=== PATIENT | female | born 1935 | race Caucasian/White ===

== ENCOUNTER 2018-01-17 10:33 | Day surgery (SDC) | payer MEDICARE, SELFPAY ==
[2017-12-27 15:56] VITALS: BMI 25.2
[2018-01-17] VITALS (13 sets, daily range): BP systolic 109–157; BP diastolic 69–94; PULSE 14–85; RESP 12–24; TEMP 36–36.7; O2SAT 92–98; BMI 25.2
--- NOTE | 2018-01-17 11:25 | PM.PREOP ---
Pre-operative Note Interval Note Pre-op Check: History & Physical Reviewed by Physician
[2018-01-17] MEDS: LACTATED RINGERS 1,000 ML 42 ML IV ×2 (11:30→16:43)
[2018-01-17] MEDS: MIDAZOLAM 2 MG/2 ML VIAL IV (12:04)
[2018-01-17] MEDS: fentaNYL 100 MCG/2 ML INJ 50 MCG IV (12:04)
--- NOTE | 2018-01-17 12:10 | PM.OP.1 ---
Operative Date/Time/Diagnoses - Date of procedure: 01/17/18 Time of procedure: 12:30 Pre-op diagnosis: Right closed ankle fracture ICD 10 S82.891A Complication orthopedic implant ICD 10 T84.9 Post-op diagnosis: same Procedure & Clinicians Procedure: 1. Revision procedure right syndesmosis with exchange syndesmotic screw CPT code 42831 modifier 78 2. Removal implant deep right ankle CPT code 24955 Same procedure as scheduled: Yes Indications: Operative indications: The patient has an unstable and displaced right ankle fracture status post ORIF 12/27/17. At postoperative followup the patient's syndesmotic screw was noted to have been loosened and backed out partially. The patient had had a few episodes of putting weight on the ankle, and her daughter states administrative sales assistant did get her up on her feet at the long-term, but she has had no clear falls or new trauma. The patient was indicated for revision syndesmotic fixation, to remove the loose hardware, and stabilize the syndesmosis and prevent late diastasis, and skin irritation. The patient was counseled regarding the rationale for this and the risks of surgery. The risks include infection, bleeding, damage to nerves and blood vessels, or tendons, wound dehiscence, malunion, nonunion, persistence of pain, DVT, PE, inability to return to her desired level of function, hardware breakage or prominence, generalized dissatisfaction with the procedure, need for additional procedures, cardiopulmonary complications and . The patient expressed understanding of all the risks and elected to proceed. Consent was signed in the office. Patient understands that recovery is variable and may require up to a 1 year. The patient also understands that it is critical to strictly elevate the operative leg for the 1st 2 weeks after surgery to control swelling and pain. The patient was counseled that no way will be allowed on the surgical leg for approximately 6 weeks or until the patient is instructed that it is safe to initiate weight-bearing. The patient expressed full understanding of all these issues would like to proceed with surgery. The patient was additionally counseled on cessation of all nicotine products to promote bone and wound healing. DVT prophylaxis was discussed and her Xarelto was held 72 hr prior to the procedure and will restart on postoperative day 1. She will have Ancef for preoperative antibiotic. Surgeon: Ebony Calvo Click Yes if Unassisted: No Anesthesia Type: General and Peripheral nerve block Operative Notes Findings: Lateral incision was reopened at the distal aspect and the prominent and grossly loose 3.5 syndesmotic screw was visualized just under the skin with incision. This was removed without difficulty. The syndesmosis was stabilized with 25.0 osteopenia screws from the Keating [employer] Nephew periloc set Closure Type: primary Specimen(s): none sent Implants & Drains: Keating [employer] Nephew 5.0mm osteopenia screw 50 mm Keating and Nephew 5.0 mm osteopenia screw 44 mm Estimated Blood Loss (mL): 2 Blood products transfused: none Tourniquet time (min): 50 Procedure in detail: Procedure in detail: In the preoperative holding area, the appropriate limb and site was marked, this was the right ankle. The consent was again reviewed with the patient and all questions answered. Patient elected for a preoperative block with the anesthesia team. The patient was then brought to the operating room, placed on the operating table and given anesthetic. Following successful levels of anesthesia, the patient was appropriately padded, position secured to the table, in the supine position with a ipsilateral thigh bump. An SCD was placed on the contralateral leg. All bony prominences were well padded. A well-padded thigh tourniquet was placed. The surgical leg was then prepped and draped in the usual sterile fashion. A formal time-out procedure was completed confirming the patient, site and side of surgery and administration of appropriate preoperative antibiotics. All were in agreement. An Esmarch bandage was utilized to exsanguinate the limb and the tourniquet was raised on the thigh to 250 mmHg. This remained elevated for 50 min. The C-arm was brought in and the hardware visualized. The location of the loose syndesmotic screw was marked and the distal half of the previous Lateral incision was reopened over the fibula. Dissection was carried through the skin and subcutaneous tissue to the level of the fibula. The loose syndesmotic screw was visualized immediately upon skin incision and removed without difficulty. The fibula was felt to be out to length, and the fracture in good alignment on x-ray, therefore the fracture was not re-exposed. The syndesmosis was evaluated clinically and under fluoroscopic imaging. Ankle was stressed under fluoroscopic imaging an external rotation and fibular manipulation using the bone clamp/hook. The syndesmosis was felt to again have supra physiologic motion anterior to posterior, and from the previous operation there was a known rent was noted with open visualization. Syndesmosis was openly visualized, reduced with thumb pressure and pinned parallel to the joint with a 1.6 K-wire, under C-arm visualization. Next a 5.0 mm osteopenia screw from the Keating [employer] Nephew set was selected for quadracortical fixation through the previous syndesmotic screw hole. This obtained a good bite and tightened down well. For additional fixation, due to the patient's osteopenia and previous screw loosening, the next proximal fibula 3.5 screw was removed and exchanged for another Quadracortical 3.5 syndesmotic screw. However even with 4 cortices this did not obtain adequate bite and was spinning with tightening. The 3.5 screw was removed, and a 2nd 5.0 mm osteopenia screw was selected and placed obtaining good fixation/bite. Syndesmosis was then stressed under fluoroscopy and direct visual examination and noted to be stable. The mortise was anatomic. I was happy with this fixation. Final end of procedure imaging was obtained. The wound was irrigated with normal saline. The tourniquet was released hemostasis was achieved and the wound was closed in layers with 3 0 Vicryl and 3-0 nylon suture. A soft sterile dressing was placed and the patient was placed back into a postoperative boot. All counts were correct. The patient was then awoken and transported to recovery room in good condition. There no known immediate complications from this procedure. Complications: none Condition: stable Disposition: Acute Care Plan for aftercare: Postoperative plan: Patient will be nonweightbearing on the surgical leg. They will start taking Xarelto 20 mg daily on postoperative day 1, which will continue her treatment for a known below-knee thrombosis. (she has completed the 1st 3 weeks of b.i.d. dosing). Patient will be admitted to the hospital for evaluation by physical therapy and plan to penitentiary discharge due to her need to be nonweightbearing on the right side and requirements for assistance due to this injury as well as her chronic patellar tendon rupture which further complicates her ambulation. The patient will follow up in 2 week for wound check she will continue to be nonweightbearing on the right lower extremity for 6 weeks.
[2018-01-17] MEDS: CEFAZOLIN 2 GM/100 ML FROZ.PIGGY IV (12:25)
--- NOTE | 2018-01-17 12:30 | DI.RAD.S_ITS ---
PROCEDURE: XR ANKLE RT MIN 3V INDICATIONS: HARDWARE REPAIR TECHNIQUE: 3 views of the ankle were acquired. COMPARISON: [facility], CR, XR ANKLE 3+ VIEWS RIGHT, 01/07/2018, 13:46. [facility], CR, XR ANKLE 3+ VIEWS RIGHT, 01/14/2018, 14:26. [facility], CR, XR ANKLE RT MIN 3V, 12/27/2017, 10:43. FINDINGS: Bones: Partially retracted surgical fixation screw traversing the tibiofibular syndesmosis has been removed and presumed new surgical screw has been placed which appears in expected position. Hardware and bone alignment otherwise appears unchanged. Soft tissues: No tibiotalar joint effusion. Achilles tendon appears normal. IMPRESSION: Presumed removal of partially retracted tibiofibular syndesmotic screw with placement of new syndesmotic screw in expected position. Dictated by: Sourav Shipley [facility] Interpreted: Jose Alejandro Ortega MD on 01/17/2018 at 14:26 Approved by: Jose Alejandro Ortega M.D. on 01/17/2018 at 15:16
--- NOTE | 2018-01-17 13:02 | SUR.OPER ---
Supine on padded OR bed, head on pillow, arms secured on padded arm boards at <90 degrees abduction, legs uncrossed, safety belt at thigh, tape over blanket over lower legs.
[2018-01-17] MEDS: BUPIVACAINE 0.25% (PF) 30 ML VIAL 20 ML INJ (13:39)
--- NOTE | 2018-01-17 14:34 | PM.PNPO.1 ---
Subjective Interval history: Status post revision syndesmosis right ankle for loose screw. Exam Vital Signs (past 8 hours): Vital Signs - 8 hr 01/17/18 11:19 01/17/18 13:48 01/17/18 13:49 Temperature 98.0 F 97.8 F 97.7 F Pulse Rate 70 14 L 84 Respiratory Rate 24 16 12 Blood Pressure 117/79 145/81 H 145/81 H Pulse Oximetry 96 96 95 01/17/18 13:55 01/17/18 14:10 Temperature 97.8 F Pulse Rate 76 76 Respiratory Rate 16 14 Blood Pressure 138/72 H 148/81 H Pulse Oximetry 95 96 Pulse Oximetry 96 Oxygen Delivery Method Room Air Assessment & Plan Post-op Postoperative Procedures Operation Date: 01/17/18 12:30 Actual Procedures Side Surgeon p Revision open reduction internal fixation Syndesmosis with exchange of Syndesmotic Screws Right Ebony Calvo MD Postop day 0 revision syndesmotic screws right ankle. The patient will be nonweightbearing right lower extremity. She will have SCD on the contralateral leg. She will restart her DVT anticoagulation for known below-knee DVT on the right side this will be Xarelto 20 mg daily starting postoperative day 1. She will continue this for 3 months of treatment. She will be discharged back to her snf on postoperative day 1 she is still nonweightbearing on the right side requires assistance for ambulation. She will keep her incision clean dry and intact. The sterile dressing in place until follow-up in the clinic. Use the removable boot for protection. She may come out of the boot several times a day for her ankle range of motion and a skin check. Postoperative pain control will be with her block, local anesthetic and [place] as needed. She will have 2 doses of postoperative antibiotics. Postoperative day: 0 Postoperative plan: other Time Spent With Patient less than 15 minutes
--- NOTE | 2018-01-17 14:40 | P.PN_ITS ---
Subjective Interval history: Status post revision syndesmosis right ankle for loose screw. Exam Vital Signs (past 8 hours): Vital Signs - 8 hr 3 01/17/18 11:19 01/17/18 13:48 01/17/18 13:49 Temperature 98.0 F 97.8 F 97.7 F Pulse Rate 70 14 L 84 Respiratory Rate 24 16 12 Blood Pressure 117/79 145/81 H 145/81 H Pulse Oximetry 96 96 95 3 01/17/18 13:55 01/17/18 14:10 Temperature 97.8 F Pulse Rate 76 76 Respiratory Rate 16 14 Blood Pressure 138/72 H 148/81 H Pulse Oximetry 95 96 Pulse Oximetry 96 Oxygen Delivery Method Room Air Assessment & Plan Post-op Postoperative Procedures Operation Date: 01/17/18 12:30 Actual Procedures Side Surgeon p Revision open reduction internal fixation Syndesmosis with exchange of Syndesmotic Screws Right Ebony Calvo MD Postop day 0 revision syndesmotic screws right ankle. The patient will be nonweightbearing right lower extremity. She will have SCD on the contralateral leg. She will restart her DVT anticoagulation for known below-knee DVT on the right side this will be Xarelto 20 mg daily starting postoperative day 1. She will continue this for 3 months of treatment. She will be discharged back to her snf on postoperative day 1 she is still nonweightbearing on the right side requires assistance for ambulation. She will keep her incision clean dry and intact. The sterile dressing in place until follow-up in the clinic. Use the removable boot for protection. She may come out of the boot several times a day for her ankle range of motion and a skin check. Postoperative pain control will be with her block, local anesthetic and [place] as needed. She will have 2 doses of postoperative antibiotics. Postoperative day: 0 Postoperative plan: other Time Spent With Patient less than 15 minutes
--- NOTE | 2018-01-17 14:58 | SUR.PHASEI ---
1425.. pt awake and alert.. ready for transportt... wants to see her daughter.. boot on.. pain 09/18.. on heel.. dr luciano aware and boot removed and all wnl... nv checks all normal.. pt states it is on the inside.. iv patent.. no nausea.. declines any pain meds at this time
[2018-01-17] MEDS: HYDROCODONE/ACET 5/325 TABLET 1 TAB PO ×2 (19:19→21:40)
[2018-01-17] MEDS: DOCUSATE 100 MG CAPSULE PO (20:37)
[2018-01-17] MEDS: ACETAMINOPHEN 325 MG TABLET 650 MG PO (20:37)
--- NOTE | 2018-01-17 22:54 | PC.NURSE ---
Evening Shift Note A&O, VSS, 96% RA, CMS intact. [place] for pain. No N/V, diet advanced to reg for am. R ankle in boot, can have off while in bed, pt prefers to keep it on, encouraged to remove as needed to assess skin and CMS. R ankle/leg w/ [place] wrap C/D/I. LR @ 42ml/hr via L H PIV.
[2018-01-18] MEDS: HYDROCODONE/ACET 5/325 TABLET 1 TAB PO ×2 (01:33→03:45)
[2018-01-18 04:03] VITALS: BP 136/79; PULSE 60; RESP 15; TEMP 36.4; O2SAT 98
--- NOTE | 2018-01-18 04:18 | PC.NURSE ---
[employer]-Pt A&OX3, has not slept throughout shift. Reporting 4/10 pain to bottom of right foot. Boot taken off at 0045, ice pack X2 placed to lower leg/ankle, RLE elevated on pillows. Dorsal pulse palpable, no edema noted at this time. Cap refill <2 secs, Pt able to move toes. [place] wrap CDI. Pain management plan discussed. Held scheduled Tylenol as pt receiving dosing of prn Benld. Benld given at 0140 1 tab, 4 hours after last dose given. Reviewed MAR & discussed with college scouting coordinator. Additional Benld 1 tab given at 0345 per order to give additional tab as pain was not relieved. Denies nausea, chest pain. VSS, O2 sat 98% on RA. Voiding in bedpan. Calf SCD to LLE. Incentive spirometry instructed and pt able to demonstrate properly. PIV S/L'd.
[2018-01-18 04:57] VITALS: BMI 26.7
--- NOTE | 2018-01-18 07:38 | PM.PNPO.1 ---
Subjective Date Patient Seen: 01/18/18 Time Patient Seen: 07:38 Interval history: Pt in bed. Complaining that she could not get her pain under control all night until 5am. Concerned with pain control and does not feel ready to go back to [facility] today. PD 1. Revision procedure right syndesmosis with exchange syndesmotic screw for Rt ankle fx by Dr. Calvo. Pt also has DVT in Rt leg and is on Zarelto. Exam Vital Signs (past 8 hours): Vital Signs - 8 hr 01/17/18 23:59 01/18/18 04:03 Temperature 97.7 F 97.6 F Pulse Rate 71 60 Respiratory Rate 15 15 Blood Pressure 109/69 136/79 H Pulse Oximetry 92 98 Pulse Oximetry 98 Oxygen Delivery Method Room Air Narrative Exam Narrative: Pt in bed. A&O x3. Right ankle dressing clean and dry. Full sensation in toes and foot. Good cap refill. Calf soft and nontender. Assessment & Plan Post-op Postoperative Procedures Operation Date: 01/17/18 12:30 Actual Procedures Side Surgeon p Revision open reduction internal fixation Syndesmosis with exchange of Syndesmotic Screws Right Ebony Calvo MD Pt will be restarted on Xarelto 20mg daily until 12/28/17. NWB on right leg in boot. Can come our of boot for gentle ROM and skin checks. Keep dressing clean and dry. Pt also needs 2 more doses of cefazolin before d/c. Increase [place] 5mg to 2 pills for pain control. May be able to be D/C this afternoon if pain under control. Postoperative status: marginal pain control Postoperative plan: routine post-op care Time Spent With Patient less than 15 minutes Quality VTE Deep Vein Thrombosis/Pulmonary Embolism Present on Admission: Yes
[2018-01-18 07:56] VITALS: BP 133/73; PULSE 60; RESP 16; TEMP 36.6; O2SAT 97
[2018-01-18] MEDS: RIVAROXABAN 10 MG TABLET 20 MG PO (09:13)
[2018-01-18] MEDS: DOCUSATE 100 MG CAPSULE PO ×2 (09:13→20:17)
[2018-01-18] MEDS: AMLODIPINE 2.5 MG TABLET PO (09:13)
[2018-01-18] MEDS: HYDROCODONE/ACET 5/325 TABLET 2 TAB PO ×2 (09:13→14:39)
[2018-01-18] MEDS: CITALOPRAM 20 MG TABLET PO (09:13)
[2018-01-18] MEDS: SODIUM CHLORIDE 0.9% FLUSH 10 ML IV ×3 (10:23→20:17)
[2018-01-18] MEDS: CEFAZOLIN 2 GM/100 ML FROZ.PIGGY IV ×2 (10:24→16:51)
[2018-01-18 12:00] VITALS: BP 108/61; PULSE 60; RESP 18; TEMP 36.4; O2SAT 98
--- NOTE | 2018-01-18 12:07 | PT.IIE ---
Current Diagnoses Other fracture of right lower leg, initial encounter for closed fracture (01/17/18) Unspecified complication of internal orthopedic prosthetic device, implant and graft, initial encounter (01/17/18) Surgery Performed Operation Date: 01/17/18 12:30 Actual Procedures p Revision open reduction internal fixation Syndesmosis with exchange of Syndesmotic Screws(Right) - Ebony Calvo MD Surgical History (Last Updated 12/23/17 @ 11:06 by Amanda Griffiths RN) History of incision and drainage (Acute) Hx of elbow surgery (Acute) Hx of total knee arthroplasty (Acute) Medical History (Last Updated 01/18/18 @ 07:42 by Carmina Mayo PA-C) Closed fracture of right distal fibula (Acute) Anemia, iron deficiency (Acute) Ankle fracture, right (Acute) Blood clot in vein (Acute) Cardiomegaly (Acute) Cellulitis (Acute) Hammer toe, acquired (Acute) History of hip fracture (Acute) 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) Hypertension (Acute) Muscle weakness (Acute) Osteoarthritis (Acute) Pneumonia (Acute) Thyroid nodule (Acute) Physical Therapy Inpatient Evaluation/Re-Eval M1 PT/OT-IP Prior Functional Status Start: 01/18/18 11:52 Freq: NEEDED Status: Active Protocol: Document 01/18/18 11:53 AB (Rec: 01/18/18 12:06 AB [id number]) Medical Review Prior Functional Status Medical History Reviewed Yes Mobility and Gait prior to ankle fracture: pt was modified independent with ambulation using 4WW prior to ankle ORIF revision: at [facility]: flora to do slide board transfer with one person assist Social History Household Members family children Living Arrangements House Number of Floors (Floors) 3 or More Floors Number of Stairs To Enter/Railing? split level house: has ~ 10 steps with bilateral rails but has a gravel pathway to get in from the garage: has 7 steps with no rails +platform+7 steps with R rail Home Environment High Toilet Home Equipment Four Wheel Walker Manual Wheelchair Shower Seat without Backrest Grab Bars Near Toilet Grab Bars In Shower Employment Status Retired Additional Social History Comment pt's daughter assists her with stair climbing and showers M2 PT-IP Current Condition Start: 01/18/18 11:52 Freq: NEEDED Status: Active Protocol: Document 01/18/18 11:53 AB (Rec: 01/18/18 12:06 AB [id number]) Physical Therapy Current Condition Current Condition Evaluation Date 01/18/18 Treatment Diagnosis R ankle ORIF revision; difficulty in walking Onset Date 01/17/18 Precautions Brace pt has cam boot brace present upon evaluation Weight Bearing Status Weight Bearing Status Non-Weight Bearing M3 PT-IP Subjective Start: 01/18/18 11:52 Freq: NEEDED Status: Active Protocol: Document 01/18/18 11:53 AB (Rec: 01/18/18 12:06 AB [id number]) Subjective Physical Therapy Visit Type Type Initial Evaluation Visit Start Time 11:02 Visit Stop Time 11:50 Total Visit Minutes 48 Number of HAND KNITTER Visits 0 Physical Therapy Visit Comments Patient Comments pt agreeable to do therapy Therapy Pain Assessment Pain When Pain Assessed During Mobility Pain Present Pain Present Pain Reported Location Right Ankle Intensity 7 Scale Used Numeric (1 - 10) Pain Management Techniques Apply Cold Timing of Activity with Medications M4 PT-IP Mobility and Gait Start: 01/18/18 11:52 Freq: NEEDED Status: Active Protocol: Document 01/18/18 11:53 AB (Rec: 01/18/18 12:06 AB [id number]) PT-Bed Mobility Assessment Supine to Sit Supine to Sit Minimal Assistance PT-Transfer Assessment Sit to and From Stand Sit to and from Stand Maximum Assistance 2 Person Assistance Use of Upper Extremities Equipment Transfer Assistive Device Gait Belt Front Wheeled Walker Orthotic/Prosthetic Devices or Brace: Yes Transfers Transfer Destination Chair Transfer Technique Stand Pivot Transfer Ability Level of Assist Maximum Assistance 2 Person Assistance Use of Upper Extremities Comments Mobility Comments pt require 2-3 person max A with max cues for stand pivot transfer. pt with decrease motor planning ability affecting function. pt requires assistance to keep NWB on RLE. Gait Assessment Comments Gait Comments unable to ambulate at this time PT-Balance Assessment Sitting Balance and Reactions Static Sitting Balance Ability Good Dynamic Sitting Balance Ability Good Standing Balance and Reactions Static Standing Balance Ability Fair Dynamic Standing Balance Ability Poor M5 PT-IP Objective Assessments Start: 01/18/18 11:52 Freq: NEEDED Status: Active Protocol: Document 01/18/18 11:53 AB (Rec: 01/18/18 12:06 AB [id number]) Orientation Orientation/Cognition Level of Alertness Alert Orientation Name Situation Safety Awareness Decreased Safety Awareness Memory Description Short Term Impaired Mcc Impaired Strength Lower Extremity Strength Assessment Bilaterally Impaired Comments Strength Comments (+) L knee crepitus with sit to stand M6 PT-IP Treatment Start: 01/18/18 11:52 Freq: NEEDED Status: Active Protocol: Document 01/18/18 11:53 AB (Rec: 01/18/18 12:06 AB [id number]) Physical Therapy Treatment Education Education Provided Precautions Weight Bearing Status Safety M7 PT-IP Assessment and Plan Start: 01/18/18 11:52 Freq: NEEDED Status: Active Protocol: Document 01/18/18 11:53 AB (Rec: 01/18/18 12:06 AB [id number]) PT Summary Assessment and Plan Potential Rehabilitation Potential Fair Status of Condition at Evaluation Stable Summary Impairments Pain ROM Strength Balance Coordination Sensation Cognition Bed Mobility Transfers Gait Activity Tolerance Assessment Summary pt requires 2-3 person max A for stand pivot transfer with max cues. pt will need continued SNF rehab to improve mobility and function prior to d/c home. Goals Bed Mobility Goal Standby Assistance Transfer Goal Moderate Assistance Gait Goal Moderate Assistance Gait Distance 30 Days to Meet Goals 3 Frequency of Treatment Frequency Of Treatment Twice a Day Treatment Plan Physical Therapy Treatment Plan Bed Mobility Training Transfer Training Gait Training Therapeutic Exercise Balance Retraining Post Op Education Discharge Planning Hot or Cold Pack Neuromuscular Re-ed Coordination Retraining Manual Therapy Other Recommendations and Next Treatment sit<>stand, standing bal/abelardo Focus with RLE NWB; transfers Recommendations To Nursing Amount of Assist Needed 3 or More Person Assist PT/OT Assist Only Mechanical Lift Discharge Recommendations PT Discharge Recommendations SNF Rehab Provider Visit Care Team Role Provider Type Jhony Rosales MD Primary Care Provider Non-Staff Specialty: Medical Мария Leone Family Provider Non-Staff Specialty: Medical Ebony Calvo MD Attending Provider Physician Specialty: Orthopedic Surgery
--- NOTE | 2018-01-18 14:35 | CM.DANOTE ---
DCP Assessment Patient is an 82 year old female who is a Readmit on 01/17/18 for Revision ORIF Right Syndesmosis. Pt has MCR and AARP for insurance and her PCP is Dr. Rosales. EMR was reviewed. Per MD, pt may be stable for d/c back to SNF tomorrow if stable. Per PT, recommending return to SNF at d/c. SW met with pt and adult Dtr bedside and they confirmed that pt recently discharged from [facility] to [facility] rehab and pt was admitted from [facility] and preference would be to return via facility van at discharge before safe return home. SW called [facility] admissions Nae and confirmed that they can accept the pt back at d/c without a new 3 night qualifying stay and without the need for PASRR. Plan: SW to follow for pt return to [facility] rehab at d/c before safe return home. ALEJANDRA Mercado
--- NOTE | 2018-01-18 15:25 | CM.DANOTE ---
Discharge Planning/Care Management CM Discharge Assessment Start: 01/18/18 14:32 Freq: Status: Active Protocol: Document 01/18/18 14:32 BF (Rec: 01/18/18 14:39 BF [id number]) Discharge Planning Assessment Assigned Local Company Hazmat Driver Ladan History Provided By Patient Family Member Has Patient been admitted in last 30 Yes days? Is this patient on Medicare? Yes Is the admit diagnosis the same? Yes Prior Living Arrangements House Household Members family children Type of transporation used prior to Drives own vehicle admit Facility Name [facility] Willing to Return to Facility? Yes Independent with ADL's Yes Is patient alert and oriented? Yes Caregiver for Another No Patient Discharge Plan Description Long-Term Facility Referrals Initiated Long-Term Comment [facility] is the preference, hx of [facility] in 2017 Discharge Plan Long-Term Facility Transportation Arrangement If [facility], facility will transport via w/c van If patient plan is SNF: Has PASSR been No: No PASRR needed to return completed? If Pt is MCR-Have 3 Inpt. midnights been No: Pt already has qualifying confirmed with UR? stay from previous hospitalization Review Status In Process Next Review Type Discharge Review 01/18/18 14:35 CM Disch. Assessment Note by Ladan Collins DCJorge A Assessment Patient is an 82 year old female who is a Readmit on 01/17/18 for Revision ORIF Right Syndesmosis. Pt has MCR and AARP for insurance and her PCP is Dr. Rosales. EMR was reviewed. Per MD, pt may be stable for d/c back to SNF tomorrow if stable. Per PT, recommending return to SNF at d/c. SW met with pt and adult Dtr bedside and they confirmed that pt recently discharged from [facility] to [facility] rehab and pt was admitted from [facility] and preference would be to return via facility van at discharge before safe return home. SW called [facility] admissions Nae and confirmed that they can accept the pt back at d/c without a new 3 night qualifying stay and without the need for PASRR. Plan: SW to follow for pt return to [facility] rehab at d/c before safe return home. ALEJANDRA Mercado Initialized on 01/18/18 14:35 - END OF NOTE
[2018-01-18 15:50] VITALS: BP 115/65; PULSE 53; RESP 17; TEMP 36.4; O2SAT 98
--- NOTE | 2018-01-18 17:26 | PT.IPTN ---
Current Diagnoses Other fracture of right lower leg, initial encounter for closed fracture (01/17/18) Unspecified complication of internal orthopedic prosthetic device, implant and graft, initial encounter (01/17/18) Surgery Performed Operation Date: 01/17/18 12:30 Actual Procedures p Revision open reduction internal fixation Syndesmosis with exchange of Syndesmotic Screws(Right) - Ebony Calvo MD Physical Therapy Treatment Note M2 PT-IP Current Condition Start: 01/18/18 11:52 Freq: NEEDED Status: Active Protocol: Document 01/18/18 11:53 AB (Rec: 01/18/18 12:06 AB [id number]) Physical Therapy Current Condition Current Condition Evaluation Date 01/18/18 Treatment Diagnosis R ankle ORIF revision; difficulty in walking Onset Date 01/17/18 Precautions Brace pt has cam boot brace present upon evaluation Weight Bearing Status Weight Bearing Status Non-Weight Bearing M3 PT-IP Subjective Start: 01/18/18 11:52 Freq: NEEDED Status: Active Protocol: Document 01/18/18 17:19 AB (Rec: 01/18/18 17:26 AB [id number]) Subjective Physical Therapy Visit Type Type Treatment Note Visit Start Time 15:50 Visit Stop Time 16:27 Total Visit Minutes 37 Number of PLASTIC PARTS FABRICATOR Visits 0 Physical Therapy Visit Comments Patient Comments pt agreeable to do therapy Therapy Pain Assessment Pain When Pain Assessed During Mobility Pain Present Pain Present Pain Reported Location Right Ankle Intensity 7 Scale Used Numeric (1 - 10) Pain Management Techniques Apply Cold Timing of Activity with Medications M4 PT-IP Mobility and Gait Start: 01/18/18 11:52 Freq: NEEDED Status: Active Protocol: Document 01/18/18 17:19 AB (Rec: 01/18/18 17:26 AB [id number]) PT-Bed Mobility Assessment Supine to Sit Supine to Sit Standby Assistance PT-Transfer Assessment Sit to and From Stand Sit to and from Stand Maximum Assistance Equipment Transfer Assistive Device Sliding Board Orthotic/Prosthetic Devices or Brace: Yes Transfers Transfer Destination Chair Transfer Technique Lateral Scoot Transfer Ability Level of Assist Moderate Assistance Comments Mobility Comments requires mod A to keep NWB on RLE and max cues for instructions. Pt also completed sit <>stand x 5 reps max A and max cues for techniques. pt required max A to maintain NWB on RLE. M5 PT-IP Objective Assessments Start: 01/18/18 11:52 Freq: NEEDED Status: Active Protocol: Document 01/18/18 11:53 AB (Rec: 01/18/18 12:06 AB [id number]) Orientation Orientation/Cognition Level of Alertness Alert Orientation Name Situation Safety Awareness Decreased Safety Awareness Memory Description Short Term Impaired Textile Designer Impaired Strength Lower Extremity Strength Assessment Bilaterally Impaired Comments Strength Comments (+) L knee crepitus with sit to stand M6 PT-IP Treatment Start: 01/18/18 11:52 Freq: NEEDED Status: Active Protocol: Document 01/18/18 11:53 AB (Rec: 01/18/18 12:06 AB [id number]) Physical Therapy Treatment Education Education Provided Precautions Weight Bearing Status Safety M7 PT-IP Assessment and Plan Start: 01/18/18 11:52 Freq: NEEDED Status: Active Protocol: Document 01/18/18 17:19 AB (Rec: 01/18/18 17:26 AB [id number]) PT Summary Assessment and Plan Potential Rehabilitation Potential Fair Summary Impairments Pain ROM Strength Balance Coordination Sensation Cognition Bed Mobility Transfers Gait Activity Tolerance Progress Towards Goals Slow Progress due to Pain Slow Progress due to Medical Issues Assessment Summary pt continues to require extensive assist with mobility and max cues with all tasks. pt with decrease motor planning and requires step by step instructions. pt will rqeuire SNF rehab. Goals Bed Mobility Goal Standby Assistance Transfer Goal Moderate Assistance Gait Goal Moderate Assistance Gait Distance 30 Days to Meet Goals 3 Frequency of Treatment Frequency Of Treatment Twice a Day Treatment Plan Physical Therapy Treatment Plan Bed Mobility Training Transfer Training Gait Training Therapeutic Exercise Balance Retraining Post Op Education Discharge Planning Hot or Cold Pack Neuromuscular Re-ed Coordination Retraining Manual Therapy Other Recommendations and Next Treatment sit<>stand, standing bal/abelardo Focus with RLE NWB; transfers Recommendations To Nursing Amount of Assist Needed 3 or More Person Assist PT/OT Assist Only Mechanical Lift Discharge Recommendations PT Discharge Recommendations SNF Rehab
[2018-01-18 20:00] VITALS: BP 133/76; PULSE 57; RESP 18; TEMP 36.2; O2SAT 95
[2018-01-19 00:03] VITALS: BP 120/69; PULSE 55; RESP 16; TEMP 36.4; O2SAT 95
[2018-01-19] MEDS: HYDROCODONE/ACET 5/325 TABLET 1 TAB PO (03:42)
[2018-01-19 05:01] VITALS: BP 128/73; PULSE 55; RESP 18; TEMP 36.4; O2SAT 94
[2018-01-19] MEDS: ACETAMINOPHEN 325 MG TABLET 650 MG PO (06:43)
[2018-01-19] MEDS: DOCUSATE 100 MG CAPSULE PO (07:55)
[2018-01-19] MEDS: AMLODIPINE 2.5 MG TABLET PO (07:55)
[2018-01-19] MEDS: RIVAROXABAN 10 MG TABLET 20 MG PO (07:55)
[2018-01-19] MEDS: SODIUM CHLORIDE 0.9% FLUSH 10 ML IV (07:55)
[2018-01-19] MEDS: CITALOPRAM 20 MG TABLET PO (07:55)
[2018-01-19 08:07] VITALS: BP 127/70; PULSE 67; RESP 14; TEMP 36.2; O2SAT 97
--- NOTE | 2018-01-19 09:22 | PM.DS.1 ---
History of Present Illness Chief complaint: [id number] REVISION ORIF RIGHT SYNDESMOSIS Discharge Providers Primary care physician: Jhony Rosales MD Consults: 01/17/18 14:51 Consult to Discharge Planning Routine Comment: Consult to Discharge Planning Routine Comment: needs to do back to her SNF POD 1 please Consult to Physical Therapy Evaluate & Treat Comment: only if requires new assessment before SNF, NWB R Physician Instructions: Evaluate and Treat Consult to Respiratory Therapy Evaluate & Treat Comment: Physician Instructions: Evaluate and treat Discharge provider: Beth Ho PA-C Exam Vital Signs (past 8 hours): Vital Signs - 8 hr 01/19/18 05:01 01/19/18 08:07 Temperature 97.6 F 97.2 F L Pulse Rate 55 L 67 Respiratory Rate 18 14 Blood Pressure 128/73 H 127/70 H Pulse Oximetry 94 97 Pulse Oximetry 97 Oxygen Delivery Method Room Air Oxygen Flow Rate 0 Discharge Plan Discharge Plan Patient Disposition: SNF Transfer to: [facility] Under care of provider: Facility MD Transportation: Facility vehicle Consult as needed: Dental, Hearing, Mental health, Podiatry and Vision Discharge comment: DC to [facility] today I certify the postop hospital correction care is medically necessary on a continuing basis for any conditions for which he/ she received care during this hospitalization.: Yes The receiving facility has agreed to accept transfer and provide medical treatment.: Yes Discharge Med Rec/Prescriptions Prescriptions: New hydrocodone-acetaminophen 5-325 mg Tablet 2 tab PO Q4HR PRN (Reason: Pain, Severe) Qty: 60 RF: 0 docusate sodium 100 mg Capsule 100 mg PO BID PRN (Reason: Constipation) Qty: 30 RF: 0 Continue calcium carbonate [Tums E-X] 300 MG tablet,chewable 300 mg PO QAM Qty: 0 RF: 0 omeprazole 10 MG capsule,delayed release(DR/EC) 20 mg PO QAM Qty: 0 RF: 0 citalopram 20 mg Tablet 20 mg PO DAILY RF: 0 triamcinolone acetonide 0.1 % Ointment 1 applic TOPICAL PRN PRN (Reason: Rash) RF: 0 amlodipine 2.5 mg tablet 2.5 mg PO QAM RF: 0 acetaminophen 325 mg Tablet 650 mg PO Q6HR Qty: 30 RF: 0 docusate sodium 100 mg Capsule 100 mg PO BID Qty: 30 RF: 0 rivaroxaban [Xarelto] 20 mg tablet 20 mg PO DAILY Qty: 30 RF: 0 Discontinued hydrocodone-acetaminophen 5-325 mg Tablet 1 tab PO Q4HR PRN (Reason: Pain, Moderate) Qty: 30 RF: 0 rivaroxaban [Xarelto] 10 mg Tablet 15 mg PO BIDWM Qty: 36 RF: 0 Follow up/Referrals: Ebony Calvo MD [Physician] - (Follow-up appointment is scheduled for January 28, 2018 at 1:20 p.m.) Jhony Rosales MD [Primary Care Provider] - Discharge Orders: Discharge (Order); Ordered 01/19/18 Ordered By: Beth Ho Discharge Health Status Brief summary of current health status: Patient has known DVT continue Xarelto. She needs to be nonweightbearing on the right to protect the ORIF of the fracture and wearing her boot. She should keep the dressing clean and dry, and come out of the boot a few times a day for gentle range of motion and skin checks. Multidrug resistant organism: No MDRO Provider Discharge Instructions Diet: Regular Liquid consistency: Normal/Thin Food texture: Regular Activity: Nonweightbearing right lower extremity. Keep dressing in place clean dry and intact. May remove boot a few times a day for ankle range of motion and a skin check. Cold/Heat Therapy: Ice as tolerated Wound Care Report to your healthcare provider any signs of infection, such as:: chills, fever and increased pain Dressing: Please keep dressing intact, and clean and dry Special Rehabilitation Services Reason for rehabilitation: Post-operative therapy Rehab type: Physical therapy and Occupational therapy Restrictions to mobility: Nonweightbearing Visit Report/Discharge Packet Instructions: DI for Open Reduction Internal Fixation Surgery Discharge Data Primary Care Provider: Jhony Rosales Attending Provider: Ebony Calvo Quality VTE Deep Vein Thrombosis/Pulmonary Embolism Present on Admission: Yes
--- NOTE | 2018-01-19 09:39 | P.DS_ITS ---
History of Present Illness Chief complaint: [id number] REVISION ORIF RIGHT SYNDESMOSIS Discharge Providers Primary care physician: Jhony Rosales MD Consults: 01/17/18 14:51 Consult to Discharge Planning Routine Comment: Consult to Discharge Planning Routine Comment: needs to do back to her SNF POD 1 please Consult to Physical Therapy Evaluate & Treat Comment: only if requires new assessment before SNF, NWB R Physician Instructions: Evaluate and Treat Consult to Respiratory Therapy Evaluate & Treat Comment: Physician Instructions: Evaluate and treat Discharge provider: Beth Ho PA-C Exam Vital Signs (past 8 hours): Vital Signs - 8 hr 3 01/19/18 05:01 01/19/18 08:07 Temperature 97.6 F 97.2 F L Pulse Rate 55 L 67 Respiratory Rate 18 14 Blood Pressure 128/73 H 127/70 H Pulse Oximetry 94 97 Pulse Oximetry 97 Oxygen Delivery Method Room Air Oxygen Flow Rate 0 Discharge Plan Discharge Plan Patient Disposition: SNF Transfer to: [facility] Under care of provider: Facility Transportation: Facility vehicle Consult as needed: Dental, Hearing, Mental health, Podiatry and Vision Discharge comment: DC to [facility] today I certify the postop hospital senior care care is medically necessary on a continuing basis for any conditions for which he/ she received care during this hospitalization.: Yes The receiving facility has agreed to accept transfer and provide medical treatment.: Yes Discharge Med Rec/Prescriptions Prescriptions: New hydrocodone-acetaminophen 5-325 mg Tablet 2 tab PO Q4HR PRN (Reason: Pain, Severe) Qty: 60 RF: 0 docusate sodium 100 mg Capsule 100 mg PO BID PRN (Reason: Constipation) Qty: 30 RF: 0 Continue calcium carbonate [Tums E-X] 300 MG tablet,chewable 300 mg PO QAM Qty: 0 RF: 0 omeprazole 10 MG capsule,delayed release(DR/EC) 20 mg PO QAM Qty: 0 RF: 0 citalopram 20 mg Tablet 20 mg PO DAILY RF: 0 triamcinolone acetonide 0.1 % Ointment 1 applic TOPICAL PRN PRN (Reason: Rash) RF: 0 amlodipine 2.5 mg tablet 2.5 mg PO QAM RF: 0 acetaminophen 325 mg Tablet 650 mg PO Q6HR Qty: 30 RF: 0 docusate sodium 100 mg Capsule 100 mg PO BID Qty: 30 RF: 0 rivaroxaban [Xarelto] 20 mg tablet 20 mg PO DAILY Qty: 30 RF: 0 Discontinued hydrocodone-acetaminophen 5-325 mg Tablet 1 tab PO Q4HR PRN (Reason: Pain, Moderate) Qty: 30 RF: 0 rivaroxaban [Xarelto] 10 mg Tablet 15 mg PO BIDWM Qty: 36 RF: 0 Follow up/Referrals: Ebony Calvo MD [Physician] - (Follow-up appointment is scheduled for January 28, 2018 at 1:20 p.m.) Jhony Rosales MD [Primary Care Provider] - Discharge Orders: Discharge (Order); Ordered 01/19/18 Ordered By: Beth Ho Discharge Health Status Brief summary of current health status: Patient has known DVT continue Xarelto. She needs to be nonweightbearing on the right to protect the ORIF of the fracture and wearing her boot. She should keep the dressing clean and dry, and come out of the boot a few times a day for gentle range of motion and skin checks. Multidrug resistant organism: No MDRO Provider Discharge Instructions Diet: Regular Liquid consistency: Normal/Thin Food texture: Regular Activity: Nonweightbearing right lower extremity. Keep dressing in place clean dry and intact. May remove boot a few times a day for ankle range of motion and a skin check. Cold/Heat Therapy: Ice as tolerated Wound Care Report to your healthcare provider any signs of infection, such as:: chills, fever and increased pain Dressing: Please keep dressing intact, and clean and dry Special Rehabilitation Services Reason for rehabilitation: Post-operative therapy Rehab type: Physical therapy and Occupational therapy Restrictions to mobility: Nonweightbearing Visit Report/Discharge Packet Instructions: DI for Open Reduction Internal Fixation Surgery Discharge Data Primary Care Provider: Jhony Rosales Attending Provider: Ebony Calvo Quality VTE Deep Vein Thrombosis/Pulmonary Embolism Present on Admission: Yes
--- NOTE | 2018-01-19 09:45 | PT.IPTN ---
Current Diagnoses Other fracture of right lower leg, initial encounter for closed fracture (01/17/18) Unspecified complication of internal orthopedic prosthetic device, implant and graft, initial encounter (01/17/18) Surgery Performed Operation Date: 01/17/18 12:30 Actual Procedures p Revision open reduction internal fixation Syndesmosis with exchange of Syndesmotic Screws(Right) - Ebony Calvo MD Physical Therapy Treatment Note M2 PT-IP Current Condition Start: 01/18/18 11:52 Freq: NEEDED Status: Active Protocol: Document 01/18/18 11:53 AB (Rec: 01/18/18 12:06 AB [id number]) Physical Therapy Current Condition Current Condition Evaluation Date 01/18/18 Treatment Diagnosis R ankle ORIF revision; difficulty in walking Onset Date 01/17/18 Precautions Brace pt has cam boot brace present upon evaluation Weight Bearing Status Weight Bearing Status Non-Weight Bearing M3 PT-IP Subjective Start: 01/18/18 11:52 Freq: NEEDED Status: Active Protocol: Document 01/19/18 09:45 GGD (Rec: 01/19/18 12:13 GGD [id number]) Subjective Physical Therapy Visit Type Type Treatment Note Visit Start Time 09:15 Visit Stop Time 09:45 Total Visit Minutes 30 Number of TOOL GRINDER Visits 1 Physical Therapy Visit Comments Patient Comments Pt willing to get up. Therapy Pain Assessment Pain When Pain Assessed During Mobility Pain Present Pain Present Pain Reported M4 PT-IP Mobility and Gait Start: 01/18/18 11:52 Freq: NEEDED Status: Active Protocol: Document 01/19/18 09:45 GGD (Rec: 01/19/18 12:13 GGD [id number]) PT-Bed Mobility Assessment Supine to Sit Supine to Sit Standby Assistance PT-Transfer Assessment Sit to and From Stand Sit to and from Stand Maximum Assistance Equipment Transfer Assistive Device Gait Belt Transfers Transfer Destination Chair Transfer Technique Stand Pivot Transfer Ability Level of Assist Moderate Assistance 1 Person Assistance Comments Mobility Comments Sit to stand from bed x 5 with mod a and cues for NWB. Pt unable to keep NWB for transfer with FWW. Protocol: Document 01/19/18 09:45 GGD (Rec: 01/19/18 12:13 GGD [id number]) PT Summary Assessment and Plan Summary Assessment Summary Pt improving with sit to stand and staying NWB. She unable to use UE for functional or transfer steps. Frequency of Treatment Frequency Of Treatment Twice a Day Treatment Plan Other Recommendations and Next Treatment sit<>stand, standing bal/abelardo Focus with RLE NWB; transfers Recommendations To Nursing Amount of Assist Needed Mechanical Lift Discharge Recommendations PT Discharge Recommendations SNF Rehab
--- NOTE | 2018-01-19 10:22 | CM.DPC ---
DCP Discharge to SNF Per MD, pt is medically stable to d/c back to SNF today. SW met with pt and Dtr and they have some concerns regarding pain management but agreeable to d/c back to [facility] this afternoon. SW called [facility] Nae and updated on d/c orders for today and she confirmed they can provide transport via w/c van at 1400. MARTINE updated pt and Dtr and RN. RIVERA Diaz kindly willing to fax pt's d/c packet to [facility] when available. Plan: Patient to d/c to [facility] today via w/c van at 1400. ALEJANDRA Mercado
[2018-01-19] MEDS: HYDROCODONE/ACET 5/325 TABLET 2 TAB PO (10:52)
--- NOTE | 2018-01-19 13:37 | PT.IPTN ---
Current Diagnoses Other fracture of right lower leg, initial encounter for closed fracture (01/17/18) Unspecified complication of internal orthopedic prosthetic device, implant and graft, initial encounter (01/17/18) Surgery Performed Operation Date: 01/17/18 12:30 Actual Procedures p Revision open reduction internal fixation Syndesmosis with exchange of Syndesmotic Screws(Right) - Ebony Calvo MD Physical Therapy Treatment Note M2 PT-IP Current Condition Start: 01/18/18 11:52 Freq: NEEDED Status: Active Protocol: Document 01/19/18 10:15 RCC (Rec: 01/19/18 13:37 RCC [id number]) Physical Therapy Current Condition Current Condition Evaluation Date 01/18/18 Treatment Diagnosis R ankle ORIF revision; difficulty in walking Onset Date 01/17/18 Precautions Brace pt has cam boot brace present upon evaluation Weight Bearing Status Weight Bearing Status Non-Weight Bearing M3 PT-IP Subjective Start: 01/18/18 11:52 Freq: NEEDED Status: Active Protocol: Document 01/19/18 10:15 RCC (Rec: 01/19/18 13:37 RCC [email or web address]) Subjective Physical Therapy Visit Type Type Treatment Note Visit Start Time 10:00 Visit Stop Time 10:15 Total Visit Minutes 15 Number of WIRE RIGGER Visits 0 Physical Therapy Visit Comments Patient Comments Pt ready to get back to bed, daughter at bedside. M4 PT-IP Mobility and Gait Start: 01/18/18 11:52 Freq: NEEDED Status: Active Protocol: Document 01/19/18 10:15 RCC (Rec: 01/19/18 13:37 RCC [id number]) PT-Bed Mobility Assessment Sit to Supine Sit to Supine Maximum Assistance 2 Person Assistance Scooting Scooting to Edge of Bed Contact Guard Assistance PT-Transfer Assessment Sit to and From Stand Sit to and from Stand Moderate Assistance 2 Person Assistance Equipment Transfer Assistive Device Front Wheeled Walker Transfers Transfer Destination Bed Transfer Technique Stand Pivot Transfer Ability Level of Assist Moderate Assistance 2 Person Assistance Comments Mobility Comments VC for NWB RLE. PT-Balance Assessment Sitting Balance and Reactions Static Sitting Balance Ability Good Dynamic Sitting Balance Ability Good Standing Balance and Reactions Static Standing Balance Ability Fair Dynamic Standing Balance Ability Poor Device Used FWW M5 PT-IP Objective Assessments Start: 01/18/18 11:52 Freq: NEEDED Status: Active Protocol: Document 06/12/18 11:53 AB (Rec: 01/18/18 12:06 AB [id number]) Orientation Orientation/Cognition Level of Alertness Alert Orientation Name Situation Safety Awareness Decreased Safety Awareness Memory Description Short Term Impaired Shelter Impaired Strength Lower Extremity Strength Assessment Bilaterally Impaired Comments Strength Comments (+) L knee crepitus with sit to stand M6 PT-IP Treatment Start: 01/18/18 11:52 Freq: NEEDED Status: Active Protocol: Document 01/18/18 11:53 AB (Rec: 01/18/18 12:06 AB [id number]) Physical Therapy Treatment Education Education Provided Precautions Weight Bearing Status Safety M7 PT-IP Assessment and Plan Start: 01/18/18 11:52 Freq: NEEDED Status: Active Protocol: Document 01/19/18 10:15 RCC (Rec: 01/19/18 13:37 RCC [id number]) PT Summary Assessment and Plan Summary Impairments ROM Strength Balance Bed Mobility Transfers Gait Activity Tolerance Assessment Summary Pt requires 2 assist to get back to bed from a chair, and continues to require reminders verbally for RLE NWB. Pt is not safe to return to home living situation and will require SNF rehabilitation upon d/c to promote a safe d/c and to continue to progress with functional independence. Goals Bed Mobility Goal Standby Assistance Transfer Goal Moderate Assistance Gait Goal Moderate Assistance Gait Distance 30 Days to Meet Goals 3 Frequency of Treatment Frequency Of Treatment Twice a Day Treatment Plan Other Recommendations and Next Treatment sit<>stand, standing bal/abelardo Focus with RLE NWB; transfers Recommendations To Nursing Amount of Assist Needed Mechanical Lift Discharge Recommendations PT Discharge Recommendations SNF Rehab
[2018-01-19 14:00] VITALS: BP 140/82; PULSE 62; RESP 18; TEMP 36.7; O2SAT 96
--- NOTE | 2018-01-19 14:06 | PC.NURSE ---
Called report to Nae COLÓN at [facility] and gave full report. No further questions. [facility] personnel are here to take the Pt and have the Packet. Daughter is present and will be coming over to SNF. Belongings are sent with Pt.
== END 2018-01-19 14:33 ==
LOC: OR 13:25 → AC 14:28
PROVIDERS: Family Provider Nurse Practitioner Family; PCP Family Medicine; Visit Provider Orthopaedic Surgery Foot and Ankle Surgery
PROC: 0SSF04Z Reposition Right Ankle Joint with Internal Fixation Device, Open Approach (ICD-10-PCS; CPT 27829; principal; 2018-01-17 12:30)
DX: T84.126A Displacement of internal fixation device of bone of right lower leg, initial encounter (principal); S82.891A Other fracture of right lower leg, initial encounter for closed fracture; M19.90 Unspecified osteoarthritis, unspecified site
CPT/HCPCS: 27829; 36592; 73610; 76001; 97161; 97530; J0690; J1100; J2250; J2405; J2704; J2795; J3010

== ENCOUNTER 2018-02-19 17:22 | Emergency (ER) | payer MEDICARE, SELFPAY ==
[2018-02-19 17:37] VITALS: BP 143/77; PULSE 61; RESP 13; TEMP 36.5; O2SAT 98
--- NOTE | 2018-02-19 18:26 | ED_ITS ---
HPI - Skin/Abscess/Foreign Bdy <Amanda Gray PA-C - Last Filed: 02/19/18 20:25> General Chief complaint: Skin/Abscess/Foreign Body Stated complaint: RT FOOT SWOLLEN,RED STATES CELLULITIS Time Seen by Provider: 02/19/18 18:26 Source: patient and family Mode of arrival: wheelchair Limitations: no limitations History of Present Illness HPI narrative: This 82-year-old female had fixation of an ankle fracture about a month ago. She has been in rehabilitation since then. She has had some ongoing problems with cracking and flaking and some redness mostly on her right inferior toes and the distal foot, however that has acutely worsened today and she has also had some redness on the top of her foot. Her daughter states that she is concerned there has been a lot of moisture exposure, patient being left with her foot in a damp walking boot, etc. Patient states that her foot has been somewhat itchy, not acutely painful. She has not had any new fever or other symptoms today. Daughter brought pictures of what it looked like earlier. Not having any difficulty with the surgical wound site Related Data Home Medications Medication Instructions Recorded Confirmed calcium carbonate [Tums E-X] 300 mg PO QAM #0 05/24/17 01/17/18 omeprazole 20 mg PO QAM #0 05/24/17 01/17/18 amlodipine 2.5 mg PO QAM 12/23/17 01/17/18 citalopram 20 mg PO DAILY 12/23/17 01/17/18 triamcinolone acetonide 1 applic TOPICAL PRN PRN 12/23/17 01/17/18 Previous Rx's Medication Instructions Recorded acetaminophen 650 mg PO Q6HR #30 tab 12/30/17 docusate sodium 100 mg PO BID #30 cap 12/30/17 docusate sodium 100 mg PO BID PRN #30 cap 01/19/18 hydrocodone-acetaminophen 2 tab PO Q4HR PRN #60 tab 01/19/18 rivaroxaban [Xarelto] 20 mg PO DAILY #30 tab 01/19/18 cephalexin [Keflex] 500 mg PO Q6H 7 Days #28 cap 02/19/18 Allergies Allergy/AdvReac Type Severity Reaction Status Date / Time Sulfa (Sulfonamide Allergy Intermediate Hives Verified 12/27/17 20:04 Antibiotics) codeine [CODEINE] Allergy Mild nausea Verified 12/27/17 12:20 iodine [IODINE] Allergy Mild breaks out Verified 12/27/17 12:20 skin Review of Systems <Amanda Gray PA-C - Last Filed: 02/19/18 20:25> Review of Systems All systems reviewed & are unremarkable except as noted in HPI and below Exam <Amanda Gray PA-C - Last Filed: 02/19/18 20:25> Narrative Exam Narrative: GENERAL APPEARANCE: Patient sitting comfortably, in no distress. LUNGS: Clear to auscultation bilaterally. HEART: Rate and rhythm regular with I/ systolic murmur, normal S1 and S2, no S3 or S4. DERMATOLOGIC: Right lower extremity there is a minimally erythematous well- healed surgical scar. The inferior portion of the toes have patchy areas of bright erythema, peeling and cracking. The dorsum of the left foot distally has patchy pinpoint lesions of erythema, is a little bit pink, and warm to touch. No tenderness. MS: No joint effusion or tenderness over the right foot toes or ankle. She is able to flex and extend the toes. The 4th and 5th toes are noted to be fused EXTREMITIES: No cyanosis or edema Initial Vital Signs Initial Vital Signs: Vital Signs Temperature 97.7 F 02/19/18 17:37 Pulse Rate 61 02/19/18 17:37 Respiratory Rate 13 02/19/18 17:37 Blood Pressure 143/77 H 02/19/18 17:37 Pulse Oximetry 98 02/19/18 17:37 <Rob Nolan DO - Last Filed: 02/20/18 01:35> Initial Vital Signs Initial Vital Signs: Vital Signs Temperature 97.7 F 02/19/18 17:37 Pulse Rate 61 02/19/18 17:37 Respiratory Rate 13 02/19/18 17:37 Blood Pressure 143/77 H 02/19/18 17:37 Pulse Oximetry 98 02/19/18 17:37 Course <CHEPE Wells Last Filed: 02/19/18 20:25> Orders Ordered: Discontinued Medications Cefazolin Sodium (Keflex) 1 bottle MISC SEEINSTR ONE Stop: 02/19/18 19:05 Last Admin: 02/19/18 19:21 Dose: 1 bottle Vital Signs - 8 hr 02/19/18 17:37 02/19/18 19:11 Temperature 97.7 F Pulse Rate 61 58 L Respiratory Rate 13 18 Blood Pressure 143/77 H Blood Pressure [Left Arm] 138/69 H Pulse Oximetry 98 95 <Rob DO Ovidio - Last Filed: 02/20/18 01:35> Orders Ordered: Discontinued Medications Cefazolin Sodium (Keflex) 1 bottle MISC SEEINSTR ONE Stop: 02/19/18 19:05 Last Admin: 02/19/18 19:21 Dose: 1 bottle Vital Signs - 8 hr 02/19/18 17:37 02/19/18 19:11 Temperature 97.7 F Pulse Rate 61 58 L Respiratory Rate 13 18 Blood Pressure 143/77 H Blood Pressure [Left Arm] 138/69 H Pulse Oximetry 98 95 Discharge Plan Departure Patient Disposition: Home, Self-Care Clinical Impression: Tinea pedis, Cellulitis and abscess of foot Discharge Date/Time: 02/19/18 19:36 Interventions: ED Discharge Assessment Last Done: 02/19/18 19:34 Instructions: DI for Cellulitis -- Adult Activity Restrictions/Additional Instructions: I think you have developed an infection in her foot secondary to the cracks in your skin from athlete's foot. Please keep the foot as dry as possible. Try to have the toes and and of the foot exposed when you are resting in bed and not on your feet at all to get some air to the area. Continue treating the athlete's foot. 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 Monitor for increasing redness, pain, swelling, new fever or other acute changes and if any you should return right away. Otherwise please recheck with provider who is in the facility in 2-3 days. Prescriptions: New cephalexin [Keflex] 500 mg capsule 500 mg PO Q6H 7 Days Qty: 28 RF: 0 No Action calcium carbonate [Tums E-X] 300 MG tablet,chewable 300 mg PO QAM Qty: 0 RF: 0 omeprazole 10 MG capsule,delayed release(DR/EC) 20 mg PO QAM Qty: 0 RF: 0 citalopram 20 mg Tablet 20 mg PO DAILY RF: 0 triamcinolone acetonide 0.1 % Ointment 1 applic TOPICAL PRN PRN (Reason: Rash) RF: 0 amlodipine 2.5 mg tablet 2.5 mg PO QAM RF: 0 acetaminophen 325 mg Tablet 650 mg PO Q6HR Qty: 30 RF: 0 docusate sodium 100 mg Capsule 100 mg PO BID Qty: 30 RF: 0 hydrocodone-acetaminophen 5-325 mg Tablet 2 tab PO Q4HR PRN (Reason: Pain, Severe) Qty: 60 RF: 0 docusate sodium 100 mg Capsule 100 mg PO BID PRN (Reason: Constipation) Qty: 30 RF: 0 rivaroxaban [Xarelto] 20 mg tablet 20 mg PO DAILY Qty: 30 RF: 0 Referrals: Мария Leone [Family Provider] - Christina Waldron MD [Non-Staff] - <Rob Nolan DO - Last Filed: 02/20/18 01:35> Cosign ED Attending Roxanne Attestation: I was immediately available in the department for consultation. Documentation has been reviewed. I agree with assessment and plan.
[2018-02-19 19:11] VITALS: BP 138/69; PULSE 58; RESP 18; O2SAT 95
[2018-02-19] MEDS: cephALEXin 250 MG PREPACK 1 BOTTLE MISC (19:21)
== END 2018-02-19 19:36 | disposition home or self-care (01) ==
PROVIDERS: Emergency Provider Internal Medicine; Family Provider Nurse Practitioner Family; PCP Family Medicine
DX: B35.3 Tinea pedis (principal); L03.115 Cellulitis of right lower limb; L02.611 Cutaneous abscess of right foot
CPT/HCPCS: 99283

== ENCOUNTER 2018-02-22 11:22 | Emergency (ER) | payer MEDICARE, SELFPAY ==
[2018-02-22 11:49] VITALS: BP 117/77; PULSE 68; RESP 13; TEMP 36.8; O2SAT 96
--- NOTE | 2018-02-22 12:05 | ED.SKABFB ---
HPI - Skin/Abscess/Foreign Bdy <Amanda Gray PA-C - Last Filed: 02/22/18 22:21> General Chief complaint: Skin/Abscess/Foreign Body Stated complaint: CELLULITIS. INFECTION OF FOOT BOTH FEET SWOLLEN Time Seen by Provider: 02/22/18 12:05 Source: patient and family Mode of arrival: wheelchair Limitations: no limitations History of Present Illness HPI narrative: Nancy returns with her daughter today with multiple concerns: 1) whether R. foot cellulitis is worsening. Daughter states it looked better yesterday, but the bottom of her foot seems more red today. She did shower today. Daughter notes that antifungal cream has been getting applied but not powder. Patient has been taking antibiotic. She has not noted any side effects. She denies any new fever. Daughter has noted some drainage from the foot onto bonderizer of her walking boot. Patient states the right foot and ankle area are not painful 2) new pain in the left great toe base. Patient denies any trauma, but her daughter notes that the medial metatarsal area looks swollen and different. Patient states pain is worse with pressure on the area or movement. She has not noted any redness. She denies any history of gout. She is not having pain elsewhere in the left lower extremity. 3) new rash on the face-this was just noted later yesterday and today. Patient states it is not itchy. Noted on the chin and around the lips. Patient denies any dyspnea or pain. 4) new rash on the upper arms-patient also states that this is not itchy or bothersome. She states that the only thing she has been using on her skin is lotion from the facility which is not new. Patient's daughter Abigail is concerned about SNF being able to take care of her foot properly and wants to discuss whether to take her home where she can provide round the clock care and is set up with accessibility for her mom. She states that she already has rx for outpatient PT Related Data Home Medications Medication Instructions Recorded Confirmed amlodipine 2.5 mg PO DAILY #0 12/23/17 02/22/18 citalopram 20 mg PO DAILY 12/23/17 02/22/18 Lactobacillus acidophilus 2 cap PO BID 02/22/18 02/22/18 [Acidophilus] acetaminophen 650 mg PO Q4H PRN MDD 3000 mg 02/22/18 02/22/18 acetaminophen 650 mg RI Q4H PRN MDD 3000 mg 02/22/18 02/22/18 calcium carbonate 1 tab PO DAILY 02/22/18 02/22/18 clotrimazole 1 applic TOPICAL BID 02/22/18 02/22/18 docusate sodium 100 mg PO BID 02/22/18 02/22/18 omeprazole 20 mg PO DAILY 02/22/18 02/22/18 Previous Rx's Medication Instructions Recorded hydrocodone-acetaminophen 2 tab PO Q4HR PRN #60 tab 01/19/18 rivaroxaban [Xarelto] 20 mg PO DAILY #30 tab 01/19/18 doxycycline monohydrate 100 mg PO BID #14 tab 02/22/18 prednisone 20 mg PO DAILY 5 Days #5 tab 02/22/18 Allergies Allergy/AdvReac Type Severity Reaction Status Date / Time Sulfa (Sulfonamide Allergy Intermediate Hives Verified 12/27/17 20:04 Antibiotics) codeine [CODEINE] Allergy Mild nausea Verified 12/27/17 12:20 iodine [IODINE] Allergy Mild breaks out Verified 12/27/17 12:20 skin Review of Systems <Amanda Gray PA-C - Last Filed: 02/22/18 22:21> Review of Systems All systems reviewed & are unremarkable except as noted in HPI and below Exam <Amanda Gray PA-C - Last Filed: 02/22/18 22:21> Narrative Exam Narrative: GENERAL APPEARANCE: Patient sitting comfortably, in no distress. HEENT: EOMI, normal oropharynx NECK: Supple, no masses LUNGS: Clear to auscultation bilaterally. HEART: Rate and rhythm regular with I/ systolic murmur, normal S1 and S2, no S3 or S4. DERMATOLOGIC: Right lower extremity there is a well-healed surgical scar laterally without erythema or drainage. The inferior portion of the toes have patchy areas of bright erythema, peeling and cracking with some visible granulation tissue. The dorsum of the right foot distally has faint patchy pinpoint lesions of erythema and one small pink patch, not warm to touch. No tenderness, no streaking, no active d/c but the denuded skin is slightly moist. A little serosanguinous nonmalodorous d/c is noted on the boot liner. There is no exanthem on the left lower extremity. There is patchy erythema limited to the anterior and lateral upper extremities on exposed skin only. Cool to touch. There is 1 patch of erythema on the inferior central neck. There is erythema on the anterior chin and surrounding the lips with a few small papules, otherwise no papular or pustular lesions. MS: There is a nontender deformity at the base of the 1st left metatarsal. No tenderness anywhere over the foot aside from at the base of the great toe. She is able to Dorsi- and plantar flex the toes against resistance. The great toe base is slightly warm to touch. No joint effusion or tenderness over the right foot toes or ankle. She is able to flex and extend the toes. The 4th and 5th toes are noted to be fused EXTREMITIES: No cyanosis or edema Initial Vital Signs Initial Vital Signs: Vital Signs Temperature 98.2 F 02/22/18 11:49 Pulse Rate 68 02/22/18 11:49 Respiratory Rate 13 02/22/18 11:49 Blood Pressure 117/77 02/22/18 11:49 Pulse Oximetry 96 02/22/18 11:49 <Candace Acosta DO - Last Filed: 02/23/18 08:03> Initial Vital Signs Initial Vital Signs: Vital Signs Temperature 98.2 F 02/22/18 11:49 Pulse Rate 68 02/22/18 11:49 Respiratory Rate 13 02/22/18 11:49 Blood Pressure 117/77 02/22/18 11:49 Pulse Oximetry 96 02/22/18 11:49 Course <Amanda Gray PA-C - Last Filed: 02/22/18 22:21> Additional Information: Reviewed with patient's daughter that there appear to be multiple separate issues here. There is not a clear drug reaction and the cellulitis she was initially seen for seems improved, however we did decide to changed to doxycycline as this would be more likely to treat her perioral dermatitis and reasonable to continue for her cellulitis. We also discussed possibility of new gout in the left great toe and will start a trial of steroids for this as well. Daughter plans to have her discharge from the assisted today and she already has outpatient follow-up with her PCP on . Orders Ordered: ED Orders 02/22/18 12:29 XR foot LT min 3V Stat 02/22/18 13:00 Basic Metabolic Panel Stat Complete Blood Count AUTO DIFF Stat Lactate (Lactic Acid) Stat Uric Acid Stat Vital Signs - 8 hr 02/22/18 14:52 Pulse Rate 79 Respiratory Rate 18 Blood Pressure [Left Arm] 125/77 H Pulse Oximetry 100 <Candace Acosta DO - Last Filed: 02/23/18 08:03> Orders Ordered: ED Orders 02/22/18 12:29 XR foot LT min 3V Stat 02/22/18 13:00 Basic Metabolic Panel Stat Complete Blood Count AUTO DIFF Stat Lactate (Lactic Acid) Stat Uric Acid Stat Vital Signs - 8 hr 02/22/18 14:52 Pulse Rate 79 Respiratory Rate 18 Blood Pressure [Left Arm] 125/77 H Pulse Oximetry 100 MDM - Skin/Abscess/Foreign Bdy <Amanda Gray PA-C - Last Filed: 02/22/18 22:21> Lab Data Attestation: I reviewed the patient's lab results. Result diagrams: 02/22/18 13:00 02/22/18 13:00 Lab Results 02/22/18 02/22/18 02/22/18 Range/Units 13:00 13:00 13:00 WBC 13.0 H (4.5-11.0) X10^3/uL RBC 4.38 (4.0-5.2) X10^6/uL Hgb 13.6 (12.0-16.0) g/dL Hct 40.9 (36-46) % MCV 93.5 (80-100) fL MCH 31.1 (26-34) PG MCHC 33.2 (30-36) % RDW 12.8 (11.6-14.8) % Plt Count 252 (150-400) X10^3/uL Neut % (Auto) 80.5 H (50-75) % Lymph % (Auto) 10.3 L (25-40) % [place] % (Auto) 6.9 (3-14) % Eos % (Auto) 1.7 L (2-4) % Baso % (Auto) 0.6 (0-2) % Neut # (Auto) 44420 H (0416-6553) /uL Sodium 137 (137-145) mmol/L Potassium 4.4 (3.4-5.1) mmol/L Chloride 100 (98-107) mmol/L Carbon Dioxide 27 (22-32) mmol/L BUN 19 H (7-17) mg/dL Creatinine 0.80 (0.52-1.04) mg/dL Estimated GFR > 60.0 (>60) mL/min BUN/Creatinine Ratio 23.8 H (6-22) Glucose 88 (80-110) mg/dL Lactate 1.0 (0.7-2.1) mmol/L Uric Acid 4.2 (2.5-6.2) mg/dL Calcium 9.5 (8.4-10.2) mg/dL Imaging Data foot: Radiologist's impression: [address] [address] XRay Report Signed Patient: Nancy Valverde MR#: [id number] : 1935 Acct:[id number] Age/Sex: 82 / F Date of Service: 02/22/18 Loc: ED Accession Number: [id number] Procedure: XR foot LT min 3V Ordering Provider: Amanda Gray P.A-C PROCEDURE: XR FOOT LT MIN 3V INDICATIONS: 1st MT base deformity, 1st distal MT/toe pain TECHNIQUE: 3 views of the foot were acquired. COMPARISON: None. FINDINGS: Bones: No fractures or dislocations. No suspicious bony lesions. There is fusion of phalanx slight calcifications adjacent to the distal fifth phalanx. Degenerative changes are noted at the first MTP joint with sclerotic endplate change. Midfoot degenerative changes are present. Soft tissues: No tibiotalar joint effusion. Achilles tendon appears normal. IMPRESSION: Degenerative changes at the first MTP joint. 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 Dictated by: Beverly Shaver M.D. on 02/22/2018 at 13:17 Approved by: Beverly Shaver M.D. on 02/22/2018 at 13:21 <Candace Acosta DO - Last Filed: 02/23/18 08:03> Lab Data Lab Results 02/22/18 02/22/18 02/22/18 Range/Units 13:00 13:00 13:00 WBC 13.0 H (4.5-11.0) X10^3/uL RBC 4.38 (4.0-5.2) X10^6/uL Hgb 13.6 (12.0-16.0) g/dL Hct 40.9 (36-46) % MCV 93.5 (80-100) fL MCH 31.1 (26-34) PG MCHC 33.2 (30-36) % RDW 12.8 (11.6-14.8) % Plt Count 252 (150-400) X10^3/uL Neut % (Auto) 80.5 H (50-75) % Lymph % (Auto) 10.3 L (25-40) % [place] % (Auto) 6.9 (3-14) % Eos % (Auto) 1.7 L (2-4) % Baso % (Auto) 0.6 (0-2) % Neut # (Auto) 69776 H (0837-9476) /uL Sodium 137 (137-145) mmol/L Potassium 4.4 (3.4-5.1) mmol/L Chloride 100 (98-107) mmol/L Carbon Dioxide 27 (22-32) mmol/L BUN 19 H (7-17) mg/dL Creatinine 0.80 (0.52-1.04) mg/dL Estimated GFR > 60.0 (>60) mL/min BUN/Creatinine Ratio 23.8 H (6-22) Glucose 88 (80-110) mg/dL Lactate 1.0 (0.7-2.1) mmol/L Uric Acid 4.2 (2.5-6.2) mg/dL Calcium 9.5 (8.4-10.2) mg/dL Discharge Plan Departure Patient Disposition: Home, Self-Care Clinical Impression: Cellulitis of foot, Perioral dermatitis, Gout, Drug-induced photosensitivity Discharge Date/Time: 02/22/18 14:55 Interventions: ED Discharge Assessment Last Done: 02/22/18 14:54 Instructions: DI for Cellulitis -- Adult, Photosensitivity (Alternative Therapy), DI for Gout Activity Restrictions/Additional Instructions: You should return as we talked about if you have any acutely worsening symptoms. The skin infection actually looks better today, and I think the tissue on the bottom of the foot that is red is pink granulation tissue where the skin is peeling off from the athlete's foot infection. Continue to keep that area dry and open to air as much as possible. I have changed the antibiotic to doxycycline in case there is any skin reaction to that. Please take the new antibiotic with food and absolutely avoid the sun as I think this may be the source of some of the rash today, especially on the upper arms. This new antibiotic is also in the family that we use to treat the rash around the mouth. Please avoid using any creams or lotions on the face, especially steroids with this new rash. I have also given you an oral steroid for the localized new pain in her left big toe. This could be gout given that it is localized and slightly warm. The steroids should help with in the next day or so Please return right away as we talked about if you have acutely worsening symptoms. Otherwise, given the care that your daughter is able to provide at home and the concerns you have it sounds like it is reasonable for you to return home provided your orthopedic doctor thinks it is safe for you to do that and have outpatient therapy. Prescriptions: New prednisone 20 mg tablet 20 mg PO DAILY 5 Days Qty: 5 RF: 0 doxycycline monohydrate 100 mg tablet 100 mg PO BID Qty: 14 RF: 0 Discontinued cephalexin [Keflex] 500 mg capsule 500 mg PO Q6H 7 Days Qty: 28 RF: 0 No Action omeprazole 20 mg capsule,delayed release(DR/EC) 20 mg PO DAILY RF: 0 calcium carbonate 500 mg calcium (1,250 mg) Tablet 1 tab PO DAILY RF: 0 Lactobacillus acidophilus [Acidophilus] Capsule 2 cap PO BID RF: 0 clotrimazole 1 % Cream 1 applic TOPICAL BID RF: 0 docusate sodium 100 mg capsule 100 mg PO BID RF: 0 acetaminophen 650 mg Suppository 650 mg RI Q4H MDD 3000 mg PRN (Reason: Fever Or Pain) RF: 0 acetaminophen 325 mg tablet 650 mg PO Q4H MDD 3000 mg PRN (Reason: Fever Or Pain) RF: 0 amlodipine 2.5 mg Tablet 2.5 mg PO DAILY Qty: 0 RF: 0 citalopram 20 mg Tablet 20 mg PO DAILY RF: 0 hydrocodone-acetaminophen 5-325 mg Tablet 2 tab PO Q4HR PRN (Reason: Pain, Severe) Qty: 60 RF: 0 rivaroxaban [Xarelto] 20 mg tablet 20 mg PO DAILY Qty: 30 RF: 0 Referrals: Ebony Calvo MD [Physician] - Мария Leone [Family Provider] - <Candace Acosta DO - Last Filed: 02/23/18 08:03> Cosign ED Attending Cosrossature Attestation: I was immediately available in the department for consultation. Documentation has been reviewed. I agree with assessment and plan.
--- NOTE | 2018-02-22 12:09 | ED_ITS ---
HPI - Skin/Abscess/Foreign Bdy <Amanda Gray PA-C - Last Filed: 02/22/18 22:21> General Chief complaint: Skin/Abscess/Foreign Body Stated complaint: CELLULITIS. INFECTION OF FOOT BOTH FEET SWOLLEN Time Seen by Provider: 02/22/18 12:05 Source: patient and family Mode of arrival: wheelchair Limitations: no limitations History of Present Illness HPI narrative: Nancy returns with her daughter today with multiple concerns: 1) whether R. foot cellulitis is worsening. Daughter states it looked better yesterday, but the bottom of her foot seems more red today. She did shower today. Daughter notes that antifungal cream has been getting applied but not powder. Patient has been taking antibiotic. She has not noted any side effects. She denies any new fever. Daughter has noted some drainage from the foot onto bill cutter of her walking boot. Patient states the right foot and ankle area are not painful 2) new pain in the left great toe base. Patient denies any trauma, but her daughter notes that the medial metatarsal area looks swollen and different. Patient states pain is worse with pressure on the area or movement. She has not noted any redness. She denies any history of gout. She is not having pain elsewhere in the left lower extremity. 3) new rash on the face-this was just noted later yesterday and today. Patient states it is not itchy. Noted on the chin and around the lips. Patient denies any dyspnea or pain. 4) new rash on the upper arms-patient also states that this is not itchy or bothersome. She states that the only thing she has been using on her skin is lotion from the facility which is not new. Patient's daughter Abigail is concerned about SNF being able to take care of her foot properly and wants to discuss whether to take her home where she can provide round the clock care and is set up with accessibility for her mom. She states that she already has rx for outpatient PT Related Data Home Medications Medication Instructions Recorded Confirmed amlodipine 2.5 mg PO DAILY #0 12/23/17 02/22/18 citalopram 20 mg PO DAILY 12/23/17 02/22/18 Lactobacillus acidophilus 2 cap PO BID 02/22/18 02/22/18 [Acidophilus] acetaminophen 650 mg PO Q4H PRN MDD 3000 mg 02/22/18 02/22/18 acetaminophen 650 mg PA Q4H PRN MDD 3000 mg 02/22/18 02/22/18 calcium carbonate 1 tab PO DAILY 02/22/18 02/22/18 clotrimazole 1 applic TOPICAL BID 02/22/18 02/22/18 docusate sodium 100 mg PO BID 02/22/18 02/22/18 omeprazole 20 mg PO DAILY 02/22/18 02/22/18 Previous Rx's Medication Instructions Recorded hydrocodone-acetaminophen 2 tab PO Q4HR PRN #60 tab 01/19/18 rivaroxaban [Xarelto] 20 mg PO DAILY #30 tab 01/19/18 doxycycline monohydrate 100 mg PO BID #14 tab 02/22/18 prednisone 20 mg PO DAILY 5 Days #5 tab 02/22/18 Allergies Allergy/AdvReac Type Severity Reaction Status Date / Time Sulfa (Sulfonamide Allergy Intermediate Hives Verified 12/27/17 20:04 Antibiotics) codeine [CODEINE] Allergy Mild nausea Verified 12/27/17 12:20 iodine [IODINE] Allergy Mild breaks out Verified 12/27/17 12:20 skin Review of Systems <Amanda Gray PA-C - Last Filed: 02/22/18 22:21> Review of Systems All systems reviewed & are unremarkable except as noted in HPI and below Exam <Amanda Gray PA-C - Last Filed: 02/22/18 22:21> Narrative Exam Narrative: GENERAL APPEARANCE: Patient sitting comfortably, in no distress. HEENT: EOMI, normal oropharynx NECK: Supple, no masses LUNGS: Clear to auscultation bilaterally. HEART: Rate and rhythm regular with I/ systolic murmur, normal S1 and S2, no S3 or S4. DERMATOLOGIC: Right lower extremity there is a well-healed surgical scar laterally without erythema or drainage. The inferior portion of the toes have patchy areas of bright erythema, peeling and cracking with some visible granulation tissue. The dorsum of the right foot distally has faint patchy pinpoint lesions of erythema and one small pink patch, not warm to touch. No tenderness, no streaking, no active d/c but the denuded skin is slightly moist. A little serosanguinous nonmalodorous d/c is noted on the boot liner. There is no exanthem on the left lower extremity. There is patchy erythema limited to the anterior and lateral upper extremities on exposed skin only. Cool to touch. There is 1 patch of erythema on the inferior central neck. There is erythema on the anterior chin and surrounding the lips with a few small papules , otherwise no papular or pustular lesions. MS: There is a nontender deformity at the base of the 1st left metatarsal. No tenderness anywhere over the foot aside from at the base of the great toe. She is able to Dorsi- and plantar flex the toes against resistance. The great toe base is slightly warm to touch. No joint effusion or tenderness over the right foot toes or ankle. She is able to flex and extend the toes. The 4th and 5th toes are noted to be fused EXTREMITIES: No cyanosis or edema Initial Vital Signs Initial Vital Signs: Vital Signs Temperature 98.2 F 02/22/18 11:49 Pulse Rate 68 02/22/18 11:49 Respiratory Rate 13 02/22/18 11:49 Blood Pressure 117/77 02/22/18 11:49 Pulse Oximetry 96 02/22/18 11:49 <Candace Acosta DO - Last Filed: 02/23/18 08:03> Initial Vital Signs Initial Vital Signs: Vital Signs Temperature 98.2 F 02/22/18 11:49 Pulse Rate 68 02/22/18 11:49 Respiratory Rate 13 02/22/18 11:49 Blood Pressure 117/77 02/22/18 11:49 Pulse Oximetry 96 02/22/18 11:49 Course <Amanda Gray PA-C - Last Filed: 02/22/18 22:21> Additional Information: Reviewed with patient's daughter that there appear to be multiple separate issues here. There is not a clear drug reaction and the cellulitis she was initially seen for seems improved, however we did decide to changed to doxycycline as this would be more likely to treat her perioral dermatitis and reasonable to continue for her cellulitis. We also discussed possibility of new gout in the left great toe and will start a trial of steroids for this as well. Daughter plans to have her discharge from the shelter today and she already has outpatient follow-up with her PCP on . Orders Ordered: ED Orders 02/22/18 12:29 XR foot LT min 3V Stat 02/22/18 13:00 Basic Metabolic Panel Stat Complete Blood Count AUTO DIFF Stat Lactate (Lactic Acid) Stat Uric Acid Stat Vital Signs - 8 hr 02/22/18 14:52 Pulse Rate 79 Respiratory Rate 18 Blood Pressure [Left Arm] 125/77 H Pulse Oximetry 100 <Candace Acosta DO - Last Filed: 02/23/18 08:03> Orders Ordered: ED Orders 02/22/18 12:29 XR foot LT min 3V Stat 02/22/18 13:00 Basic Metabolic Panel Stat Complete Blood Count AUTO DIFF Stat Lactate (Lactic Acid) Stat Uric Acid Stat Vital Signs - 8 hr 02/22/18 14:52 Pulse Rate 79 Respiratory Rate 18 Blood Pressure [Left Arm] 125/77 H Pulse Oximetry 100 MDM - Skin/Abscess/Foreign Bdy <Amanda Gray PA-C - Last Filed: 02/22/18 22:21> Lab Data Attestation: I reviewed the patient's lab results. Result diagrams: 02/22/18 13:00 02/22/18 13:00 Lab Results 02/22/18 02/22/18 02/22/18 Range/Units 13:00 13:00 13:00 WBC 13.0 H (4.5-11.0) X10^3/uL RBC 4.38 (4.0-5.2) X10^6/uL Hgb 13.6 (12.0-16.0) g/dL Hct 40.9 (36-46) % MCV 93.5 (80-100) fL MCH 31.1 (26-34) PG MCHC 33.2 (30-36) % RDW 12.8 (11.6-14.8) % Plt Count 252 (150-400) X10^3/uL Neut % (Auto) 80.5 H (50-75) % Lymph % (Auto) 10.3 L (25-40) % Hartley % (Auto) 6.9 (3-14) % Eos % (Auto) 1.7 L (2-4) % Baso % (Auto) 0.6 (0-2) % Neut # (Auto) 56082 H (8037-8232) /uL Sodium 137 (137-145) mmol/L Potassium 4.4 (3.4-5.1) mmol/L Chloride 100 (98-107) mmol/L Carbon Dioxide 27 (22-32) mmol/L BUN 19 H (7-17) mg/dL Creatinine 0.80 (0.52-1.04) mg/dL Estimated GFR > 60.0 (>60) mL/min BUN/Creatinine Ratio 23.8 H (6-22) Glucose 88 (80-110) mg/dL Lactate 1.0 (0.7-2.1) mmol/L Uric Acid 4.2 (2.5-6.2) mg/dL Calcium 9.5 (8.4-10.2) mg/dL Imaging Data foot: Radiologist's impression: [address] [address] XRay Report Signed Patient: Nancy Valverde MR#: [id number] : 1935 Acct:[id number] Age/Sex: 82 / F Date of Service: 02/22/18 Loc: ED Accession Number: [id number] Procedure: XR foot LT min 3V Ordering Provider: Amanda Gray P.A-C PROCEDURE: XR FOOT LT MIN 3V INDICATIONS: 1st MT base deformity, 1st distal MT/toe pain TECHNIQUE: 3 views of the foot were acquired. COMPARISON: None. FINDINGS: Bones: No fractures or dislocations. No suspicious bony lesions. There is fusion of phalanx slight calcifications adjacent to the distal fifth phalanx. Degenerative changes are noted at the first MTP joint with sclerotic endplate change. Midfoot degenerative changes are present. Soft tissues: No tibiotalar joint effusion. Achilles tendon appears normal. IMPRESSION: Degenerative changes at the first MTP joint. 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 Dictated by: Beverly Shaver M.D. on 02/22/2018 at 13:17 Approved by: Beverly Shaver M.D. on 02/22/2018 at 13:21 <Candace Acosta DO - Last Filed: 02/23/18 08:03> Lab Data Lab Results 02/22/18 02/22/18 02/22/18 Range/Units 13:00 13:00 13:00 WBC 13.0 H (4.5-11.0) X10^3/uL RBC 4.38 (4.0-5.2) X10^6/uL Hgb 13.6 (12.0-16.0) g/dL Hct 40.9 (36-46) % MCV 93.5 (80-100) fL MCH 31.1 (26-34) PG MCHC 33.2 (30-36) % RDW 12.8 (11.6-14.8) % Plt Count 252 (150-400) X10^3/uL Neut % (Auto) 80.5 H (50-75) % Lymph % (Auto) 10.3 L (25-40) % Hartley % (Auto) 6.9 (3-14) % Eos % (Auto) 1.7 L (2-4) % Baso % (Auto) 0.6 (0-2) % Neut # (Auto) 73548 H (8650-9541) /uL Sodium 137 (137-145) mmol/L Potassium 4.4 (3.4-5.1) mmol/L Chloride 100 (98-107) mmol/L Carbon Dioxide 27 (22-32) mmol/L BUN 19 H (7-17) mg/dL Creatinine 0.80 (0.52-1.04) mg/dL Estimated GFR > 60.0 (>60) mL/min BUN/Creatinine Ratio 23.8 H (6-22) Glucose 88 (80-110) mg/dL Lactate 1.0 (0.7-2.1) mmol/L Uric Acid 4.2 (2.5-6.2) mg/dL Calcium 9.5 (8.4-10.2) mg/dL Discharge Plan Departure Patient Disposition: Home, Self-Care Clinical Impression: Cellulitis of foot, Perioral dermatitis, Gout, Drug-induced photosensitivity Discharge Date/Time: 02/22/18 14:55 Interventions: ED Discharge Assessment Last Done: 02/22/18 14:54 Instructions: DI for Cellulitis -- Adult, Photosensitivity (Alternative Therapy ), DI for Gout Activity Restrictions/Additional Instructions: You should return as we talked about if you have any acutely worsening symptoms. The skin infection actually looks better today, and I think the tissue on the bottom of the foot that is red is pink granulation tissue where the skin is peeling off from the athlete's foot infection. Continue to keep that area dry and open to air as much as possible. I have changed the antibiotic to doxycycline in case there is any skin reaction to that. Please take the new antibiotic with food and absolutely avoid the sun as I think this may be the source of some of the rash today, especially on the upper arms. This new antibiotic is also in the family that we use to treat the rash around the mouth. Please avoid using any creams or lotions on the face, especially steroids with this new rash. I have also given you an oral steroid for the localized new pain in her left big toe. This could be gout given that it is localized and slightly warm. The steroids should help with in the next day or so Please return right away as we talked about if you have acutely worsening symptoms. Otherwise, given the care that your daughter is able to provide at home and the concerns you have it sounds like it is reasonable for you to return home provided your orthopedic doctor thinks it is safe for you to do that and have outpatient therapy. Prescriptions: New prednisone 20 mg tablet 20 mg PO DAILY 5 Days Qty: 5 RF: 0 doxycycline monohydrate 100 mg tablet 100 mg PO BID Qty: 14 RF: 0 Discontinued cephalexin [Keflex] 500 mg capsule 500 mg PO Q6H 7 Days Qty: 28 RF: 0 No Action omeprazole 20 mg capsule,delayed release(DR/EC) 20 mg PO DAILY RF: 0 calcium carbonate 500 mg calcium (1,250 mg) Tablet 1 tab PO DAILY RF: 0 Lactobacillus acidophilus [Acidophilus] Capsule 2 cap PO BID RF: 0 clotrimazole 1 % Cream 1 applic TOPICAL BID RF: 0 docusate sodium 100 mg capsule 100 mg PO BID RF: 0 acetaminophen 650 mg Suppository 650 mg PA Q4H MDD 3000 mg PRN (Reason: Fever Or Pain) RF: 0 acetaminophen 325 mg tablet 650 mg PO Q4H MDD 3000 mg PRN (Reason: Fever Or Pain) RF: 0 amlodipine 2.5 mg Tablet 2.5 mg PO DAILY Qty: 0 RF: 0 citalopram 20 mg Tablet 20 mg PO DAILY RF: 0 hydrocodone-acetaminophen 5-325 mg Tablet 2 tab PO Q4HR PRN (Reason: Pain, Severe) Qty: 60 RF: 0 rivaroxaban [Xarelto] 20 mg tablet 20 mg PO DAILY Qty: 30 RF: 0 Referrals: Ebony Calvo MD [Physician] - Мария Leone [Family Provider] - <Candace Acosta DO - Last Filed: 02/23/18 08:03> Cosign ED Attending Cosrossature Attestation: I was immediately available in the department for consultation. Documentation has been reviewed. I agree with assessment and plan.
--- NOTE | 2018-02-22 12:29 | DI.RAD.S_ITS ---
PROCEDURE: XR FOOT LT MIN 3V INDICATIONS: 1st MT base deformity, 1st distal MT/toe pain TECHNIQUE: 3 views of the foot were acquired. COMPARISON: None. FINDINGS: Bones: No fractures or dislocations. No suspicious bony lesions. There is fusion of phalanx slight calcifications adjacent to the distal fifth phalanx. Degenerative changes are noted at the first MTP joint with sclerotic endplate change. Midfoot degenerative changes are present. Soft tissues: No tibiotalar joint effusion. Achilles tendon appears normal. IMPRESSION: Degenerative changes at the first MTP joint. 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 Dictated by: Beverly Shaver M.D. on 02/22/2018 at 13:17 Approved by: Beverly Shaver M.D. on 02/22/2018 at 13:21
[2018-02-22 13:17] LABS: Add Manual Diff / Slide Review NO; Basophils Percent Auto 0.6 % (0-2); Eosinophils Percent Auto 1.7 % (2-4); Hematocrit 40.9 % (36-46); Hemoglobin 13.6 g/dL (12.0-16.0); Lymphocytes Percent Auto 10.3 % (25-40); Mean Corpuscular HGB Conc 33.2 % (30-36); Mean Corpuscular Hemoglobin 31.1 PG (26-34); Mean Corpuscular Volume 93.5 fL (80-100); Monocytes Percent Auto 6.9 % (3-14); Neutrophils Absolute Auto 10400 /uL (3000-5900); Neutrophils Percent Auto 80.5 % (50-75); Platelet Count 252 X10^3/uL (150-400); Red Blood Cell Count 4.38 X10^6/uL (4.0-5.2); Red Cell Distribution Width 12.8 % (11.6-14.8)
[2018-02-22 13:28] LABS: BUN Creatinine Ratio 23.8 (6-22); Blood Urea Nitrogen 19 mg/dL (7-17); Calcium 9.5 mg/dL (8.4-10.2); Carbon Dioxide 27 mmol/L (22-32); Chloride 100 mmol/L (98-107); Estimated Glomerular Filt Rate > 60.0 mL/min (>60); Glucose 88 mg/dL (80-110); HEMOLYSIS < 15 (0-50); Potassium 4.4 mmol/L (3.4-5.1); Sodium 137 mmol/L (137-145); Uric Acid 4.2 mg/dL (2.5-6.2)
[2018-02-22 14:05] VITALS: BP 116/67; PULSE 76; RESP 16; O2SAT 100
[2018-02-22 14:52] VITALS: BP 125/77; PULSE 79; RESP 18; O2SAT 100
== END 2018-02-22 14:55 | disposition home or self-care (01) ==
PROVIDERS: Emergency Provider Internal Medicine; Family Provider Nurse Practitioner Family; PCP Family Medicine
DX: L03.115 Cellulitis of right lower limb (principal); L71.0 Perioral dermatitis; M10.9 Gout, unspecified
CPT/HCPCS: 36415; 73630; 80048; 83605; 84550; 85025; 99282; 99284

== ENCOUNTER 2018-03-01 16:55 | Inpatient (IN) | payer MEDICARE, SELFPAY ==
--- NOTE | 2018-03-01 17:29 | ED.LOWEXIN ---
HPI - Extremity Injury (Lower) <FILOMENA Nolasco - Last Filed: 03/01/18 22:25> General Chief Complaint: Extremity Injury, Lower Stated Complaint: RT FOOT, LOWER LEG PAIN, REDNESS Time Seen by Provider: 03/01/18 17:29 History of Present Illness HPI Narrative: 82-year-old female brought in by her daughter due to having redness to her right lower extremity that she noticed yesterday. She was sent here by home nurse for further evaluation due to ongoing cellulitis. She has been treated for cellulitis twice in the past couple of weeks and has had to regimens of antibiotics given. She currently is taking doxycycline she states that the symptoms resolved somewhat however returned. She denies any trauma to the right lower extremity. She reports increased heat to the area. No fevers no chills. She does report having a previous history of having a blood clot to the right lower extremity little over a month ago. She did have a surgery to the right ankle for repair by Orthopedics. No other concerns or complaints at this time. Related Data Home Medications Medication Instructions Recorded Confirmed amlodipine 2.5 mg PO DAILY #0 12/23/17 02/22/18 citalopram 20 mg PO DAILY 12/23/17 02/22/18 acetaminophen 650 mg PO Q4H PRN MDD 3000 mg 02/22/18 02/22/18 calcium carbonate 1 tab PO DAILY 02/22/18 02/22/18 clotrimazole 1 applic TOPICAL BID 02/22/18 02/22/18 omeprazole 20 mg PO DAILY 02/22/18 02/22/18 Previous Rx's Medication Instructions Recorded hydrocodone-acetaminophen 2 tab PO Q4HR PRN #60 tab 01/19/18 rivaroxaban [Xarelto] 20 mg PO DAILY #30 tab 01/19/18 doxycycline monohydrate 100 mg PO BID #14 tab 02/22/18 Allergies Allergy/AdvReac Type Severity Reaction Status Date / Time Sulfa (Sulfonamide Allergy Intermediate Hives Verified 03/01/18 18:05 Antibiotics) codeine [CODEINE] Allergy Mild nausea Verified 03/01/18 18:05 iodine [IODINE] Allergy Mild breaks out Verified 03/01/18 18:05 skin Review of Systems <FILOMENA Nolasco - Last Filed: 03/01/18 22:25> Constitutional Denies chills, Denies fever(s), Denies lethargy and Denies weakness Eyes Denies change in vision, Denies eye discharge, Denies irritation and Denies loss of vision ENT Ears, Nose, Mouth, and Throat: Denies change in voice, Denies neck pain and Denies sore throat Cardiovascular Denies chest pain, Denies irregular heart rhythm, Denies lightheadedness, Denies palpitations, Denies dyspnea, Denies dyspnea on exertion and Denies orthopnea Respiratory Denies cough, Denies dyspnea, Denies dyspnea on exertion and Denies wheezing Gastrointestinal Gastrointestinal: Denies abdominal pain, Denies change in bowel habits, Denies diarrhea, Denies nausea and Denies vomiting Genitourinary Denies hematuria, Denies flank pain, Denies urinary incontinence and Denies urinary urgency Musculoskeletal Denies neck pain Comments: Redness right lower extremity Integumentary/Breasts Denies pruritus, Denies erythema, Denies rash and Denies wounds Neurologic Denies confusion, Denies loss of vision and Denies weakness Psychiatric Denies anxiety, Denies confusion, Denies depression, Denies homicidal ideation and Denies suicidal ideation Endocrine Denies palpitations Hematologic/Lymphatic Denies easy bruising Allergic/Immunologic Denies wheezing Exam <FILOMENA Nolasco - Last Filed: 03/01/18 22:25> Initial Vital Signs Initial Vital Signs: Vital Signs Temperature 97.5 F L 03/01/18 17:40 Pulse Rate 76 03/01/18 17:40 Respiratory Rate 14 03/01/18 17:40 Blood Pressure 103/66 03/01/18 17:40 Pulse Oximetry 100 03/01/18 17:40 Const General: cooperative and well developed Nutritional Appearance: well nourished Orientation: alert, awake, oriented x3 and not confused [facility] Mouth: oral mucosae normal and moist mucous membranes Eyes General: appearance normal, both eyes and all related structures Eyelids: eyelids normal Conjunctivae: conjunctivae normal Sclera: sclerae normal Pupils: PERRL EOM: EOM intact bilaterally Resp Effort & Inspection: normal respiratory effort, able to speak in complete sentences, no respiratory distress and no use of accessory muscles Auscultation: clear to auscultation bilaterally, no rales, no rhonchi and no wheezes Cardio Rate: regular rate Rhythm: regular rhythm Heart Sounds: no click, no gallops, no murmurs and no rubs Pulses: normal peripheral pulses Skin General: no rashes or lesions noted, No jaundice and No petechiae Neuro General: alert, oriented x3, gait normal and no focal motor deficits Speech: speech normal Extrem Other: Erythema to the right lateral lower extremity just distal to the right knee and also to the right foot. Increased heat on palpation into these areas. Distal sensation is intact. Distal pulses are intact. Distal range of motion is intact. No Eduard sign negative. No pain into the calf area <Orlin Santos DO - Last Filed: 03/02/18 01:13> Initial Vital Signs Initial Vital Signs: Vital Signs Temperature 97.5 F L 03/01/18 17:40 Pulse Rate 76 03/01/18 17:40 Respiratory Rate 14 03/01/18 17:40 Blood Pressure 103/66 03/01/18 17:40 Pulse Oximetry 100 03/01/18 17:40 Course <FILOMENA Nolasco - Last Filed: 03/01/18 22:25> Orders Ordered: ED Orders 03/01/18 18:03 US periph venous low extrem rt Stat 03/01/18 18:20 Complete Blood Count AUTO DIFF Stat Comprehensive Metabolic Panel Stat Lactate (Lactic Acid) Stat Procalcitonin Stat 03/01/18 19:57 Consult to Physician Routine Acetaminophen (Tylenol) 650 mg PO Q6HR PRN PRN Reason: As Needed for Fever/Mild Pain Sodium Chloride (Normal Saline 0.9%) 1,000 mls @ 125 mls/hr IV CONT KENDALL Last Admin: 03/01/18 21:31 Dose: 125 mls/hr Ondansetron HCl (Zofran) 4 mg IV Q4HR PRN PRN Reason: Nausea And Vomiting Discontinued Medications Levofloxacin (Levaquin) 750 mg in 150 mls @ 100 mls/hr IV NOW ONE Stop: 03/01/18 21:02 Last Infusion: 03/01/18 21:25 Dose: 0 mls/hr Infusion: 03/01/18 20:59 Dose: 100 mls/hr Admin: 03/01/18 19:43 Dose: 100 mls/hr Vancomycin HCl 1,500 mg/ (Sodium Chloride) 500 mls @ 333.333 mls/hr IV NOW ONE Stop: 03/01/18 19:34 Last Admin: 03/01/18 19:43 Dose: Vancomycin HCl/Dextrose (Vancomycin) 1,000 mg in 200 mls @ 133.333 mls/hr IV NOW ONE Stop: 03/01/18 21:14 Last Admin: 03/01/18 22:26 Dose: 133.333 mls/hr Vital Signs - 8 hr 03/01/18 17:40 03/01/18 19:27 03/01/18 21:00 Temperature 97.5 F L 96.8 F L Pulse Rate 76 68 64 Respiratory Rate 14 12 18 Blood Pressure 103/66 130/71 H Blood Pressure [Right Arm] 140/72 H Pulse Oximetry 100 100 98 03/02/18 00:00 Temperature 98.3 F Pulse Rate 65 Respiratory Rate 18 Blood Pressure 122/68 H Blood Pressure [Right Arm] Pulse Oximetry 96 <Orlin Santos DO - Last Filed: 03/02/18 01:13> Orders Ordered: ED Orders 03/01/18 18:03 US periph venous low extrem rt Stat 03/01/18 18:20 Complete Blood Count AUTO DIFF Stat Comprehensive Metabolic Panel Stat Lactate (Lactic Acid) Stat Procalcitonin Stat 03/01/18 19:57 Consult to Physician Routine Acetaminophen (Tylenol) 650 mg PO Q6HR PRN PRN Reason: As Needed for Fever/Mild Pain Sodium Chloride (Normal Saline 0.9%) 1,000 mls @ 125 mls/hr IV CONT KENDALL Last Admin: 03/01/18 21:31 Dose: 125 mls/hr Ondansetron HCl (Zofran) 4 mg IV Q4HR PRN PRN Reason: Nausea And Vomiting Discontinued Medications Levofloxacin (Levaquin) 750 mg in 150 mls @ 100 mls/hr IV NOW ONE Stop: 03/01/18 21:02 Last Infusion: 03/01/18 21:25 Dose: 0 mls/hr Infusion: 03/01/18 20:59 Dose: 100 mls/hr Admin: 03/01/18 19:43 Dose: 100 mls/hr Vancomycin HCl 1,500 mg/ (Sodium Chloride) 500 mls @ 333.333 mls/hr IV NOW ONE Stop: 03/01/18 19:34 Last Admin: 03/01/18 19:43 Dose: Vancomycin HCl/Dextrose (Vancomycin) 1,000 mg in 200 mls @ 133.333 mls/hr IV NOW ONE Stop: 03/01/18 21:14 Last Admin: 03/01/18 22:26 Dose: 133.333 mls/hr Vital Signs - 8 hr 03/01/18 17:40 03/01/18 19:27 03/01/18 21:00 Temperature 97.5 F L 96.8 F L Pulse Rate 76 68 64 Respiratory Rate 14 12 18 Blood Pressure 103/66 130/71 H Blood Pressure [Right Arm] 140/72 H Pulse Oximetry 100 100 98 03/02/18 00:00 Temperature 98.3 F Pulse Rate 65 Respiratory Rate 18 Blood Pressure 122/68 H Blood Pressure [Right Arm] Pulse Oximetry 96 MDM - Extremity Injury (Lower) <FILOMENA Nolasco - Last Filed: 03/01/18 22:25> Lab Data Result diagrams: 03/01/18 18:20 03/01/18 18:20 Lab Results 03/01/18 03/01/18 03/01/18 Range/Units 18:20 18:20 18:20 WBC 8.0 (4.5-11.0) X10^3/uL RBC 3.99 L (4.0-5.2) X10^6/uL Hgb 12.4 (12.0-16.0) g/dL Hct 36.9 (36-46) % MCV 92.3 (80-100) fL MCH 31.2 (26-34) PG MCHC 33.8 (30-36) % RDW 12.6 (11.6-14.8) % Plt Count 280 (150-400) X10^3/uL Neut % (Auto) 60.9 (50-75) % Lymph % (Auto) 28.0 (25-40) % Jasper % (Auto) 8.1 (3-14) % Eos % (Auto) 2.1 (2-4) % Baso % (Auto) 0.9 (0-2) % Neut # (Auto) 4800 (7650-2417) /uL Sodium 139 (137-145) mmol/L Potassium 3.6 (3.4-5.1) mmol/L Chloride 103 (98-107) mmol/L Carbon Dioxide 27 (22-32) mmol/L BUN 16 (7-17) mg/dL Creatinine 0.60 (0.52-1.04) mg/dL Estimated GFR > 60.0 (>60) mL/min BUN/Creatinine Ratio 26.7 H (6-22) Glucose 100 (80-110) mg/dL Lactate (0.7-2.1) mmol/L Calcium 8.9 (8.4-10.2) mg/dL Total Bilirubin 0.3 (0.2-1.3) mg/dL AST 24 (14-36) IU/L ALT 22 (9-52) IU/L Alkaline Phosphatase 92 (38-126) U/L Total Protein 6.4 (6.3-8.2) g/dL Albumin 3.4 L (3.5-5.0) g/dL Globulin 3.0 (1.7-4.1) g/dL Albumin/Globulin Ratio 1.1 (1.0-2.8) Procalcitonin < 0.05 (<0.5) ng/mL 03/01/18 Range/Units 18:20 WBC (4.5-11.0) X10^3/uL RBC (4.0-5.2) X10^6/uL Hgb (12.0-16.0) g/dL Hct (36-46) % MCV (80-100) fL MCH (26-34) PG MCHC (30-36) % RDW (11.6-14.8) % Plt Count (150-400) X10^3/uL Neut % (Auto) (50-75) % Lymph % (Auto) (25-40) % Jasper % (Auto) (3-14) % Eos % (Auto) (2-4) % Baso % (Auto) (0-2) % Neut # (Auto) (4053-6641) /uL Sodium (137-145) mmol/L Potassium (3.4-5.1) mmol/L Chloride (98-107) mmol/L Carbon Dioxide (22-32) mmol/L BUN (7-17) mg/dL Creatinine (0.52-1.04) mg/dL Estimated GFR (>60) mL/min BUN/Creatinine Ratio (6-22) Glucose (80-110) mg/dL Lactate 1.7 (0.7-2.1) mmol/L Calcium (8.4-10.2) mg/dL Total Bilirubin (0.2-1.3) mg/dL AST (14-36) IU/L ALT (9-52) IU/L Alkaline Phosphatase (38-126) U/L Total Protein (6.3-8.2) g/dL Albumin (3.5-5.0) g/dL Globulin (1.7-4.1) g/dL Albumin/Globulin Ratio (1.0-2.8) Procalcitonin (<0.5) ng/mL MDM Narrative Medical decision making narrative: Ultrasound of the right lower extremity was obtained was negative for DVT. CBC and Chem panel were obtained were unremarkable. Procalcitonin lactate were negative. Signs and symptoms present as returning cellulitis of the right lower extremity while on oral antibiotics. Discussed case with Dr. Doss hospitalist about admitting patient for IV antibiotics due to failed oral antibiotics she was accepted. patient is admitted she was given vancomycin and Levaquin in the emergency room. <Orlin Santos DO - Last Filed: 03/02/18 01:13> Lab Data Lab Results 03/01/18 03/01/18 03/01/18 Range/Units 18:20 18:20 18:20 WBC 8.0 (4.5-11.0) X10^3/uL RBC 3.99 L (4.0-5.2) X10^6/uL Hgb 12.4 (12.0-16.0) g/dL Hct 36.9 (36-46) % MCV 92.3 (80-100) fL MCH 31.2 (26-34) PG MCHC 33.8 (30-36) % RDW 12.6 (11.6-14.8) % Plt Count 280 (150-400) X10^3/uL Neut % (Auto) 60.9 (50-75) % Lymph % (Auto) 28.0 (25-40) % Jasper % (Auto) 8.1 (3-14) % Eos % (Auto) 2.1 (2-4) % Baso % (Auto) 0.9 (0-2) % Neut # (Auto) 4800 (6326-3139) /uL Sodium 139 (137-145) mmol/L Potassium 3.6 (3.4-5.1) mmol/L Chloride 103 (98-107) mmol/L Carbon Dioxide 27 (22-32) mmol/L BUN 16 (7-17) mg/dL Creatinine 0.60 (0.52-1.04) mg/dL Estimated GFR > 60.0 (>60) mL/min BUN/Creatinine Ratio 26.7 H (6-22) Glucose 100 (80-110) mg/dL Lactate (0.7-2.1) mmol/L Calcium 8.9 (8.4-10.2) mg/dL Total Bilirubin 0.3 (0.2-1.3) mg/dL AST 24 (14-36) IU/L ALT 22 (9-52) IU/L Alkaline Phosphatase 92 (38-126) U/L Total Protein 6.4 (6.3-8.2) g/dL Albumin 3.4 L (3.5-5.0) g/dL Globulin 3.0 (1.7-4.1) g/dL Albumin/Globulin Ratio 1.1 (1.0-2.8) Procalcitonin < 0.05 (<0.5) ng/mL 03/01/18 Range/Units 18:20 WBC (4.5-11.0) X10^3/uL RBC (4.0-5.2) X10^6/uL Hgb (12.0-16.0) g/dL Hct (36-46) % MCV (80-100) fL MCH (26-34) PG MCHC (30-36) % RDW (11.6-14.8) % Plt Count (150-400) X10^3/uL Neut % (Auto) (50-75) % Lymph % (Auto) (25-40) % Jasper % (Auto) (3-14) % Eos % (Auto) (2-4) % Baso % (Auto) (0-2) % Neut # (Auto) (4084-8683) /uL Sodium (137-145) mmol/L Potassium (3.4-5.1) mmol/L Chloride (98-107) mmol/L Carbon Dioxide (22-32) mmol/L BUN (7-17) mg/dL Creatinine (0.52-1.04) mg/dL Estimated GFR (>60) mL/min BUN/Creatinine Ratio (6-22) Glucose (80-110) mg/dL Lactate 1.7 (0.7-2.1) mmol/L Calcium (8.4-10.2) mg/dL Total Bilirubin (0.2-1.3) mg/dL AST (14-36) IU/L ALT (9-52) IU/L Alkaline Phosphatase (38-126) U/L Total Protein (6.3-8.2) g/dL Albumin (3.5-5.0) g/dL Globulin (1.7-4.1) g/dL Albumin/Globulin Ratio (1.0-2.8) Procalcitonin (<0.5) ng/mL Discharge Plan Departure Patient Disposition: Admitted As Inpatient Clinical Impression: Cellulitis of leg, right Discharge Date/Time: 03/01/18 20:50 Interventions: ED Discharge Assessment Last Done: 03/01/18 21:00 Admit Date/Time: 03/01/18 19:58 Admit Provider: Enma Doss <Orlin Santos DO - Last Filed: 03/02/18 01:13> Cosign ED Attending Roxanne Attestation: I was available for consultation during this patient's emergency department encounter
[2018-03-01 17:40] VITALS: BP 103/66; PULSE 76; RESP 14; TEMP 36.4; O2SAT 100; BMI 25.0
--- NOTE | 2018-03-01 18:03 | DI.US.S_ITS ---
PROCEDURE: US PERIPH VENOUS LOW EXTREM RT INDICATIONS: PAIN, EDEMA. Recent right ankle fracture. TECHNIQUE: Real-time imaging, as well as color and pulse Doppler interrogation, were performed of the lower extremity deep veins from the inguinal ligament to the popliteal fossa. COMPARISON: [facility] Ultrasound, US, US VENOUS LOWER EXTREMITY DOPPLER RIGHT, 12/24/2017, 12:49. FINDINGS: The deep veins are normally compressible, and free of intraluminal thrombus. Doppler imaging demonstrates intraluminal flow. IMPRESSION: Negative ultrasound for deep venous thrombosis of the right lower extremity. Dictated by: Shayne Lira M.D. on 03/01/2018 at 20:44 Approved by: Shayne Lira M.D. on 03/01/2018 at 20:45
[2018-03-01 18:39] LABS: Add Manual Diff / Slide Review NO; Basophils Percent Auto 0.9 % (0-2); Eosinophils Percent Auto 2.1 % (2-4); Hematocrit 36.9 % (36-46); Hemoglobin 12.4 g/dL (12.0-16.0); Mean Corpuscular HGB Conc 33.8 % (30-36); Mean Corpuscular Hemoglobin 31.2 PG (26-34); Mean Corpuscular Volume 92.3 fL (80-100); Monocytes Percent Auto 8.1 % (3-14); Neutrophils Absolute Auto 4800 /uL (3000-5900); Neutrophils Percent Auto 60.9 % (50-75); Platelet Count 280 X10^3/uL (150-400); Red Blood Cell Count 3.99 X10^6/uL (4.0-5.2); Red Cell Distribution Width 12.6 % (11.6-14.8)
[2018-03-01 18:59] LABS: Lactate (Lactic Acid) 1.7 mmol/L (0.7-2.1)
[2018-03-01 19:04] LABS: Alanine Aminotransferase 22 IU/L (9-52); Albumin 3.4 g/dL (3.5-5.0); Albumin Globulin Ratio 1.1 (1.0-2.8); Alkaline Phosphatase 92 U/L (38-126); Aspartate Aminotransferase 24 IU/L (14-36); BUN Creatinine Ratio 26.7 (6-22); Bilirubin Total 0.3 mg/dL (0.2-1.3); Blood Urea Nitrogen 16 mg/dL (7-17); Calcium 8.9 mg/dL (8.4-10.2); Carbon Dioxide 27 mmol/L (22-32); Chloride 103 mmol/L (98-107); Estimated Glomerular Filt Rate > 60.0 mL/min (>60); Glucose 100 mg/dL (80-110); HEMOLYSIS < 15 (0-50); Potassium 3.6 mmol/L (3.4-5.1); Sodium 139 mmol/L (137-145); Total Protein 6.4 g/dL (6.3-8.2)
[2018-03-01 19:18] LABS: Procalcitonin < 0.05 ng/mL (<0.5)
[2018-03-01 19:27] VITALS: BP 140/72; PULSE 68; RESP 12; O2SAT 100
[2018-03-01] MEDS: levoFLOXacin 750 MG/150 ML PIGGYBACK 100 MG IV (19:43)
[2018-03-01 20:02] VITALS: BMI 25.0
--- NOTE | 2018-03-01 20:19 | PC.NURSE ---
Called to give report to ELDON Dias. She will call back.
[2018-03-01 21:00] VITALS: BP 130/71; PULSE 64; RESP 18; TEMP 36; O2SAT 98
[2018-03-01] MEDS: SODIUM CHLORIDE 0.9% 1,000 ML 125 ML IV (21:31)
--- NOTE | 2018-03-01 22:04 | PC.NURSE ---
pt from ED to AC floor, oriented to room and hospital routine, call light within reach
[2018-03-01] MEDS: VANCOMYCIN 1,000 MG/200 ML FROZ.PIGGY 133.333 MG IV (22:26)
[2018-03-02] VITALS: BP 122/68; PULSE 65; RESP 18; TEMP 36.8; O2SAT 96
[2018-03-02 04:10] VITALS: BP 128/71; PULSE 69; RESP 20; TEMP 36.8; O2SAT 96
[2018-03-02] MEDS: SODIUM CHLORIDE 0.9% 1,000 ML 125 ML IV (04:56)
--- NOTE | 2018-03-02 07:36 | P.HP_ITS ---
History of Present Illness Date Patient Seen: 03/02/18 Time Patient Seen: 06:45 Chief complaint: RT FOOT, LOWER LEG PAIN, REDNESS Narrative: 82-year-old female, under the primary care of Dr. Leone, who recently had a long car ride with her daughter to [place]. During the trip she started complaining of right ankle pain around December 15, 2017. She was seen at an emergency room in [place] and was diagnosed with DVT in the right peroneal vein and right foot cellulitis. She was treated with oral antibiotics and full dose aspirin. She was told to return to home as soon as possible. She was subsequently found to have right distal fibula displaced fracture on the left ankle x-ray when she saw her primary care provider. She had right ankle ORIF by Dr. Calvo on December 27, 2017. She was started on Xarelto for anticoagulation after the surgery on December 28, 2017. She subsequently was found to have loose hardware and had a repeat surgery on January 17, 2018. She was discharged to [facility] after the surgery. . She was continued on Xarelto until February 22, 2018 when her daughter took her out of [facility] against medical advice. She had a prescription of Xarelto from [facility] ER, however she did not start the medication due to the cost of the medication. Her daughter noticed that she had skin fissuring and erythema on the plantar aspect of her right foot after she was taken off the boot on January 24, 2018. She was started treatment for possible athlete's foot with antifungal topical cream. They were also trying to keep the area dry. She was seen at [facility] Emergency Room on February 19, 2018 and February 22, 2018 for right foot cellulitis. She was treated with Keflex and doxycycline orally. She was brought to the [facility] emergency room on February 24, 2018 by paramedics after a 911 call for sudden onset of shortness of breath with minimal physical exertion. She also was noticed to have low blood pressure. CT pulmonary angiogram was reported negative by her daughter. The official report is not available to me at this time. She was brought back to the [facility] Emergency room yesterday due to worsening of right foot and right lower leg erythema. She was admitted to the medicine floor for right leg cellulitis. She was started on vancomycin and Levaquin IV. She had some improvement of erythema and swelling overnight. She denies fevers or chills. 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) Hypertension (Acute) Muscle weakness (Acute) Osteoarthritis (Acute) Pneumonia (Acute) Thyroid nodule (Acute) Surgical History History of incision and drainage (Acute) Hx of elbow surgery (Acute) Hx of total knee arthroplasty (Acute) Family & Social History Social History: household members family,children Prior Living Arrangements House Safety & Behavioral: Feels Safe in Current Yes Environment Been Physically Hurt or No Threatened By a Person Suicidal Ideation Description None Tobacco & Substance use: Tobacco type cigarettes Smoking Status Former smoker alcohol intake never alcohol intake frequency a few times a month Substance Use Type does not use Comment: She is . Her daughter Lilli lives with her. She drinks alcohol occasionally. Denies cigarette smoking. Meds Home Medications Medication Instructions Recorded Confirmed Type amlodipine 2.5 mg PO DAILY #0 12/23/17 02/22/18 History citalopram 20 mg PO DAILY 12/23/17 02/22/18 History hydrocodone-acetaminophen 2 tab PO Q4HR PRN #60 tab 01/19/18 02/22/18 Rx rivaroxaban [Xarelto] 20 mg PO DAILY #30 tab 01/19/18 02/22/18 Rx acetaminophen 650 mg PO Q4H PRN MDD 3000 mg 02/22/18 02/22/18 History calcium carbonate 1 tab PO DAILY 02/22/18 02/22/18 History clotrimazole 1 applic TOPICAL BID 02/22/18 02/22/18 History doxycycline monohydrate 100 mg PO BID #14 tab 02/22/18 Rx omeprazole 20 mg PO DAILY 02/22/18 02/22/18 History Allergies Allergy/AdvReac Type Severity Reaction Status Date / Time Sulfa (Sulfonamide Allergy Intermediate Hives Verified 03/01/18 18:05 Antibiotics) codeine [CODEINE] Allergy Mild nausea Verified 03/01/18 18:05 iodine [IODINE] Allergy Mild breaks out Verified 03/01/18 18:05 skin Review of Systems Constitutional Comments: No fever chills or sweats Cardiovascular Comments: Denies chest pain Respiratory Comments: No cough or shortness of breath Gastrointestinal Comments: Denies abdominal Genitourinary Comments: No dysuria Musculoskeletal Musculoskeletal: Reports back pain Exam Vital Signs (past 8 hours): - 03/02/18 00:00 03/02/18 04:10 Temperature 98.3 F 98.2 F Pulse Rate 65 69 Respiratory Rate 18 20 Blood Pressure 122/68 H 128/71 H Pulse Oximetry 96 96 Oxygen Delivery Method Room Air Narrative Exam Narrative: GENERAL: Well-appearing, well-nourished and in no acute distress. HEENT: Head normocephalic, atraumatic. Eyes pupils equal round NECK: Supple, no JVD, CHEST: Breath sounds equal bilaterally, no wheezes rales or rhonchi. CARDIAC: Regular rate and rhythm without murmurs, rubs or gallops. ABDOMEN: Soft, nontender. Normoactive bowel sounds all 4 quadrants. No guarding or rebound. EXTREMITIES: Normal range of motion, right foot has erythema on the distal lateral aspect of the foot, distal to the previous markers. Very subtle erythema on the right lower leg distal to the knee. There is erythema and desquamation on the plantar aspect of the right foot, mostly in the ball of the right foot and plantar aspect of the toes. NEUROLOGICAL: Alert and oriented; Normal muscle strength. SKIN: Warm, dry, no petechiae, no rashes or lesions. Objective Labs Result Diagrams: 03/01/18 18:20 03/01/18 18:20 Labs: Laboratory Results - last 24 hr 03/01/18 03/01/18 03/01/18 18:20 18:20 18:20 WBC 8.0 RBC 3.99 L Hgb 12.4 Hct 36.9 MCV 92.3 MCH 31.2 MCHC 33.8 RDW 12.6 Plt Count 280 Neut % (Auto) 60.9 Lymph % (Auto) 28.0 Brantley % (Auto) 8.1 Eos % (Auto) 2.1 Baso % (Auto) 0.9 Neut # (Auto) 4800 Sodium 139 Potassium 3.6 Chloride 103 Carbon Dioxide 27 BUN 16 Creatinine 0.60 Estimated GFR > 60.0 BUN/Creatinine Ratio 26.7 H Glucose 100 Lactate Calcium 8.9 Total Bilirubin 0.3 AST 24 ALT 22 Alkaline Phosphatase 92 Total Protein 6.4 Albumin 3.4 L Globulin 3.0 Albumin/Globulin Ratio 1.1 Procalcitonin < 0.05 03/01/18 18:20 WBC RBC Hgb Hct MCV MCH MCHC RDW Plt Count Neut % (Auto) Lymph % (Auto) Brantley % (Auto) Eos % (Auto) Baso % (Auto) Neut # (Auto) Sodium Potassium Chloride Carbon Dioxide BUN Creatinine Estimated GFR BUN/Creatinine Ratio Glucose Lactate 1.7 Calcium Total Bilirubin AST ALT Alkaline Phosphatase Total Protein Albumin Globulin Albumin/Globulin Ratio Procalcitonin Assessment & Plan Plan: Assessment/Plan Narrative: 1. Right lower extremity cellulitis: Clinically improving based on the previous descriptions from ER physician's notes. Continue IV vancomycin and Levaquin. Likely able to switch to oral antibiotics in the next few days. 2. Recent DVT in the right peroneal vein: Start Lovenox for bridging. Start Coumadin for anticoagulation. Patient was not able to afford Xarelto due to the high co-payment. 3. 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 4. Cognitive impairment, possible dementia: Patient was noticed to have short- term memory deficit. She was not able to recall events correctly. She was also not able to tell me her primary care physician's name. Per her daughter, she was diagnosed with mild cognitive impairment in the past. 5. Athlet's foot: We will start ketoconazole cream topically. 6. Hypertension: She was on low-dose amlodipine. We will discontinue amlodipine due to potential side effect of lower extremity edema. Monitor blood pressure readings and consider starting a different agent if her blood pressure is elevated. 7. Depression: Continue outpatient SSRI dosing. 8. Disposition: home with medically stable, possibly in 1-2 days Quality VTE Deep Vein Thrombosis/Pulmonary Embolism Present on Admission: No
--- NOTE | 2018-03-02 08:17 | PC.NURSE ---
Pt R. leg a bit pink to upper limon, and foot pinkish/red and warm to touch. She states that area's look much better today. Incontinent of urine x1. Eating breakfast now and pt vss.
[2018-03-02 08:35] VITALS: BP 138/76; PULSE 61; RESP 18; TEMP 36.4; O2SAT 96
[2018-03-02] MEDS: ENOXAPARIN 40 MG/0.4 ML SYRINGE 65 MG SUBCUT (08:43)
[2018-03-02] MEDS: CALCIUM CARBONATE 500 MG TAB PO (08:43)
[2018-03-02] MEDS: CITALOPRAM 20 MG TABLET PO (08:43)
--- NOTE | 2018-03-02 13:02 | CM.DANOTE ---
Discharge Planning/Care Management DCP: assessment: case received, EMR reviewed and met with pt this morning. Introduced self and role. Pt is an 82 year old female who admitted to care of hospitalist team. Inpt admission status: confirmed by UR RN Parminder. Pt's daughter/ALISSA Parikh was here later in morning and very concerned about the admission status confirmation. Called her now to update her. She confirms that she will be taking pt home at d/c. I am her multimedia artist caregiver now. She is aware of the switch in anticoagulation medication. She is currently in [place]. Will be back to hospital later this evening and again tomorrow. P:at this point plan is home as noted. PT and OT are not at this time involved. Will try to discuss with hospitalist to see if indicated. CM Discharge Assessment Start: 03/02/18 12:56 Freq: Status: Active Protocol: Document 03/02/18 12:57 ITV (Rec: 03/02/18 13:02 ITV [id number]) Discharge Planning Assessment History Provided By Patient Family Member Is this patient on Medicare? Yes Prior Living Arrangements House Household Members family children Type of transporation used prior to Relies on Others admit Comment Pt lives with her daughter Mary/ALISSA who states that she is her mother's multimedia artist caregiver Willing to Return to Facility? Pt was taken out of [facility] by her daughter/hx of 2017 Is patient alert and oriented? dx mild cognitive impairment. Appears A/O in simple conversation today Discharge Plan Home Review Status In Process Next Review Type Continued Stay Review
[2018-03-02 15:35] VITALS: BP 134/76; PULSE 61; RESP 17; TEMP 36.6; O2SAT 97
[2018-03-02] MEDS: VANCOMYCIN 1,000 MG/200 ML FROZ.PIGGY 200 MG IV (16:14)
[2018-03-02] MEDS: WARFARIN 5 MG TABLET PO (16:52)
[2018-03-02 19:35] VITALS: BP 143/83; PULSE 62; RESP 17; TEMP 36.9; O2SAT 99
[2018-03-02] MEDS: ACETAMINOPHEN 325 MG TABLET 650 MG PO (20:22)
[2018-03-02] MEDS: SODIUM CHLORIDE 0.9% FLUSH 10 ML IV (20:23)
[2018-03-02] MEDS: ENOXAPARIN 80 MG/0.8 ML SYRINGE 65 MG SUBCUT (20:23)
[2018-03-02] MEDS: KETOCONAZOLE 2% CREAM 15 GM 1 APPLIC TOP (20:23)
--- NOTE | 2018-03-02 20:32 | PC.NURSE ---
Pt and pt's daughter report pt did not sleep at all last night. Administered tylenol and will monitor for pt's ability to rest. This was discussed with pt and pt's daughter and both are in agreement.
[2018-03-03] VITALS (7 sets, daily range): BP systolic 101–175; BP diastolic 71–89; PULSE 57–89; RESP 12–16; TEMP 35.9–36.8; O2SAT 95–99
--- NOTE | 2018-03-03 00:37 | PC.NURSE ---
Addendum entered by Addis Tapia R.N. 03/03/18 06:09: States she slept well. INTERNATIONAL TRADE MANAGER reported patient incontinent of urine during night requiring complete bed change. Denies any pain this morning. Bed alarm remains activated. Original Note: Patient is mostly oriented although states she is at [facility], did not know her age and was off on date by 2 days. Respirations shallow and breath sounds diminished throughout; RA sat is 96%. HRR. Denies nausea. BT present and abdomen is soft. States she has urinary urgency and some dribbling so wears a pad but also voids on toilet/BSC. Is able to turn self in bed. Reportedly transfers to BSC with 1 assist but requires help of 2 to get back into bed. Lateral right knee is pink but within drawn markings. Right foot is red mostly at distal part of anterior foot with 1+ edema noted. Plantar surface of right foot is also very reddened reportedly due to a fungus. Denies pain at present time. Fall risk score is high and bed alarm is activated.
[2018-03-03] MEDS: PANTOPRAZOLE 20 MG TABLET PO (06:06)
[2018-03-03] MEDS: CITALOPRAM 20 MG TABLET PO (08:56)
[2018-03-03] MEDS: CALCIUM CARBONATE 500 MG TAB PO (08:56)
[2018-03-03] MEDS: ENOXAPARIN 80 MG/0.8 ML SYRINGE 65 MG SUBCUT ×2 (08:57→20:23)
[2018-03-03] MEDS: KETOCONAZOLE 2% CREAM 15 GM 1 APPLIC TOP ×2 (09:00→20:23)
[2018-03-03] MEDS: SODIUM CHLORIDE 0.9% FLUSH 10 ML IV ×2 (09:02→20:23)
[2018-03-03] MEDS: VANCOMYCIN 1,000 MG/200 ML FROZ.PIGGY 200 MG IV (10:37)
--- NOTE | 2018-03-03 11:46 | PC.NURSE ---
Guido's R foot still has erythema and edema, but area of erythema has not extended past pen line parameters. VSS, afebrile. IV Vanco currently infusing. She denies pain at this time. Dgtr. Abigail supportive at bedside.
--- NOTE | 2018-03-03 12:11 | P.PN_ITS ---
Subjective Date Patient Seen: 03/03/18 Time Patient Seen: 12:09 Interval history: Feeling better Exam Vital Signs (past 8 hours): - 03/03/18 05:22 03/03/18 07:30 Temperature 97.7 F 97.6 F Pulse Rate 76 58 L Respiratory Rate 15 14 Blood Pressure 131/86 H 175/89 H Pulse Oximetry 97 99 Oxygen Delivery Method Room Air Oxygen Flow Rate 0 Narrative Exam Narrative: Resting comfortably Right lower extremity erythema much improved in the right lower extremity and the right foot. Objective Labs Result Diagrams: 03/01/18 18:20 03/01/18 18:20 Assessment & Plan Plan: Assessment/Plan Narrative: 1. Right lower extremity cellulitis: Clinically improving based on the previous descriptions from ER physician's notes. Continue IV vancomycin and Levaquin. Probably was she be able to go home tomorrow with just oral Levaquin 2. Recent DVT in the right peroneal vein: Start Lovenox for bridging. Start Coumadin for anticoagulation. Patient was not able to afford Xarelto due to the high co-payment. Plan to check protime INR for tomorrow morning 3. 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 4. Cognitive impairment, possible dementia: Patient was noticed to have short- term memory deficit. She was not able to recall events correctly. She was also not able to tell me her primary care physician's name. Per her daughter, she was diagnosed with mild cognitive impairment in the past. 5. Athlet's foot: We will start ketoconazole cream topically. 6. Hypertension: She was on low-dose amlodipine. We will discontinue amlodipine due to potential side effect of lower extremity edema. Monitor blood pressure readings and consider starting a different agent if her blood pressure is elevated. 7. Depression: Continue outpatient SSRI dosing. 8. Disposition: home with medically stable, possibly home tomorrow. Quality VTE Deep Vein Thrombosis/Pulmonary Embolism Present on Admission: No
[2018-03-03] MEDS: WARFARIN 5 MG TABLET PO (16:23)
--- NOTE | 2018-03-04 01:05 | PC.NURSE ---
Addendum entered by Addis Tapia R.N. 03/04/18 06:07: Patient slept at intervals during this shift. Used bedpan x 1 and was incontinent x 1. Repositioning self. Denies pain. Original Note: Patient is oriented to person, birthdate/age and situation but did not know date/day of week or where she is; did state I want to say [place], but that's wrong. Breath sounds diminished but CTA with RA sat of 99%. HRR. Denies nausea. BT present and abdomen is soft. Has been incontinent of urine so wearing a pull up. Is able to turn self in bed. Area around right knee is no longer pink. Distal 1/3 of right foot still red but less dark/bright compared to last night. Plantar surface of right foot remains red and scaly. Denies pain. Fall risk score is high and bed alarms is activated.
[2018-03-04 03:38] LABS: Add Manual Diff / Slide Review NO; Basophils Percent Auto 1.2 % (0-2); Hematocrit 37.9 % (36-46); Hemoglobin 12.7 g/dL (12.0-16.0); Lymphocytes Percent Auto 33.5 % (25-40); Mean Corpuscular HGB Conc 33.5 % (30-36); Mean Corpuscular Hemoglobin 31.4 PG (26-34); Mean Corpuscular Volume 93.9 fL (80-100); Monocytes Percent Auto 9.6 % (3-14); Neutrophils Absolute Auto 3800 /uL (3000-5900); Neutrophils Percent Auto 51.7 % (50-75); Platelet Count 254 X10^3/uL (150-400); Red Blood Cell Count 4.03 X10^6/uL (4.0-5.2); Red Cell Distribution Width 13.1 % (11.6-14.8); White Blood Cell Count 7.4 X10^3/uL (4.5-11.0)
[2018-03-04 03:40] LABS: Prothrombin Time 11.4 SECONDS (10.1-12.7)
[2018-03-04 04:04] LABS: Vancomycin Trough 8.6 ug/mL (10-20)
[2018-03-04] MEDS: VANCOMYCIN 1,000 MG/200 ML FROZ.PIGGY 200 MG IV (04:10)
[2018-03-04] MEDS: SODIUM CHLORIDE 0.9% FLUSH 10 ML IV ×3 (04:10→21:02)
[2018-03-04] MEDS: PANTOPRAZOLE 20 MG TABLET PO (06:04)
[2018-03-04 07:00] VITALS: BP 144/92; PULSE 72; RESP 17; TEMP 36.6; O2SAT 98
[2018-03-04] MEDS: ENOXAPARIN 80 MG/0.8 ML SYRINGE 65 MG SUBCUT ×2 (08:57→21:01)
[2018-03-04] MEDS: CALCIUM CARBONATE 500 MG TAB PO (08:57)
[2018-03-04] MEDS: KETOCONAZOLE 2% CREAM 15 GM 1 APPLIC TOP ×2 (08:57→21:02)
[2018-03-04] MEDS: CITALOPRAM 20 MG TABLET PO (08:57)
--- NOTE | 2018-03-04 11:16 | P.DS_ITS ---
History of Present Illness Date Patient Seen: 03/04/18 Time Patient Seen: 11:14 Chief complaint: RT FOOT, LOWER LEG PAIN, REDNESS Narrative: After having failed outpatient treatment for cellulitis she was admitted for worsening cellulitis despite oral antibiotics. Discharge Providers Date of admission: 03/01/18 19:58 Primary care physician: Jhony Rosales MD Consults: 03/01/18 19:57 Consult to Physician Routine Comment: Consulting Provider: Enma Doss Reason for consultation: Cellulitis Has provider been notified: Yes Discharge provider: Derick Carmona MD Summary Discharge Diagnosis: One. Right lower extremity cellulitis having failed outpatient treatment 2. Recent DVT right peroneal vein 3. Osteoarthritis in her knees 4. Cognitive impairment probable dementia 5. Hypertension 6. Depression Hospital Course: Patient med to the hospital with worsening cellulitis despite outpatient oral antibiotic treatment. Cultures were negative she was treated initially with vancomycin and then switched to Keflex. She has had a good response to antibiotics with near resolution of the erythema and induration on the right lower extremity that went from the foot all the way up to the knee. She also has been treated for a recent DVT we put her on Lovenox. And are bridging her to Coumadin which has been dosed at 5 mg per day and she will have a protime checked on WednesdayMarch 07 and I have given her enough Lovenox for 7 days. Patient was taken off amlodipine due to lower extremity edema. Blood pressure has been stable during this hospitalization but needs to be monitored as an outpatient. Status at Discharge Functional status at discharge: independent ambulation Overall status at discharge: patient is back to baseline Time Spent with Patient Greater than 30 minutes Exam Vital Signs (past 8 hours): - 03/04/18 07:00 Temperature 97.9 F Pulse Rate 72 Respiratory Rate 17 Blood Pressure 144/92 H Pulse Oximetry 98 Oxygen Delivery Method Room Air Oxygen Flow Rate 0 Objective Labs Result Diagrams: 03/04/18 03:25 03/01/18 18:20 Labs: Laboratory Results - last 24 hr 03/04/18 03/04/18 03/04/18 03:25 03:25 03:25 WBC 7.4 RBC 4.03 Hgb 12.7 Hct 37.9 MCV 93.9 MCH 31.4 MCHC 33.5 RDW 13.1 Plt Count 254 Neut % (Auto) 51.7 Lymph % (Auto) 33.5 [place] % (Auto) 9.6 Eos % (Auto) 4.0 Baso % (Auto) 1.2 Neut # (Auto) 3800 PT 11.4 INR 1.0 Vancomycin Trough 8.6 L Discharge Plan Discharge Plan Patient Disposition: Home, Self-Care Provider Discharge Instructions Diet: Diet as Tolerated Wound Care Report to your healthcare provider any signs of infection, such as:: chills, fever Other wound treatment: keep leg elevated. Discharge Data Primary Care Provider: Jhony Rosales Attending Provider: Enma Doss Admit Date/Time: 03/01/18 19:58 Quality VTE Deep Vein Thrombosis/Pulmonary Embolism Present on Admission: No
[2018-03-04] MEDS: cephALEXin 250 MG CAPSULE PO ×3 (13:24→21:49)
[2018-03-04 15:20] VITALS: BP 100/67; PULSE 88; RESP 16; TEMP 36.8; O2SAT 96
--- NOTE | 2018-03-04 15:23 | CM.DPC ---
DCP: continued: Dr. Carmona did ok pt for d/c today. ELDON Dodson reports she has spoken with ALISSA Hernandez who is in [place] at an appt and who will be here this afternoon to pick pt up. Stopped in to see pt. She said she has spoken with her daughter, was pleased to be returning home. P: home and clinic followup.
[2018-03-04] MEDS: WARFARIN 5 MG TABLET PO (18:10)
--- NOTE | 2018-03-04 19:42 | PC.NURSE ---
Pt's daughter arrives around 1745 and was informed pt has been discharged. Pt was unsure of this plan and daughter verbalizes the same. Discussed with pt's daughter pt to be discharged to home with lovenox injections. Pt's daughter, Abigail (also pt's caregiver) states is unable to give injections and states made that clear when pt was admitted. Dr. Carmona in house to see other patients and was informed of this conversation. Dr. Carmona had face to face conversation with pt's daughter and agreeable to allow pt to remain in hospital overnight until arrangments can be made by daughter to provide someone to give lovenox injections at home. Scripts given to pt's daughter. Pt assist x 2 from recliner to bed for sleep. Denies pain.
[2018-03-05 00:30] VITALS: BP 119/78; PULSE 62; RESP 17; TEMP 36.4; O2SAT 97
--- NOTE | 2018-03-05 00:36 | PC.NURSE ---
Patient is alert and oriented except to place and date. Breaths sounds CTA with RA sat of 97%. HRR. Denies nausea. BT present and abdomen is soft. Has been both continent and incontinent of urine so wearing pull up. Is able to turn self in bed. No longer has any redness to right leg and right dorsal foot much improved with only slightly pink skin noted. Plantar surface of right foot with fungal infection remains reddened with scaly/peeling skin. Denies any pain/discomfort. Fall risk score is high and bed alarm is activated.
[2018-03-05] MEDS: PANTOPRAZOLE 20 MG TABLET PO (05:54)
[2018-03-05 07:45] VITALS: BP 127/76; PULSE 66; RESP 18; TEMP 36.6; O2SAT 98
[2018-03-05] MEDS: CITALOPRAM 20 MG TABLET PO (09:44)
[2018-03-05] MEDS: CALCIUM CARBONATE 500 MG TAB PO (09:44)
[2018-03-05] MEDS: ENOXAPARIN 80 MG/0.8 ML SYRINGE 65 MG SUBCUT (09:44)
[2018-03-05] MEDS: cephALEXin 250 MG CAPSULE PO (09:45)
[2018-03-05] MEDS: KETOCONAZOLE 2% CREAM 15 GM 1 APPLIC TOP (09:46)
[2018-03-05] MEDS: SODIUM CHLORIDE 0.9% FLUSH 10 ML IV (09:47)
[2018-03-05 11:50] LABS: INR 1.3 (0.9-1.3); Prothrombin Time 14.2 SECONDS (10.1-12.7)
--- NOTE | 2018-03-05 13:43 | PC.NURSE ---
PT EDUCATED ON HOW TO SELF INJECT LOVENOX. DTR ARRIVED AT APPROX 1300. DTR EXPRESSED CONCERN TO PAY FOR LOVENOX. PT STATES SHE HAS 5 SYRINGES OF LOVENOX ON HAND. KIT FOR LOVENOX GIVEN. PER DTR NEEL, HER FRIEND WHO IS AUTOMATION AND CONTROL ENGINEER WILL ADMINISTER LOVENOX INJECTIONS. DTR INSTRUCTED TO GO TO PCP ON WEDNESDAY FOR INR DRAW AND HAVE PCP COORDINATE WITH INS TO GET LOVENOX COVERED BY INS.
--- NOTE | 2018-03-05 14:18 | CM.DPC ---
DCP Final: Pt to dc home today w/ Lovenox. Daughter Abigail is not comfortable w/ giving injections so has arranged for a friend who is a nurse to administer BID. There is a issue with payment of the Lovenox as the dosage exceeded what her insurance will cover. Ibrahima at [facility] tried to get it straightened out but was not successful. Gerardo did quill picking machine operator and pay for 5 doses. Resume order for submitted to [facility]. Fax'd updated chart notes with order. Confirmation received. Also spoke w/ Je at [facility]. Plan: To DC to home. Gerardo to call pt's primary MD office on Wednesday to arrange for a PT/INR draw to make plans for either further Lovenox or just her Coumadin. Also gerardo to contact pt's insurance about possibly appealing the cost of the Lovenox. Of note, this DC was held due to cost of Lovenox. Uma Juan RN
--- NOTE | 2018-03-05 14:52 | PC.NURSE ---
ALL D/C INSTRUCTIONS GIVEN. PER DR. CERNA PT IS TO D/C ON 7.5 MG WARFARIN 2 DAY AND LOVENOX 65 MG BID FOR 5 DAYS. DTR AND PT HAVE BEEN INSTRUCTED TO GO TO PCP ON 03/07 TO F/UP AND INR DRAWN. PT VERBALIZED UNDERSTANDING OF ALL D/C INSTRUCTIONS. PT LEFT IN STABLE CONDITION.
--- NOTE | 2018-03-05 16:04 | P.PN_ITS ---
Subjective Date Patient Seen: 03/05/18 Time Patient Seen: 10:00 Interval history: Patient has been doing well. She learned how to do subcutaneous Lovenox injections from the nurse. Exam Vital Signs (past 8 hours): Oxygen Delivery Method Room Air Oxygen Flow Rate 0 Narrative Exam Narrative: General: Elderly woman in no acute distress Objective Labs Result Diagrams: 03/04/18 03:25 03/01/18 18:20 Labs: Laboratory Results - last 24 hr 03/05/18 11:35 PT 14.2 H INR 1.3 Assessment & Plan Plan: Assessment/Plan Narrative: 1. Right lower extremity cellulitis: She was initially treated with IV vancomycin and Levaquin. She is going to be discharged on oral Levaquin. 2. Recent DVT in the right peroneal vein: Lovenox was started for bridging. Coumadin was also started. INR today is still 1.3. We will increase Coumadin dose from 5 mg daily to 7.5 mg daily. Continue Lovenox 65 mg twice a day for bridging until she is therapeutic with Coumadin. 3. 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 4. Cognitive impairment, possible dementia: Patient was noticed to have short- term memory deficit. She was not able to recall events correctly. She was also not able to tell me her primary care physician's name. Per her daughter, she was diagnosed with mild cognitive impairment in the past. 5. Athlet's foot: We will continue ketoconazole cream topically. 6. Hypertension: Amlodipine was discontinued due to concern of lower extremity edema. She was continued on other antihypertensive medications. 7. Depression: Continue outpatient SSRI dosing. 8. Disposition: Discharge home today. Discharge orders were updated. Quality VTE Deep Vein Thrombosis/Pulmonary Embolism Present on Admission: No
== END 2018-03-05 14:30 | disposition home or self-care (01) | DRG 603 ==
LOC: ED 17:29 → AC 19:58
PROVIDERS: Internal Medicine; Admitting Provider Internal Medicine; Emergency Provider Nurse Practitioner Family; Family Provider Nurse Practitioner Family; PCP Family Medicine; Visit Provider Internal Medicine
DX: L03.115 Cellulitis of right lower limb (principal); I82.4Y1 Acute embolism and thrombosis of unspecified deep veins of right proximal lower extremity; D50.9 Iron deficiency anemia, unspecified; I10 Essential (primary) hypertension; Z87.891 Personal history of nicotine dependence; Z86.718 Personal history of other venous thrombosis and embolism; Z79.01 Long term (current) use of anticoagulants; M17.0 Bilateral primary osteoarthritis of knee; G31.84 Mild cognitive impairment of uncertain or unknown etiology; B35.3 Tinea pedis; F32.9 Major depressive disorder, single episode, unspecified
CPT/HCPCS: 36415; 36591; 80053; 80202; 83605; 84145; 85025; 85610; 93971; 96365; 96368; 99281; 99284; J1650; J1956; J3370

== ENCOUNTER → 2018-06-09 16:01 | Outpatient (CLI) | payer MEDICARE, SELFPAY ==
[2018-06-09 16:28] LABS: Add Manual Diff / Slide Review NO; Eosinophils Percent Auto 1.5 % (2-4); Hematocrit 38.4 % (36-46); Hemoglobin 12.7 g/dL (12.0-16.0); Lymphocytes Percent Auto 27.4 % (25-40); Mean Corpuscular HGB Conc 33.2 % (30-36); Mean Corpuscular Hemoglobin 29.3 PG (26-34); Mean Corpuscular Volume 88.3 fL (80-100); Monocytes Percent Auto 7.7 % (3-14); Neutrophils Absolute Auto 3900 /uL (3000-5900); Neutrophils Percent Auto 62.4 % (50-75); Platelet Count 269 X10^3/uL (150-400); Red Blood Cell Count 4.35 X10^6/uL (4.0-5.2); Red Cell Distribution Width 13.3 % (11.6-14.8); White Blood Cell Count 6.3 X10^3/uL (4.5-11.0)
[2018-06-09 16:50] LABS: Alanine Aminotransferase 32 IU/L (9-52); Albumin 3.9 g/dL (3.5-5.0); Albumin Globulin Ratio 1.2 (1.0-2.8); Alkaline Phosphatase 93 U/L (38-126); Aspartate Aminotransferase 39 IU/L (14-36); Bilirubin Total 0.3 mg/dL (0.2-1.3); Blood Urea Nitrogen 14 mg/dL (7-17); Calcium 8.7 mg/dL (8.4-10.2); Carbon Dioxide 27 mmol/L (22-32); Chloride 103 mmol/L (98-107); Estimated Glomerular Filt Rate > 60.0 mL/min (>60); Globulin 3.2 g/dL (1.7-4.1); Glucose 83 mg/dL (80-110); HEMOLYSIS < 15 (0-50); Potassium 3.8 mmol/L (3.4-5.1); Sodium 138 mmol/L (137-145); Total Protein 7.1 g/dL (6.3-8.2)
== END ==
PROVIDERS: Family Provider Nurse Practitioner Family; PCP Family Medicine; Visit Provider Nurse Practitioner Family
DX: Z01.810 Encounter for preprocedural cardiovascular examination (principal)
CPT/HCPCS: 36415; 80053; 85025

== ENCOUNTER 2018-06-14 12:54 | Day surgery (SDC) | payer MEDICARE, SELFPAY ==
[2018-05-30 12:50] VITALS: BMI 25.1
[2018-06-14 13:27] VITALS: BP 106/80; PULSE 80; RESP 16; TEMP 36.5; O2SAT 95; BMI 25.1
--- NOTE | 2018-06-14 13:52 | SUR.PREOP ---
pt had taken lovenox at 1999 last night pt has talked to Dr aviles and he will talk with Dr Zarco. Will see about surgery rescheduled. Or see if Dr. Zarco will be able to do it today.
--- NOTE | 2018-06-14 14:22 | SUR.PREOP ---
Procedure cancelled and pt sent home with her daughter. She was d/stephania with her daughter in a wheelchair. Ryan HAZEL came and talked to pt .
== END 2018-06-14 13:21 | disposition home or self-care (01) ==
LOC: AC 14:12 → OR 06-16 15:29
PROVIDERS: Family Provider Nurse Practitioner Family; PCP Nurse Practitioner Family; Visit Provider Orthopaedic Surgery
DX: Z53.09 Procedure and treatment not carried out because of other contraindication (principal)

== ENCOUNTER 2018-06-17 09:41 | Inpatient (IN) | payer MEDICARE, SELFPAY ==
[2018-06-15 14:48] VITALS: BMI 25.1
[2018-06-17] VITALS (14 sets, daily range): BP systolic 110–150; BP diastolic 68–96; PULSE 65–84; RESP 12–18; TEMP 36.3–36.9; O2SAT 93–97; BMI 25.1
--- NOTE | 2018-06-17 05:00 | DI.RAD.S_ITS ---
PROCEDURE: XR KNEE LT 1TO2V INDICATIONS: post op TECHNIQUE: 2 view(s) of the knee acquired. COMPARISON: [facility] Danie Bob, MARILYN, XR KNEE ARTHRITIC SERIES LT, 05/04/2018, 14:34. FINDINGS: Bones: Patient is status post knee joint arthroplasty. Hardware components are in expected positions. Visualized bony structures are intact. Soft tissues: Expected postoperative changes within the overlying soft tissues are present with areas of soft tissue air, edema, and fluid. Skin jerome are noted along the midline anterior aspect of the knee. No unexpected radiopaque foreign bodies are evident. Scattered vascular calcifications are noted. IMPRESSION: Expected postoperative changes related to a total left knee arthroplasty. Dictated by: Jun Page M.D. on 06/17/2018 at 14:41 Approved by: Jun Page M.D. on 06/17/2018 at 14:42
[2018-06-17] MEDS: ACETAMINOPHEN 325 MG TABLET 975 MG PO ×3 (11:26→22:29)
[2018-06-17] MEDS: CELECOXIB 200 MG CAPSULE 400 MG PO (11:27)
[2018-06-17] MEDS: VANCOMYCIN 1,000 MG/200 ML FROZ.PIGGY 200 MG IV (11:34)
[2018-06-17] MEDS: DEXAMETHASONE 10 MG/ML VIAL 8 MG IV (11:35)
[2018-06-17] MEDS: PREGABALIN 75 MG CAPSULE PO (11:39)
[2018-06-17] MEDS: ONDANSETRON 4 MG/2 ML INJ IV (11:39)
[2018-06-17] MEDS: diphenhydrAMINE 50 MG/ML VIAL 25 MG IV (11:54)
--- NOTE | 2018-06-17 11:55 | SUR.PREOP ---
PATIENT STARTED SNEEZING EYES WATERY AND GENERALIZED ITCHING PROGRESSIVELY GETTING WORSE. STOPPED VANCO AND CALLED DR WILLIAMSON. HE SAID STOP THE VANCO AND GIVE 25MG OF BENADRYL IV. PATIENT NOW RESTING EASY. ALLERGIC SYMPTOMS HAVE RESOLVED. DR. CASTLE IN AND SAID TO GIVE ANCEF 2 GRAMS INSTEAD.
--- NOTE | 2018-06-17 12:16 | PM.PREOP ---
Pre-operative Note Interval Note Pre-op Check: Yes History & Physical Reviewed by Physician and Yes Exam Performed Changes: No
--- NOTE | 2018-06-17 12:16 | PM.OP.1 ---
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 The nature of the procedure including the risks and benefits, alternatives, postoperative course and expected outcome were discussed and all questions answered. Consent was obtained. Operative site confirmed and marked. Surgeon: Parminder Zarco Family And Consumer Science Professor: Carmina Mayo Anesthesia Type: Spinal and Local Operative Notes Findings: The partial replacement was not loose and there was not significant polyethylene wear. The patient did have severe arthritic change throughout the knee especially of the patellofemoral joint. Her bone was also extremely osteoporotic. Standard cuts were made for a total knee with the exception of a +2 femoral cut. The cuts fully incorporated the previous cuts from the unicompartmental knee. Closure Type: primary Specimen(s): other (Old implants) Implants & Drains: [employer] BCS: 5 femoral component, 4 tibial component, 9 mm BCS polyethylene tray and 32 x 7.5 mm round patella Applied: implant(s) Estimated Blood Loss (mL): 50 Blood products transfused: none Tourniquet time (min): 40 Procedure in detail: The patient was taken to the operative suite and placed under spinal anesthesia. The patient was given prophylactic antibiotics prior to surgery. The patient was also given tranexamic acid, 1 g, just prior to surgery for postoperative hemostasis. The lateral knee was prepped and the joint injected with 20 mL of 1% Lidocaine with epinephrine. The knee was then prepped and draped in usual sterile fashion. The leg was exsanguinated with an Esmarch dressing and the tourniquet raised to 250 torr. A 15 cm anterior incision was made. Next a medial trivector arthrotomy was made. The extensor mechanism was marked to ensure accurate repair. Initial exposing dissection was carried out medially and laterally. The knee was then extended and the patellar thickness was measured and a cut made removing approximately 5 mm of bone. The patella was extremely warning concave. It only measured about 19 mm at his thickness point. Post resection thickness was 14 mm. The patella was then sized and drilled. Some excess lateral bone was excised and the patellofemoral ligament released. The knee was then flexed and the intramedullary femoral guide patricia placed. The distal femoral cut was made in 6 ? of valgus at the + 2 position. The majority of the cut wood underneath the old unicompartmental femoral component. The component was loosened further with an osteotome and removed without significant bone loss. The femoral size was measured and the appropriate cutting block was then placed and the anterior, posterior and chamfer cuts made. These cuts fully incorporated the previous cuts from the unicompartmental arthroplasty. The extra-medullary tibial alignment patricia was then placed along the anatomic axis of the tibia appropriating the normal slope. The guide was set to remove approximately 7 mm from the less affected medial side. The proximal tibial cut was then made with an oscillating saw. This cut went just underneath the previous unicompartmental tibial component. Component was further lucent with osteotome was removed. There is no significant bone loss. There was extreme osteoporosis. All meniscus and bony debris was then removed. Flexion extension gaps were checked. No specific balancing was required other than routine removal of osteophytes. The soft tissues were then injected with a combination of 20 mL of half percent Marcaine with epinephrine and 20 mL of Exparel. The trial components were then placed. The knee went into full extension and flexion beyond 120?. There was excellent medial- lateral balance throughout motion. Patellar tracking was excellent. The trial components were removed and the knee was cleansed with Pulsavac irrigation and dried. The final components were cemented in with high viscosity vacuum mixed bone cement with antibiotics. The knee was held in extension and the patellar clamp until the cement had adequately cured. The knee was irrigated and inspected for any further debris. The knee was then irrigated with dilute Betadine solution. The extensor mechanism was closed with 5 interrupted #1 Vicryl sutures in 90 degrees of flexion. The joint was then injected with a combination of 1 g of tranexamic acid and 20 mL of quarter percent Marcaine with epinephrine. The subcutaneous tissue was closed with 2-0 Vicryl. The skin was closed with jerome and surgical adhesive. An Aquacell dressing and Francisco wrap were then applied. The patient tolerated the procedure well and was returned to recovery room in good condition. Complications: none Condition: stable Disposition: PACU Plan for aftercare: Standard postoperative protocol for total knee arthroplasty.
[2018-06-17] MEDS: CEFAZOLIN 2 GM/100 ML FROZ.PIGGY IV ×2 (12:45→22:30)
--- NOTE | 2018-06-17 13:28 | SUR.OPER ---
Supine on padded OR bed, head on pillow, arms secured on padded arm boards at <90 degrees abduction, legs uncrossed, safety belt at thigh, tape over blanket over lower legs.
[2018-06-17] MEDS: BUPIVACAINE 0.25% W/ EPI VIAL 50 ML INJ (13:40)
[2018-06-17] MEDS: BUPIVACAINE LIPOSOME 266 MG/20 ML VIAL INJ (13:41)
[2018-06-17] MEDS: LIDOCAINE 1% W/EPI INJ 20 ML INJ (13:41)
[2018-06-17] MEDS: LACTATED RINGERS 1,000 ML 84 ML IV (14:27)
[2018-06-17] MEDS: LACTATED RINGERS 1,000 ML 125 ML IV (16:12)
--- NOTE | 2018-06-17 16:24 | PC.NURSE ---
Pt to room 202 awake and alert. Admits to full sensation to BL LE's. Denies pain to left knee although admits to tightness. Administered tylenol as ordered and will monitor for relief. Ice to left knee. Room air 94%. Pt's daughter is present and involved in pt's care. Encouraged to call for needs and oriented to call light.
[2018-06-17 17:22] LABS: INR 1.1 (0.9-1.3); Prothrombin Time 11.8 SECONDS (10.1-12.7)
[2018-06-17] MEDS: WARFARIN 7.5 MG TABLET PO (17:47)
--- NOTE | 2018-06-17 18:58 | PC.NURSE ---
Mostly sleeping unless staff waken pt for care. Sips/chips and applesauce, but pt not wakeful enough to eat evening meal. No void at this time. Continuous pulse oximeter in place. Room air 92% with sleep.
--- NOTE | 2018-06-17 21:21 | PC.NURSE ---
Pt denies feeling urge to void. Assist x 2 to bedside commode and pt unable to void. Returned to bed and bladder scanned for 622 cc's. Straight cathed for 650 cc's. Iodine products not used as pt has stated allergy. Soap and water cleanse to periarea x 3 prior to catheterization. Pt denies need for pain meds @ this time.
[2018-06-18] VITALS (7 sets, daily range): BP systolic 108–140; BP diastolic 52–98; PULSE 62–72; RESP 16–18; TEMP 36.4–36.6; O2SAT 96–100
[2018-06-18] MEDS: LACTATED RINGERS 1,000 ML 125 ML IV (00:41)
[2018-06-18] MEDS: CEFAZOLIN 2 GM/100 ML FROZ.PIGGY IV (04:39)
[2018-06-18] MEDS: OXYCODONE IR 5 MG TABLET PO ×4 (04:44→21:14)
[2018-06-18 06:12] LABS: Hematocrit 32.1 % (36-46); Hemoglobin 10.7 g/dL (12.0-16.0)
[2018-06-18] MEDS: PANTOPRAZOLE 20 MG TABLET PO (06:18)
--- NOTE | 2018-06-18 07:23 | PM.PNPO.1 ---
Subjective Date Patient Seen: 06/18/18 Interval history: Patient seen bedside s/p left knee revision POD #1. She is doing well, pain is controlled. She did have difficulty urinating overnight and had to be straight catheterized, but has been doing fine since then. She was mostly wheelchair bound prior to surgery. She lives with her daughter in a split level with multiple sets of stairs to navigate. Exam Vital Signs (past 8 hours): - 06/17/18 23:49 06/18/18 04:26 06/18/18 05:05 Temperature 97.6 F 97.9 F Pulse Rate 82 72 Respiratory Rate 18 16 Blood Pressure 135/75 136/98 H Pulse Oximetry 94 96 98 Oxygen Delivery Method Room Air Oxygen Flow Rate 0 Narrative Exam Narrative: WDNW NAD. Patient appears pleasantly confused. Dressing is clean, dry, and intact with minimal drainage. She is NVI in this extremity with soft and compressible calf. Objective Labs Result Diagrams: 06/18/18 05:58 Labs: Laboratory Results - last 24 hr 06/17/18 06/18/18 17:05 05:58 Hgb 10.7 L Hct 32.1 L PT 11.8 INR 1.1 Assessment & Plan Post-op Postoperative Procedures Operation Date: 06/17/18 11:30 Actual Procedures Side Surgeon p Revision of partial knee to Total Knee Arthroplasty Left Parminder Zarco MD 1. POD #1 above procedure--work with PT, pain control, DVT prophylaxis. Patient will likely need rehab due to home situation and prior activity level. Discussed with case management. Quality VTE Deep Vein Thrombosis/Pulmonary Embolism Present on Admission: No
[2018-06-18] MEDS: CITALOPRAM 20 MG TABLET PO (10:06)
[2018-06-18] MEDS: ACETAMINOPHEN 325 MG TABLET 975 MG PO ×3 (10:06→21:14)
[2018-06-18] MEDS: ENOXAPARIN 30 MG/0.3 ML SYRINGE SUBCUT (10:07)
--- NOTE | 2018-06-18 11:30 | PT.IIE ---
Addendum entered and electronically signed by Chalino Parker, PT 06/19/18 08:37: Current condition of this patient was stated that pt had a Cam boot present, and evaluation date was 01/18/18. This evaluation s/p L knee revision was performed 06/18/18, no Cam boot this admission (pt had a previous ankle ORIF), however upon editing this documentation system continues to carry this statement forward. Original Note: Current Diagnoses Unilateral primary osteoarthritis, left knee (06/17/18) Presence of left artificial knee joint (06/17/18) Surgery Performed Operation Date: 06/17/18 11:30 Actual Procedures p Revision of partial knee to Total Knee Arthroplasty(Left) - Parminder Zarco MD Surgical History (Last Updated 05/30/18 @ 13:27 by Amanda Griffiths, RN) History of hip surgery (Acute) History of incision and drainage (Acute) History of tonsillectomy and adenoidectomy (Acute) Hx of elbow surgery (Acute) Hx of total knee arthroplasty (Acute) Status post unicompartmental knee replacement, left (Acute) Medical History (Last Updated 05/30/18 @ 13:26 by Amanda Griffiths, RN) Closed fracture of right distal fibula (Acute ~12/2017) Anemia, iron deficiency (Acute) Ankle fracture, right (Acute) Arthritis of knee, left (Acute) Blood clot in vein (Acute) Bruises easily (Acute) Cardiomegaly (Acute) Cataract fragments in both eyes following surgery (Acute) Cellulitis (Acute) Cognitive impairment (Acute) DVT (deep venous thrombosis) (Acute) Depression (Acute) Diarrhea (Acute) GERD (gastroesophageal reflux disease) (Acute) Hammer toe, acquired (Acute) History of hip fracture (Acute) 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) Hypertension (Acute) Muscle weakness (Acute) Nausea (Acute) Osteoarthritis (Acute) Pneumonia (Acute) Postmenopausal (Acute) Raynauds disease (Acute) Scoliosis (Acute) Spinal stenosis (Acute) Thyroid nodule (Acute) Physical Therapy Inpatient Evaluation/Re-Eval M1 PT/OT-IP Prior Functional Status Start: 06/18/18 11:44 Freq: NEEDED Status: Active Protocol: Document 06/18/18 11:30 RCC (Rec: 06/18/18 11:46 RCC [id number]) Medical Review Prior Functional Status Medical History Reviewed Yes Mobility and Gait assistance with going up/down stairs by daughter and rails, w/c for mobility mostly in and outdoors Activities of Daily Living and IADL's some assistance with ADLs from daughter Social History Household Members children Living Arrangements House Number of Floors (Floors) Two Floors Number of Stairs To Enter/Railing? 10-12 steps up or down with B rails to get to upper or lower leve (splint-entry home) Home Environment High Toilet Walk in Shower Home Equipment Front Wheel Walker Manual Wheelchair M2 PT-IP Current Condition Start: 06/18/18 11:44 Freq: NEEDED Status: Active Protocol: Document 06/18/18 11:30 RCC (Rec: 06/18/18 11:46 [facility] [id number]) Physical Therapy Current Condition Current Condition Evaluation Date 01/18/18 Precautions Brace pt has cam boot brace present upon evaluation M3 PT-IP Subjective Start: 06/18/18 11:44 Freq: NEEDED Status: Active Protocol: Document 06/18/18 11:30 RCC (Rec: 06/18/18 12:11 [facility] [id number]) Subjective Physical Therapy Visit Type Type Initial Evaluation Visit Start Time 11:02 Visit Stop Time 11:30 Total Visit Minutes 28 Number of SCHOOL JANITOR Visits 0 Physical Therapy Visit Comments Patient Comments pt states that pain is fine until she stands up. Patient Goals to be able to walk again Therapy Pain Assessment Pain When Pain Assessed At Rest Location Left Knee Intensity 3 Scale Used Numeric (1 - 10) M4 PT-IP Mobility and Gait Start: 06/18/18 11:44 Freq: NEEDED Status: Active Protocol: Document 06/18/18 11:30 RCC (Rec: 06/18/18 12:11 [facility] [id number]) PT-Bed Mobility Assessment Supine to Sit Supine to Sit Minimal Assistance 1 Person Assistance Head of Bed Elevated Scooting Scooting to Edge of Bed Minimal Assistance PT-Transfer Assessment Sit to and From Stand Sit to and from Stand Moderate Assistance 1 Person Assistance Use of Upper Extremities Equipment Transfer Assistive Device Gait Belt Front Wheeled Walker Transfers Transfer Destination Chair Transfer Technique Stand Step Pivot Transfer Ability Level of Assist Minimal Assistance 1 Person Assistance Use of Upper Extremities Comments Mobility Comments LLE ER with standing and stepping Gait Assessment Gait Gait Assistance Required: Minimum Assistance 1 Person Assist Distance (Feet) 5 Assistive Devices Assistive Device Gait Belt Front Wheeled Walker Gait Deviations General Gait Pattern Antalgic Decreased Stride Length Decreased Feet Clearance Flexed Trunk Step-to Gait Factors Limiting Gait Function Factors Limiting Gait Function Decreased Activity Tolerance Decreased Strength Limited Range of Motion Pain Poor Balance Comments Gait Comments Excessive LLE ER with standing PT-Balance Assessment Sitting Balance and Reactions Static Sitting Balance Ability Good Dynamic Sitting Balance Ability Fair Standing Balance and Reactions Static Standing Balance Ability Poor Dynamic Standing Balance Ability Poor Device Used FWW M5 PT-IP Objective Assessments Start: 06/18/18 11:44 Freq: NEEDED Status: Active Protocol: Document 06/18/18 11:30 RCC (Rec: 06/18/18 12:11 [facility] [id number]) Orientation Orientation/Cognition Level of Alertness Alert Gross Range of Motion Lower Extremity ROM Assessment Left Impaired Impairments L knee AROM 12-75 deg. Strength Lower Extremity Strength Assessment Left Impaired Hip flexion 3/5 L Knee flexion 3/5, extension 3/5 L Ankle DF 5/5 L Sensation Assessment Sensation Gross Sensation WNL M6 PT-IP Treatment Start: 06/18/18 11:44 Freq: NEEDED Status: Active Protocol: Document 06/18/18 11:30 RCC (Rec: 06/18/18 12:11 [facility] [id number]) Physical Therapy Treatment Exercises Exercises Ankle Pumps Seated Knee Flexion/Extension Education Education Provided Weight Bearing Status Post-Op Packet Safety M7 PT-IP Assessment and Plan Start: 06/18/18 11:44 Freq: NEEDED Status: Active Protocol: Document 06/18/18 11:30 RCC (Rec: 06/18/18 12:11 [facility] [id number]) PT Summary Assessment and Plan Potential Rehabilitation Potential Good Status of Condition at Evaluation Stable Summary Impairments Pain ROM Strength Balance Bed Mobility Transfers Gait Activity Tolerance Assessment Summary POD #1 L knee revision. Pt was able to ambulate 5 ft with FWW and Min A today, but fatigues very quickly and had an uncontrolled stand to sit which required assistance to control. Pt at this time is not safe to return home, and likely not be able to manage stairs at this time given her impaired activity tolerance, and limited mobility and weakness. The burden of care is too high for the pt to be safely assisted at home, and will require SNF rehabilitation upon d/c. Goals Bed Mobility Goal Standby Assistance Transfer Goal Standby Assistance Gait Goal Standby Assistance Gait Distance 50 Days to Meet Goals 3 Frequency of Treatment Frequency Of Treatment Twice a Day Treatment Plan Physical Therapy Treatment Plan Bed Mobility Training Transfer Training Gait Training Therapeutic Exercise Balance Retraining Post Op Education Discharge Planning Hot or Cold Pack Neuromuscular Re-ed Recommendations To Nursing Amount of Assist Needed 1 Person Assist Discharge Recommendations PT Discharge Recommendations SNF Rehab
--- NOTE | 2018-06-18 14:30 | PT.IPTN ---
Current Diagnoses Unilateral primary osteoarthritis, left knee (06/17/18) Presence of left artificial knee joint (06/17/18) Surgery Performed Operation Date: 06/17/18 11:30 Actual Procedures p Revision of partial knee to Total Knee Arthroplasty(Left) - Parminder Zarco MD Physical Therapy Treatment Note M2 PT-IP Current Condition Start: 06/18/18 11:44 Freq: NEEDED Status: Active Protocol: Document 06/18/18 11:30 RCC (Rec: 06/18/18 11:46 [facility] [id number]) Physical Therapy Current Condition Current Condition Evaluation Date 01/18/18 Precautions Brace pt has cam boot brace present upon evaluation M3 PT-IP Subjective Start: 06/18/18 11:44 Freq: NEEDED Status: Active Protocol: Document 06/18/18 15:10 GGD (Rec: 06/18/18 15:48 GGD [email or web address]) Subjective Physical Therapy Visit Type Type Treatment Note Visit Start Time 14:00 Visit Stop Time 14:30 Total Visit Minutes 30 Number of [place] ATTENDANT Visits 1 Physical Therapy Visit Comments Patient Comments Pt states that she would like to go back to bed. Therapy Pain Assessment Pain When Pain Assessed At Rest Location Left Knee Intensity 3 Scale Used Numeric (1 - 10) M4 PT-IP Mobility and Gait Start: 06/18/18 11:44 Freq: NEEDED Status: Active Protocol: Document 06/18/18 15:10 GGD (Rec: 06/18/18 15:48 GGD [id number]) PT-Bed Mobility Assessment Sit to Supine Sit to Supine Minimal Assistance 1 Person Assistance Bedrails PT-Transfer Assessment Sit to and From Stand Sit to and from Stand Minimal Assistance 1 Person Assistance Use of Upper Extremities Equipment Transfer Assistive Device Gait Belt Front Wheeled Walker Transfers Transfer Destination Bed Transfer Ability Level of Assist Minimal Assistance 1 Person Assistance Use of Upper Extremities Gait Assessment Gait Gait Assistance Required: Contact Guard Assist 1 Person Assist Distance (Feet) 15 Assistive Devices Assistive Device Gait Belt Front Wheeled Walker Gait Deviations General Gait Pattern Antalgic Decreased Stride Length Decreased Feet Clearance Flexed Trunk Step-to Gait Factors Limiting Gait Function Factors Limiting Gait Function Decreased Activity Tolerance Decreased Strength Limited Range of Motion Pain Poor Balance M5 PT-IP Objective Assessments Start: 06/18/18 11:44 Freq: NEEDED Status: Active Protocol: Document 06/18/18 11:30 RCC (Rec: 06/18/18 12:11 [facility] [id number]) Orientation Orientation/Cognition Level of Alertness Alert Gross Range of Motion Lower Extremity ROM Assessment Left Impaired Impairments L knee AROM 12-75 deg. Strength Lower Extremity Strength Assessment Left Impaired Hip flexion 3/5 L Knee flexion 3/5, extension 3/5 L Ankle DF 5/5 L Sensation Assessment Sensation Gross Sensation WNL M6 PT-IP Treatment Start: 06/18/18 11:44 Freq: NEEDED Status: Active Protocol: Document 06/18/18 15:10 GGD (Rec: 06/18/18 15:48 GGD [id number]) Physical Therapy Treatment Exercises Exercises Ankle Pumps Quad Sets Heel Slides Seated Knee Flexion/Extension M7 PT-IP Assessment and Plan Start: 06/18/18 11:44 Freq: NEEDED Status: Active Protocol: Document 06/18/18 15:10 GGD (Rec: 06/18/18 15:48 GGD [id number]) PT Summary Assessment and Plan Summary Assessment Summary Pt able to prgress gait distance. She needed min A for mobility. She did have unsteadiness and need cues for safe transfers. Frequency of Treatment Frequency Of Treatment Twice a Day Treatment Plan Physical Therapy Treatment Plan Bed Mobility Training Transfer Training Gait Training Therapeutic Exercise Balance Retraining Post Op Education Discharge Planning Hot or Cold Pack Neuromuscular Re-ed Recommendations To Nursing Amount of Assist Needed 1 Person Assist Discharge Recommendations PT Discharge Recommendations SNF Rehab
--- NOTE | 2018-06-18 15:13 | CM.DANOTE ---
DCP/Assessment: Reviewed chart. Patient is a 82yr old female admitted [facility] Left total revision performed by Dr. Zarco on 06-17-18. PCP is Мария Leone. Primary payor is 1)Medicare 2)HEALTH SYSTEM. Received verbal referral from Ortho/[facility] this AM. She indicates that patient most likely will require SNF for rehab when medically stable. PT/OT evaluations pending. Met with patient and daughter/Abigail at bedside explained role. Daughter reports that she is unable to care for patient in the home until she is stronger. Daughter reports patient has been in w/c since January due to knee pain. The goal is to get patient back to walker status per patient and daughter. Provided patient/daughter with contracted SNF list. Daughter reports that she [facility] wants [facility] or [facility] in [place]. Patient provided CODING ASSISTANT with permission to contact both facilities and give them referral. Placed call to [facility] and faxed clinical. They returned call and report that they can accept but are unsure that they can accept before Wednesday06-21-18. Also left vm with [facility] admit to obtain fax number to fax clinical. Never received return call. Daughter reports that she will have decision on which facility they prefer later today or in AM. CM department card provided. Daughter aware that patient will most likely be medically stable for discharge on Wednesday06-20-18. Therefore, first choice needed and if no bed at first choice than may need second or third choice. P: Pending. [facility] has accepted but unsure if they can take Wednesday06-20-18. Will request CODING ASSISTANT follow up. Also daughter to provide CM team with preference between [facility] or [facility]. No response yet from [facility]. ALEJANDRA Aj Discharge Planning/Care Management CM Discharge Assessment Start: 06/18/18 15:05 Freq: Status: Active Protocol: Document 06/18/18 15:05 MICHAEL (Rec: 06/18/18 15:12 MICHAEL [id number]) Discharge Planning Assessment Assigned Senior Operations Analyst ALEJANDRA Aj Contact Information Abigail Valverde (daughter) [phone] Advance Directives? Yes Advance Directives on File Yes History Provided By Patient Family Member Has Patient been admitted in last 30 No days? Prior Living Arrangements House Comment Resides in 2 story home with 14 stairs. Has been w/c bound due to left knee pain since January 2018. Household Members family children Type of transporation used prior to Relies on Others admit Independent with ADL's No Is patient alert and oriented? Yes Needs Assistance With Bathing Meal Prep Toileting Managing Medications Home Chores / Shopping Caregiver for Another No DME Already Rented / Owned Wheelchair FWW / Walker Comment Patient hopes to return to FWW status. Patient/Family Preference Detention Facility Barriers to Discharge No Discharge Plan Detention Facility Transportation Arrangement Pending SNF approval. Either private auto or cabulance paid for by facility. Referrals Initiated Detention If patient plan is SNF: Has PASSR been No completed? Inpatient Status as of 06/17/18 Comment If medically stable can discharge to SNF on 07-26. Medicare Choice List Provided Yes SNF/HH Preference [facility] in [place]. Has Agency SNF been contacted Yes Comment [facility] has been called and clinical faxed. Admit ph# . Left VM with [facility] ph# [phone] requesting number to fax clinicals. Did not hear back as of 3:15pm on 06-18-18. Family provided CM team with permission to contact both facilities. Daughter to call and confirm first choice today /tomorrow. Whiteboard Updated in Patient Room with Yes name and ext. # of Senior Operations Analyst Review Status In Process Please Provide Date Initial DC 06/18/18 Assessment Was Performed Next Review Type Continued Stay Review Pre-Anesthesia Assessment Start: 06/15/18 14:48 Freq: Status: Active Protocol: Document 06/15/18 14:48 CAB (Rec: 06/15/18 14:54 [facility] [id number]) Pre-Anesthesia Assessment Patient Information Reviewed Via Chart Review Primary Care Provider Мария Leone Seen Specialist in Last 12 Months Yes Specialist Seen Emergency Orthopedist Primary Language Pakistani Android Ui Developer Required No Height 162.56 cm Weight 66.451 kg Body Mass Index (BMI) 25.1 Hearing Ability Normal Visual Impairment Partially Limited Visual Assist Glasses Dentition Type Teeth, Natural Present Barriers to Learning Cognitive/Verbal Cognitive/Written Visual Hx Anesthesia Reactions Yes: Difficulty pulling her out of sedation prior to 2007 , did fine since then Hx Family Anesthesia Reaction No Hx Malignant Hyperthermia No Hx Blood Transfusions Yes: age 14 Hx Blood Transfusion Reaction No Anesthesia Review Requested No Preventive Maintenance Coordinator No alcohol intake current alcohol intake frequency a few times a month Smoking Status Former smoker Tobacco type cigarettes how long ago did patient quit smoking 38 years ago Substance Use Type does not use Pain Present Pain Reported Musculoskeletal Symptoms Abnormal Gait Back Pain Difficulty Walking Joint Pain Limited Range of Motion History of Falling (Recent or History of Yes ) Patient is completely paralyzed or No completely immobile Ambulatory Aid Crutches/cane/walker Prosthesis or Orthotic Device Wheelchair Gait/Transferring Impaired Mental Status Forgets limitations Is patient on oxygen? No Does patient have GUTIERREZ/SOB Yes Hx Sleep Apnea No Suspected Sleep Apnea No Currently Taking a Beta Amy No Can You Climb a Flight of Stairs Without Yes SOB Hx Chest Pain No Hx SOB Yes Hx Syncope or Dizziness Yes: orthostatic hypotension Anti-Coagulant Therapy Yes: warfarin Has a Aeroplane Pilot No Cardiac Testing No Hx Pacemaker/ICD No Pacemaker Rep Required? No Cardiac Clearance Received Not Applicable Diet Type At Home Regular dysphagia No Bladder Pattern Incontinent Urinary Catheter Present No Hx Urinary Self Catheterization No Comment Wears Depends Diabetes No Patient No Lactating No Hx Drug Resistant Organism No Presence of External or Internal Medical No Devices Have you traveled outside the [facility] States in the last 30 days? Marital Status / Lives With children Prior Living Arrangements House Number of Floors (Floors) Two Floors Number of Stairs To Enter/Railing? Stairs w/railing - main living is on the upper floor, will need to navigate stairs to enter home Support System Child/Children Friend(s) Patient Discharge Plan Description Detention Facility/Rehab Feels Safe in Current Environment Yes Been Physically Hurt or Threatened By a No Person in Current Environment Do you have thoughts of harming yourself None or others? Are you currently considering suicide? No Do you have a plan to hurt yourself or No Plan others? Do You Have Any Spiritual Beliefs That No May Affect Your HC Choices? Do You Have Any Cultural Practices That No May Affect Your HC Choices? Spiritual Referral Holiness clergy/Lay ribbing machine operator visit Comment Holiness Who Can We Speak to About Patient's Care Family, friends Identifying Code for Release of Patient Declines to issue Information Health Care Proxy/Next of Kin Mary Valverde Health Care Proxy Emergency Contact Name Lupe Rob Emergency Contact Advance Directives? Yes Advance Directives on File Yes Power of Cad Application Support Specialist Yes Power of Cad Application Support Specialist Name Abigail Valverde Power of Cad Application Support Specialist
--- NOTE | 2018-06-18 16:13 | CM.DPC ---
DCP/continued: Received notification from daughter that first SNF choice is [facility]. [facility] to follow up to determine if bed available on Wednesday06-20-18 or second SNF choice. Patient moved to room# 212 per daughter's request. ALEJANDRA Aj
[2018-06-18] MEDS: WARFARIN 7.5 MG TABLET PO (17:36)
[2018-06-19] VITALS (7 sets, daily range): BP systolic 81–138; BP diastolic 52–76; PULSE 66–94; RESP 16–18; TEMP 36.4–36.9; O2SAT 92–98
[2018-06-19] MEDS: OXYCODONE IR 5 MG TABLET PO ×3 (01:24→11:56)
[2018-06-19] MEDS: PANTOPRAZOLE 20 MG TABLET PO (06:02)
[2018-06-19] MEDS: ACETAMINOPHEN 325 MG TABLET 975 MG PO ×3 (08:51→20:54)
[2018-06-19] MEDS: ENOXAPARIN 30 MG/0.3 ML SYRINGE SUBCUT (08:51)
[2018-06-19] MEDS: CITALOPRAM 20 MG TABLET PO (08:51)
[2018-06-19] MEDS: SODIUM CHLORIDE 0.9% FLUSH 10 ML IV ×2 (08:58→20:54)
--- NOTE | 2018-06-19 09:51 | PM.PN.1 ---
Exam Vital Signs (past 8 hours): - 06/19/18 06:27 06/19/18 08:22 Temperature 98.1 F 98.2 F Pulse Rate 68 88 Respiratory Rate 16 18 Blood Pressure 138/76 122/70 Pulse Oximetry 98 97 Oxygen Delivery Method Room Air Oxygen Flow Rate 0 Objective Labs Result Diagrams: 06/18/18 05:58 Assessment & Plan Plan: Assessment/Plan Narrative: Ms. Valverde is post op status post left TKA with Dr. Zarco. She is improving slowly. Patient is admitted after surgery. Patient has been stable and progressing with physical therapy. Patient is neurovascularly intact on exam. Patient has no signs or symptoms of DVT. Patient's dressing is clean dry and intact. Plan for rehab facility transfer tomorrow after PT. Quality VTE Deep Vein Thrombosis/Pulmonary Embolism Present on Admission: No
[2018-06-19] MEDS: DOCUSATE 100 MG CAPSULE PO (10:29)
--- NOTE | 2018-06-19 10:56 | PT.IPTN ---
Current Diagnoses Unilateral primary osteoarthritis, left knee (06/17/18) Presence of left artificial knee joint (06/17/18) Surgery Performed Operation Date: 06/17/18 11:30 Actual Procedures p Revision of partial knee to Total Knee Arthroplasty(Left) - Parminder Zarco MD Physical Therapy Treatment Note M2 PT-IP Current Condition Start: 06/18/18 11:44 Freq: NEEDED Status: Active Protocol: Document 06/18/18 11:30 RCC (Rec: 06/18/18 11:46 RCC [id number]) Physical Therapy Current Condition Current Condition Evaluation Date 01/18/18 Precautions Brace pt has cam boot brace present upon evaluation M3 PT-IP Subjective Start: 06/18/18 11:44 Freq: NEEDED Status: Active Protocol: Document 06/19/18 09:45 CLB (Rec: 06/19/18 10:55 CLB [id number]) Subjective Physical Therapy Visit Type Type Treatment Note Visit Start Time 09:45 Visit Stop Time 10:05 Total Visit Minutes 20 Number of CERTIFIED PARALEGAL Visits 2 Physical Therapy Visit Comments Patient Comments Pt stating she would like to get up and sit in chair. Therapy Pain Assessment Pain When Pain Assessed During Mobility Pain Present Pain Present Pain Reported Location Left Knee Intensity 8 Scale Used Numeric (1 - 10) Description Pressure Sharp Tightness Pain Behaviors Guarding Wincing M4 PT-IP Mobility and Gait Start: 06/18/18 11:44 Freq: NEEDED Status: Active Protocol: Document 06/19/18 09:45 CLB (Rec: 06/19/18 10:55 CLB [id number]) PT-Bed Mobility Assessment Supine to Sit Supine to Sit Minimal Assistance 1 Person Assistance Head of Bed Elevated Sit to Supine Sit to Supine Moderate Assistance 1 Person Assistance Scooting Scooting to Edge of Bed Minimal Assistance PT-Transfer Assessment Sit to and From Stand Sit to and from Stand Moderate Assistance 1 Person Assistance Use of Upper Extremities Equipment Transfer Assistive Device Gait Belt Front Wheeled Walker Transfers Transfer Destination Bed Comments Mobility Comments Pt attempting standing x3 with Mod A but was unable to come to full stand before needing to sit back on bed due to pain and weakness. Gait Assessment Comments Gait Comments Pt unable to ambulate M5 PT-IP Objective Assessments Start: 06/18/18 11:44 Freq: NEEDED Status: Active Protocol: Document 06/18/18 11:30 RCC (Rec: 06/18/18 12:11 RCC [id number]) Orientation Orientation/Cognition Level of Alertness Alert Gross Range of Motion Lower Extremity ROM Assessment Left Impaired Impairments L knee AROM 12-75 deg. Strength Lower Extremity Strength Assessment Left Impaired Hip flexion 3/5 L Knee flexion 3/5, extension 3/5 L Ankle DF 5/5 L Sensation Assessment Sensation Gross Sensation WNL M6 PT-IP Treatment Start: 06/18/18 11:44 Freq: NEEDED Status: Active Protocol: Document 06/19/18 09:45 CLB (Rec: 06/19/18 10:55 CLB [id number]) Physical Therapy Treatment Exercises Exercises Ankle Pumps Quad Sets Heel Slides Education Education Provided Weight Bearing Status Post-Op Packet Safety M7 PT-IP Assessment and Plan Start: 06/18/18 11:44 Freq: NEEDED Status: Active Protocol: Document 06/19/18 09:45 CLB (Rec: 06/19/18 10:55 CLB [id number]) PT Summary Assessment and Plan Summary Impairments Pain ROM Strength Balance Bed Mobility Transfers Gait Activity Tolerance Assessment Summary Pt unable to come to full stand due to pain. Pt was able to due bed ther ex. Goals Bed Mobility Goal Standby Assistance Transfer Goal Standby Assistance Gait Goal Standby Assistance Gait Distance 50 Days to Meet Goals 3 Frequency of Treatment Frequency Of Treatment Twice a Day Treatment Plan Physical Therapy Treatment Plan Bed Mobility Training Transfer Training Gait Training Therapeutic Exercise Balance Retraining Post Op Education Discharge Planning Hot or Cold Pack Neuromuscular Re-ed Recommendations To Nursing Amount of Assist Needed 1 Person Assist 2 Person Assist Discharge Recommendations PT Discharge Recommendations SNF Rehab
--- NOTE | 2018-06-19 11:54 | CM.DPC ---
DCP Cont: Per Ortho , pt likely to d/c to SNF tomorrow after further PT in the morning. SW called [facility] admissions and updated on likely d/c tomorrow if pt is stable and they confirmed that they can accept the pt tomorrow if she is ready for d/c. SW completed the PASRR for SNF. Plan: SW to follow for likely pt d/c to [facility] tomorrow if medically stable. ALEJANDRA Mercado
--- NOTE | 2018-06-19 15:31 | PT.IPTN ---
Current Diagnoses Unilateral primary osteoarthritis, left knee (06/17/18) Presence of left artificial knee joint (06/17/18) Surgery Performed Operation Date: 06/17/18 11:30 Actual Procedures p Revision of partial knee to Total Knee Arthroplasty(Left) - Parminder Zarco MD Physical Therapy Treatment Note M2 PT-IP Current Condition Start: 06/18/18 11:44 Freq: NEEDED Status: Active Protocol: Document 06/18/18 11:30 RCC (Rec: 06/18/18 11:46 RCC [id number]) Physical Therapy Current Condition Current Condition Evaluation Date 01/18/18 Precautions Brace pt has cam boot brace present upon evaluation M3 PT-IP Subjective Start: 06/18/18 11:44 Freq: NEEDED Status: Active Protocol: Document 06/19/18 14:05 CLB (Rec: 06/19/18 15:31 CLB [id number]) Subjective Physical Therapy Visit Type Type Treatment Note Visit Start Time 14:05 Visit Stop Time 14:30 Total Visit Minutes 25 Number of SCRUM MASTER Visits 3 Physical Therapy Visit Comments Patient Comments Pt willing to try and transfer to chair. Therapy Pain Assessment Pain When Pain Assessed During Mobility Location Left Knee Intensity 8 Scale Used Numeric (1 - 10) M4 PT-IP Mobility and Gait Start: 06/18/18 11:44 Freq: NEEDED Status: Active Protocol: Document 06/19/18 14:05 CLB (Rec: 06/19/18 15:31 CLB [id number]) PT-Bed Mobility Assessment Supine to Sit Supine to Sit Minimal Assistance 1 Person Assistance Head of Bed Elevated Scooting Scooting to Edge of Bed Minimal Assistance PT-Transfer Assessment Sit to and From Stand Sit to and from Stand Maximum Assistance 1 Person Assistance Use of Upper Extremities Equipment Transfer Assistive Device Gait Belt Front Wheeled Walker Transfers Transfer Destination Chair Transfer Technique Stand Step Pivot Transfer Ability Level of Assist Maximum Assistance 1 Person Assistance 2 Person Assistance Use of Upper Extremities Comments Mobility Comments Pt stood w/Max A took three small steps to pivot and sit in chair. Gait Assessment Comments Gait Comments Pt unable to ambulate M5 PT-IP Objective Assessments Start: 06/18/18 11:44 Freq: NEEDED Status: Active Protocol: Document 06/18/18 11:30 RCC (Rec: 06/18/18 12:11 RCC [id number]) Orientation Orientation/Cognition Level of Alertness Alert Gross Range of Motion Lower Extremity ROM Assessment Left Impaired Impairments L knee AROM 12-75 deg. Strength Lower Extremity Strength Assessment Left Impaired Hip flexion 3/5 L Knee flexion 3/5, extension 3/5 L Ankle DF 5/5 L Sensation Assessment Sensation Gross Sensation WNL M6 PT-IP Treatment Start: 06/18/18 11:44 Freq: NEEDED Status: Active Protocol: Document 06/19/18 09:45 CLB (Rec: 06/19/18 10:55 CLB [id number]) Physical Therapy Treatment Exercises Exercises Ankle Pumps Quad Sets Heel Slides Education Education Provided Weight Bearing Status Post-Op Packet Safety M7 PT-IP Assessment and Plan Start: 06/18/18 11:44 Freq: NEEDED Status: Active Protocol: Document 06/19/18 14:05 CLB (Rec: 06/19/18 15:31 CLB [id number]) PT Summary Assessment and Plan Summary Impairments Pain ROM Strength Balance Bed Mobility Transfers Gait Activity Tolerance Assessment Summary Pt needing Max A to stand and pivot to chair due to pain in left knee. Pt has posterior lean needing Max A during transfer and needs Max cues for step sequencing. Goals Bed Mobility Goal Standby Assistance Transfer Goal Standby Assistance Gait Goal Standby Assistance Gait Distance 50 Days to Meet Goals 3 Frequency of Treatment Frequency Of Treatment Twice a Day Treatment Plan Physical Therapy Treatment Plan Bed Mobility Training Transfer Training Gait Training Therapeutic Exercise Balance Retraining Post Op Education Discharge Planning Hot or Cold Pack Neuromuscular Re-ed Recommendations To Nursing Amount of Assist Needed PT/OT Assist Only Mechanical Lift Discharge Recommendations PT Discharge Recommendations SNF Rehab
--- NOTE | 2018-06-19 15:40 | PT.IPTN ---
Current Diagnoses Unilateral primary osteoarthritis, left knee (06/17/18) Presence of left artificial knee joint (06/17/18) Surgery Performed Operation Date: 06/17/18 11:30 Actual Procedures p Revision of partial knee to Total Knee Arthroplasty(Left) - Parminder Zarco MD Physical Therapy Treatment Note M2 PT-IP Current Condition Start: 06/18/18 11:44 Freq: NEEDED Status: Active Protocol: Document 06/18/18 11:30 RCC (Rec: 06/18/18 11:46 RCC [id number]) Physical Therapy Current Condition Current Condition Evaluation Date Precautions Brace M3 PT-IP Subjective Start: 06/18/18 11:44 Freq: NEEDED Status: Active Protocol: Document 06/19/18 14:05 CLB (Rec: 06/19/18 15:31 CLB [id number]) Subjective Physical Therapy Visit Type Type Treatment Note Visit Start Time 14:05 Visit Stop Time 14:30 Total Visit Minutes 25 Number of FACTORY REPRESENTATIVE Visits 3 Physical Therapy Visit Comments Patient Comments Pt willing to try and transfer to chair. Therapy Pain Assessment Pain When Pain Assessed During Mobility Location Left Knee Intensity 8 Scale Used Numeric (1 - 10) M4 PT-IP Mobility and Gait Start: 06/18/18 11:44 Freq: NEEDED Status: Active Protocol: Document 06/19/18 14:05 CLB (Rec: 06/19/18 15:31 CLB [id number]) PT-Bed Mobility Assessment Supine to Sit Supine to Sit Minimal Assistance 1 Person Assistance Head of Bed Elevated Scooting Scooting to Edge of Bed Minimal Assistance PT-Transfer Assessment Sit to and From Stand Sit to and from Stand Maximum Assistance 1 Person Assistance Use of Upper Extremities Equipment Transfer Assistive Device Gait Belt Front Wheeled Walker Transfers Transfer Destination Chair Transfer Technique Stand Step Pivot Transfer Ability Level of Assist Maximum Assistance 1 Person Assistance 2 Person Assistance Use of Upper Extremities Comments Mobility Comments Pt stood w/Max A took three small steps to pivot and sit in chair. RN took BP at start of tx in long sitting in bed 94/54, therapist BP check in sitting on EOB 98/67 (pt was non symptomatic), BP checked in sitting after transfer 128/ 72. Gait Assessment Comments Gait Comments Pt unable to ambulate M5 PT-IP Objective Assessments Start: 06/18/18 11:44 Freq: NEEDED Status: Active Protocol: Document 06/18/18 11:30 RCC (Rec: 06/18/18 12:11 RCC [id number]) Orientation Orientation/Cognition Level of Alertness Alert Gross Range of Motion Lower Extremity ROM Assessment Left Impaired Impairments L knee AROM 12-75 deg. Strength Lower Extremity Strength Assessment Left Impaired Hip flexion 3/5 L Knee flexion 3/5, extension 3/5 L Ankle DF 5/5 L Sensation Assessment Sensation Gross Sensation WNL M6 PT-IP Treatment Start: 06/18/18 11:44 Freq: NEEDED Status: Active Protocol: Document 06/19/18 09:45 CLB (Rec: 06/19/18 10:55 CLB [id number]) Physical Therapy Treatment Exercises Exercises Ankle Pumps Quad Sets Heel Slides Education Education Provided Weight Bearing Status Post-Op Packet Safety M7 PT-IP Assessment and Plan Start: 06/18/18 11:44 Freq: NEEDED Status: Active Protocol: Document 06/19/18 14:05 CLB (Rec: 06/19/18 15:31 CLB [id number]) PT Summary Assessment and Plan Summary Impairments Pain ROM Strength Balance Bed Mobility Transfers Gait Activity Tolerance Assessment Summary Pt needing Max A to stand and pivot to chair due to pain in left knee. Pt has posterior lean needing Max A during transfer and needs Max cues for step sequencing. Goals Bed Mobility Goal Standby Assistance Transfer Goal Standby Assistance Gait Goal Standby Assistance Gait Distance 50 Days to Meet Goals 3 Frequency of Treatment Frequency Of Treatment Twice a Day Treatment Plan Physical Therapy Treatment Plan Bed Mobility Training Transfer Training Gait Training Therapeutic Exercise Balance Retraining Post Op Education Discharge Planning Hot or Cold Pack Neuromuscular Re-ed Recommendations To Nursing Amount of Assist Needed PT/OT Assist Only Mechanical Lift Discharge Recommendations PT Discharge Recommendations SNF Rehab
--- NOTE | 2018-06-19 15:49 | PC.NURSE ---
Up to chair with PT. Pain management with oxycodone prn and tylenol as documented with adequate relief per patient. CHair alarm active. Brief in place for incontinence with prn lyn care provided. Tolerating meals. SABINE wrap with Aquacel dressing inplace and remains CDI. Call light within reach.
[2018-06-19] MEDS: WARFARIN 7.5 MG TABLET PO (18:01)
[2018-06-20 00:40] VITALS: BP 102/51; PULSE 70; RESP 16; TEMP 36.7; O2SAT 97
--- NOTE | 2018-06-20 05:40 | PC.NURSE ---
Pt is A and O x 4, VSS. She has been able to sleep most of this shift. Pt denies pain and nausea, is eating and drinking, voiding and has + BT. Wound dressing is C/D/I.
[2018-06-20] MEDS: PANTOPRAZOLE 20 MG TABLET PO (06:09)
[2018-06-20] MEDS: OXYCODONE IR 5 MG TABLET PO (06:13)
[2018-06-20 06:20] VITALS: BP 124/65; PULSE 92; RESP 17; TEMP 36.9; O2SAT 95
--- NOTE | 2018-06-20 07:21 | PM.DS.1 ---
History of Present Illness Date Patient Seen: 06/20/18 Chief complaint: [id number] LEFT REVISE/REPLACE KNEE JOINT Narrative: Patient was admitted to the hospital s/p L. medial compartment arthroplasty revised to TKA by Dr. Zarco on 06/17/18. Patient is POD #3. She is doing well, pain is controlled but still present. Denies CP, SOB, calf pain. She is ready to be discharged to a SNF today. Discharge Providers Date of admission: 06/17/18 09:41 Primary care physician: Мария Leone Consults: 06/17/18 15:56 Consult to Discharge Planning Routine Comment: Consult to Physical Therapy Evaluate & Treat Comment: Physician Instructions: postop TKA protocol Consult to Respiratory Therapy Evaluate & Treat Comment: Physician Instructions: Evaluate and treat 06/18/18 09:45 Consult to Occupational Therapy Evaluate & Treat Comment: Physician Instructions: Evaluate and treat 06/18/18 10:17 Consult to Occupational Therapy Evaluate & Treat Comment: Physician Instructions: Evaluate and treat Discharge provider: Geena Vaughan PA-C Discharge Date: 06/20/18 Summary Discharge Diagnosis: Left knee osteoarthritis Hospital Course: Patient was admitted to the hospital s/p L. medial compartment arthroplasty revised to TKA by Dr. Zarco on 06/17/18. Patient tolerated the procedure well with no major complications. She was transferred to the acute care floor where she was placed on the standard joint replacement pathway and protocol. She was seen by PT and recommended for discharge to a SNF. Patient was stable and ready for discharge on 06/20/18 Status at Discharge Cognitive/behavioral status at discharge: Alert & oriented Functional status at discharge: uses cane/walker Overall status at discharge: patient is progressing back to baseline Time Spent with Patient Less than 30 minutes Exam Vital Signs (past 8 hours): - 06/20/18 00:40 06/20/18 06:20 Temperature 98.0 F 98.4 F Pulse Rate 70 92 H Respiratory Rate 16 17 Blood Pressure 102/51 L 124/65 Pulse Oximetry 97 95 Oxygen Delivery Method Room Air Oxygen Flow Rate 0 Narrative Exam Narrative: WDWN NAD A&O. Dressing clean, dry, and intact. Minimal erythema and edema. NVI in LLE. Calf is soft and compressible. Objective Labs Result Diagrams: 06/20/18 Unknown Discharge Plan Discharge Plan Patient Disposition: SNF Transfer to: [facility] Under care of provider: PCP I certify the postop hospital residential care is medically necessary on a continuing basis for any conditions for which he/ she received care during this hospitalization.: Yes The receiving facility has agreed to accept transfer and provide medical treatment.: Yes Discharge Med Rec/Prescriptions Prescriptions: New acetaminophen 325 mg Tablet 975 mg PO TID Qty: 0 RF: 0 warfarin [Coumadin] 7.5 mg Tablet 7.5 mg PO 1700 Qty: 0 RF: 0 docusate sodium 100 mg Capsule 100 mg PO DAILY Qty: 0 RF: 0 oxycodone 5 mg Tablet 5 mg PO Q4H PRN (Reason: Pain, Moderate (4-6)) Qty: 15 RF: 0 enoxaparin [Lovenox] 30 mg/0.3 mL Syringe 30 mg subcut DAILY Qty: 0 RF: 0 Continue omeprazole 20 mg capsule,delayed release(DR/EC) 20 mg PO DAILY RF: 0 calcium carbonate 500 mg calcium (1,250 mg) Tablet 1 tab PO DAILY RF: 0 citalopram 20 mg Tablet 20 mg PO DAILY RF: 0 multivitamin Tablet,Chewable 2 tab PO DAILY RF: 0 Discontinued acetaminophen 325 mg tablet 650 mg PO Q4H MDD 3000 mg PRN (Reason: Fever Or Pain) RF: 0 hydrocodone-acetaminophen 5-325 mg Tablet 2 tab PO Q4HR PRN (Reason: Pain, Severe) Qty: 60 RF: 0 warfarin 5 mg Tablet 5 mg PO SEEINSTR RF: 0 warfarin 5 mg Tablet 7.5 mg PO QTUTH RF: 0 enoxaparin [Lovenox] 100 mg/mL Syringe 100 mg SUBCUT DAILY RF: 0 Follow up/Referrals: Parminder Zarco MD [Physician] - (Follow up in the office at your previously scheduled post-op.) Discharge Health Status Multidrug resistant organism: No MDRO Precautions: Adel Provider Discharge Instructions Diet: Diet as Tolerated Activity: Weightbearing as tolerated, use walker until cleared by PT Cold/Heat Therapy: Apply ice 20 minutes at a time to affected area while awake Skin/Wound/Dressing Care Report to your healthcare provider any signs of infection, such as:: chills, fever, night sweats, increased pain and unusual drainage Dressing: Keep Aquacel dressing clean, dry, and intact until 2 week post-op visit. Special Rehabilitation Services Reason for rehabilitation: Post-operative therapy Rehab type: Physical therapy and Occupational therapy Visit Report/Discharge Packet Instructions: DI for Knee Replacement Discharge Data Primary Care Provider: Мария Leone Attending Provider: Parminder Zarco Admit Date/Time: 06/17/18 09:41 Quality VTE Deep Vein Thrombosis/Pulmonary Embolism Present on Admission: No
[2018-06-20 07:37] VITALS: BP 118/68; PULSE 87; RESP 16; TEMP 36.7; O2SAT 92
[2018-06-20 07:50] LABS: Add Manual Diff / Slide Review NO; Basophils Percent Auto 0.6 % (0-2); Eosinophils Percent Auto 0.9 % (2-4); Hematocrit 30.4 % (36-46); Hemoglobin 10.1 g/dL (12.0-16.0); Lymphocytes Percent Auto 13.8 % (25-40); Mean Corpuscular HGB Conc 33.4 % (30-36); Mean Corpuscular Hemoglobin 30.1 PG (26-34); Mean Corpuscular Volume 90.1 fL (80-100); Monocytes Percent Auto 10.3 % (3-14); Neutrophils Absolute Auto 5600 /uL (3000-5900); Neutrophils Percent Auto 74.4 % (50-75); Platelet Count 203 X10^3/uL (150-400); Red Blood Cell Count 3.37 X10^6/uL (4.0-5.2); White Blood Cell Count 7.6 X10^3/uL (4.5-11.0)
--- NOTE | 2018-06-20 08:35 | CM.DPC ---
Addendum entered by ALEJANDRA Mercado 06/20/18 13:34: ADD: SW received a call back from [facility] admissions stating that their anticipated discharges are cancelled and therefore they do not have an opening today and anticipate a male bed tomorrow but cannot guarantee an opening tomorrow. SW updated pt and Dtr and discussed back up plan of another SNF with possibility of transferring to [facility] once they have a female bed at the end of the week. Dtr requested SW inquire with Ortho PA if pt can stay one more night so that she has more time to explore SNF options. SW called ILIR Vaughan who confirms that pt is medically stable and cannot medically justify staying in the hospital for another night. SW met with Dtr and updated and encouraged her to have a back up plan for today and Dtr toured [facility] and [facility] and declines both facilities and finally agreed on [facility]. SW discussed transport options with PT/OT and both were clear with Dtr that preference would be w/c van transport (which facility does not provide and would be out of pocket expense) and Dtr states she feels comfortable with transporting pt via her vehicle and would like to attempt getting pt safely in her car with staff support. PT/OT willing to assist attempting to get pt in their vehicle and MARTINE confirmed that [facility] will have 2 therapy staff available to assist getting pt out on their end. Final orders faxed to [facility]. Plan: Patient to d/c to [facility] today via Dtr vehicle around 1400 today. ALEJANDRA Mercado Original Note: DCP Discharge to SNF Per Víctor HAZEL, pt is medically stable to d/c to SNF today after stat INR to determine if pt will need Lovenox or not at d/c. MARTINE called [facility] SNF admissions and updated on d/c order and confirmed they can still accept the pt. [facility] will call after 0900 to confirm if they can provide transport for the pt today. MARTINE met bedside with pt and explained role and pt confirmed she is still agreeable with d/c to SNF today and requested SW call and update her Dtr Abigail. MARTINE called Dtr Abigail with update and Dtr states she is going to tour one more SNF ([facility]) just to confirm that their first preference is [facility] and then Dtr will be bedside with pt by around 1000. MARTINE faxed pt PASRR, med rec, scripts, d/c summ, and MD orders to [facility] for review. S SW updated RN and fibreglass gun hand. Plan: MARTINE to follow for return call from [facility] on possible transport time and waiting for Dtr to be bedside this morning for final confirmation that [facility] is their preferred SNF. ALEJANDRA Mercado
[2018-06-20 09:14] LABS: INR 1.7 (0.9-1.3); Prothrombin Time 18.5 SECONDS (10.1-12.7)
[2018-06-20] MEDS: ACETAMINOPHEN 325 MG TABLET 975 MG PO (09:27)
[2018-06-20] MEDS: CITALOPRAM 20 MG TABLET PO (09:28)
[2018-06-20] MEDS: ENOXAPARIN 30 MG/0.3 ML SYRINGE SUBCUT (09:28)
[2018-06-20] MEDS: DOCUSATE 100 MG CAPSULE PO (09:28)
--- NOTE | 2018-06-20 09:32 | OT.IP.EVAL ---
Current Diagnoses Unilateral primary osteoarthritis, left knee (06/17/18) Presence of left artificial knee joint (06/17/18) Surgery Performed Operation Date: 06/17/18 11:30 Actual Procedures p Revision of partial knee to Total Knee Arthroplasty(Left) - Parminder Zarco MD Past Medical History (Last Updated 05/30/18 @ 13:26 by Amanda Griffiths, RN) Closed fracture of right distal fibula (Acute ~12/2017) Anemia, iron deficiency (Acute) Ankle fracture, right (Acute) Arthritis of knee, left (Acute) Blood clot in vein (Acute) Bruises easily (Acute) Cardiomegaly (Acute) Cataract fragments in both eyes following surgery (Acute) Cellulitis (Acute) Cognitive impairment (Acute) DVT (deep venous thrombosis) (Acute) Depression (Acute) Diarrhea (Acute) GERD (gastroesophageal reflux disease) (Acute) Hammer toe, acquired (Acute) History of hip fracture (Acute) 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) Hypertension (Acute) Muscle weakness (Acute) Nausea (Acute) Osteoarthritis (Acute) Pneumonia (Acute) Postmenopausal (Acute) Raynauds disease (Acute) Scoliosis (Acute) Spinal stenosis (Acute) Thyroid nodule (Acute) Surgical History (Last Updated 05/30/18 @ 13:27 by Amanda Griffiths, RN) History of hip surgery (Acute) History of incision and drainage (Acute) History of tonsillectomy and adenoidectomy (Acute) Hx of elbow surgery (Acute) Hx of total knee arthroplasty (Acute) Status post unicompartmental knee replacement, left (Acute) Occupational Therapy Inpatient Evaluation/Re-Eval M1 PT/OT-IP Prior Functional Status Start: 06/18/18 11:44 Freq: NEEDED Status: Active Protocol: Document 06/18/18 11:30 [facility] (Rec: 06/18/18 11:46 [facility] [id number]) Medical Review Prior Functional Status Medical History Reviewed Yes Mobility and Gait assistance with going up/down stairs by daughter and rails, w/c for mobility mostly in and outdoors Activities of Daily Living and IADL's some assistance with ADLs from daughter Social History Household Members children Living Arrangements House Number of Floors (Floors) Two Floors Number of Stairs To Enter/Railing? 10-12 steps up or down with B rails to get to upper or lower level (splint-entry home) Home Environment High Toilet Walk in Shower Home Equipment Front Wheel Walker Manual Wheelchair M1 PT/OT-IP Prior Functional Status Start: 06/20/18 09:14 Freq: NEEDED Status: Active Protocol: Document 06/20/18 09:17 [facility] (Rec: 06/20/18 09:32 [facility] [id number]) Medical Review Prior Functional Status Medical History Reviewed Yes Mobility and Gait assistance with going up/down stairs by daughter and rails, w/c for mobility mostly in and outdoors Activities of Daily Living and IADL's some assistance with ADLs from daughter Social History Household Members family children Living Arrangements House Home Environment High Toilet Walk in Shower Home Equipment Front Wheel Walker Manual Wheelchair Shower Seat without Backrest Grab Bars Near Toilet Additional Social History Comment Per pt retired surgical nurse. M2 OT-IP Current Condition Start: 06/20/18 09:14 Freq: Status: Active Protocol: Document 06/20/18 09:17 [facility] (Rec: 06/20/18 09:32 [facility] [id number]) Occupational Therapy Current Condition Current Condition Evaluation Date 06/20/18 Treatment Diagnosis Failure of lateral left unicompartmental knee Diagnosis Onset Date 18 Weight Bearing Status Weight Bearing Status Weight Bear as Tolerated M3 OT- IP Subjective and Pain Start: 06/20/18 09:14 Freq: Status: Active Protocol: Document 06/20/18 09:17 [facility] (Rec: 06/20/18 09:32 [facility] [id number]) OT- Subjective Occupational Therapy Visit Type Type Initial Evaluation Visit Start Time 08:35 Visit Stop Time 09:15 Total Visit Minutes 40 Occupational Therapy Visit Comments Patient Comments Pt agreeable to get up. OT Pain Assessment Pain When Pain Assessed At Rest Pain Present Pain Present Denied Pain M4 OT- IP ADL's Start: 06/20/18 09:14 Freq: Status: Active Protocol: Document 06/20/18 09:17 [facility] (Rec: 06/20/18 09:32 [facility] [id number]) OT XRV-Ogrs-Gwnnaxi General Evaluation Self-Feeding Ability Independent Comments OT Self-Feeding Comments Pt independent after set-up. OT ADL-Grooming General Evaluation Grooming Ability Standby Assistance Comments OT Grooming Comments Pt able to wash her face and hands while sitting. OT ADL-Dressing General Eval Upper Body Dressing Ability Minimal Assistance Lower Body Dressing Ability Total Assistance Areas Needing Assistance Pull-Over Shirt Underpants/Brief Pants/Shorts Socks Comments OT Dressing Comments Assist to pull down shirt over her back and dependent for LB dressing and needing 2 person assist. OT ADL-Toileting General Evaluation Toileting Ability Total Assistance Areas Needing Assistance Manage Clothing Perform Perineal Hygiene Devices Toileting Assistive Devices Commode OT ADL-Bathing Bathing Type Bathing Type Sponge Bath General Evaluation Bathing Ability Maximal Assistance Areas Needing Assistance Retrieving/Setting Up Items Wash/Dry Back Wash/Dry Perineal Area Wash/Dry Lower Extremities M6 OT- IP Functional Cognition Start: 06/20/18 09:14 Freq: Status: Active Protocol: Document 06/20/18 09:17 [facility] (Rec: 06/20/18 09:32 [facility] [id number]) Cognitive Factors Limiting Selfcare Function Cognitive Ability Level of Alertness Alert Confusional State Patient Orientation Name Age Place Situation Attention Span Ability Capable of Focused Attention Unable to Sustain Attention Ability to Follow Commands Able to Follow One Step Commands with Increased Time Able to Follow One Step Commands with Repetition Memory Description Short Term Impaired Working Impaired Safety Awareness Underestimates Need for Assistance Problem Solving Ability Needs Assist to Identify Solutions Executive Function Ability Unable to Make Plans Unable to Organize Plans Unable to Remember Details Cognitive Comments Cognitive Assessment Comments Pt needs step by step instructions for ADL needs. OT- Vision and Hearing OT- Hearing Assessment OT- Hearing Assessment WFL M7 OT- IP Mobility and Balance Start: 06/20/18 09:14 Freq: Status: Active Protocol: Document 06/20/18 09:17 [facility] (Rec: 06/20/18 09:32 [facility] [id number]) OT- Bed Mobility Assessment Rolling Type of Rolling Roll to Left Level of Assistance Moderate Assistance Supine to Sit Supine to Sit Assist Maximum Assistance Scooting Scooting to Edge of Bed Moderate Assistance OT-Transfer Assessment Sit to and From Stand Sit to and from Stand Maximum Assistance Transfers Transfer Ability Moderate Assistance Maximum Assistance 1 Person Assistance 2 Person Assistance Comments Mobility Comments Pt tends to lean backwards and needs vc to stand tall, transfers from MAX A x1 to MAX X 2 especially when pt tires. OT- Balance Assessment Sitting Balance and Reactions Static Sitting Balance Ability Good Dynamic Sitting Balance Ability Fair Standing Balance and Reactions Static Standing Balance Ability Poor Dynamic Standing Balance Ability Poor M8 OT- IP Objective Assessments Start: 06/20/18 09:14 Freq: Status: Active Protocol: Document 06/20/18 09:17 [facility] (Rec: 06/20/18 09:32 [facility] [id number]) OT Strength Comments Strength Comments BUE strength 4-/5. M9 OT- IP Assessment and Plan Start: 06/20/18 09:14 Freq: Status: Active Protocol: Document 06/20/18 09:17 [facility] (Rec: 06/20/18 09:32 [facility] [id number]) OT Summary Assessment and Plan Potential Rehabilitation Potential Good Analytic Complexity at Evaluation Moderate Summary OT Impairments Pain Range of Motion Strength Balance Functional Cognition Functional Mobility Grooming Dressing Toileting Bathing Toilet Transfers Shower Transfers Progress Towards Goals Slow Progress due to Pain Slow Progress due to Activity Tolerance Slow Progress due to Cognition Assessment Summary Pt MOD complexity as barriers include steps, now needing extensive assist for ADL's and functional mobility x 2 persons, decreased functional cognition and safety awareness , and decreased activity tolerance and strength and would benefit form skilled rehab prior to going home. Goals Grooming Goal Minimal Assistance Dressing Goal Moderate Assistance Toileting Goal Moderate Assistance Bathing Goal Moderate Assistance Toilet Transfer Goal Moderate Assistance Shower Transfer Goal Moderate Assistance Patient/Caregiver Education Goal Caregiver Independent Assisting Patient Days to Meet Goals 10 Frequency of Treatment Frequency Of Treatment Once a Day Treatment Plan OT Treatment Plan ADL Training Functional Cognition Training Functional Mobility Patient/Family Education Discharge Planning Other Treatment Recommendations and Next LB dressing with AED. Treatment Focus Discharge Recommendations OT Discharge Recommendations SNF Rehab
--- NOTE | 2018-06-20 09:54 | PT.IPTN ---
Current Diagnoses Unilateral primary osteoarthritis, left knee (06/17/18) Presence of left artificial knee joint (06/17/18) Surgery Performed Operation Date: 06/17/18 11:30 Actual Procedures p Revision of partial knee to Total Knee Arthroplasty(Left) - Parminder Zarco MD Physical Therapy Treatment Note M2 PT-IP Current Condition Start: 06/18/18 11:44 Freq: NEEDED Status: Active Protocol: Document 06/18/18 11:30 [facility] (Rec: 06/18/18 11:46 [facility] [id number]) Physical Therapy Current Condition Current Condition Evaluation Date 01/18/18 Precautions Brace pt has cam boot brace present upon evaluation M3 PT-IP Subjective Start: 06/18/18 11:44 Freq: NEEDED Status: Active Protocol: Document 06/20/18 09:15 [facility] (Rec: 06/20/18 09:54 [facility] [id number]) Subjective Physical Therapy Visit Type Type Treatment Note Visit Start Time 09:15 Visit Stop Time 09:30 Total Visit Minutes 15 Number of CLERICAL TRANSCRIBER Visits 4 Physical Therapy Visit Comments Patient Comments Pt had transferred to chair with OT Max A. Pt agreeable to do seated ther ex. Therapy Pain Assessment Pain When Pain Assessed During Exercise Pain Present Pain Present Pain Reported Location Left Knee Pain Behaviors Wincing Pain Management Techniques Modification of Treatment Timing of Activity with Medications M4 PT-IP Mobility and Gait Start: 06/18/18 11:44 Freq: NEEDED Status: Active Protocol: Document 06/19/18 14:05 [facility] (Rec: 06/19/18 15:31 [facility] [id number]) PT-Bed Mobility Assessment Supine to Sit Supine to Sit Minimal Assistance 1 Person Assistance Head of Bed Elevated Scooting Scooting to Edge of Bed Minimal Assistance PT-Transfer Assessment Sit to and From Stand Sit to and from Stand Maximum Assistance 1 Person Assistance Use of Upper Extremities Equipment Transfer Assistive Device Gait Belt Front Wheeled Walker Transfers Transfer Destination Chair Transfer Technique Stand Step Pivot Transfer Ability Level of Assist Maximum Assistance 1 Person Assistance 2 Person Assistance Use of Upper Extremities Comments Mobility Comments Pt stood w/Max A took three small steps to pivot and sit in chair. RN took BP at start of tx in long sitting in bed 94/54, therapist BP check in sitting on EOB 98/67 (pt was non symptomatic), BP checked in sitting after transfer 128/ 72. Gait Assessment Comments Gait Comments Pt unable to ambulate M5 PT-IP Objective Assessments Start: 06/18/18 11:44 Freq: NEEDED Status: Active Protocol: Document 06/18/18 11:30 [facility] (Rec: 06/18/18 12:11 [facility] [id number]) Orientation Orientation/Cognition Level of Alertness Alert Gross Range of Motion Lower Extremity ROM Assessment Left Impaired Impairments L knee AROM 12-75 deg. Strength Lower Extremity Strength Assessment Left Impaired Hip flexion 3/5 L Knee flexion 3/5, extension 3/5 L Ankle DF 5/5 L Sensation Assessment Sensation Gross Sensation WNL M6 PT-IP Treatment Start: 06/18/18 11:44 Freq: NEEDED Status: Active Protocol: Document 06/20/18 09:15 [facility] (Rec: 06/20/18 09:54 [facility] [id number]) Physical Therapy Treatment Exercises Exercises Ankle Pumps Quad Sets Heel Slides Straight Leg Raises Short Arc Quads Passive Knee Extension Hang Education Education Provided Weight Bearing Status Post-Op Packet Safety M7 PT-IP Assessment and Plan Start: 06/18/18 11:44 Freq: NEEDED Status: Active Protocol: Document 06/20/18 09:15 [facility] (Rec: 06/20/18 09:54 [facility] [id number]) PT Summary Assessment and Plan Summary Impairments Pain ROM Strength Balance Bed Mobility Transfers Gait Activity Tolerance Assessment Summary Pt able to perform seated ther ex with minimal pain and AA with SLR ans SAQ. Goals Bed Mobility Goal Standby Assistance Transfer Goal Standby Assistance Gait Goal Standby Assistance Gait Distance 50 Days to Meet Goals 3 Frequency of Treatment Frequency Of Treatment Twice a Day Treatment Plan Physical Therapy Treatment Plan Bed Mobility Training Transfer Training Gait Training Therapeutic Exercise Balance Retraining Post Op Education Discharge Planning Hot or Cold Pack Neuromuscular Re-ed Recommendations To Nursing Amount of Assist Needed PT/OT Assist Only Discharge Recommendations PT Discharge Recommendations SNF Rehab
[2018-06-20 11:33] VITALS: BP 98/67; PULSE 89; RESP 16; TEMP 36.7; O2SAT 93
--- NOTE | 2018-06-20 11:51 | CM.DPC ---
Referral faxed to [facility]
--- NOTE | 2018-06-20 11:51 | CM.DPC ---
Referral faxed to [facility] per Lad[facility]
--- NOTE | 2018-06-20 14:16 | OT.IP.TRT ---
Current Diagnoses Unilateral primary osteoarthritis, left knee (06/17/18) Presence of left artificial knee joint (06/17/18) Surgery Performed Operation Date: 06/17/18 11:30 Actual Procedures p Revision of partial knee to Total Knee Arthroplasty(Left) - Parminder Zarco MD Occupational Therapy Treatment Note M2 OT-IP Current Condition Start: 06/20/18 09:14 Freq: Status: Active Protocol: Document 06/20/18 09:17 [facility] (Rec: 06/20/18 09:32 [facility] [id number]) Occupational Therapy Current Condition Current Condition Evaluation Date 06/20/18 Treatment Diagnosis Failure of lateral left unicompartmental knee Diagnosis Onset Date 06/17/18 Weight Bearing Status Weight Bearing Status Weight Bear as Tolerated M3 OT- IP Subjective and Pain Start: 06/20/18 09:14 Freq: Status: Active Protocol: Document 06/20/18 14:11 [facility] (Rec: 06/20/18 14:16 [facility] [id number]) OT- Subjective Occupational Therapy Visit Type Type Treatment Note Visit Start Time 14:00 Visit Stop Time 14:10 Total Visit Minutes 15 Notes Having to assist pt to the car so able to go to [facility]. Pt seen a second time due to needing assist fro car transfer. M4 OT- IP ADL's Start: 06/20/18 09:14 Freq: Status: Active Protocol: Document 06/20/18 09:17 [facility] (Rec: 06/20/18 09:32 [facility] [id number]) OT NAA-Enml-Rrbfhmk General Evaluation Self-Feeding Ability Independent Comments OT Self-Feeding Comments Pt independent after set-up. OT ADL-Grooming General Evaluation Grooming Ability Standby Assistance Comments OT Grooming Comments Pt ablet o wash her face and hands while sitting. OT ADL-Dressing General Eval Upper Body Dressing Ability Minimal Assistance Lower Body Dressing Ability Total Assistance Areas Needing Assistance Pull-Over Shirt Underpants/Brief Pants/Shorts Socks Comments OT Dressing Comments Assist to pull down shirt over her back and dependenet for LB dressing and needing 2 person assist. OT ADL-Toileting General Evaluation Toileting Ability Total Assistance Areas Needing Assistance Manage Clothing Perform Perineal Hygiene Devices Toileting Assistive Devices Commode OT ADL-Bathing Bathing Type Bathing Type Sponge Bath General Evaluation Bathing Ability Maximal Assistance Areas Needing Assistance Retrieving/Setting Up Items Wash/Dry Back Wash/Dry Perineal Area Wash/Dry Lower Extremities M6 OT- IP Functional Cognition Start: 06/20/18 09:14 Freq: Status: Active Protocol: Document 06/20/18 09:17 [facility] (Rec: 06/20/18 09:32 [facility] [id number]) Cognitive Factors Limiting Selfcare Function Cognitive Ability Level of Alertness Alert Confusional State Patient Orientation Name Age Place Situation Attention Span Ability Capable of Focused Attention Unable to Sustain Attention Ability to Follow Commands Able to Follow One Step Commands with Increased Time Able to Follow One Step Commands with Repetition Memory Description Short Term Impaired Working Impaired Safety Awareness Underestimates Need for Assistance Problem Solving Ability Needs Assist to Identify Solutions Executive Function Ability Unable to Make Plans Unable to Organize Plans Unable to Remember Details Cognitive Comments Cognitive Assessment Comments Pt needs step by step instructions for ADL needs. OT- Vision and Hearing OT- Hearing Assessment OT- Hearing Assessment WFL M7 OT- IP Mobility and Balance Start: 06/20/18 09:14 Freq: Status: Active Protocol: Document 06/20/18 14:11 [facility] (Rec: 06/20/18 14:16 [facility] [id number]) OT-Transfer Assessment Technique Transfer Destination Car Transfer Technique Stand Step Pivot Devices Transfer Assistive Devices Gait Belt Comments Mobility Comments Pt needing three person assist to help get into the car, in addition use of bed sheet to help scoot back into the car and dependent to get her legs in. Staff at [employer] to help pt get out of the car. Pt's daughter wanting to stop at home first, but suggested for pt to go straight to [facility] as therapists are waiting on the other end to assist with the transfer back out of the car. M8 OT- IP Objective Assessments Start: 06/20/18 09:14 Freq: Status: Active Protocol: Document 06/20/18 09:17 [facility] (Rec: 06/20/18 09:32 [facility] [id number]) OT Strength Comments Strength Comments BUE strength 4-/5. M9 OT- IP Assessment and Plan Start: 06/20/18 09:14 Freq: Status: Active Protocol: Document 06/20/18 14:11 [facility] (Rec: 06/20/18 14:16 [facility] [id number]) OT Summary Assessment and Plan Frequency of Treatment Frequency Of Treatment Twice a Day Discharge Recommendations OT Discharge Recommendations SNF Rehab
--- NOTE | 2018-06-20 14:36 | PC.NURSE ---
Addendum entered by Tish Pagan R.N. 06/20/18 15:17: Estela from [facility] called, report given Original Note: discharge pt states her pain is not present as long as she is sitting still. Pain up to an 8 with movement however declines pain medication. 1-2 person max assist for mobility. Pt states she took all belongings with her. PIV removed this AM prior to d/c. Pt left in her w/c with 3 therapists and daughter to get into daughter's car to transport to [facility]. D/c packet provided to daughter to take to facility. Attempted to call report 4x, called [phone] and [phone] at least 3x each and left a message 2x on [phone], have not received call back for report.
--- NOTE | 2018-06-20 15:34 | PT.IPTN ---
Current Diagnoses Unilateral primary osteoarthritis, left knee (06/17/18) Presence of left artificial knee joint (06/17/18) Surgery Performed Operation Date: 06/17/18 11:30 Actual Procedures p Revision of partial knee to Total Knee Arthroplasty(Left) - Parminder Zarco MD Physical Therapy Treatment Note M2 PT-IP Current Condition Start: 06/18/18 11:44 Freq: NEEDED Status: Discharge Protocol: Document 06/18/18 11:30 [facility] (Rec: 06/18/18 11:46 [facility] [id number]) Physical Therapy Current Condition Current Condition Evaluation Date 01/18/18 Precautions Brace pt has cam boot brace present upon evaluation M3 PT-IP Subjective Start: 06/18/18 11:44 Freq: NEEDED Status: Discharge Protocol: Document 06/20/18 13:30 [facility] (Rec: 06/20/18 15:33 [facility] [id number]) Subjective Physical Therapy Visit Type Type Treatment Note Physical Therapy Visit Comments Patient Comments Pt happy to get help to get into the car. Therapy Pain Assessment Pain When Pain Assessed At Rest Pain Present Pain Present Denied Pain M4 PT-IP Mobility and Gait Start: 06/18/18 11:44 Freq: NEEDED Status: Discharge Protocol: Document 06/20/18 13:30 [facility] (Rec: 06/20/18 15:33 [facility] [id number]) PT-Bed Mobility Assessment Supine to Sit Supine to Sit Minimal Assistance 1 Person Assistance Head of Bed Elevated Scooting Scooting to Edge of Bed Minimal Assistance PT-Transfer Assessment Sit to and From Stand Sit to and from Stand Moderate Assistance 2 Person Assistance Equipment Transfer Assistive Device Gait Belt Front Wheeled Walker Transfers Transfer Destination Wheelchair Transfer Technique Stand Step Pivot Transfer Ability Level of Assist Maximum Assistance 1 Person Assistance 2 Person Assistance Use of Upper Extremities Comments Mobility Comments bed>wc then wc to car front seat M5 PT-IP Objective Assessments Start: 06/18/18 11:44 Freq: NEEDED Status: Discharge Protocol: Document 06/18/18 11:30 [facility] (Rec: 06/18/18 12:11 [facility] [id number]) Orientation Orientation/Cognition Level of Alertness Alert Gross Range of Motion Lower Extremity ROM Assessment Left Impaired Impairments L knee AROM 12-75 deg. Strength Lower Extremity Strength Assessment Left Impaired Hip flexion 3/5 L Knee flexion 3/5, extension 3/5 L Ankle DF 5/5 L Sensation Assessment Sensation Gross Sensation WNL M6 PT-IP Treatment Start: 06/18/18 11:44 Freq: NEEDED Status: Discharge Protocol: Document 06/20/18 09:15 [facility] (Rec: 06/20/18 09:54 [facility] [id number]) Physical Therapy Treatment Exercises Exercises Ankle Pumps Quad Sets Heel Slides Straight Leg Raises Short Arc Quads Passive Knee Extension Hang Education Education Provided Weight Bearing Status Post-Op Packet Safety M7 PT-IP Assessment and Plan Start: 06/18/18 11:44 Freq: NEEDED Status: Discharge Protocol: Document 06/20/18 13:30 [facility] (Rec: 06/20/18 15:33 [facility] [id number]) PT Summary Assessment and Plan Potential Rehabilitation Potential Good Status of Condition at Evaluation Stable Summary Impairments Pain ROM Strength Balance Bed Mobility Transfers Gait Activity Tolerance Progress Towards Goals Progressing Toward Goals Assessment Summary Pt's able to transfer easier this session but still far below reported functional baseline. Continue to recommend pt transition to SNF rehab once medically ready. Pt is safe to transport via private vehicle but need at least 2 trained staff at each end. Goals Bed Mobility Goal Standby Assistance Transfer Goal Standby Assistance Gait Goal Standby Assistance Gait Distance 50 Days to Meet Goals 3 Frequency of Treatment Frequency Of Treatment Discharge Treatment Plan Physical Therapy Treatment Plan Bed Mobility Training Transfer Training Gait Training Therapeutic Exercise Balance Retraining Post Op Education Discharge Planning Hot or Cold Pack Neuromuscular Re-ed Recommendations To Nursing Amount of Assist Needed 2 Person Assist Discharge Recommendations PT Discharge Recommendations SNF Rehab
== END 2018-06-20 14:00 | DRG 468 ==
PROVIDERS: Physician Assistant; Admitting Provider Orthopaedic Surgery; Family Provider Nurse Practitioner Family; PCP Nurse Practitioner Family; Visit Provider Orthopaedic Surgery
PROC: 0SRD0J9 Replacement of Left Knee Joint with Synthetic Substitute, Cemented, Open Approach (ICD-10-PCS; principal; 2018-06-17 11:30)
DX: T84.093A Other mechanical complication of internal left knee prosthesis, initial encounter (principal); M81.0 Age-related osteoporosis without current pathological fracture; M17.12 Unilateral primary osteoarthritis, left knee; Z96.651 Presence of right artificial knee joint; K21.9 Gastro-esophageal reflux disease without esophagitis; G31.84 Mild cognitive impairment of uncertain or unknown etiology; Z86.718 Personal history of other venous thrombosis and embolism; Z79.01 Long term (current) use of anticoagulants; R33.9 Retention of urine, unspecified
CPT/HCPCS: 36415; 73560; 85014; 85018; 85025; 85610; 97110; 97116; 97161; 97166; 97530; 97535; C1776; C9290; J0690; J1100; J1200; J1650; J2250; J2405; J2704; J3010; J3370

== ENCOUNTER 2019-02-07 17:01 | Emergency (ER) | payer MEDICARE, SELFPAY ==
[2018-06-17 15:57] VITALS: BMI 25.1
[2019-02-07] VITALS (9 sets, daily range): BP systolic 141–167; BP diastolic 64–99; PULSE 50–68; RESP 13–18; TEMP 36.3–36.7; O2SAT 97–997; BMI 20.9
[2019-02-07 18:25] LABS: Add Manual Diff / Slide Review NO; Basophils Absolute Auto 100 /uL (0-100); Basophils Percent Auto 1.1 % (0-2); Eosinophils Absolute Auto 100 /uL (0-450); Eosinophils Percent Auto 2.8 % (2-4); Hematocrit 36.5 % (36-46); Hemoglobin 11.8 g/dL (12.0-16.0); Lymphocytes Absolute Auto 1500 /uL (1100-4500); Lymphocytes Percent Auto 28.2 % (25-40); Mean Corpuscular HGB Conc 32.4 % (30-36); Mean Corpuscular Hemoglobin 28.4 PG (26-34); Mean Corpuscular Volume 87.5 fL (80-100); Monocytes Absolute Auto 600 /uL (0-900); Monocytes Percent Auto 11.9 % (3-14); Neutrophils Absolute Auto 3000 /uL (1500-7000); Platelet Count 255 X10^3/uL (150-400); Red Blood Cell Count 4.17 X10^6/uL (4.0-5.2); Red Cell Distribution Width 14.1 % (11.6-14.8); White Blood Cell Count 5.4 X10^3/uL (4.5-11.0)
[2019-02-07 18:32] LABS: Prothrombin Time 11.2 SECONDS (10.1-12.7)
[2019-02-07 18:35] LABS: PTT Partial Thromboplastin Tim 27 SECONDS (26.4-36.2)
[2019-02-07 18:37] LABS: Alanine Aminotransferase 28 IU/L (9-52); Albumin 3.8 g/dL (3.5-5.0); Albumin Globulin Ratio 1.2 (1.0-2.8); Alkaline Phosphatase 112 U/L (38-126); Aspartate Aminotransferase 33 IU/L (14-36); BUN Creatinine Ratio 18.8 (6-22); Bilirubin Total 0.4 mg/dL (0.2-1.3); Blood Urea Nitrogen 15 mg/dL (7-17); Calcium 9.5 mg/dL (8.4-10.2); Carbon Dioxide 25 mmol/L (22-32); Chloride 107 mmol/L (98-107); Estimated Glomerular Filt Rate > 60.0 mL/min (>60); Globulin 3.3 g/dL (1.7-4.1); Glucose 86 mg/dL (80-110); HEMOLYSIS < 15 (0-50); Lipase 72 U/L (23-300); Potassium 3.9 mmol/L (3.4-5.1); Sodium 140 mmol/L (137-145); Total Protein 7.1 g/dL (6.3-8.2)
[2019-02-07] MEDS: SODIUM CHLORIDE 0.9% 500 ML 1000 ML IV (20:19)
[2019-02-07 22:15] LABS: Clostridium Difficile Tox PCR Negative for C. diff
--- NOTE | 2019-02-08 02:31 | ED_ITS ---
HPI - Abdominal Pain General Chief Complaint: Abdominal Pain Stated Complaint: loss of bowels Time Seen by Provider: 02/07/19 18:00 Source: patient and family Mode of arrival: ambulatory Limitations: no limitations History of Present Illness HPI narrative: 83-year-old female nonsmoker presents with her daughter and a chief complaint of multiple episodes of loose stools over the past week to 10 days. The patient has had no fever and no chills. She denies any dizziness, weakness or lightheadedness. Sometimes she completely loses control of her bowels and other times she is just unable to make it to a toilet. She denies any recent travel to tropical or 3rd world countries, no bad food and no recent antibiotics. She has no sick contacts with similar symptoms. Her stool is liquidy and very foul-smelling. She does have some generalized abdominal cramping which seems to be improved with an episode of loose stools. She lives at home with her daughter and normally ambulates with a wheelchair MD complaint: abdominal pain Onset (ago): day(s) Pain Consistency: intermittent Location: diffuse Severity: moderate Quality: cramping Radiation: none Migration to: no migration Relieving factors: bowel movement Exacerbating factors: movement Associated symptoms: denies other symptoms Related Data Home Medications Medication Instructions Recorded Confirmed citalopram 20 mg PO DAILY 12/23/17 02/07/19 calcium carbonate 1 tab PO DAILY 02/22/18 02/07/19 multivitamin 2 tab PO DAILY 05/30/18 02/07/19 acetaminophen 325 mg PO PRN PRN 02/07/19 02/07/19 aspirin 325 mg PO DAILY 02/07/19 02/07/19 donepezil 5 mg PO QPM 02/07/19 02/07/19 Previous Rx's Medication Instructions Recorded oxycodone 5 mg PO Q4H PRN #15 tab 06/20/18 diphenoxylate-atropine [Lomotil] 1 tab PO TID PRN #10 tab 02/07/19 Allergies Allergy/AdvReac Type Severity Reaction Status Date / Time Sulfa (Sulfonamide Allergy Intermediate Hives Verified 06/14/18 13:48 Antibiotics) codeine [CODEINE] Allergy Mild nausea Verified 06/14/18 13:48 iodine [IODINE] Allergy Mild breaks out Verified 06/14/18 13:48 skin Review of Systems Constitutional Denies chills, Denies fever(s), Denies lethargy and Denies weakness Eyes Denies change in vision, Denies eye discharge, Denies irritation and Denies loss of vision ENT Ears, Nose, Mouth, and Throat: Denies change in voice, Denies neck pain and Denies sore throat Cardiovascular Denies chest pain, Denies irregular heart rhythm, Denies lightheadedness, Denies palpitations, Denies dyspnea, Denies dyspnea on exertion and Denies orthopnea Respiratory Denies cough, Denies dyspnea, Denies dyspnea on exertion and Denies wheezing Gastrointestinal Gastrointestinal: Reports abdominal pain, Denies change in bowel habits, Reports diarrhea, Denies nausea and Denies vomiting Genitourinary Denies hematuria, Denies flank pain, Denies urinary incontinence and Denies urinary urgency Musculoskeletal Denies neck pain Integumentary/Breasts Denies pruritus, Denies erythema, Denies rash and Denies wounds Neurologic Denies confusion, Denies loss of vision and Denies weakness Psychiatric Denies anxiety, Denies confusion, Denies depression, Denies homicidal ideation and Denies suicidal ideation Endocrine Denies palpitations Hematologic/Lymphatic Denies easy bruising Allergic/Immunologic Denies wheezing [facility] Medical History Closed fracture of right distal fibula (Acute ~12/2017) Anemia, iron deficiency (Acute) Ankle fracture, right (Acute) Arthritis of knee, left (Acute) Blood clot in vein (Acute) Bruises easily (Acute) Cardiomegaly (Acute) Cataract fragments in both eyes following surgery (Acute) Cellulitis (Acute) Cognitive impairment (Acute) DVT (deep venous thrombosis) (Acute) Depression (Acute) Diarrhea (Acute) GERD (gastroesophageal reflux disease) (Acute) Hammer toe, acquired (Acute) History of hip fracture (Acute) 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) Hypertension (Acute) Muscle weakness (Acute) Nausea (Acute) Osteoarthritis (Acute) Pneumonia (Acute) Postmenopausal (Acute) Raynauds disease (Acute) Scoliosis (Acute) Spinal stenosis (Acute) Thyroid nodule (Acute) Surgical History History of hip surgery (Acute) History of incision and drainage (Acute) History of tonsillectomy and adenoidectomy (Acute) Hx of elbow surgery (Acute) Hx of total knee arthroplasty (Acute) Status post unicompartmental knee replacement, left (Acute) Social History household members: family and children Smoking Status: Former smoker alcohol intake: current Social History household members: family and children Smoking Status: Former smoker alcohol intake: current Exam Narrative Exam Narrative: GENERAL: 83-year-old female appears stated age, clearly not feeling well, resting with daughter at bedside s. HEAD: Atraumatic. Normocephalic. No temporal or scalp tenderness. EYES: Pupils equal round and reactive. Extraocular motions intact. No scleral icterus. No injection or drainage. ENT: Nose without bleeding, purulent drainage or septal hematoma. Throat without erythema, tonsillar hypertrophy or exudate. Uvula midline. Airway patent. NECK: Trachea midline. No JVD or lymphadenopathy. Supple, nontender, no meningeal signs. CARDIOVASCULAR: Regular rate and rhythm without murmurs, gallops, or rubs. RESPIRATORY: Clear to auscultation. Breath sounds equal bilaterally. No wheezes, rales, or rhonchi. GASTROINTESTINAL: Abdomen soft, generalized abdominal tenderness, nondistended. No hepato-splenomegaly, or palpable masses. No guarding. EXTREMITIES: No clubbing, cyanosis, or edema. No joint tenderness, effusion, or edema noted. BACK: Nontender without deformity or crepitance. No flank tenderness. NEURO: AOx3. SKIN: No rash or erythema. Initial Vital Signs Initial Vital Signs: Vital Signs Temperature 98.1 F 02/07/19 17:05 Pulse Rate 68 02/07/19 17:05 Respiratory Rate 18 02/07/19 17:05 Blood Pressure 141/88 H 02/07/19 17:05 Pulse Oximetry 97 02/07/19 17:05 Course Orders Ordered: ED Orders 02/07/19 18:14 EKG-12 Lead Stat 02/07/19 18:20 Complete Blood Count AUTO DIFF Stat Comprehensive Metabolic Panel Stat Lipase Stat Partial Thromboplastin Time Stat Prothrombin Time INR Stat 02/07/19 20:55 Clostridium Difficile Tox PCR Stat Discontinued Medications Sodium Chloride (Normal Saline 0.9%) 500 mls @ 1,000 mls/hr IV BOLUS ONE Stop: 02/07/19 20:33 Last Infusion: 02/07/19 21:27 Dose: 0 mls/hr Admin: 02/07/19 20:19 Dose: 1,000 mls/hr Vital Signs - 8 hr 02/07/19 18:30 02/07/19 19:30 02/07/19 20:00 Temperature Pulse Rate 59 L 54 L 65 Pulse Rate [Orthostatic Lying] Pulse Rate [Orthostatic Sitting] Pulse Rate [Orthostatic Standing] Respiratory Rate 17 13 Blood Pressure Blood Pressure [Orthostatic Lying] Blood Pressure [Orthostatic Sitting] Blood Pressure [Orthostatic Standing] Blood Pressure [Right Arm] 167/82 H 158/73 H 158/99 H Pulse Oximetry 997 H 02/07/19 21:00 02/07/19 21:28 02/07/19 22:30 Temperature 97.4 F L Pulse Rate 53 L 55 L Pulse Rate [Orthostatic Lying] 57 L Pulse Rate [Orthostatic Sitting] 57 L Pulse Rate [Orthostatic Standing] 58 L Respiratory Rate 18 Blood Pressure Blood Pressure [Orthostatic Lying] 143/99 H Blood Pressure [Orthostatic Sitting] 164/80 H Blood Pressure [Orthostatic Standing] 154/64 H Blood Pressure [Right Arm] 148/99 H 145/64 H Pulse Oximetry 99 99 02/07/19 23:48 Temperature 97.6 F Pulse Rate 58 L Pulse Rate [Orthostatic Lying] Pulse Rate [Orthostatic Sitting] Pulse Rate [Orthostatic Standing] Respiratory Rate 18 Blood Pressure 145/67 H Blood Pressure [Orthostatic Lying] Blood Pressure [Orthostatic Sitting] Blood Pressure [Orthostatic Standing] Blood Pressure [Right Arm] Pulse Oximetry 98 MDM - Abdominal Pain Lab Data Result diagrams: 02/07/19 18:20 02/07/19 18:20 Lab Results 02/07/19 02/07/19 02/07/19 Range/Units 18:20 18:20 18:20 WBC 5.4 (4.5-11.0) X10^3/uL RBC 4.17 (4.0-5.2) X10^6/uL Hgb 11.8 L (12.0-16.0) g/dL Hct 36.5 (36-46) % MCV 87.5 (80-100) fL MCH 28.4 (26-34) PG MCHC 32.4 (30-36) % RDW 14.1 (11.6-14.8) % Plt Count 255 (150-400) X10^3/uL Neut % (Auto) 56.0 (50-75) % Lymph % (Auto) 28.2 (25-40) % [place] % (Auto) 11.9 (3-14) % Eos % (Auto) 2.8 (2-4) % Baso % (Auto) 1.1 (0-2) % Neut # (Auto) 3000 (3636-4022) /uL Lymph # (Auto) 1500 (9338-9185) /uL [place] # (Auto) 600 (0-900) /uL Eos # (Auto) 100 (0-450) /uL Baso # (Auto) 100 (0-100) /uL PT 11.2 (10.1-12.7) SECONDS INR 1.0 (0.9-1.3) APTT 27 (26.4-36.2) SECONDS Sodium 140 (137-145) mmol/L Potassium 3.9 (3.4-5.1) mmol/L Chloride 107 (98-107) mmol/L Carbon Dioxide 25 (22-32) mmol/L BUN 15 (7-17) mg/dL Creatinine 0.80 (0.52-1.04) mg/dL Estimated GFR > 60.0 (>60) mL/min BUN/Creatinine Ratio 18.8 (6-22) Glucose 86 (80-110) mg/dL Calcium 9.5 (8.4-10.2) mg/dL Total Bilirubin 0.4 (0.2-1.3) mg/dL AST 33 (14-36) IU/L ALT 28 (9-52) IU/L Alkaline Phosphatase 112 (38-126) U/L Total Protein 7.1 (6.3-8.2) g/dL Albumin 3.8 (3.5-5.0) g/dL Globulin 3.3 (1.7-4.1) g/dL Albumin/Globulin Ratio 1.2 (1.0-2.8) Lipase 72 (23-300) U/L C. difficile Tox (PCR) 02/07/19 Range/Units 20:55 WBC (4.5-11.0) X10^3/uL RBC (4.0-5.2) X10^6/uL Hgb (12.0-16.0) g/dL Hct (36-46) % MCV (80-100) fL MCH (26-34) PG MCHC (30-36) % RDW (11.6-14.8) % Plt Count (150-400) X10^3/uL Neut % (Auto) (50-75) % Lymph % (Auto) (25-40) % [place] % (Auto) (3-14) % Eos % (Auto) (2-4) % Baso % (Auto) (0-2) % Neut # (Auto) (0323-5493) /uL Lymph # (Auto) (8982-1367) /uL [place] # (Auto) (0-900) /uL Eos # (Auto) (0-450) /uL Baso # (Auto) (0-100) /uL PT (10.1-12.7) SECONDS INR (0.9-1.3) APTT (26.4-36.2) SECONDS Sodium (137-145) mmol/L Potassium (3.4-5.1) mmol/L Chloride (98-107) mmol/L Carbon Dioxide (22-32) mmol/L BUN (7-17) mg/dL Creatinine (0.52-1.04) mg/dL Estimated GFR (>60) mL/min BUN/Creatinine Ratio (6-22) Glucose (80-110) mg/dL Calcium (8.4-10.2) mg/dL Total Bilirubin (0.2-1.3) mg/dL AST (14-36) IU/L ALT (9-52) IU/L Alkaline Phosphatase (38-126) U/L Total Protein (6.3-8.2) g/dL Albumin (3.5-5.0) g/dL Globulin (1.7-4.1) g/dL Albumin/Globulin Ratio (1.0-2.8) Lipase (23-300) U/L C. difficile Tox (PCR) Negative for c. diff MDM Narrative Medical decision making narrative: 83-year-old female presents with daughter with at least 1 week of liquidy stools. She is eating and drinking without difficulty and is not dizzy nor weak or lightheaded. She has had no fever or chills. Labs are essentially unremarkable. Patient given some fluids and has unremarkable orthostatic vital signs. Stool sample was quite small but we are able to rule out C diff. Patient and daughter had questions answered to their apparent satisfaction. They understand return precautions Discharge Plan Departure Patient Disposition: Home Clinical Impression: Diarrhea Qualifiers: Diarrhea type: unspecified type Qualified Code(s): R19.7 - Diarrhea, unspecified Discharge Date/Time: 02/07/19 23:50 Interventions: ED Discharge Assessment Last Done: 02/07/19 23:48 Instructions: Diarrhea Activity Restrictions/Additional Instructions: 1. Drink plenty of fluids with frequent small sips. 2. For the next 24 hours a clear liquid diet is advised. After that please employ a brat diet which would include bananas, rice, apples, toast. 3. Please take medications as directed. 4. Please follow-up with your doctor in the next 1-2 days. Call the office for an appointment. 5. Please return to the emergency Department for any worsening or persistent symptoms, such as increasing pain or fever. Prescriptions: New diphenoxylate-atropine [Lomotil] 2.5-0.025 mg tablet 1 tab PO TID PRN (Reason: diarrhea) Qty: 10 RF: 0 No Action calcium carbonate 500 mg calcium (1,250 mg) Tablet 1 tab PO DAILY RF: 0 donepezil 5 mg tablet 5 mg PO QPM RF: 0 acetaminophen 325 mg tablet 325 mg PO PRN PRN (Reason: pain) RF: 0 aspirin 325 mg Tablet 325 mg PO DAILY RF: 0 citalopram 20 mg Tablet 20 mg PO DAILY RF: 0 multivitamin Tablet,Chewable 2 tab PO DAILY RF: 0 oxycodone 5 mg Tablet 5 mg PO Q4H PRN (Reason: Pain, Moderate (4-6)) Qty: 15 RF: 0 Referrals: Мария Leone [Primary Care Provider] -
== END 2019-02-07 23:50 | disposition home or self-care (01) ==
PROVIDERS: Emergency Medicine; Emergency Provider Emergency Medicine; Family Provider Nurse Practitioner Family; PCP Nurse Practitioner Family
DX: R19.7 Diarrhea, unspecified (principal); R10.84 Generalized abdominal pain
CPT/HCPCS: 36591; 80053; 83690; 85025; 85610; 85730; 87493; 93005; 93010; 96360; 99284; 99285

== ENCOUNTER 2020-02-05 13:00 | Emergency (ER) | payer MEDICARE, SELFPAY ==
[2018-06-17 15:57] VITALS: BMI 25.1
[2020-02-05 12:36] VITALS: BP 140/79; PULSE 68; RESP 12; TEMP 36.7; O2SAT 97; BMI 24.1
--- NOTE | 2020-02-05 13:34 | ED_ITS ---
HPI - Fall <FILOMENA Kim - Last Filed: 02/05/20 21:17> General Chief Complaint: Fall Stated Complaint: GLF Time Seen by Provider: 02/05/20 13:14 Source: EMS Mode of arrival: EMS History of Present Illness HPI Narrative: 84yo female with a history of left hip fracture in the past, presents emergency department complaining of multiple falls. Patient states she lives at home with her daughter. Her daughter reported on Wednesday (6 days ago), she fell onto her left side the daughter reported she called the car to help her into the bed. Daughter later examined the patient's hip and noted a small left-sided bruise. Patient was able to move about as she normally is, daughter reports she uses her wheelchair often due to right patellar tendon repair in August and patient has been using her wheelchair since her previous fractured hip. Patient reports falling again approximately 3 days ago onto her left side once again. Daughter reports significant bruising noticed today, patient reports tenderness and difficulty laying on that left side. Daughters concern for possible fracture. Patient reports a dull aching 4/10 pain that is worse with pressure to the area. She is able to stand on her leg as normal after taking Vicodin. Patient denies any other injuries such as hitting her head, neck pain, shoulder pain, ankle pain, knee pain, chest pain, shortness of breath, fevers, chills, dysuria, weakness, or any other concerns. Related Data Home Medications Medication Instructions Recorded Confirmed citalopram 20 mg PO DAILY 12/23/17 02/07/19 calcium carbonate 1 tab PO DAILY 02/22/18 02/07/19 multivitamin 2 tab PO DAILY 05/30/18 02/07/19 acetaminophen 325 mg PO PRN PRN 02/07/19 02/07/19 aspirin 325 mg PO DAILY 02/07/19 02/07/19 donepezil 5 mg PO QPM 02/07/19 02/07/19 Previous Rx's Medication Instructions Recorded oxycodone 5 mg PO Q4H PRN #15 tab 06/20/18 diphenoxylate-atropine [Lomotil] 1 tab PO TID PRN #10 tab 02/07/19 Allergies Allergy/AdvReac Type Severity Reaction Status Date / Time Sulfa (Sulfonamide Allergy Intermediate Hives Verified 02/05/20 13:33 Antibiotics) codeine [CODEINE] Allergy Mild nausea Verified 02/05/20 13:33 iodine [IODINE] Allergy Mild breaks out Verified 02/05/20 13:33 skin Review of Systems <FILOMENA Kim - Last Filed: 02/05/20 21:17> Review of Systems Narrative: REVIEW OF SYSTEMS: GENERAL: Denies fever or chills. HENT: No head trauma. EYES: No double vision or vision loss. CARDIOVASCULAR: No chest pain or syncope. RESPIRATORY: No shortness of breath or cough. GASTROINTESTINAL: No nausea, vomiting, diarrhea, or constipation. GENITOURINARY: No dysuria. MUSCULOSKELETAL: Complains of left hip pain, see HPI. INTEGUMENTARY: No rash, lesions, or pruritus. NEURO: No numbness, tingling. PSYCH: No behavior or mood changes. 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) Hypertension (Acute) Muscle weakness (Acute) Nausea (Acute) Osteoarthritis (Acute) Pneumonia (Acute) Postmenopausal (Acute) Raynauds disease (Acute) Scoliosis (Acute) Spinal stenosis (Acute) Thyroid nodule (Acute) Surgical History History of hip surgery (Acute) History of incision and drainage (Acute) History of tonsillectomy and adenoidectomy (Acute) Hx of elbow surgery (Acute) Hx of total knee arthroplasty (Acute) Status post unicompartmental knee replacement, left (Acute) Social History household members: family and children Smoking Status: Former smoker alcohol intake: current Smoking Status: Former smoker alcohol intake frequency: a few times a month Substance Use Type: does not use Exam <FILOMENA Kim - Last Filed: 02/05/20 21:17> Initial Vital Signs Initial Vital Signs: Vital Signs Temperature 98.1 F 02/05/20 12:36 Pulse Rate 68 02/05/20 12:36 Respiratory Rate 12 02/05/20 12:36 Blood Pressure 140/79 02/05/20 12:36 Pulse Oximetry 97 02/05/20 12:36 PHYSICAL EXAMINATION: GENERAL: Well groomed, alert, and cooperative. Answers questions promptly and appropriately. Vital signs noted. HENT: Normocephalic, atraumatic. EYES: Symmetrical, sclera white, no periorbital swelling. NECK: Full range of motion, no spinal tenderness. CARDIOVASCULAR: S1 and S2 sounds normal. Regular rate and rhythm, no murmurs, clicks, or bruits. No pedal edema. RESPIRATORY: Normal respiratory rate, trachea midline, airway patent. No stridor, nasal flaring or accessory muscle use. Lungs are clear in all singer. MUSCULOSKELETAL: Significant bruising noted from iliac crest to 10 cm above left knee to the lateral aspect of her left thigh. Tenderness with palpation to this area, no tenderness to palpation of knees, right hip, bilateral ankles, s houlders, elbows, wrists, or neck. EXTREMITIES: CMS intact. Pedal pulses 2+ and intact bilaterally. SKIN: Warm, dry, soft, appropriate color for ethnicity. No lesions, rashes, or wounds. NEURO: Alert and Oriented X 3. No sensory deficits. PSYCH: Appropriate affect and mood. <Andressa Caldwell MD - Last Filed: 02/23/20 18:08> Initial Vital Signs Initial Vital Signs: Vital Signs Temperature 98.1 F 02/05/20 12:36 Pulse Rate 68 02/05/20 12:36 Respiratory Rate 12 02/05/20 12:36 Blood Pressure 140/79 02/05/20 12:36 Pulse Oximetry 97 02/05/20 12:36 Course <FILOMENA Kim - Last Filed: 02/05/20 21:17> Orders Ordered: ED Orders 02/05/20 13:33 XR hip w pel if done LT 2V Stat 02/05/20 13:34 XR femur LT min 2V Stat Vital Signs Vital signs: Vital Signs - 8 hr 02/05/20 14:30 Pulse Rate 67 Blood Pressure 150/79 H Pulse Oximetry 97 <Andressa Caldwell MD - Last Filed: 02/23/20 18:08> Orders Ordered: ED Orders 02/05/20 13:33 XR hip w pel if done LT 2V Stat 02/05/20 13:34 XR femur LT min 2V Stat Vital Signs Vital signs: Vital Signs - 8 hr 02/05/20 14:30 Pulse Rate 67 Blood Pressure 150/79 H Pulse Oximetry 97 MDM - Fall <FILOMENA Kim - Last Filed: 02/05/20 21:17> Medical Records Attestation: I reviewed the patient's medical records. Lab Data Attestation: I reviewed the patient's lab results. Imaging Data Extremity x-ray #1: Radiologist's Impression: [address] [address] XRay Report Signed Patient: Nancy Valverde MMR#: [id number] : 1935cct:[id number] Age/Sex: 84 / FDate of Service: 02/05/20 Loc: ED Accession Number: [id number] Procedure: XR femur LT min 2V Ordering Provider: Jayla Noriega PROCEDURE: XR FEMUR LT MIN 2V INDICATIONS: fall. TECHNIQUE: 2 views of the femur were acquired. COMPARISON: None. FINDINGS: Bones: No fractures or dislocations is seen in visualized portion of mid to distal left femur. Internal fixation hardware in proximal femoral shaft is seen. Patient is status post left total knee arthroplasty. No gross hardware loosening or failure.. No suspicious bony lesions. Soft tissues: No suspicious soft tissue calcifications or masses. IMPRESSION: No fracture or dislocation is seen in mid to distal femur. No gross hardware cup location. Proximal femoral shaft/neck fracture is incompletely evaluated on this study. Dictated by: Jordi Watkins M.D. on 02/05/2020 at 14:03 Approved by: Jordi Watkins M.D. on 02/05/2020 at 14:04 Extremity x-ray #2: Radiologist's Impression: [address] [address] XRay Report Signed Patient: Nancy Valverde MMR#: [id number] : 1936Acct:[id number] Age/Sex: 84 / FDate of Service: 02/05/20 Loc: ED Accession Number: [id number] Procedure: XR hip w pel if done LT 2V Ordering Provider: Jayla Noriega PROCEDURE: XR HIP W PEL IF DONE LT 2V INDICATIONS: fall. TECHNIQUE: 3 views of the hip were acquired. COMPARISON: [facility], CR, XR PELVIS WITH LATERAL HIP LEFT, 06/27/2018, 10:55. FINDINGS: Bones: There is prior internal fixation of left femoral neck/proximal shaft with surgical hardware in place. Alignment of left hip is not significantly changed from previous study. No definite acute fracture or dislocation is seen. No gross hardware loosening or failure. Old intertrochanteric fracture is seen. Soft tissues: No suspicious soft tissue calcifications or masses. IMPRESSION: Old left intertrochanteric femoral fracture with prior internal fixation. No gross hardware loosening or failure. No definite acute left hip fracture or dislocation is noted. Dictated by: Jordi Watkins M.D. on 02/05/2020 at 14:04 Approved by: Jordi Watkins M.D. on 02/05/2020 at 14:05 [facility] Narrative Medical decision making narrative: 84-year-old female presenting to the emergency department after a fall for bruising and pain to her left hip. History of previous fracture that was repaired via surgery. Femur and hip x-rays today show no additional fractures. Differential includes soft tissue injury versus sprain versus hematoma. Less likely fracture due to imaging. However, patient was encouraged to follow up in 1 week for further and possible repeat x-ray for occult fracture if pain continues. Patient was able to place weight on have without severe pain. Return precautions given for new or worsening symptoms. Patient agreed to plan of care verbalized understanding Discharge Plan Departure Patient Disposition: Home Clinical Impression: Acute hip pain Discharge Date/Time: 02/05/20 14:57 Instructions: How to Prevent Falls Activity Restrictions/Additional Instructions: Thank you for entrusting me with your care today. As discussed, your x-rays are negative for any additional fractures. I suggest following up with your primary care provider in 1-2 weeks for further evaluation. Return to the emergency department for any new or worsening symptoms such as severe pain, head injury, continued falls, abdominal pain, uncontrollable vomiting, chest pain, shortness of breath, or any other concerns. Prescriptions: No Action calcium carbonate 500 mg calcium (1,250 mg) Tablet 1 tab PO DAILY RF: 0 donepezil 5 mg tablet 5 mg PO QPM RF: 0 acetaminophen 325 mg tablet 325 mg PO PRN PRN (Reason: pain) RF: 0 aspirin 325 mg Tablet 325 mg PO DAILY RF: 0 diphenoxylate-atropine [Lomotil] 2.5-0.025 mg tablet 1 tab PO TID PRN (Reason: diarrhea) Qty: 10 RF: 0 citalopram 20 mg Tablet 20 mg PO DAILY RF: 0 multivitamin Tablet,Chewable 2 tab PO DAILY RF: 0 oxycodone 5 mg Tablet 5 mg PO Q4H PRN (Reason: Pain, Moderate (4-6)) Qty: 15 RF: 0 Referrals: Мария Leone [Primary Care Provider] - <Andressa Caldwell MD - Last Filed: 02/23/20 18:08> Cosign ED Attending Cosignature Attestation: I was immediately available in the department for consultation throughout this patient's visit. I agree with documentation as above. Andressa Caldwell MD
[2020-02-05 14:30] VITALS: BP 150/79; PULSE 67; O2SAT 97
== END 2020-02-05 14:57 | disposition home or self-care (01) ==
PROVIDERS: Emergency Provider Nurse Practitioner; Family Provider Nurse Practitioner Family; PCP Nurse Practitioner Family
DX: M25.552 Pain in left hip (principal); W19.XXXA Unspecified fall, initial encounter; R29.6 Repeated falls
CPT/HCPCS: 73502; 73552; 99283

== ENCOUNTER 2020-06-06 15:37 | Emergency (ER) | payer MEDICARE, SELFPAY ==
[2018-06-17 15:57] VITALS: BMI 25.1
[2020-06-06 15:38] VITALS: BP 160/73; PULSE 77; RESP 16; TEMP 36.6; O2SAT 97; BMI 30.7
--- NOTE | 2020-06-06 16:28 | DI.RAD.S_ITS ---
PROCEDURE: XR THORACIC SPINE 3V INDICATIONS: Ground level fall TECHNIQUE: 3 views of the thoracic spine were acquired. COMPARISON: [facility], CT, CT ANGIO CHEST PE, 02/14/2019, 20:09. FINDINGS: Images are limited due to motion. On the AP view there is S-shaped curvature of the thoracolumbar spine. There is focal kyphosis at the thoracolumbar spine, however this region is not well evaluated due to motion. Degenerative changes are seen at multiple levels. IMPRESSION: Focal kyphosis at the thoracolumbar junction is seen which is probably due to the curvature, however compression fraction at this level cannot be excluded. If there is pain in the lower thoracic/upper thoracic spine, recommend CT. Dictated by: Ravi Hough M.D. on 06/06/2020 at 17:23 Approved by: Ravi Hough M.D. on 06/06/2020 at 17:28
--- NOTE | 2020-06-06 16:28 | DI.CT.S_ITS ---
PROCEDURE: CT HEAD/BRAIN WO CON INDICATIONS: glf, hit head on thinners TECHNIQUE: Noncontrast 4.5 mm thick angled axial sections acquired from the foramen magnum to the vertex, with coronal and sagittal reformats. For radiation dose reduction, the following was used: automated exposure control, adjustment of mA and/or kV according to patient size. COMPARISON: None. FINDINGS: Image quality: Excellent. CSF spaces: Basal cisterns are patent. No extra-axial fluid collections. The ventricles are symmetric in size and shape. Brain: No intracranial bleeds or masses. There is cerebral volume loss for age, with resultant ventricular and sulcal prominence. There are periventricular and deep white matter chronic small vessel ischemic changes. There is intracranial internal carotid artery atherosclerosis. Skull and face: Calvarium and visualized facial bones appear intact, without suspicious lesions. Sinuses: Visualized sinuses and mastoids are clear. IMPRESSION: No acute intracranial disease process. Dictated by: Lolis Santoro MD, PhD on 06/06/2020 at 16:49 Approved by: Lolis Santoro MD, PhD on 06/06/2020 at 16:57
[2020-06-06 17:25] VITALS: BP 169/75; PULSE 68; O2SAT 98
[2020-06-06 17:29] VITALS: BP 169/75; PULSE 72; RESP 18; O2SAT 98
[2020-06-06 17:30] VITALS: PULSE 69; O2SAT 98
[2020-06-06 18:00] VITALS: PULSE 69; O2SAT 98
--- NOTE | 2020-06-06 18:42 | ED.FALL ---
HPI - Fall <COLIN Avelar - Last Filed: 06/06/20 19:29> General Chief Complaint: Fall Stated Complaint: fall, on blood thinners Time Seen by Provider: 06/06/20 16:17 Source: patient and family Mode of arrival: Wheelchair Limitations: no limitations History of Present Illness HPI Narrative: The patient is an 84-year-old female former smoker with history of DVT on warfarin who presents with a chief complaint of a ground level fall on blood thinners. She states that she had a mechanical fall getting in or out of bed last night fell and hit her head. She denies any neck or back pain, though her daughter notes that she had some pain her back in between her scapulas last night. She has not taken anything for pain. She does not feel dizzy or lightheaded. She denies any nausea or vomiting. She denies any new incontinence of bowel incontinence of bladder numbness in her groin. Her daughter is concerned that she has had multiple falls getting in or out of bed recently. Modified trauma activated upon arrival given age, hitting head on blood thinners. Related Data Home Medications Medication Instructions Recorded Confirmed citalopram 20 mg PO DAILY 12/23/17 02/07/19 calcium carbonate 1 tab PO DAILY 02/22/18 02/07/19 multivitamin 2 tab PO DAILY 05/30/18 02/07/19 acetaminophen 325 mg PO PRN PRN 02/07/19 02/07/19 aspirin 325 mg PO DAILY 02/07/19 02/07/19 donepezil 5 mg PO QPM 02/07/19 02/07/19 Previous Rx's Medication Instructions Recorded oxycodone 5 mg PO Q4H PRN #15 tab 06/20/18 diphenoxylate-atropine [Lomotil] 1 tab PO TID PRN #10 tab 02/07/19 Allergies Allergy/AdvReac Type Severity Reaction Status Date / Time Sulfa (Sulfonamide Allergy Intermediate Hives Verified 02/05/20 13:33 Antibiotics) codeine [CODEINE] Allergy Mild nausea Verified 02/05/20 13:33 iodine [IODINE] Allergy Mild breaks out Verified 02/05/20 13:33 skin Review of Systems <COLIN Avelar - Last Filed: 06/06/20 19:29> Review of Systems Narrative: GENERAL: Denies chills, fatigue, malaise, fever, sweats. HEENT: Denies sinus pain, ear pain, sore throat, difficulty swallowing, dizziness. RESPIRATORY: Denies dyspnea, cough, wheezing, hemoptysis, sputum. CARDIOVASCULAR: Denies chest pain, palpitations, orthopnea, edema, GASTROINTESTINAL: Denies nausea, vomiting, abdominal pain, diarrhea, constipation, melena. : Denies dysuria, frequency, incontinence, hematuria, urinary retention. MUSCULOSKELETAL: See HPI SKIN: Denies rash, skin lesions, or other NEUROLOGIC: See HPI PSYCHIATRIC: No concerning psychosocial issues. 12 point review of systems is negative except for those stated above Patient History <COLIN Avelar - Last Filed: 06/06/20 19:29> Medical History Anemia, iron deficiency (Acute) Ankle fracture, right (Acute) Arthritis of knee, left (Acute) Blood clot in vein (Acute) Bruises easily (Acute) Cardiomegaly (Acute) Cataract fragments in both eyes following surgery (Acute) Cellulitis (Acute) Closed fracture of right distal fibula (Acute ~12/2017) Cognitive impairment (Acute) Depression (Acute) Diarrhea (Acute) DVT (deep venous thrombosis) (Acute) GERD (gastroesophageal reflux disease) (Acute) Hammer toe, acquired (Acute) History of hip fracture (Acute) 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) Hypertension (Acute) Muscle weakness (Acute) Nausea (Acute) Osteoarthritis (Acute) Pneumonia (Acute) Postmenopausal (Acute) Raynauds disease (Acute) Scoliosis (Acute) Spinal stenosis (Acute) Thyroid nodule (Acute) Surgical History History of hip surgery (Acute) History of incision and drainage (Acute) History of tonsillectomy and adenoidectomy (Acute) Hx of elbow surgery (Acute) Hx of total knee arthroplasty (Acute) Status post unicompartmental knee replacement, left (Acute) Social History household members: family and children Smoking Status: Former smoker alcohol intake: current Smoking Status: Former smoker alcohol intake frequency: a few times a month Substance Use Type: does not use Exam <COLIN Avelar - Last Filed: 06/06/20 19:29> Narrative Exam Narrative: GENERAL: This is a well-nourished, well-developed patient, in no acute distress HEAD: Atraumatic. Normocephalic. No temporal or scalp tenderness. EYES: Pupils equal round and reactive. Extraocular motions intact. No scleral icterus. No injection or drainage. ENT: Nose without bleeding, purulent drainage or septal hematoma. Throat without erythema, tonsillar hypertrophy or exudate. Uvula midline. Airway patent. NECK: Trachea midline. No JVD or lymphadenopathy. Supple, nontender, no meningeal signs. CARDIOVASCULAR: Regular rate and rhythm RESPIRATORY: Clear to auscultation. Breath sounds equal bilaterally. No wheezes, rales, or rhonchi. No cough. No increased respiratory effort. No accessory muscle use. GASTROINTESTINAL: Abdomen soft, non-tender, nondistended. No hepato-splenomegaly, or palpable masses. No guarding. EXTREMITIES: No clubbing, cyanosis, or edema. No joint tenderness, effusion, or edema noted. Using all extremities equally. BACK: No pain to C or L-spine palpation. Slight pain to C-spine palpation. No palpable step-offs or deformities. Nontender without deformity or crepitance. No flank tenderness. NEURO: AOx3. SKIN: No rash or erythema on visible skin. Initial Vital Signs Initial Vital Signs: Vital Signs Temperature 97.9 F 06/06/20 15:38 Pulse Rate 77 06/06/20 15:38 Respiratory Rate 16 06/06/20 15:38 Blood Pressure 160/73 H 06/06/20 15:38 Pulse Oximetry 97 06/06/20 15:38 <Lorie Latif DO - Last Filed: 06/10/20 07:53> Initial Vital Signs Initial Vital Signs: Vital Signs Temperature 97.9 F 06/06/20 15:38 Pulse Rate 77 06/06/20 15:38 Respiratory Rate 16 06/06/20 15:38 Blood Pressure 160/73 H 06/06/20 15:38 Pulse Oximetry 97 06/06/20 15:38 Scores <COLIN Avelar - Last Filed: 06/06/20 19:29> GCS Abimael coma scale eye opening: Spontaneous Abimael coma scale verbal response: Orientated [place] coma scale motor response: Obey commands [place] coma scale total score: 15 Nexus Score for C-Spine Focal Neurologic deficit present: No Midline spinal tenderness present: No Altered level of conciousness present: No Intoxication present: No Distracting Injury Present: No Nexus Criteria for C-spine: 0 Course <COLIN Avelar - Last Filed: 06/06/20 19:29> Orders Ordered: ED Orders 06/06/20 16:28 CT head/brain wo con Stat XR thoracic spine 3V Stat Vital Signs Vital signs: Vital Signs - 8 hr 06/06/20 15:38 06/06/20 17:25 06/06/20 17:29 Temperature 97.9 F Pulse Rate 77 68 72 Respiratory Rate 16 18 Blood Pressure 160/73 H 169/75 H 169/75 H Pulse Oximetry 97 98 98 06/06/20 17:30 06/06/20 18:00 Temperature Pulse Rate 69 69 Respiratory Rate Blood Pressure Pulse Oximetry 98 98 <Lorie Latif DO - Last Filed: 06/10/20 07:53> Orders Ordered: ED Orders 06/06/20 16:28 CT head/brain wo con Stat XR thoracic spine 3V Stat Vital Signs Vital signs: Vital Signs - 8 hr 06/06/20 15:38 06/06/20 17:25 06/06/20 17:29 Temperature 97.9 F Pulse Rate 77 68 72 Respiratory Rate 16 18 Blood Pressure 160/73 H 169/75 H 169/75 H Pulse Oximetry 97 98 98 06/06/20 17:30 06/06/20 18:00 Temperature Pulse Rate 69 69 Respiratory Rate Blood Pressure Pulse Oximetry 98 98 MDM - Fall <COLIN Avelar - Last Filed: 06/06/20 19:29> MDM Narrative Medical decision making narrative: The patient is an 84-year-old female on blood thinners who presents with a chief complaint of a ground level fall last night. She did hit her head on the bed, given her age and blood thinner she is at increased risk of intracranial bleed, so head CT was obtained. This came back negative. She did report some thoracic spine pain in between her shoulder blades last night. X-ray did not show any acute findings, though it is noted that due to kyphosis and motion artifact is difficult to rule out compression fracture. Discussed this with the patient, offered CT recommended an x-ray which the patient declined. She states she would rather give it a few days as her pain ?isn't that bad at all and follow-up with primary care provider. I did discuss that subsequent cannot rule out any in stable or stable compression fractures. However the patient denies any neurological changes and denies severe pain, which is reassuring. The patient's daughter is concerned that she has fallen multiple times in the same spot in her bedroom while getting out of bed. The she may benefit from physical therapy at home to evaluate how she is getting in and out of bed. Discussed at length importance of following up with primary care provider in the next few days as well as come back to the ER for acute concerns such as incontinence of bowel, incontinence of bladder saddle anesthesia. Patient and daughter have no questions or concerns upon discharge and state understanding Discharge Plan Departure Patient Disposition: Home Clinical Impression: Fall from ground level Discharge Date/Time: 06/06/20 18:29 Instructions: How to Prevent Falls, Warfarin Activity Restrictions/Additional Instructions: Thank you for trusting us with your care today. As discussed, your head CT resulted with no acute findings. To the emergency department for any acute concerns including neurological concerns Please follow-up with primary care provider in the next few days. Given that you have had multiple falls the same location and home, in home physical therapy may be beneficial for you. Prescriptions: No Action calcium carbonate 500 mg calcium (1,250 mg) Tablet 1 tab PO DAILY RF: 0 donepezil 5 mg tablet 5 mg PO QPM RF: 0 acetaminophen 325 mg tablet 325 mg PO PRN PRN (Reason: pain) RF: 0 aspirin 325 mg Tablet 325 mg PO DAILY RF: 0 diphenoxylate-atropine [Lomotil] 2.5-0.025 mg tablet 1 tab PO TID PRN (Reason: diarrhea) Qty: 10 RF: 0 citalopram 20 mg Tablet 20 mg PO DAILY RF: 0 multivitamin Tablet,Chewable 2 tab PO DAILY RF: 0 oxycodone 5 mg Tablet 5 mg PO Q4H PRN (Reason: Pain, Moderate (4-6)) Qty: 15 RF: 0 Referrals: Мария Leone [Primary Care Provider] - <Lorie Latif DO - Last Filed: 06/10/20 07:53> Sign Out Provider Sign Out Attestation: I was immediately available in the department for consultation. This documentation has been reviewed and I agree with assessment and plan. Supervised by Lorie Latif DO
== END 2020-06-06 18:29 | disposition home or self-care (01) ==
PROVIDERS: Emergency Provider Nurse Practitioner Family; Family Provider Nurse Practitioner Family; PCP Nurse Practitioner Family
DX: S09.90XA Unspecified injury of head, initial encounter (principal); W19.XXXA Unspecified fall, initial encounter; Z79.01 Long term (current) use of anticoagulants
CPT/HCPCS: 70450; 72072; 99284

== ENCOUNTER 2021-07-06 14:09 | Emergency (ER) | payer MEDICARE, SELFPAY ==
[2018-06-17 15:57] VITALS: BMI 25.1
[2021-07-06 14:16] VITALS: BP 136/95; PULSE 81; RESP 20; TEMP 36.6; O2SAT 99
--- NOTE | 2021-07-06 16:56 | PC.NURSE ---
Patient's daughter states UTI hx: 04/30/21 spent [address] for UTI, 05/23/21 spent 5 days @[facility] for UTI, 06/16/21 UTI care @[facility] and today's visit for UTI assessment.
[2021-07-06 17:04] LABS: Appearance Urine UA CLEAR; Bilirubin Urine UA NEGATIVE (NEGATIVE); Color Urine UA YELLOW; Glucose Urine UA NEGATIVE (Negative); Ketones Urine UA NEGATIVE (NEGATIVE); Leukocyte Esterase Urine UA TRACE (NEGATIVE); Nitrite Urine UA NEGATIVE (Negative); Occult Blood Urine UA NEGATIVE (Negative); Protein Urine UA NEGATIVE (Negative); Urobilinogen Urine UA 0.2 E.U./dL (0.2)
[2021-07-06 17:13] LABS: RBC Urine None Seen (0-5/HPF); Squamous Epithelial Cell Urine 0-1 /HPF (0-5/HPF); WBC Urine 1-5/HPF (0-5/HPF)
[2021-07-06 17:14] LABS: Bacteria Urine Occasional (0-1); Culture Indicated Urine Specimen Cultured
--- NOTE | 2021-07-06 17:35 | ED_ITS ---
HPI - Female Genitourinary <Cresencio Guerrero PA-C - Last Filed: 07/06/21 18:58> General Chief complaint: Urogenital-Female Stated complaint: possible UTI Time Seen by Provider: 07/06/21 16:39 Source: patient and family Mode of arrival: Wheelchair History of Present Illness HPI Narrative: Patient is an 85-year-old female presenting to the emergency department today for evaluation several days of urinary incontinence. Patient's daughter states that she has also noticed a pungent odor in the patient's urine, and she states that the patient has experienced gradually progressing weakness and confusion. Of note, patient had been taking Bactrim for a UTI previously but did not complete the course due to ?feet itching?. No fever, uncontrollable chills, chest pain, shortness of breath, cough, nausea, vomiting, diarrhea, abdominal pain, flank pain, or hematuria reported. No other concerns voiced at this time. Patient was seen at [facility] on 06/16/2021 and was diagnosed with a urinary tract infection. She was prescribed Bactrim for the UTI. Additionally, patient had also been treated for UTI on 05/21/2021. Related Data Home Medications Medication Instructions Recorded Confirmed citalopram 20 mg tablet 20 mg PO DAILY 12/23/17 02/07/19 calcium carbonate 500 mg calcium 1 tab PO DAILY 02/22/18 02/07/19 (1,250 mg) tablet multivitamin 2 tab PO DAILY 05/30/18 02/07/19 acetaminophen 325 mg tablet 325 mg PO PRN PRN 02/07/19 02/07/19 aspirin 325 mg tablet 325 mg PO DAILY 02/07/19 02/07/19 donepezil 5 mg tablet 5 mg PO QPM 02/07/19 02/07/19 Previous Rx's Medication Instructions Recorded oxycodone 5 mg tablet 5 mg PO Q4H PRN #15 tab 06/20/18 diphenoxylate-atropine 2.5 1 tab PO TID PRN #10 tab 02/07/19 mg-0.025 mg tablet (Lomotil) cefuroxime axetil 250 mg tablet 250 mg PO BID #14 tab 07/06/21 Allergies Allergy/AdvReac Type Severity Reaction Status Date / Time Sulfa (Sulfonamide Allergy Intermediate Hives Verified 02/05/20 13:33 Antibiotics) codeine [CODEINE] Allergy Mild nausea Verified 02/05/20 13:33 iodine [IODINE] Allergy Mild breaks out Verified 02/05/20 13:33 skin Review of Systems <Cresencio Guerrero PA-C - Last Filed: 07/06/21 18:58> Constitutional Constitutional: Denies chills, Denies fatigue, Denies fever(s), Denies frequent falls, Denies lethargy and Denies weakness Eyes Eyes: Denies loss of vision ENT Ears, Nose, Mouth, and Throat: Denies dizziness and Denies neck pain Cardiovascular Cardiovascular: Denies chest pain, Denies irregular heart rhythm, Denies lightheadedness, Denies palpitations, Denies dyspnea, Denies dyspnea on exertion and Denies orthopnea Respiratory Respiratory: Denies cough, Denies dyspnea, Denies dyspnea on exertion and Denies wheezing Gastrointestinal Gastrointestinal: Denies abdominal pain, Denies change in bowel habits, Denies diarrhea, Denies nausea and Denies vomiting Genitourinary Genitourinary: Denies hematuria, Denies dysuria, Denies flank pain, Reports urinary incontinence and Denies urinary urgency Musculoskeletal Musculoskeletal: Denies back pain, Denies muscle weakness, Denies neck pain, Denies numbness and Denies tingling Neurologic Neurologic: Denies behavioral changes, Denies confusion, Denies dizziness, Denies frequent falls, Denies loss of vision, Denies numbness, Denies tingling and Denies weakness Psychiatric Psychiatric: Denies behavioral changes and Denies confusion Endocrine Endocrine: Denies fatigue and Denies palpitations Allergic/Immunologic Allergic/Immunologic: Denies wheezing Patient History <Cresencio Guerrero PA-C - Last Filed: 07/06/21 18:58> Medical History (Updated 07/06/21 @ 17:40 by Cresencio Guerrero PA-C) Anemia, iron deficiency Ankle fracture, right Arthritis of knee, left Blood clot in vein Bruises easily Cardiomegaly Cataract fragments in both eyes following surgery Cellulitis Closed fracture of right distal fibula (~12/2017) Cognitive impairment Depression Diarrhea DVT (deep venous thrombosis) GERD (gastroesophageal reflux disease) Hammer toe, acquired History of hip fracture History of prosthetic unicompartmental arthroplasty of both knees Hypertension Muscle weakness Nausea Osteoarthritis Pneumonia Postmenopausal Raynauds disease Scoliosis Spinal stenosis Thyroid nodule Surgical History History of hip surgery History of incision and drainage History of tonsillectomy and adenoidectomy Hx of elbow surgery Hx of total knee arthroplasty Status post unicompartmental knee replacement, left alcohol intake frequency: a few times a month Substance Use Type: does not use Exam <Cresencio uGerrero PA-C - Last Filed: 07/06/21 18:58> Narrative Exam Narrative: GENERAL: 85 year old patient appears stated age. Well-developed patient, in no acute distress. HEAD: Atraumatic. Normocephalic. EYES: Pupils equal round and reactive. Extraocular motions intact. No scleral icterus. No injection or drainage. ENT: Nose without bleeding, purulent drainage. Throat without erythema, tonsillar hypertrophy or exudate. Airway patent. NECK: Trachea midline. Non tender CARDIOVASCULAR: Regular rate and rhythm without murmurs, gallops, or rubs. RESPIRATORY: Clear to auscultation. Breath sounds equal bilaterally. No wheezes, rales, or rhonchi. GASTROINTESTINAL: Abdomen soft, non-tender, nondistended. EXTREMITIES: No edema or joint tenderness. BACK: Nontender without deformity or crepitance. No flank tenderness. NEURO: AOx3. SKIN: No rash or erythema of visible areas Initial Vital Signs Initial Vital Signs: Vital Signs Temperature 97.9 F 07/06/21 14:16 Pulse Rate 81 07/06/21 14:16 Respiratory Rate 20 07/06/21 14:16 Blood Pressure 136/95 H 07/06/21 14:16 Pulse Oximetry 99 07/06/21 14:16 <Lorie Latif DO - Last Filed: 07/09/21 08:05> Initial Vital Signs Initial Vital Signs: Vital Signs Temperature 97.9 F 07/06/21 14:16 Pulse Rate 81 07/06/21 14:16 Respiratory Rate 20 07/06/21 14:16 Blood Pressure 136/95 H 07/06/21 14:16 Pulse Oximetry 99 07/06/21 14:16 Course <Cresencio Guerrero PA-C - Last Filed: 07/06/21 18:58> Course Course Narrative: Urinalysis, urine culture obtained. Patient started on Ceftin in the emergency department. Orders Ordered: Discontinued Medications Cefuroxime Axetil (Cefuroxime 250 Mg Tablet) 500 mg PO NOW ONE Stop: 07/06/21 17:35 Last Admin: 07/06/21 18:05 Dose: 500 mg Documented by: JANICE Vital Signs Vital signs: Vital Signs - 8 hr 07/06/21 14:16 07/06/21 18:15 Temperature 97.9 F Pulse Rate 81 72 Respiratory Rate 20 18 Blood Pressure 136/95 H 105/66 Pulse Oximetry 99 98 <Lorie Latif DO - Last Filed: 07/09/21 08:05> Orders Ordered: Discontinued Medications Cefuroxime Axetil (Cefuroxime 250 Mg Tablet) 500 mg PO NOW ONE Stop: 07/06/21 17:35 Last Admin: 07/06/21 18:05 Dose: 500 mg Documented by: JANICE Vital Signs Vital signs: Vital Signs - 8 hr 07/06/21 14:16 07/06/21 18:15 Temperature 97.9 F Pulse Rate 81 72 Respiratory Rate 20 18 Blood Pressure 136/95 H 105/66 Pulse Oximetry 99 98 MDM - Female Genitourinary <Cresencio Guerrero PA-C - Last Filed: 07/06/21 18:58> Lab Data Labs: Lab Results 07/06/21 Range/Units 16:04 Urine Color Yellow Urine Appearance Clear Urine pH 7.0 (4.5-8.0) Ur Specific [place] 1.010 (1.000-1.035) Urine Protein Negative (Negative) Urine Glucose (UA) Negative (Negative) g/dL Urine Ketones Negative (NEGATIVE) Urine Occult Blood Negative (Negative) Urine Nitrate Negative (Negative) Urine Bilirubin Negative (NEGATIVE) Urine Urobilinogen 0.2 (0.2) E.U./dL Ur Leukocyte Esterase Trace H (NEGATIVE) Urine RBC None seen (0-5/HPF) Urine WBC 1-5/hpf (0-5/HPF) Ur Squamous Epith Cells 0-1 /hpf (0-5/HPF) Urine Bacteria Occasional (0-1) (None) Ur Culture Indicated? Specimen cultured MDM Narrative Medical decision making narrative: Patient is an 85-year-old female presenting to the emergency department today for evaluation several days of urinary incontinence. To consider urinary tract infection verses pyelonephritis versus nephrolithiasis versus ureterolithiasis. Overall physical examination history reassuring. Urinalysis emergency department digit signs of leukocyte esterase. Discussed with patient and daughter plan to begin the patient on Ceftin in the emergency department and will prescribe the completion of the dose to the preferred pharmacy. They both feel comfortable with this plan and at this time feel comfortable being discharged home. Strict return precautions discussed with patient and daughter prior to discharge. Discussed risk and benefits associated with taking Ceftin, at this time patient and daughter feel comfortable with this prescription. <Lorie Latif, - Last Filed: 07/09/21 08:05> Lab Data Labs: Lab Results 07/06/21 Range/Units 16:04 Urine Color Yellow Urine Appearance Clear Urine pH 7.0 (4.5-8.0) Ur Specific [place] 1.010 (1.000-1.035) Urine Protein Negative (Negative) Urine Glucose (UA) Negative (Negative) g/dL Urine Ketones Negative (NEGATIVE) Urine Occult Blood Negative (Negative) Urine Nitrate Negative (Negative) Urine Bilirubin Negative (NEGATIVE) Urine Urobilinogen 0.2 (0.2) E.U./dL Ur Leukocyte Esterase Trace H (NEGATIVE) Urine RBC None seen (0-5/HPF) Urine WBC 1-5/hpf (0-5/HPF) Ur Squamous Epith Cells 0-1 /hpf (0-5/HPF) Urine Bacteria Occasional (0-1) (None) Ur Culture Indicated? Specimen cultured Discharge Plan Departure Patient Disposition: Home Clinical Impression: Urinary tract infection Instructions: DI for Urinary Tract Infection (UTI) Activity Restrictions/Additional Instructions: *You have been diagnosed with urinary tract infection *What to do: *Please continue to take your regular medications as directed. [X] New medication prescriptions sent to your pharmacy: Tanya Oliva - Cefuroxime (Ceftin) [ ] New medication written as a paper prescription [ ] No new medications given *Please follow up with your primary care provider in 2-3 days, call for an appointment. Let them know you were seen in the Emergency Department and that we ask that you be seen in follow up. We will electronically transmit a record of today's note if your PCP is in our system *If you do not have a primary care provider please contact the [facility] Resource line at [phone]. They will ask some questions about your medical history and help get you set up with a doctor in the community. *Return to Emergency Department if you should have any new, worsening or concerning symptoms, such as fever greater than 101 F, shaking chills, worsening pain, increased seizure activity, persistent vomiting or other bothersome symptoms. Prescriptions: New cefuroxime axetil 250 mg tablet 250 mg PO BID Qty: 14 0RF No Action calcium carbonate 500 mg calcium (1,250 mg) Tablet 1 tab PO DAILY 0RF donepezil 5 mg tablet 5 mg PO QPM 0RF acetaminophen 325 mg tablet 325 mg PO PRN PRN (Reason: pain) 0RF aspirin 325 mg Tablet 325 mg PO DAILY 0RF diphenoxylate-atropine [Lomotil] 2.5-0.025 mg tablet 1 tab PO TID PRN (Reason: diarrhea) Qty: 10 0RF citalopram 20 mg Tablet 20 mg PO DAILY 0RF multivitamin Tablet,Chewable 2 tab PO DAILY 0RF oxycodone 5 mg Tablet 5 mg PO Q4H PRN (Reason: Pain, Moderate (4-6)) Qty: 15 0RF Referrals: Мария Leone ARNP [Primary Care Provider] - <Lorie Latif DO - Last Filed: 07/09/21 08:05> Cosign ED Attending Lyature Attestation: I was immediately available in the department for consultation. Documentation has been reviewed.
[2021-07-06] MEDS: cefUROXime 250 MG TABLET 500 MG PO (18:05)
[2021-07-06 18:15] VITALS: BP 105/66; PULSE 72; RESP 18; O2SAT 98
== END 2021-07-06 18:15 | disposition home or self-care (01) ==
PROVIDERS: Emergency Medicine; Emergency Provider Physician Assistant; Family Provider Nurse Practitioner Family; PCP Nurse Practitioner Family
DX: N39.0 Urinary tract infection, site not specified (principal)
CPT/HCPCS: 81001; 87086; 99283

== ENCOUNTER 2021-09-05 12:51 | Inpatient (IN) | payer MEDICARE, SELFPAY ==
[2018-06-17 15:57] VITALS: BMI 25.1
[2021-09-05] VITALS (11 sets, daily range): BP systolic 121–175; BP diastolic 63–84; PULSE 72–82; RESP 18–33; TEMP 36.6–36.8; O2SAT 92–96; BMI 28.1
--- NOTE | 2021-09-05 13:07 | DI.RAD.S_ITS ---
PROCEDURE: XR CHEST 1V INDICATIONS: chest pain TECHNIQUE: One view of the chest was acquired. COMPARISON: None. FINDINGS: Surgical changes and devices: None. Lungs and pleura: Lungs are clear. No pleural effusions or pneumothorax. Mediastinum: Mediastinal contours appear normal. Heart size is normal. Low lung volumes accentuate pulmonary interstitium and heart size. Bones and chest wall: No suspicious bony lesions. Overlying soft tissues appear unremarkable. Generalized decrease in osseous mineralization noted. IMPRESSION: No acute cardiopulmonary findings Approved by: Akash Underwood M.D. on 09/05/2021 at 13:48
--- NOTE | 2021-09-05 13:22 | DI.CT.S_ITS ---
PROCEDURE: CT HEAD/BRAIN WO CON INDICATIONS: fall, dizziness, nausea, vomiting TECHNIQUE: Noncontrast 4.5 mm thick angled axial sections acquired from the foramen magnum to the vertex, with coronal and sagittal reformats. For radiation dose reduction, the following was used: automated exposure control, adjustment of mA and/or kV according to patient size. COMPARISON: [facility], CT, CT HEAD WITHOUT CONTRAST, 03/11/2018, 23:21. [facility], CT, CT HEAD WITHOUT CONTRAST, 08/30/2018, 19:14. [facility], CT, CT HEAD/BRAIN WO CON, 06/06/2020, 16:34. FINDINGS: Image quality: Excellent. CSF spaces: Basal cisterns are patent. No extra-axial fluid collections. The ventricles are dilated but symmetric in size and shape. Brain: No intracranial bleeds or masses. There is moderate cerebral volume loss for age, with resultant ventricular and sulcal prominence. There are severe periventricular and deep white matter chronic small vessel ischemic changes. There is intracranial internal carotid artery atherosclerosis. Skull and face: Calvarium and visualized facial bones appear intact, without suspicious lesions. Sinuses: Visualized sinuses and mastoids are clear. IMPRESSION: 1. No acute intracranial abnormalities. 2. Cerebral volume loss and chronic microvascular ischemic changes. 3. Ventricular dilation may be secondary to central atrophy or normal pressure hydrocephalus. Recommend clinical correlation. Dictated by: Jossie Jeffers M.D. on 09/05/2021 at 13:46 Approved by: Jossie Jeffers M.D. on 09/05/2021 at 13:48
--- NOTE | 2021-09-05 13:23 | ED_ITS ---
HPI - Dizziness <Cheko Arboleda PA-C - Last Filed: 09/05/21 17:58> General Chief Complaint: Syncope Stated Complaint: fell last night/low back pain/on blood thinners Time Seen by Provider: 09/05/21 13:15 Source: patient and other Mode of arrival: Family Vehicle History of Present Illness HPI Narrative: 85-year-old female presenting to the ED with daughter via POV reporting last night a fall from trying to get off the toilet down to the ground. Patient was having some low back pain was seen by EMS refused transport and was monitor that evening. Daughter reports this morning while getting her up from bed she had extreme dizziness with some nausea and vomiting and she was complaining of low back pain with pain radiating into her left hip. She has a history of atrial fibrillation and is on Lovenox subQ daily. She has a history of DVT in the left thigh that has been since treated. Patient currently has no complaints of pain she denies any dizziness nausea vomiting diarrhea fever chills body aches. No reported chest pain shortness of breath. Related Data Home Medications Medication Instructions Recorded Confirmed citalopram 20 mg tablet 20 mg PO DAILY 12/23/17 09/05/21 calcium carbonate 500 mg calcium 1 tab PO DAILY 02/22/18 09/05/21 (1,250 mg) tablet multivitamin 2 tab PO DAILY 05/30/18 09/05/21 acetaminophen 325 mg tablet 325 mg PO PRN PRN 02/07/19 09/05/21 aspirin 325 mg tablet 325 mg PO DAILY 02/07/19 09/05/21 donepezil 5 mg tablet 5 mg PO QPM 02/07/19 09/05/21 Previous Rx's Medication Instructions Recorded oxycodone 5 mg tablet 5 mg PO Q4H PRN #15 tab 06/20/18 diphenoxylate-atropine 2.5 1 tab PO TID PRN #10 tab 02/07/19 mg-0.025 mg tablet (Lomotil) cefuroxime axetil 250 mg tablet 250 mg PO BID #14 tab 07/06/21 Allergies Allergy/AdvReac Type Severity Reaction Status Date / Time Sulfa (Sulfonamide Allergy Intermediate Hives Verified 09/05/21 17:44 Antibiotics) codeine [CODEINE] Allergy Mild nausea Verified 09/05/21 17:44 iodine [IODINE] Allergy Mild breaks out Verified 09/05/21 17:44 skin Review of Systems <Cheko Arboleda PA-C - Last Filed: 09/05/21 17:58> Review of Systems ROS Unobtainable: All systems reviewed & are unremarkable except as noted in HPI and below Constitutional Constitutional: Denies chills, Denies fatigue, Denies fever(s), Reports frequent falls, Denies lethargy and Denies weakness Eyes Eyes: Denies change in vision, Denies eye discharge, Denies irritation and Denies loss of vision ENT Ears, Nose, Mouth, and Throat: Denies change in voice, Denies dizziness, Denies neck pain, Denies sore throat and Denies throat swelling Cardiovascular Cardiovascular: Denies chest pain, Denies irregular heart rhythm, Denies lightheadedness, Denies palpitations, Denies dyspnea, Denies dyspnea on exertion and Denies orthopnea Respiratory Respiratory: Denies cough, Denies dyspnea, Denies dyspnea on exertion and Denies wheezing Gastrointestinal Gastrointestinal: Denies abdominal pain, Denies change in bowel habits, Denies diarrhea, Denies nausea and Denies vomiting Genitourinary Genitourinary: Denies hematuria, Denies flank pain, Denies urinary incontinence and Denies urinary urgency Musculoskeletal Musculoskeletal: Reports back pain, Denies muscle weakness, Denies neck pain, Denies numbness and Denies tingling Integumentary/Breasts Skin/Breast: Denies pruritus, Denies erythema, Denies rash and Denies wounds Neurologic Neurologic: Denies behavioral changes, Denies confusion, Denies dizziness, Reports frequent falls, Denies loss of vision, Denies numbness, Denies tingling and Denies weakness Psychiatric Psychiatric: Denies anxiety, Denies behavioral changes, Denies confusion, Denies depression, Denies homicidal ideation and Denies suicidal ideation Endocrine Endocrine: Denies fatigue, Denies flushing and Denies palpitations Hematologic/Lymphatic Hematologic/Lymphatic: Denies easy bruising Allergic/Immunologic Allergic/Immunologic: Denies urticaria, Denies throat swelling and Denies wheezing Patient History <Cheko Arboleda PA-C - Last Filed: 09/05/21 17:58> Medical History (Updated 09/05/21 @ 18:18 by Dianne Roque RN) Anemia, iron deficiency Ankle fracture, right Arthritis of knee, left Blood clot in vein Bruises easily Cardiomegaly Cataract fragments in both eyes following surgery Cellulitis Closed fracture of right distal fibula (~12/2017) Cognitive impairment Depression Diarrhea DVT (deep venous thrombosis) GERD (gastroesophageal reflux disease) Hammer toe, acquired History of hip fracture History of prosthetic unicompartmental arthroplasty of both knees Hypertension Muscle weakness Nausea Osteoarthritis Pneumonia Postmenopausal Raynauds disease Scoliosis Spinal stenosis Thyroid nodule Surgical History History of hip surgery History of incision and drainage History of tonsillectomy and adenoidectomy Hx of elbow surgery Hx of total knee arthroplasty Status post unicompartmental knee replacement, left Social History household members: family and children Smoking Status: Former smoker alcohol intake: current Smoking Status: Former smoker alcohol intake frequency: a few times a month Substance Use Type: does not use Exam <Cheko Arboleda PA-C - Last Filed: 09/05/21 17:58> Initial Vital Signs Initial Vital Signs: Vital Signs Temperature 97.9 F 09/05/21 12:51 Pulse Rate 82 09/05/21 12:51 Respiratory Rate 22 09/05/21 12:51 Blood Pressure 175/73 H 09/05/21 12:51 Pulse Oximetry 92 09/05/21 12:51 Const General: cooperative, healthy appearing and comfortable Nutritional Appearance: average body habitus Orientation: Orientation [facility] Head: normal to inspection, normocephalic and atraumatic Ears: hearing grossly normal bilaterally Nose: external nose normal and nasal mucous membranes and turbinates normal Face and sinus: normal facial exam and sinuses nontender Mouth: oral mucosae normal Teeth and gingiva: dentition normal Eyes General: appearance normal, both eyes and all related structures Pupils: PERRL Resp Effort & Inspection: normal respiratory effort Auscultation: clear to auscultation bilaterally Cardio Palpation: normal PMI Rate: regular rate Rhythm: regular rhythm Neuro General: patient alert, patient awake and patient oriented x3 Cranial Nerves: CN's II-XI intact bilaterally Cognition: normal cognition Speech: speech normal Course <Cheko Arboleda PA-C - Last Filed: 09/05/21 17:58> Orders Ordered: ED Orders 09/05/21 13:07 XR chest 1V Stat EKG-12 Lead Stat 09/05/21 13:20 COVID19 -Nasal swab/Pre-Proc Stat Complete Blood Count AUTO DIFF Stat Comprehensive Metabolic Panel Stat Lipase Stat Magnesium Stat Partial Thromboplastin Time Stat Prothrombin Time INR Stat Troponin & CK Cardiac Panel Stat 09/05/21 13:22 CT head/brain wo con Stat 09/05/21 15:50 UA Complete [Urinalysis and Microscopic] Stat Urine Culture Stat Acetaminophen (Acetaminophen 325 Mg Tablet) 650 mg PO Q6HR PRN PRN Reason: Fever/Mild Pain (1-3) Al Hydrox/Mg Hydrox/Simethicone (Mag Hydrox/Alum/Simeth 30 Ml Udc) 30 ml PO Q6HR PRN PRN Reason: Dyspepsia Docusate Sodium (Docusate 100 Mg Capsule) 100 mg PO BID KENDALL Heparin Sodium (Porcine) (Heparin 5,000 Unit/Ml Vial) 5,000 unit SUBCUT BID [facility] Sodium Chloride (Normal Saline 0.45%) 1,000 mls @ 75 mls/hr IV CONT [facility] Last Admin: 09/05/21 18:51 Dose: 75 mls/hr Documented by: ISABELLET Ceftriaxone Sodium 1,000 mg/ (Sodium Chloride) 100 mls @ 200 mls/hr IV Q24H [facility] Last Admin: 09/05/21 18:50 Dose: 200 mls/hr Documented by: ISABELLET Magnesium Hydroxide (Magnesium Hydroxide 30 Ml Udc) 30 ml PO DAILY PRN PRN Reason: Constipation Naloxone HCl (Naloxone 0.4 Mg/Ml Vial) 0.2 mg IV Q2MIN PRN PRN Reason: Opiate Reversal Reevaluation(s) Reevaluation #1: I spoke with patient and patient's family regarding update on current state. I spoke to them about admission of which they were agreeable. Consultations Consultation #1: I spoke with Dr. Grewal regarding admitting patient for UTI and weakness. He was agreeable and admission orders were reported Vital Signs Vital signs: Vital Signs - 8 hr 09/05/21 12:51 09/05/21 14:42 09/05/21 15:00 Temperature 97.9 F Pulse Rate 82 76 74 Respiratory Rate 22 22 21 Blood Pressure 175/73 H 173/79 H 172/79 H Pulse Oximetry 92 92 95 09/05/21 15:30 09/05/21 16:00 09/05/21 16:30 Temperature Pulse Rate 81 76 73 Respiratory Rate 24 Blood Pressure 163/84 H 130/63 139/69 Pulse Oximetry 95 93 94 MDM - Dizziness <Cheko Arboleda PA-C - Last Filed: 09/05/21 17:58> Differential Diagnosis Differential diagnosis: Likely other Lab Data Result diagrams: 09/05/21 13:20 09/05/21 13:20 Labs: Lab Results 09/05/21 09/05/21 09/05/21 Range/Units 13:20 13:20 13:20 WBC 10.1 (4.5-11.0) X10^3/uL RBC 3.77 L (4.0-5.2) X10^6/uL Hgb 9.8 L (12.0-16.0) g/dL Hct 30.7 L (36-46) % MCV 81.4 (80-100) fL MCH 26.1 (26-34) PG MCHC 32.0 (30-36) % RDW 15.9 H (11.6-14.8) % Plt Count 270 (150-400) X10^3/uL Neut % (Auto) 78.4 H (50-75) % Lymph % (Auto) 12.5 L (25-40) % [place] % (Auto) 7.4 (3-14) % Eos % (Auto) 1.2 L (2-4) % Baso % (Auto) 0.5 (0-2) % Neut # (Auto) 7900 H (9455-5547) /uL Lymph # (Auto) 1300 (8429-2646) /uL Baldwin # (Auto) 700 (0-900) /uL Eos # (Auto) 100 (0-450) /uL Baso # (Auto) 100 (0-100) /uL PT 11.9 (10.1-12.7) SECONDS INR 1.1 (0.9-1.3) APTT 32 D (26.4-36.2) SECONDS Sodium 137 (137-145) mmol/L Potassium 4.2 (3.4-5.1) mmol/L Chloride 105 (98-107) mmol/L Carbon Dioxide 27 (22-32) mmol/L BUN 16 (7-17) mg/dL Creatinine 0.81 (0.52-1.04) mg/dL Estimated GFR > 60.0 (>60) mL/min BUN/Creatinine Ratio 19.8 (6-22) Glucose 94 (80-110) mg/dL Calcium 8.9 (8.4-10.2) mg/dL Magnesium 1.8 (1.6-2.3) mg/dL Total Bilirubin 0.4 (0.2-1.3) mg/dL AST 41 H (14-36) IU/L ALT 32 (<35) IU/L Alkaline Phosphatase 133 H (38-126) U/L Total Creatine Kinase 92 (30-135) U/L CK-MB (CK-2) TNP CK-MB (CK-2) Rel Index TNP Troponin I < 0.012 (0.01-0.034) ng/mL Total Protein 7.2 (6.3-8.2) g/dL Albumin 3.8 (3.5-5.0) g/dL Globulin 3.4 (1.7-4.1) g/dL Albumin/Globulin Ratio 1.1 (1.0-2.8) Lipase 102 (23-300) U/L Urine Color Urine Appearance Urine pH (4.5-8.0) Ur Specific [place] (1.000-1.035) Urine Protein (Negative) Urine Glucose (UA) (Negative) g/dL Urine Ketones (NEGATIVE) Urine Occult Blood (Negative) Urine Nitrate (Negative) Urine Bilirubin (NEGATIVE) Urine Urobilinogen (0.2) E.U./dL Ur Leukocyte Esterase (NEGATIVE) Urine RBC (0-5/HPF) Urine WBC (0-5/HPF) Ur Squamous Epith Cells (0-5/HPF) Triple Phos Crystals Amorphous Sediment Urine Bacteria (None) Ur Culture Indicated? SARS-CoV-2 (PCR) (Negative) 09/05/21 09/05/21 Range/Units 13:20 15:50 WBC (4.5-11.0) X10^3/uL RBC (4.0-5.2) X10^6/uL Hgb (12.0-16.0) g/dL Hct (36-46) % MCV (80-100) fL MCH (26-34) PG MCHC (30-36) % RDW (11.6-14.8) % Plt Count (150-400) X10^3/uL Neut % (Auto) (50-75) % Lymph % (Auto) (25-40) % Baldwin % (Auto) (3-14) % Eos % (Auto) (2-4) % Baso % (Auto) (0-2) % Neut # (Auto) (9497-6141) /uL Lymph # (Auto) (9843-2212) /uL Baldwin # (Auto) (0-900) /uL Eos # (Auto) (0-450) /uL Baso # (Auto) (0-100) /uL PT (10.1-12.7) SECONDS INR (0.9-1.3) APTT (26.4-36.2) SECONDS Sodium (137-145) mmol/L Potassium (3.4-5.1) mmol/L Chloride (98-107) mmol/L Carbon Dioxide (22-32) mmol/L BUN (7-17) mg/dL Creatinine (0.52-1.04) mg/dL Estimated GFR (>60) mL/min BUN/Creatinine Ratio (6-22) Glucose (80-110) mg/dL Calcium (8.4-10.2) mg/dL Magnesium (1.6-2.3) mg/dL Total Bilirubin (0.2-1.3) mg/dL AST (14-36) IU/L ALT (<35) IU/L Alkaline Phosphatase (38-126) U/L Total Creatine Kinase (30-135) U/L CK-MB (CK-2) CK-MB (CK-2) Rel Index Troponin I (0.01-0.034) ng/mL Total Protein (6.3-8.2) g/dL Albumin (3.5-5.0) g/dL Globulin (1.7-4.1) g/dL Albumin/Globulin Ratio (1.0-2.8) Lipase (23-300) U/L Urine Color Yellow Urine Appearance Clear Urine pH 8.0 (4.5-8.0) Ur Specific [place] 1.015 (1.000-1.035) Urine Protein Trace H (Negative) Urine Glucose (UA) Negative (Negative) g/dL Urine Ketones Negative (NEGATIVE) Urine Occult Blood Trace-intact (Negative) Urine Nitrate Negative (Negative) Urine Bilirubin Negative (NEGATIVE) Urine Urobilinogen 0.2 (0.2) E.U./dL Ur Leukocyte Esterase 3+ H (NEGATIVE) Urine RBC 0-1/hpf (0-5/HPF) Urine WBC 10-30/hpf H (0-5/HPF) Ur Squamous Epith Cells None seen (0-5/HPF) Triple Phos Crystals Few Amorphous Sediment 1+ Urine Bacteria Many (>30) H (None) Ur Culture Indicated? Specimen cultured SARS-CoV-2 (PCR) Negative (Negative) MDM Narrative Medical decision making narrative: Patient was evaluated for dizziness nausea vomiting and weakness over the last 2 days. Daughter reports that she found her on the floor yesterday and was able to with assistance get her back up off the floor onto the bed this morning she is complaining of some lower back pain and some ongoing weakness and difficulty with walking. Patient had some nausea and vomiting this morning. Patient has had a history of NPH and discussion was made regarding placing the shunt. I spoke with family about this and they will consider neurology consult for shunt placement. Daughter reports that she gets frequent UTIs and has to be treated of which today she was found to have a UTI. Patient will be admitted for continued care and treatment. Discharge Plan Departure Patient Disposition: Admitted As Inpatient Clinical Impression: Urinary tract infection Admit Date/Time: 09/05/21 16:43 Admit Provider: Jacoby Che
[2021-09-05 13:32] LABS: Add Manual Diff / Slide Review NO; Basophils Absolute Auto 100 /uL (0-100); Basophils Percent Auto 0.5 % (0-2); Eosinophils Absolute Auto 100 /uL (0-450); Eosinophils Percent Auto 1.2 % (2-4); Hematocrit 30.7 % (36-46); Hemoglobin 9.8 g/dL (12.0-16.0); Lymphocytes Absolute Auto 1300 /uL (1100-4500); Lymphocytes Percent Auto 12.5 % (25-40); Mean Corpuscular Hemoglobin 26.1 PG (26-34); Mean Corpuscular Volume 81.4 fL (80-100); Monocytes Absolute Auto 700 /uL (0-900); Monocytes Percent Auto 7.4 % (3-14); Neutrophils Absolute Auto 7900 /uL (1500-7000); Neutrophils Percent Auto 78.4 % (50-75); Platelet Count 270 X10^3/uL (150-400); Red Blood Cell Count 3.77 X10^6/uL (4.0-5.2); Red Cell Distribution Width 15.9 % (11.6-14.8); White Blood Cell Count 10.1 X10^3/uL (4.5-11.0)
[2021-09-05 13:36] LABS: INR 1.1 (0.9-1.3); Prothrombin Time 11.9 SECONDS (10.1-12.7)
[2021-09-05 13:39] LABS: PTT Partial Thromboplastin Tim 32 SECONDS (26.4-36.2)
[2021-09-05 13:42] LABS: Alanine Aminotransferase 32 IU/L (<35); Albumin 3.8 g/dL (3.5-5.0); Albumin Globulin Ratio 1.1 (1.0-2.8); Alkaline Phosphatase 133 U/L (38-126); Aspartate Aminotransferase 41 IU/L (14-36); BUN Creatinine Ratio 19.8 (6-22); Bilirubin Total 0.4 mg/dL (0.2-1.3); Blood Urea Nitrogen 16 mg/dL (7-17); Calcium 8.9 mg/dL (8.4-10.2); Carbon Dioxide 27 mmol/L (22-32); Chloride 105 mmol/L (98-107); Creatine Kinase 92 U/L (30-135); Estimated Glomerular Filt Rate > 60.0 mL/min (>60); Globulin 3.4 g/dL (1.7-4.1); Glucose 94 mg/dL (80-110); HEMOLYSIS 18 (0-50); Lipase 102 U/L (23-300); Magnesium 1.8 mg/dL (1.6-2.3); Potassium 4.2 mmol/L (3.4-5.1); Sodium 137 mmol/L (137-145); Total Protein 7.2 g/dL (6.3-8.2)
[2021-09-05 13:51] LABS: COVID19 -Nasal RAPID Negative (Negative)
[2021-09-05 13:53] LABS: Troponin I < 0.012 ng/mL (0.01-0.034)
[2021-09-05 16:36] LABS: Appearance Urine UA CLEAR; Bilirubin Urine UA NEGATIVE (NEGATIVE); Color Urine UA YELLOW; Glucose Urine UA NEGATIVE (Negative); Ketones Urine UA NEGATIVE (NEGATIVE); Leukocyte Esterase Urine UA 3+ (NEGATIVE); Nitrite Urine UA NEGATIVE (Negative); Occult Blood Urine UA TRACE-INTACT (Negative); Protein Urine UA TRACE (Negative); Specific Gravity Urine UA 1.015 (1.000-1.035); Urobilinogen Urine UA 0.2 E.U./dL (0.2)
[2021-09-05 16:45] LABS: Amorphous Sediment Urine 1+; Bacteria Urine Many (>30); Culture Indicated Urine Specimen Cultured; RBC Urine 0-1/HPF (0-5/HPF); Squamous Epithelial Cell Urine None Seen (0-5/HPF); Triple Phosphate Crystal Urine Few; WBC Urine 10-30/HPF (0-5/HPF)
[2021-09-05] MEDS: cefTRIAXone 1,000 MG in SODIUM CHLORIDE 0.9% 100 ML 200 ML IV (18:50)
[2021-09-05] MEDS: SODIUM CHLORIDE 0.45% 1,000 ML 75 ML IV (18:51)
--- NOTE | 2021-09-05 19:54 | PM.HP.1 ---
History of Present Illness History of Present Illness Date Patient Seen: 09/05/21 Time Patient Seen: 16:47 Chief complaint: fell last night/low back pain/on blood thinners Narrative: Nancy Valverde is a 85-year-old female with a history of atrial fibrillation, on Lovenox subQ daily, DVT in the left thigh, cognitive/dementia, Chronic LBP, essential hypertension, and depression who was presented to the ED by her daughter following a fall to the ground last night, trying to get off the toilet, and 2 days of nausea, vomiting, dizziness, and LBP radiating to left hip.?Patient upon admit currently has no complaints of pain, CP, SOB, abd pain, dizziness, nausea, vomiting, diarrhea, frequency, urgency, dysuria, chills, body aches, headache, changes in vision, weakness, numbness, tingling, recent illness injury or trauma. Patient is a poor historian and her input/accuracy regarding HPI, ROS is poor, due to cognitive impairment. Patient's initial presenting vitals the ED with hypertension BP 175/73, HR 82, R 22. Upon admit vitals have improved temp 97.9?, BP 121/64, HR 72 but slightly tachypneic with an RR 33, O2 saturation 93% room air. Patient is resting comfortably in bed with no distress at this time. HGB 9.8, HCT 32.7, no white blood cell count but does have a left shift neutrophils 7900. Patient's remaining chemistries are WNL, AST 41 alk-phos 133, urinalysis was positive and culture is pending. Head CT was negative for acute intracranial processes, patient's chest x-ray demonstrated no acute cardiopulmonary processes. I personally reviewed patient's EKG sinus rhythm with a rate of [address] and T-wave abnormalities. Patient is admitted for UTI and weakness resulting in a ground level fall. Patient History Medical History Anemia, iron deficiency Ankle fracture, right Arthritis of knee, left Blood clot in vein Bruises easily Cardiomegaly Cataract fragments in both eyes following surgery Cellulitis Closed fracture of right distal fibula (~12/2017) Cognitive impairment Depression Diarrhea DVT (deep venous thrombosis) GERD (gastroesophageal reflux disease) Hammer toe, acquired History of hip fracture History of prosthetic unicompartmental arthroplasty of both knees Hypertension Muscle weakness Nausea Osteoarthritis Pneumonia Postmenopausal Raynauds disease Scoliosis Spinal stenosis Thyroid nodule Surgical History History of hip surgery History of incision and drainage History of tonsillectomy and adenoidectomy Hx of elbow surgery Hx of total knee arthroplasty Status post unicompartmental knee replacement, left Family & Social History Family History (Updated 09/05/21 @ 20:38 by LANDON Jules-MATTI) Mother Hypertension Sister Cancer Social History: household members family,children Prior Living Arrangements House Safety & Behavioral: Feels Safe in Current Yes Environment Been Physically Hurt or No Threatened By a Person Suicidal Ideation Description None Suicide Plan Description No Plan Tobacco & Substance use: Tobacco type cigarettes Smoking Status Former smoker alcohol intake current alcohol intake frequency a few times a month Substance Use Type does not use Meds Home Medications and Allergies Home Medications Medication Instructions Recorded Confirmed Type citalopram 20 mg tablet 20 mg PO DAILY 12/23/17 09/05/21 History calcium carbonate 500 mg calcium 1 tab PO DAILY 02/22/18 09/05/21 History (1,250 mg) tablet multivitamin 2 tab PO DAILY 05/30/18 09/05/21 History oxycodone 5 mg tablet 5 mg PO Q4H PRN #15 tab 06/20/18 09/05/21 Rx acetaminophen 325 mg tablet 325 mg PO PRN PRN 02/07/19 09/05/21 History aspirin 325 mg tablet 325 mg PO DAILY 02/07/19 09/05/21 History diphenoxylate-atropine 2.5 1 tab PO TID PRN #10 tab 02/07/19 09/05/21 Rx mg-0.025 mg tablet (Lomotil) donepezil 5 mg tablet 5 mg PO QPM 02/07/19 09/05/21 History cefuroxime axetil 250 mg tablet 250 mg PO BID #14 tab 07/06/21 09/05/21 Rx Allergies Allergy/AdvReac Type Severity Reaction Status Date / Time Sulfa (Sulfonamide Allergy Intermediate Hives Verified 09/05/21 17:44 Antibiotics) codeine [CODEINE] Allergy Mild nausea Verified 09/05/21 17:44 iodine [IODINE] Allergy Mild breaks out Verified 09/05/21 17:44 skin Review of Systems Review of Systems Narrative: All 12 point systems reviewed with the patient and are negative except otherwise documented. Exam Vital Signs (past 8 hours): - 09/05/21 12:51 09/05/21 14:42 09/05/21 15:00 Temperature 97.9 F Pulse Rate 82 76 74 Respiratory Rate 22 22 21 Blood Pressure 175/73 H 173/79 H 172/79 H Pulse Oximetry 92 92 95 09/05/21 15:30 09/05/21 16:00 09/05/21 16:30 Temperature Pulse Rate 81 76 73 Respiratory Rate 24 Blood Pressure 163/84 H 130/63 139/69 Pulse Oximetry 95 93 94 09/05/21 17:00 09/05/21 17:30 Temperature Pulse Rate 75 72 Respiratory Rate 33 H Blood Pressure 129/83 121/64 Pulse Oximetry 94 93 Oxygen Delivery Method Room Air Narrative Exam Narrative: General: Patient is a well-developed, well-nourished elderly female, in no distress at this time. HEENT: Normocephalic, atraumatic, extraocular muscles intact, oral pharynx is clear and mucous membranes are moist. Neck is supple and symmetric, trachea is midline, no adenopathy, no thyroid enlargement, nontender, no masses palpated. Negative for JVD Chest: Normal AP diameter and contour without kyphoscoliosis, no nasal flaring, retractions, or tachypneic labored Lungs: Auscultation of all lung singer are clear without adventitious sounds, wheezes, rhonchi, or rales. Cardio: S1 & S2 with regular rate and rhythm without murmur, rubs, or gallops, no carotid bruit, no cardiac pulsations present. Abdomen: Soft nontender, negative for organomegaly, or masses. Bowel sounds are present in all 4 quadrants without guarding or rebound, no CVA tenderness. Musculoskeletal: mild LBP, Muscle strength and tone are equal within normal limits, no deformity, crepitus, effusions, cyanosis, clubbing or edema present. Full range of motion intact radial and pedal pulses are normal. Skin: Warm dry and intact without rashes, ulcerations or petechiae. Neuro: Alert and orientated x3, poor historian due to cognitive impairment, strength is +5/5 in all extremities, sensation to touch intact, no gross deficits noted of cranial nerves. Psych: Patient has a well-kept appearance, appropriate affect. Objective Labs Result Diagrams: 09/05/21 13:20 09/05/21 13:20 Labs: Laboratory Results - last 24 hr 09/05/21 09/05/21 09/05/21 13:20 13:20 13:20 WBC 10.1 RBC 3.77 L Hgb 9.8 L Hct 30.7 L MCV 81.4 MCH 26.1 MCHC 32.0 RDW 15.9 H Plt Count 270 Neut % (Auto) 78.4 H Lymph % (Auto) 12.5 L [place] % (Auto) 7.4 Eos % (Auto) 1.2 L Baso % (Auto) 0.5 Neut # (Auto) 7900 H Lymph # (Auto) 1300 [place] # (Auto) 700 Eos # (Auto) 100 Baso # (Auto) 100 PT 11.9 INR 1.1 APTT 32 D Sodium 137 Potassium 4.2 Chloride 105 Carbon Dioxide 27 BUN 16 Creatinine 0.81 Estimated GFR > 60.0 BUN/Creatinine Ratio 19.8 Glucose 94 Calcium 8.9 Magnesium 1.8 Total Bilirubin 0.4 AST 41 H ALT 32 Alkaline Phosphatase 133 H Total Creatine Kinase 92 CK-MB (CK-2) TNP CK-MB (CK-2) Rel Index TNP Troponin I < 0.012 Total Protein 7.2 Albumin 3.8 Globulin 3.4 Albumin/Globulin Ratio 1.1 Lipase 102 Urine Color Urine Appearance Urine pH Ur Specific [place] Urine Protein Urine Glucose (UA) Urine Ketones Urine Occult Blood Urine Nitrate Urine Bilirubin Urine Urobilinogen Ur Leukocyte Esterase Urine RBC Urine WBC Ur Squamous Epith Cells Triple Phos Crystals Amorphous Sediment Urine Bacteria Ur Culture Indicated? SARS-CoV-2 (PCR) 09/05/21 09/05/21 13:20 15:50 WBC RBC Hgb Hct MCV MCH MCHC RDW Plt Count Neut % (Auto) Lymph % (Auto) [place] % (Auto) Eos % (Auto) Baso % (Auto) Neut # (Auto) Lymph # (Auto) [place] # (Auto) Eos # (Auto) Baso # (Auto) PT INR APTT Sodium Potassium Chloride Carbon Dioxide BUN Creatinine Estimated GFR BUN/Creatinine Ratio Glucose Calcium Magnesium Total Bilirubin AST ALT Alkaline Phosphatase Total Creatine Kinase CK-MB (CK-2) CK-MB (CK-2) Rel Index Troponin I Total Protein Albumin Globulin Albumin/Globulin Ratio Lipase Urine Color Yellow Urine Appearance Clear Urine pH 8.0 Ur Specific [place] 1.015 Urine Protein Trace H Urine Glucose (UA) Negative Urine Ketones Negative Urine Occult Blood Trace-intact Urine Nitrate Negative Urine Bilirubin Negative Urine Urobilinogen 0.2 Ur Leukocyte Esterase 3+ H Urine RBC 0-1/hpf Urine WBC 10-30/hpf H Ur Squamous Epith Cells None seen Triple Phos Crystals Few Amorphous Sediment 1+ Urine Bacteria Many (>30) H Ur Culture Indicated? Specimen cultured SARS-CoV-2 (PCR) Negative Assessment & Plan Assessment & Plan narrative: Nancy Valverde is a 85-year-old female with a history of atrial fibrillation, on Lovenox subQ daily, HX of DVT in the left thigh, cognitive/dementia, Chronic LBP, essential hypertension, and depression who was presented to the ED by her daughter following a fall to the ground last night, trying to get off the toilet, and 2 days of nausea, vomiting, dizziness, and LBP radiating to left hip. Patient requires hospitalization for antibiotic and fluid management. 1. Urinary tract infection, with weakness, resulting in ground level fall (observed), acute, present on admission -urinalysis trace protein, 3+ leuk Est., WBC 10-30, bacteria>30, culture pending -Does not meet SIRS/Sepsis Criteria -NS 75 cc/HR -Rocephin 1 g Q 24 hours -patient placed on strict fall precautions-Up with assist ONLY -PT consult for evaluation -Orthostats Qshift While awake 2. Atrial fibrillation, (Unknown Type) with history DVT chronic, present on admission -continue Lovenox or ASA- nurse will contact daughter to verify medication. 3. Cognitive impairment/dementia, with depression, acute on chronic, present on admission -continue Aricept, Lexapro 4. Chronic low back pain, acute on chronic, present on admission -continue oxycodone Code status:Full Surrogate decision maker: Daughter Lilli Valverde COVID PCR:Negative COVID vaccination: Unknown DVT/VTE prophylaxis:Heparin & Scd's Disposition: Patient admitted for antibiotic and fluid rehydration, expected length of stay less than 2 midnights. I have utilized all available immediate resources to obtain, update, or review the patient's current medications. I confirmed that the patient's advanced care plan is present, Code status is documented and/or surrogate decision maker is listed in the patient's medical record. Time Spent With Patient Critical Care time: I spent a total of [] minutes of critical care time on this patient's care today; this time is exclusive of procedural time. Scores GCS Abimael coma scale eye opening: Spontaneous Shirley coma scale verbal response: Orientated Shirley coma scale motor response: Obey commands Shirley coma scale total score: 15 Quality VTE Deep Vein Thrombosis/Pulmonary Embolism Present on Admission: No
[2021-09-05] MEDS: HEPARIN 5,000 UNIT/ML VIAL 5000 UNIT SUBCUT (21:11)
[2021-09-05] MEDS: DOCUSATE 100 MG CAPSULE PO (21:11)
[2021-09-05] MEDS: DONEPEZIL 5 MG TABLET PO (21:11)
[2021-09-05] MEDS: OXYCODONE IR 5 MG TABLET PO (21:11)
[2021-09-06] VITALS (15 sets, daily range): BP systolic 122–158; BP diastolic 67–83; PULSE 72–88; RESP 16–18; TEMP 36.4–36.9; O2SAT 92–98
[2021-09-06 06:11] LABS: Add Manual Diff / Slide Review NO; Basophils Absolute Auto 0 /uL (0-100); Basophils Percent Auto 0.6 % (0-2); Eosinophils Absolute Auto 200 /uL (0-450); Eosinophils Percent Auto 2.9 % (2-4); Hematocrit 28.1 % (36-46); Hemoglobin 9.3 g/dL (12.0-16.0); Lymphocytes Absolute Auto 1400 /uL (1100-4500); Lymphocytes Percent Auto 19.5 % (25-40); Mean Corpuscular Hemoglobin 26.4 PG (26-34); Mean Corpuscular Volume 80.1 fL (80-100); Monocytes Absolute Auto 600 /uL (0-900); Monocytes Percent Auto 7.9 % (3-14); Neutrophils Absolute Auto 5000 /uL (1500-7000); Neutrophils Percent Auto 69.1 % (50-75); Platelet Count 227 X10^3/uL (150-400); Red Blood Cell Count 3.51 X10^6/uL (4.0-5.2); Red Cell Distribution Width 15.8 % (11.6-14.8); White Blood Cell Count 7.3 X10^3/uL (4.5-11.0)
[2021-09-06 06:21] LABS: Alanine Aminotransferase 27 IU/L (<35); Albumin 3.3 g/dL (3.5-5.0); Albumin Globulin Ratio 1.1 (1.0-2.8); Alkaline Phosphatase 112 U/L (38-126); Aspartate Aminotransferase 30 IU/L (14-36); BUN Creatinine Ratio 18.9 (6-22); Bilirubin Total 0.4 mg/dL (0.2-1.3); Blood Urea Nitrogen 14 mg/dL (7-17); Calcium 8.5 mg/dL (8.4-10.2); Carbon Dioxide 27 mmol/L (22-32); Chloride 105 mmol/L (98-107); Estimated Glomerular Filt Rate > 60.0 mL/min (>60); Globulin 3.1 g/dL (1.7-4.1); Glucose 96 mg/dL (80-110); HEMOLYSIS < 15 (0-50); Potassium 3.9 mmol/L (3.4-5.1); Sodium 133 mmol/L (137-145); Total Protein 6.4 g/dL (6.3-8.2)
[2021-09-06] MEDS: CITALOPRAM 10 MG TABLET 20 MG PO (09:06)
[2021-09-06] MEDS: HEPARIN 5,000 UNIT/ML VIAL 5000 UNIT SUBCUT ×2 (09:06→20:03)
[2021-09-06] MEDS: DOCUSATE 100 MG CAPSULE PO ×2 (09:06→20:03)
--- NOTE | 2021-09-06 09:30 | PT.IIE ---
Current Diagnoses Urinary tract infection, site not specified (09/05/21) Medical History (Last Reviewed 09/05/21 @ 20:15 by KATY Jules) Anemia, iron deficiency Ankle fracture, right Arthritis of knee, left Blood clot in vein Bruises easily Cardiomegaly Cataract fragments in both eyes following surgery Cellulitis Closed fracture of right distal fibula (~12/2017) Cognitive impairment Depression Diarrhea DVT (deep venous thrombosis) GERD (gastroesophageal reflux disease) Hammer toe, acquired History of hip fracture History of prosthetic unicompartmental arthroplasty of both knees Hypertension Muscle weakness Nausea Osteoarthritis Pneumonia Postmenopausal Raynauds disease Scoliosis Spinal stenosis Thyroid nodule Physical Therapy Inpatient Evaluation/Re-Eval M1 PT/OT-IP Prior Functional Status Start: 09/06/21 12:07 Freq: NEEDED Status: Active Protocol: Document 09/06/21 09:30 AB (Rec: 09/06/21 12:28 AB [email or web address]) Medical Review Prior Functional Status Medical History Reviewed Yes Communication able to make needs known but with confusion and difficulty following directions Mobility and Gait pt stated that she is modified independent with transfers and is w/c bound and has not been walking. Daughter came in midway eval and confirmed that pt has been using a w/c but she assists pt with transfers and amount of assistance depending on how pt feels. Social History Household Members children Living Arrangements House Number of Floors (Floors) One Floor Number of Stairs To Enter/Railing? ramp to enter Home Environment Standard Height Toilet,Walk in Shower,Ramp Home Equipment Front Wheel Walker,Manual Wheelchair,Hand Held Shower, Bed Rails,Grab Bars Near Toilet,Grab Bars In Shower M2 PT-IP Current Condition Start: 09/06/21 12:07 Freq: NEEDED Status: Active Protocol: Document 09/06/21 09:30 AB (Rec: 09/06/21 12:28 AB [email or web address]) Physical Therapy Current Condition Current Condition Evaluation Date 09/06/21 Treatment Diagnosis UTI; GLF; difficulty in walking Onset Date 09/05/21 M3 PT-IP Subjective Start: 09/06/21 12:07 Freq: NEEDED Status: Active Protocol: Document 09/06/21 09:30 AB (Rec: 09/06/21 12:28 AB [email or web address]) Subjective Physical Therapy Visit Type Type Initial Evaluation Visit Start Time 09:30 Visit Stop Time 10:06 Total Visit Minutes 36 Number of WORKERS COMPENSATION CLAIMS ANALYST Visits 0 Physical Therapy Visit Comments Patient Comments agreeable to do PT Therapy Pain Assessment Pain Present Pain Present Pain Reported Location Lower Back Scale Used pain scale not stated Pain Management Techniques Distraction,Modification of Treatment,Re-positioning, Timing of Activity with Medications M4 PT-IP Mobility and Gait Start: 09/06/21 12:07 Freq: NEEDED Status: Active Protocol: Document 09/06/21 09:30 AB (Rec: 09/06/21 12:28 AB [id number]) PT-Bed Mobility Assessment Supine to Sit Supine to Sit Maximum Assistance,Head of Bed Elevated,Bedrails Scooting Scooting to Edge of Bed Maximum Assistance PT-Transfer Assessment Sit to and From Stand Sit to and from Stand Maximum Assistance,2 Person Assistance,Use of Upper Extremities Equipment Transfer Assistive Device Gait Belt Orthotic/Prosthetic Devices or Brace: No Transfers Transfer Destination Chair Transfer Technique Stand Pivot Transfer Ability Level of Assist Maximum Assistance,2 Person Assistance,Use of Upper Extremities Comments Mobility Comments daughter came in midway PT eval. daughter stated that she assists pt with transfers. pt completed supine to sit max A and cues with HOB elevated. used bed rail to assist. pt requires max A for sitting balance and presents with increase posterior trunk lean with extensor guarding and has difficutly following directions. Daughter demonstrated how she usually assists pt with transfers. stated that she hold on to pt' s elbows and pt stand pivots. Demonstrated but PT needs to assist during transfers. pt completed squat pivot transfer bed to chair max A x 2 and max cues. pt plopped on chair during sitting. pt was not able to fully stand up witn increase R knee flexion during standing and increase posterior trunk leaning durint sit to stand and during standing. pt needed to be cleaned up. NAC in room. pt completed sit to stand from chair max A x 2 and max cues. required max Ax 1-2 for maintaining standing balance using fWW for support . continues to have increase posterior trunk lean during standing. pt only tolerated ~ 5 sec and was pushing down to sit. completed sit to stand again max A x 2 and max cues and max A x 2 to maintain standing balance using fWW for support and max cues for upright standing, use of FWW and steadiness. NAC assisted with hygiene care and brief management. positioned pt on chair. call light and table placed within reach. informed pt's daughter regarding SNF rehab at this time and agreed. PT-Balance Assessment Sitting Balance and Reactions Static Sitting Balance Ability Poor Dynamic Sitting Balance Ability Poor Standing Balance and Reactions Static Standing Balance Ability Poor Dynamic Standing Balance Ability Poor Device Used FWW M5 PT-IP Objective Assessments Start: 09/06/21 12:07 Freq: NEEDED Status: Active Protocol: Document 09/06/21 09:30 AB (Rec: 09/06/21 12:28 AB [email or web address]) Orientation Orientation/Cognition Level of Alertness Confusional State Orientation Name Safety Awareness Decreased Safety Awareness Memory Description Short Term Impaired,Residential Impaired Gross Range of Motion Lower Extremity ROM Assessment Within Functional Limits Strength Lower Extremity Strength Assessment Bilaterally Impaired Hip 2+/5 Knee RLE: 3+/5 LLE : 3-/5 Muscle Tone Comments Muscle Tone Comments increase trunk extensor tone during sitting and standing M6 PT-IP Treatment Start: 09/06/21 12:07 Freq: NEEDED Status: Active Protocol: Document 09/06/21 09:30 AB (Rec: 09/06/21 12:[facility] Treatment Education Education Provided Safety M7 PT-IP Assessment and Plan Start: 09/06/21 12:07 Freq: NEEDED Status: Active Protocol: Document 09/06/21 09:30 AB (Rec: 09/06/21 12:28 [facility] PT Summary Assessment and Plan Potential Rehabilitation Potential Fair Status of Condition at Evaluation Evolving Summary Impairments Pain,ROM,Strength,Balance, Coordination,Sensation,Tone, Cognition,Bed Mobility, Transfers,Gait,Activity Tolerance Assessment Summary pt requiring max A x 2 for transfers. Recommending mechanical lift transfers with nursing for safety. pt will require SNF rehab to improve strength and mobility. Goals Bed Mobility Goal Moderate Assistance Transfer Goal Moderate Assistance,Front Wheeled Walker Days to Meet Goals 10 Frequency of Treatment Frequency Of Treatment Once a Day Treatment Plan Physical Therapy Treatment Plan Bed Mobility Training,Transfer Training,Gait Training, Therapeutic Exercise,Balance Retraining,Discharge Planning, Hot or Cold Pack,Neuromuscular Re-ed,Coordination Retraining ,Manual Therapy Precautions Other Precautions Falls Recommendations To Nursing Amount of Assist Needed Mechanical Lift Discharge Recommendations PT Discharge Recommendations SNF Rehab Transportation Needs at Discharge Wheelchair/Cabulance
--- NOTE | 2021-09-06 11:39 | OT.IPNOTE ---
Pt too tired to get up at this time to get up for OT sonia as she worked with PT earlier.
--- NOTE | 2021-09-06 12:04 | PM.PN.1 ---
Subjective Subjective Interval history: Nancy Valverde is a 85-year-old female with a history of atrial fibrillation, on Lovenox subQ daily, DVT in the left thigh, cognitive/dementia, Chronic LBP, essential hypertension, and depression who was presented to the ED by her daughter following a fall to the ground PM 09/04, trying to get off the toilet, and 2 days of nausea, vomiting, dizziness, and LBP radiating to left hip.?Patient upon admit currently has no complaints of pain, CP, SOB, abd pain, dizziness, nausea, vomiting, diarrhea, frequency, urgency, dysuria, chills, body aches, headache, changes in vision, weakness, numbness, tingling, recent illness injury or trauma.? Patient is a poor historian and her input/accuracy regarding HPI, ROS is poor, due to cognitive impairment. Patient's initial presenting vitals the ED with hypertension BP 175/73, HR 82, R 22.? Upon admit vitals have improved temp 97.9?, BP 121/64, HR 72 but slightly tachypneic with an RR 33, O2 saturation 93% room air.? HGB 9.8, HCT 32.7, no white blood cell count but left shift neutrophils 7900.? Patient's remaining chemistries are WNL, AST 41 alk-phos 133, urinalysis was positive.? Head CT was negative for acute intracranial processes, patient's chest x-ray demonstrated no acute cardiopulmonary processes.? I personally reviewed patient's EKG sinus rhythm with a rate of [address] and T-wave abnormalities.? Patient is admitted for UTI and weakness resulting in a ground level fall. 09/06 Since admission there has been no new issues no new problems. Patient continues to be without nausea vomiting, chest pain, headache, abdominal pain nausea vomiting Exam Vital Signs (past 8 hours): - 09/06/21 05:40 09/06/21 08:35 09/06/21 08:44 Temperature 97.6 F 97.9 F Pulse Rate 72 73 Respiratory Rate 17 17 Blood Pressure 142/83 H 158/82 H Pulse Oximetry 98 95 96 Oxygen Delivery Method Room Air Oxygen Flow Rate 0 Narrative Exam Narrative: General:? W/D W/N 85-year-old female NAD HEENT:? N/C A/T EOMI PERRL sclera clear nares patent oropharynx clear Neck: supple and symmetric, trachea is midline, without thyromegaly bruits or jugular venous distention. Chest:? Normal AP diameter and contour without kyphoscoliosis, no nasal flaring, retractions, or tachypneic labored Lungs:? Auscultation of all lung singer are clear without adventitious sounds, wheezes, rhonchi, or rales. Cardio:? RR S1S2 nL No murmur, rubs, or gallops Abdomen:? Soft nontender, negative for organomegaly, or masses.? Bowel sounds are present in all 4 quadrants without guarding or rebound, no CVA tenderness. Musculoskeletal: mild LBP, Muscle strength and tone are equal within normal limits, no deformity, crepitus, effusions, cyanosis, clubbing or edema present.? Full range of motion intact radial and pedal pulses are normal. Skin:? Warm dry and intact without rashes, ulcerations or petechiae.? Neuro:? Alert and orientated x3, poor historian due to cognitive impairment,? strength is +5/5 in all extremities, sensation to touch intact, no gross deficits noted of cranial nerves. Psych:? Patient has a well-kept appearance, appropriate affect. Objective Labs Result Diagrams: 09/06/21 06:00 09/06/21 06:00 Labs: Laboratory Results - last 24 hr 09/05/21 09/05/21 09/05/21 13:20 13:20 13:20 WBC 10.1 RBC 3.77 L Hgb 9.8 L Hct 30.7 L MCV 81.4 MCH 26.1 MCHC 32.0 RDW 15.9 H Plt Count 270 Neut % (Auto) 78.4 H Lymph % (Auto) 12.5 L Cuming % (Auto) 7.4 Eos % (Auto) 1.2 L Baso % (Auto) 0.5 Neut # (Auto) 7900 H Lymph # (Auto) 1300 Cuming # (Auto) 700 Eos # (Auto) 100 Baso # (Auto) 100 PT 11.9 INR 1.1 APTT 32 D Sodium 137 Potassium 4.2 Chloride 105 Carbon Dioxide 27 BUN 16 Creatinine 0.81 Estimated GFR > 60.0 BUN/Creatinine Ratio 19.8 Glucose 94 Calcium 8.9 Magnesium 1.8 Total Bilirubin 0.4 AST 41 H ALT 32 Alkaline Phosphatase 133 H Total Creatine Kinase 92 CK-MB (CK-2) TNP CK-MB (CK-2) Rel Index TNP Troponin I < 0.012 Total Protein 7.2 Albumin 3.8 Globulin 3.4 Albumin/Globulin Ratio 1.1 Lipase 102 Urine Color Urine Appearance Urine pH Ur Specific [place] Urine Protein Urine Glucose (UA) Urine Ketones Urine Occult Blood Urine Nitrate Urine Bilirubin Urine Urobilinogen Ur Leukocyte Esterase Urine RBC Urine WBC Ur Squamous Epith Cells Triple Phos Crystals Amorphous Sediment Urine Bacteria Ur Culture Indicated? SARS-CoV-2 (PCR) 09/05/21 09/05/21 09/06/21 13:20 15:50 06:00 WBC 7.3 RBC 3.51 L Hgb 9.3 L Hct 28.1 L MCV 80.1 MCH 26.4 MCHC 33.0 RDW 15.8 H Plt Count 227 Neut % (Auto) 69.1 Lymph % (Auto) 19.5 L Cuming % (Auto) 7.9 Eos % (Auto) 2.9 Baso % (Auto) 0.6 Neut # (Auto) 5000 Lymph # (Auto) 1400 Cuming # (Auto) 600 Eos # (Auto) 200 Baso # (Auto) 0 PT INR APTT Sodium Potassium Chloride Carbon Dioxide BUN Creatinine Estimated GFR BUN/Creatinine Ratio Glucose Calcium Magnesium Total Bilirubin AST ALT Alkaline Phosphatase Total Creatine Kinase CK-MB (CK-2) CK-MB (CK-2) Rel Index Troponin I Total Protein Albumin Globulin Albumin/Globulin Ratio Lipase Urine Color Yellow Urine Appearance Clear Urine pH 8.0 Ur Specific [place] 1.015 Urine Protein Trace H Urine Glucose (UA) Negative Urine Ketones Negative Urine Occult Blood Trace-intact Urine Nitrate Negative Urine Bilirubin Negative Urine Urobilinogen 0.2 Ur Leukocyte Esterase 3+ H Urine RBC 0-1/hpf Urine WBC 10-30/hpf H Ur Squamous Epith Cells None seen Triple Phos Crystals Few Amorphous Sediment 1+ Urine Bacteria Many (>30) H Ur Culture Indicated? Specimen cultured SARS-CoV-2 (PCR) Negative 09/06/21 06:00 WBC RBC Hgb Hct MCV MCH MCHC RDW Plt Count Neut % (Auto) Lymph % (Auto) Cuming % (Auto) Eos % (Auto) Baso % (Auto) Neut # (Auto) Lymph # (Auto) Cuming # (Auto) Eos # (Auto) Baso # (Auto) PT INR APTT Sodium 133 L Potassium 3.9 Chloride 105 Carbon Dioxide 27 BUN 14 Creatinine 0.74 Estimated GFR > 60.0 BUN/Creatinine Ratio 18.9 Glucose 96 Calcium 8.5 Magnesium Total Bilirubin 0.4 AST 30 ALT 27 Alkaline Phosphatase 112 Total Creatine Kinase CK-MB (CK-2) CK-MB (CK-2) Rel Index Troponin I Total Protein 6.4 Albumin 3.3 L Globulin 3.1 Albumin/Globulin Ratio 1.1 Lipase Urine Color Urine Appearance Urine pH Ur Specific [place] Urine Protein Urine Glucose (UA) Urine Ketones Urine Occult Blood Urine Nitrate Urine Bilirubin Urine Urobilinogen Ur Leukocyte Esterase Urine RBC Urine WBC Ur Squamous Epith Cells Triple Phos Crystals Amorphous Sediment Urine Bacteria Ur Culture Indicated? SARS-CoV-2 (PCR) [facility] Medical History Anemia, iron deficiency Ankle fracture, right Arthritis of knee, left Blood clot in vein Bruises easily Cardiomegaly Cataract fragments in both eyes following surgery Cellulitis Closed fracture of right distal fibula (~12/2017) Cognitive impairment Depression Diarrhea DVT (deep venous thrombosis) GERD (gastroesophageal reflux disease) Hammer toe, acquired History of hip fracture History of prosthetic unicompartmental arthroplasty of both knees Hypertension Muscle weakness Nausea Osteoarthritis Pneumonia Postmenopausal Raynauds disease Scoliosis Spinal stenosis Thyroid nodule Surgical History History of hip surgery History of incision and drainage History of tonsillectomy and adenoidectomy Hx of elbow surgery Hx of total knee arthroplasty Status post unicompartmental knee replacement, left Family History (Updated 09/05/21 @ 20:38 by LANDON Jules-MATTI) Mother Hypertension Sister Cancer Social History household members: family and children Smoking Status: Former smoker alcohol intake: current Assessment & Plan Assessment & Plan narrative: ?Nancy Valverde is a 85-year-old female with a history of atrial fibrillation, on Lovenox subQ daily, HX of DVT in the left thigh, cognitive/dementia, Chronic LBP, essential hypertension, and depression who was presented to the ED by her daughter following a fall to the ground last night, trying to get off the toilet, and 2 days of nausea, vomiting, dizziness, and LBP radiating to left hip.? Patient requires hospitalization for antibiotic and fluid management. 1. Urinary tract infection, with weakness, resulting in ground level fall (observed), acute, present on admission -urinalysis trace protein, 3+ leuk Est., WBC 10-30, bacteria>30, culture pending -Does not meet SIRS/Sepsis Criteria -NS 75 cc/HR -Rocephin 1 g Q 24 hours -patient placed on strict fall precautions-Up with assist ONLY -PT consult for evaluation -Orthostats Qshift? While awake - urine culture positive for greater than 100,000 colonies GNR -follow urine culture for final ID and sensitivity 2. Atrial fibrillation, (Unknown Type) with history DVT chronic, present on admission 3. Cognitive impairment/dementia, with depression, acute on chronic, present on admission -continue Aricept, Lexapro 4. Chronic low back pain, acute on chronic, present on admission -continue oxycodone Code status:Full Surrogate decision maker: Daughter Lilli Valverde COVID PCR:Negative COVID vaccination: Unknown DVT/VTE prophylaxis:Heparin & Scd's Time Spent With Patient Critical Care time: I spent a total of [] minutes of critical care time on this patient's care today; this time is exclusive of procedural time. Quality VTE Deep Vein Thrombosis/Pulmonary Embolism Present on Admission: No
--- NOTE | 2021-09-06 16:00 | DI.CT.S_ITS ---
PROCEDURE: CT PEL WO CON INDICATIONS: left hip upper leg pain. Evaluate for fracture TECHNIQUE: After the administration of oral contrast, 5 mm thick sections acquired from the iliac crests to the symphysis. 5 mm coronal and sagittal reformats were then performed. For radiation dose reduction, the following was used: automated exposure control, adjustment of mA and/or kV according to patient size. COMPARISON: None. FINDINGS: Image quality: Excellent. Peritoneum and bowel: Bowel loops demonstrate normal wall thickness and caliber. No free fluid or air. Multiple diverticula arise from the sigmoid colon without evidence of diverticulitis. Genitourinary: Bladder wall thickness is normal. Nodes and vessels: No iliac, pelvic, or inguinal adenopathy by size criteria. Iliac vessels demonstrate normal size. Diffuse atherosclerotic vascular calcification present. Bones: There is an old healed left proximal femoral intertrochanteric fracture with associated compressive screw in hardware providing internal fixation. No evidence of acute fracture or dislocation. Bilateral acetabular joint space narrowing present. Pelvic ring is intact. Degenerative changes noted in the lower lumbar spine. Miscellaneous: No inguinal hernias. IMPRESSION: Old healed left femoral intertrochanteric fracture with supporting hardware intact. No evidence of hardware failure or loosening. No acute fracture. Approved by: Akash Underwood M.D. on 09/06/2021 at 16:24
--- NOTE | 2021-09-06 16:06 | PC.NURSE ---
Pt alert/oriented to self and month,some confusion re: place SpO2 95% RA Tele NSR/ first degree AVB Pt denies discomfort at this time. Call light w/in reach, bed alarm on for pt safety. Continue w/plan of care.
--- NOTE | 2021-09-06 16:14 | CM.IDA ---
Initial DCP Assessment Note Pt is an 85 yo female, resident of [facility], arrives w/fall, increasing weakness at home, dx w/UTI and admitted obs for treatment of such PCP: Мария Leone Payer: [employer] Reviewed chart, met w/patient (very [place]) and dtr Abigail, introduced role. F Home w/dtr Abigail ?Lisa? who is primary cg. Dtr states patient has been extremely weak and has hx of multiple surgeries and requirement of SNF stay Patient/dtr want SNF, explained in detail current obs status and how that will limit DCP options. Dtr stated understanding, states she cannot afford private payment. Faxed H+P and face sheet to [facility] asking if they would consider C19 waiver (?) These are the only SNFs dtr Abigail would consider for patient. May need to return home w/dtr and HH (?) Patient refused OT today, too tired from work w/PT May be a candidate for EHR to review for status? Will leave this for oncoming CM team to discuss w/UR RN ALEJANDRA Paul Discharge Planning/Care Management CM Discharge Assessment Start: 09/06/21 15:53 Freq: Status: Active Protocol: Document 09/06/21 15:53 SUMMER (Rec: 09/06/21 16:14 SUMMER [id number]) Discharge Planning Assessment Assigned Fundraising Specialist ALEJANDRA Mclaughlin DPOA/Assigned Designee Name Abigail Valverde dtr P# [phone] Advance Directives? Yes Advance Directives on File Yes History Provided By Patient,Family Member,Medical Record Prior Living Arrangements House Household Members children Type of transporation used prior to Relies on Others admit Independent with ADL's No Is patient alert and oriented? No Patient/Family Preference Prison Facility Discharge Plan Prison Facility Referrals Initiated Prison Additional Comment [facility] SNFs per stormy Hayes If patient plan is SNF: Has PASSR been No completed?
[2021-09-06] MEDS: cefTRIAXone 1,000 MG in SODIUM CHLORIDE 0.9% 100 ML 200 ML IV (16:54)
[2021-09-06] MEDS: DONEPEZIL 5 MG TABLET PO (16:55)
[2021-09-07] VITALS (13 sets, daily range): BP systolic 117–144; BP diastolic 68–83; PULSE 56–87; RESP 16–17; TEMP 36.2–36.9; O2SAT 92–95
[2021-09-07] MEDS: DOCUSATE 100 MG CAPSULE PO ×2 (07:55→20:08)
[2021-09-07] MEDS: HEPARIN 5,000 UNIT/ML VIAL 5000 UNIT SUBCUT (07:55)
[2021-09-07] MEDS: CITALOPRAM 10 MG TABLET 20 MG PO (07:55)
[2021-09-07] MEDS: SODIUM CHLORIDE 0.9% FLUSH 10 ML IV ×3 (09:41→20:08)
--- NOTE | 2021-09-07 11:51 | PM.PN.1 ---
Subjective Subjective Interval history: Nancy Valverde is a 85-year-old female with a history of atrial fibrillation, on Lovenox subQ daily, DVT in the left thigh, cognitive/dementia, Chronic LBP, essential hypertension, and depression who was presented to the ED by her daughter following a fall to the ground PM 09/04, trying to get off the toilet, and 2 days of nausea, vomiting, dizziness, and LBP radiating to left hip.?Patient upon admit currently has no complaints of pain, CP, SOB, abd pain, dizziness, nausea, vomiting, diarrhea, frequency, urgency, dysuria, chills, body aches, headache, changes in vision, weakness, numbness, tingling, recent illness injury or trauma.? Patient is a poor historian and her input/accuracy regarding HPI, ROS is poor, due to cognitive impairment. Patient's initial presenting vitals the ED with hypertension BP 175/73, HR 82, R 22.? Upon admit vitals have improved temp 97.9?, BP 121/64, HR 72 but slightly tachypneic with an RR 33, O2 saturation 93% room air.? HGB 9.8, HCT 32.7, no white blood cell count but left shift neutrophils 7900.? Patient's remaining chemistries are WNL, AST 41 alk-phos 133, urinalysis was positive.? Head CT was negative for acute intracranial processes, patient's chest x-ray demonstrated no acute cardiopulmonary processes.? I personally reviewed patient's EKG sinus rhythm with a rate of [address] and T-wave abnormalities.? Patient is admitted for UTI and weakness resulting in a ground level fall. 09/06 Since admission there has been no new issues no new problems.? Patient continues to be without nausea vomiting, chest pain, headache, abdominal pain nausea vomiting 09/07 Yesterday after the patient was 1st seen daughter arrived and was concerned about her mother's left hip leg pain. Daughter stated that she had significant pain when moving from the gurney to the bed upon admission. During my evaluation earlier in the day she did not complain of any significant pain. In daughter stated that her pain was reminding her of her prior fracture and that it took additional testing to find her fracture. As result the daughter was wondering about additional evaluation. I assured her that that would take place. CT hip was done no fracture was noted and her supporting her were for prior fracture was noted to be intact inappropriate. This morning when seen the patient was without any noticeable significant pain by facial expression moaning or groaning Exam Vital Signs (past 8 hours): - 09/07/21 04:00 09/07/21 07:55 09/07/21 08:58 Temperature 98.4 F Pulse Rate 66 Respiratory Rate 17 Blood Pressure 144/72 H Pulse Oximetry 94 95 93 09/07/21 09:21 Temperature Pulse Rate Respiratory Rate Blood Pressure Pulse Oximetry 95 Oxygen Delivery Method Room Air Oxygen Flow Rate 0 Narrative Exam Narrative: General:? W/D? W/N? 85-year-old female NAD HEENT:? N/C A/T EOMI? PERRL ? sclera clear nares patent oropharynx clear Neck:? supple and symmetric, trachea is midline,? without thyromegaly bruits or jugular venous distention. Chest:? Normal AP diameter and contour without kyphoscoliosis, no nasal flaring, retractions, or tachypneic labored Lungs:? Auscultation of all lung singer are clear without adventitious sounds, wheezes, rhonchi, or rales. Cardio:? RR S1S2 nL No murmur, rubs, or gallops Abdomen:? Soft nontender, negative for organomegaly, or masses.? Bowel sounds are present in all 4 quadrants without guarding or rebound, no CVA tenderness. Musculoskeletal: mild LBP, Muscle strength and tone are equal within normal limits, no deformity, crepitus, effusions, cyanosis, clubbing or edema present.? Full range of motion intact radial and pedal pulses are normal. Skin:? Warm dry and intact without rashes, ulcerations or petechiae.? Neuro:? Alert and orientated x3, poor historian due to cognitive impairment,? strength is +5/5 in all extremities, sensation to touch intact, no gross deficits noted of cranial nerves. Psych:? affect normal. Patient was awake, alert, pleasantly confused. Objective Labs Result Diagrams: 09/06/21 06:00 09/06/21 06:00 [facility] Medical History Anemia, iron deficiency Ankle fracture, right Arthritis of knee, left Blood clot in vein Bruises easily Cardiomegaly Cataract fragments in both eyes following surgery Cellulitis Closed fracture of right distal fibula (~12/2017) Cognitive impairment Depression Diarrhea DVT (deep venous thrombosis) GERD (gastroesophageal reflux disease) Hammer toe, acquired History of hip fracture History of prosthetic unicompartmental arthroplasty of both knees Hypertension Muscle weakness Nausea Osteoarthritis Pneumonia Postmenopausal Raynauds disease Scoliosis Spinal stenosis Thyroid nodule Surgical History History of hip surgery History of incision and drainage History of tonsillectomy and adenoidectomy Hx of elbow surgery Hx of total knee arthroplasty Status post unicompartmental knee replacement, left Family History (Updated 09/05/21 @ 20:38 by COLIN Jules) Mother Hypertension Sister Cancer Social History household members: children Smoking Status: Former smoker alcohol intake: current Assessment & Plan Assessment & Plan narrative: ?Nancy Valverde is a 85-year-old female with a history of atrial fibrillation, on Lovenox subQ daily, HX of DVT in the left thigh, cognitive/dementia, Chronic LBP, essential hypertension, and depression who was presented to the ED by her daughter following a fall to the ground last night, trying to get off the toilet, and 2 days of nausea, vomiting, dizziness, and LBP radiating to left hip.? Patient requires hospitalization for antibiotic and fluid management. 1. Proteus mirabilis Urinary tract infection, with weakness, resulting in ground level fall (observed), acute, present on admission -urinalysis trace protein, 3+ leuk Est., WBC 10-30, bacteria>30, culture pending - urine culture positive for greater than 100,000 Proteus mirabilis -Did not meet SIRS/Sepsis Criteria -continue Rocephin 1 g Q 24 hours -patient placed on strict fall precautions-Up with assist ONLY -PT seeing patient 2. Atrial fibrillation, (Unknown Type) with history DVT chronic, present on admission - on Lovenox 80 mg subQ daily 3. Cognitive impairment/dementia, with depression, acute on chronic, present on admission -continue Aricept, Lexapro 4. Seizure disorder - Keppra 1000 mg po b.i.d. resume 5. Chronic low back pain, acute on chronic, present on admission - patient with prior left hip fracture and repair. Because of patient's pain and daughter's concern for recurrent problem CT hip was done - CT left hip negative for fracture -continue oxycodone Code status:Full Surrogate decision maker: Daughter Lilli LONG PCR:Negative DISPO SNF FOR REHAB PER PT RECOMMENDATIONS Time Spent With Patient Critical Care time: I spent a total of [] minutes of critical care time on this patient's care today; this time is exclusive of procedural time. Quality VTE Deep Vein Thrombosis/Pulmonary Embolism Present on Admission: No
[2021-09-07] MEDS: levETIRAcetam 250 MG TABLET 1000 MG PO ×2 (12:13→20:08)
[2021-09-07] MEDS: MEROPENEM 1 GM in SODIUM CHLORIDE 0.9% 100 ML 200 ML IV ×2 (13:05→20:17)
[2021-09-07] MEDS: ENOXAPARIN 80 MG/0.8 ML SYRINGE SUBCUT (13:06)
--- NOTE | 2021-09-07 13:30 | CM.DPC ---
DCP Ongoing SNF Per MD, pt had CT yesterday towards trying to determine her source of leg pain, but results normal. Per PT, recommending SNF at d/c as pt a 2PA and unsafe to d/c home with Dtr. Per UR, pt continues to not meet Inpt Criteria and remains OBS and spoke bedside with pt and Dtr regarding this information. SW called the 3 SNF facilities that Dtr had been agreeable with yesterday and were given referral: [facility]- left msg with admissions, were faxed yesterday [facility]- left msg, were faxed yesterday [facility]: no admissions staff today, but got new fax number and faxed referral. SW met bedside with pt and Dtr Abigail and again discussed information about OBS status and currently no medical need to meet Inpt Status. Dtr confirms that her preferences for SNF are 1) [facility] 2) [facility] although she is currently contesting a bill from [facility] and feels they likely will not accept pt 3) [facility]. SW discussed that due to pt's OBS status and that she states pt cannot afford private pay SNF, pt would need to be accepted under COVID waiver and not all facilities accepting COVID waiver. SW discussed pt going home with HH and PP CG and Dtr states unsafe for home and no financial means to pay PP CG. SW inquired about Medicaid and Dtr states pt over-qualified financially. SW discussed for likely future need of financial assist to begin working with [facility] and allocating pt's assets towards meeting criteria for Medicaid as Dtr aware that the state looks back 5 years of pt's financials. SW discussed that low likelihood that pt will be accepted at their top 3 SNF preferences and discussed need to open the search up to other counties then and Dtr agreeable but confirms she is not agreeable with any [facility] SNFs. Dtr states preference would be [facility] over [facility] but she would be agreeable with a SNF that can accept. SW discussed pt's Medicare will likely start to deny coverage of her stay in the hospital and Dtr aware and plans to make calls to Medicare and people she knows to advocate for healthcare/insurance change. SW forgot to ask if pt is COVID vaccinated as pt did not show in the [facility] vaccination site. Pt may not be vaccinated which could also be a barrier to finding a SNF bed under COVID waiver. Plan: SW to follow closely for contacting additional SNF's in [facility] and [facility] for COVID waiver ideally discharge tomorrow. ALEJANDRA Mercado
--- NOTE | 2021-09-07 17:24 | PT.IPTN ---
Current Diagnoses Urinary tract infection, site not specified (09/05/21) Physical Therapy Treatment Note M2 PT-IP Current Condition Start: 09/06/21 12:07 Freq: NEEDED Status: Active Protocol: Document 09/06/21 09:30 AB (Rec: 09/06/21 12:28 AB [id number]) Physical Therapy Current Condition Current Condition Evaluation Date 09/06/21 Treatment Diagnosis UTI; GLF; difficulty in walking Onset Date 09/05/21 M3 PT-IP Subjective Start: 09/06/21 12:07 Freq: NEEDED Status: Active Protocol: Document 09/07/21 17:24 AW (Rec: 09/07/21 17:36 AW [id number]) Subjective Physical Therapy Visit Type Type Treatment Note Visit Start Time 17:00 Visit Stop Time 17:24 Total Visit Minutes 24 Number of SAWMILL TALLY CLERK Visits 0 Physical Therapy Visit Comments Patient Comments Pt's daughter is in the room. Pt is agreeable to get up to chair. Therapy Pain Assessment Pain Present Pain Present Denied Pain M4 PT-IP Mobility and Gait Start: 09/06/21 12:07 Freq: NEEDED Status: Active Protocol: Document 09/07/21 17:24 AW (Rec: 09/07/21 17:36 AW [id number]) PT-Bed Mobility Assessment Supine to Sit Supine to Sit Maximum Assistance,Head of Bed Elevated,Bedrails Scooting Scooting to Edge of Bed Maximum Assistance PT-Transfer Assessment Equipment Transfer Assistive Device Gait Belt Transfers Transfer Destination Chair Transfer Technique Squat Pivot Transfer Ability Level of Assist Maximum Assistance,2 Person Assistance,Use of Upper Extremities Comments Mobility Comments Pt was lying in the bed as PT arrived. With HOB elevated, she needed max assist to sit up EOB with PT using draw sheet and supporting pt at the shoulder girdle. Once sitting , pt was able to support herself with BUE on the mattress, requiring only occasional CGA for seated balance. Set up chair ( including arcadio sling) to pt's left side and began to initiate standing attempts but pt was unable to stand fully erect with max assist. Pt's daughter then interjected with explanation that pt usually transfers to her right as her right leg is stronger. Rearraged the room and pt was able to complete squat pivot transfer going to her right side with max A x 2. Pt had difficulty shifting her hips back in the chair and required max assist x 2 to reposition. PT provided bolster to support pt's feet and left her in seated position, tray table with dinner set up in front of her. Reported pt's whereabouts to RN and explained that arcadio sling is already on the chair for return to bed. PT-Balance Assessment Sitting Balance and Reactions Static Sitting Balance Ability Fair Dynamic Sitting Balance Ability Poor Standing Balance and Reactions Static Standing Balance Ability Poor Dynamic Standing Balance Ability Poor M5 PT-IP Objective Assessments Start: 09/06/21 12:07 Freq: NEEDED Status: Active Protocol: Document 09/06/21 09:30 AB (Rec: 09/06/21 12:28 AB [id number]) Orientation Orientation/Cognition Level of Alertness Confusional State Orientation Name Safety Awareness Decreased Safety Awareness Memory Description Short Term Impaired,Senior Care Impaired Gross Range of Motion Lower Extremity ROM Assessment Within Functional Limits Strength Lower Extremity Strength Assessment Bilaterally Impaired Hip 2+/5 Knee RLE: 3+/5 LLE : 3-/5 Muscle Tone Comments Muscle Tone Comments increase trunk extensor tone during sitting and standing M6 PT-IP Treatment Start: 09/06/21 12:07 Freq: NEEDED Status: Active Protocol: Document 09/07/21 17:24 AW (Rec: 09/07/21 17:36 AW [id number]) Physical Therapy Treatment Education Education Provided Safety M7 PT-IP Assessment and Plan Start: 09/06/21 12:07 Freq: NEEDED Status: Active Protocol: Document 09/07/21 17:24 AW (Rec: 09/07/21 17:36 AW [id number]) PT Summary Assessment and Plan Summary Impairments Pain,ROM,Strength,Balance, Coordination,Sensation,Tone, Cognition,Bed Mobility, Transfers,Gait,Activity Tolerance Progress Towards Goals Slow Progress due to Activity Tolerance,Slow Progress - Other Assessment Summary Pt showed improved seated balance today but continues to require max assist x 2 for transfers. Continue to recommend mechanical lift transfer with nursing. Pt requires SNF rehab to improve strength and mobility as pt's daughter is unable to provide level of assist currently required for safe mobility. Goals Bed Mobility Goal Moderate Assistance Transfer Goal Moderate Assistance,Front Wheeled Walker Days to Meet Goals 10 Frequency of Treatment Frequency Of Treatment Once a Day Treatment Plan Physical Therapy Treatment Plan Bed Mobility Training,Transfer Training,Gait Training, Therapeutic Exercise,Balance Retraining,Discharge Planning, Hot or Cold Pack,Neuromuscular Re-ed,Coordination Retraining ,Manual Therapy Other Recommendations and Next Treatment attempts to stand; stand pivot Focus transfer Precautions Other Precautions Falls Recommendations To Nursing Amount of Assist Needed Mechanical Lift Discharge Recommendations PT Discharge Recommendations SNF Rehab Transportation Needs at Discharge Wheelchair/Cabulance
[2021-09-07] MEDS: DONEPEZIL 5 MG TABLET PO (18:51)
[2021-09-07] MEDS: MELATONIN 3 MG TABLET 6 MG PO (20:08)
[2021-09-08] VITALS (13 sets, daily range): BP systolic 107–141; BP diastolic 57–72; PULSE 65–77; RESP 14–18; TEMP 36.3–36.9; O2SAT 94–99
[2021-09-08] MEDS: MEROPENEM 1 GM in SODIUM CHLORIDE 0.9% 100 ML 200 ML IV ×3 (05:02→21:40)
[2021-09-08] MEDS: PANTOPRAZOLE DR 20 MG TABLET PO (05:33)
[2021-09-08] MEDS: DOCUSATE 100 MG CAPSULE PO ×2 (09:11→21:40)
[2021-09-08] MEDS: levETIRAcetam 250 MG TABLET 1000 MG PO ×2 (09:11→21:40)
[2021-09-08] MEDS: MULTIVITAMIN 1 TABLET 1 TAB PO (09:11)
[2021-09-08] MEDS: CALCIUM CARBONATE 500 MG TAB PO (09:11)
[2021-09-08] MEDS: CITALOPRAM 10 MG TABLET 20 MG PO (09:11)
[2021-09-08] MEDS: SODIUM CHLORIDE 0.9% FLUSH 10 ML IV ×2 (09:12→21:40)
[2021-09-08] MEDS: ENOXAPARIN 80 MG/0.8 ML SYRINGE SUBCUT (09:20)
--- NOTE | 2021-09-08 11:11 | CM.DPC ---
Addendum entered by ALEJANDRA Mercado 09/08/21 15:31: ADD: Further discussion with Perla at [facility] after faxing PT/OT notes stating no arcadio but [facility] and they have to decline due to staffing/care needs at this time and Perla called and updated Dtr. MARTINE called [facility] and [facility] admissions multiple times and left msg inquiring about their review. MARTINE also faxed [facility] and [facility] and left admissions a message requesting review for d/c tomorrow. [facility] not accepting new admits, [facility] full currently, [facility] has limited beds, and [facility] left msg. SW discussed with Dtr above information. Dtr specific about where we is willing to have pt go and not go but discussed options might not be available and if facilities she is willing to attempt cannot accept, then either pt needs to go to another facility that is not her preference or home and that pt cannot remain at the hospital until back to baseline. BF Original Note: DCP Cont: Per MD, pt remains stable to d/c to SNF on a couple more days of IV-Abx. Per UR RN, sent pt clinicals to EHR for review to determine if pt could switch to Inpt Status vs Obs. MARTINE called following SNF facilities: [facility]: willing to review and accept COVID waiver [facility]: faxed yesterday, they will review and call back today, aware she is ready for d/c [facility]: left msg [facility]: left msg [facility]: not accepting new admits at this time [facility]: left another msg [facility]: willing to review, take COVID waiver if needed, fax[facility] clinicals [facility] today if she is not a arcadio lift as currently their staffing cannot accommodate a arcadio transfer. MARTINE faxed [facility] and PT notes and requested PT to work with pt soon and update MARTINE if pt no longer needing arcadio transfer. MARTINE briefly updated Dtr and she confirms pt is NOT COVID vaccinated and still agreeable with [facility] or [facility]. Plan: MARTINE to follow closely for further PT to determine transfer needs and f/u with [facility], [facility], and [facility]. ALEJANDRA Mercado
--- NOTE | 2021-09-08 11:41 | PT.IPTN ---
Current Diagnoses Urinary tract infection, site not specified (09/05/21) Physical Therapy Treatment Note M2 PT-IP Current Condition Start: 09/06/21 12:07 Freq: NEEDED Status: Active Protocol: Document 09/06/21 09:30 AB (Rec: 09/06/21 12:28 AB [id number]) Physical Therapy Current Condition Current Condition Evaluation Date 09/06/21 Treatment Diagnosis UTI; GLF; difficulty in walking Onset Date 09/05/21 M3 PT-IP Subjective Start: 09/06/21 12:07 Freq: NEEDED Status: Active Protocol: Document 09/08/21 11:10 KS (Rec: 09/08/21 12:48 KS [id number]) Subjective Physical Therapy Visit Type Type Treatment Note Visit Start Time 11:10 Visit Stop Time 11:41 Total Visit Minutes 31 Notes Co-treat w/ OT Number of WAREHOUSE ORDER PULLER Visits 1 Physical Therapy Visit Comments Patient Comments Pt's daughter is in the room. Pt is agreeable to get up to chair. M4 PT-IP Mobility and Gait Start: 09/06/21 12:07 Freq: NEEDED Status: Active Protocol: Document 09/08/21 11:10 KS (Rec: 09/08/21 12:48 KS [id number]) PT-Bed Mobility Assessment Supine to Sit Supine to Sit Maximum Assistance,2 Person Assistance Scooting Scooting to Edge of Bed Maximum Assistance PT-Transfer Assessment Sit to and From Stand Sit to and from Stand Maximum Assistance,2 Person Assistance,Use of Upper Extremities Equipment Transfer Assistive Device Gait Belt Orthotic/Prosthetic Devices or Brace: No Transfers Transfer Destination Chair Transfer Technique Stand Pivot Transfer Ability Level of Assist Maximum Assistance,2 Person Assistance,Use of Upper Extremities Comments Mobility Comments Pt in bed upon arrival from PT and OT. Max A x2 for sup<>sit from flat bed and scooting EOB. Pt w/ posterior lean but able to sit upright CGA to Min A w/ cues. Performed squat pivot from bed to chair w/ Max A x2 and cues for hand placement and sequencing. Pt tolerated well. She then performed 1x10 bilateral ankle pumps, and 1x5 heel slides and glute sets in reclined chair. Pt then sit<>stand w/ FWW and Max A x2 w/ cues to stand upright due to posteior lean. Pt able to elevate R foot minimally off of groud while weight bearing on L and through arms using FWW and was able to stand ~20-30 seconds before requesting to sit. Pt left in chair w/ all needs in reach and OT in room. Gait Assessment Comments Gait Comments Squat pivot only. PT-Balance Assessment Sitting Balance and Reactions Static Sitting Balance Ability Fair Dynamic Sitting Balance Ability Poor Standing Balance and Reactions Static Standing Balance Ability Poor Dynamic Standing Balance Ability Poor Device Used FWW M5 PT-IP Objective Assessments Start: 09/06/21 12:07 Freq: NEEDED Status: Active Protocol: Document 09/06/21 09:30 AB (Rec: 09/06/21 12:28 AB [id number]) Orientation Orientation/Cognition Level of Alertness Confusional State Orientation Name Safety Awareness Decreased Safety Awareness Memory Description Short Term Impaired,Detention Impaired Gross Range of Motion Lower Extremity ROM Assessment Within Functional Limits Strength Lower Extremity Strength Assessment Bilaterally Impaired Hip 2+/5 Knee RLE: 3+/5 LLE : 3-/5 Muscle Tone Comments Muscle Tone Comments increase trunk extensor tone during sitting and standing M6 PT-IP Treatment Start: 09/06/21 12:07 Freq: NEEDED Status: Active Protocol: Document 09/08/21 11:10 KS (Rec: 09/08/21 12:48 KS [id number]) Physical Therapy Treatment Exercises Exercises Ankle Pumps,Gluteal Sets,Heel Slides Education Education Provided Safety Other Treatments Other Treatment Performed Sit<>stand M7 PT-IP Assessment and Plan Start: 09/06/21 12:07 Freq: NEEDED Status: Active Protocol: Document 09/08/21 11:10 KS (Rec: 09/08/21 12:48 KS [id number]) PT Summary Assessment and Plan Potential Rehabilitation Potential Fair Status of Condition at Evaluation Evolving Summary Impairments Pain,ROM,Strength,Balance, Coordination,Sensation,Tone, Cognition,Bed Mobility, Transfers,Gait,Activity Tolerance Progress Towards Goals Slow Progress due to Activity Tolerance,Slow Progress - Other Assessment Summary Pt able to squat pivot transfer from bed to chair w/ Max A x2 and cues for sequencing as well as perform 1x sit<>Stand w/ Max A x2 and FWW and remain standing ~20-30 seconds w/ FWW Max A and cues to avoid posterior lean. She will require SNF to improve strength and functional mobility independence. Goals Bed Mobility Goal Moderate Assistance Transfer Goal Moderate Assistance,Front Wheeled Walker Days to Meet Goals 10 Frequency of Treatment Frequency Of Treatment Once a Day Treatment Plan Physical Therapy Treatment Plan Bed Mobility Training,Transfer Training,Gait Training, Therapeutic Exercise,Balance Retraining,Discharge Planning, Hot or Cold Pack,Neuromuscular Re-ed,Coordination Retraining ,Manual Therapy Other Recommendations and Next Treatment attempts to stand; stand pivot Focus transfer Precautions Other Precautions Falls Recommendations To Nursing Amount of Assist Needed 2 Person Assist Discharge Recommendations PT Discharge Recommendations SNF Rehab Transportation Needs at Discharge Wheelchair/Cabulance
--- NOTE | 2021-09-08 11:52 | OT.IP.EVAL ---
Current Diagnoses Urinary tract infection, site not specified (09/05/21) Past Medical History (Last Updated 09/07/21 @ 12:43 by Gemini Nevarez RN) Anemia, iron deficiency Ankle fracture, right Arthritis of knee, left Blood clot in vein Bruises easily Cardiomegaly Cataract fragments in both eyes following surgery Cellulitis Closed fracture of right distal fibula (~12/2017) Cognitive impairment Depression Diarrhea DVT (deep venous thrombosis) Epilepsy GERD (gastroesophageal reflux disease) Hammer toe, acquired History of hip fracture History of hip surgery History of incision and drainage History of prosthetic unicompartmental arthroplasty of both knees History of tonsillectomy and adenoidectomy Hx of elbow surgery Hx of total knee arthroplasty Hypertension Muscle weakness Nausea Osteoarthritis Pneumonia Postmenopausal Raynauds disease Scoliosis Spinal stenosis Status post unicompartmental knee replacement, left Thyroid nodule Surgical History (Last Reviewed 09/05/21 @ 20:17 by Betzy Kahn [facility]) History of hip surgery History of incision and drainage History of tonsillectomy and adenoidectomy Hx of elbow surgery Hx of total knee arthroplasty Status post unicompartmental knee replacement, left Occupational Therapy Inpatient Evaluation/Re-Eval M1 PT/OT-IP Prior Functional Status Start: 09/06/21 12:07 Freq: NEEDED Status: Active Protocol: Document 09/08/21 12:14 CGR (Rec: 09/08/21 12:27 CGR [id number]) Medical Review Prior Functional Status Medical History Reviewed Yes Communication able to make needs known but with confusion and difficulty following directions Mobility and Gait pt stated that she is modified independent with transfers and is w/c bound and has not been walking. Daughter came in midway eval and confirmed that pt has been using a w/c but she assists pt with transfers and amount of assistance depending on how pt feels. Activities of Daily Living and IADL's Pt states that she is able to dress but needs assist with shower transfer. Daughter does all cleaning, cooking, shopping, etc Social History Household Members children Living Arrangements House Number of Floors (Floors) Two Floors Number of Stairs To Enter/Railing? ramp to enter, basement level not used Home Environment Standard Height Toilet,Walk in Shower,Ramp Home Equipment Front Wheel Walker,Manual Wheelchair,Hand Held Shower, Bed Rails,Grab Bars Near Toilet,Grab Bars In Shower Employment Status Retired Additional Social History Comment Pt has a flat bed without rails. Pt needs assist getting in and out of bed. M2 OT-IP Current Condition Start: 09/06/21 11:20 Freq: Status: Active Protocol: Document 09/08/21 12:14 CGR (Rec: 09/08/21 12:27 CGR [id number]) Occupational Therapy Current Condition Current Condition Evaluation Date 09/08/21 Treatment Diagnosis Fall at home, UTI Diagnosis Onset Date 09/05/21 M3 OT- IP Subjective and Pain Start: 09/06/21 11:20 Freq: Status: Active Protocol: Document 09/08/21 12:14 CGR (Rec: 09/08/21 12:27 CGR [id number]) OT- Subjective Occupational Therapy Visit Type Type Initial Evaluation Visit Start Time 11:11 Visit Stop Time 11:52 Total Visit Minutes 41 Notes Partial co-treat with P.T. OT Pain Assessment Pain When Pain Assessed At Rest Pain Present Pain Present Denied Pain M4 OT- IP ADL's Start: 09/06/21 11:20 Freq: Status: Active Protocol: Document 09/08/21 12:14 CGR (Rec: 09/08/21 12:27 CGR [id number]) OT [id number] Comments OT Self-Feeding Comments Not meal time OT ADL-Grooming General Evaluation Grooming Ability Standby Assistance Areas Needing Assistance Face Washing Comments OT Grooming Comments seated in chair OT ADL-Oral Care General Eval Oral Care Ability Standby Assistance Areas of Assistance Brushing Teeth,Retrieving/Set- Up of Items Comments Oral Care Comments seated in chair OT ADL-Dressing General Eval Lower Body Dressing Ability Total Assistance Areas Needing Assistance Socks OT ADL-Toileting Comments OT Toileting Comments Not performed OT ADL-Bathing Comments OT Bathing Comments Not performed M5 OT- IP IADL's Start: 09/06/21 11:20 Freq: Status: Active Protocol: Document 09/08/21 12:14 CGR (Rec: 09/08/21 12:27 CGR [id number]) OT-Instrumental Activities of Daily Living Deficits IADL Deficits Identified Deficits Home Safety Awareness Awareness of Need for Assistance at Home Decreased Awareness Ability to Problem Solve Emergency Unable to Problem Solve Situations Home Safety Comments Pt needs extra time for cognitive processing Medication Management Medication Management Caregiver Administers Money Management Money Management Caregiver Provides Assistance Meal Preparation Meal Preparation Caregiver Provides Assist Tomography Technologist Tomography Technologist Caregiver Provides Assist Driving Driving Concerns Identified Regarding Safety Driving Comments Pt states that she still drives but chart states that the daughter drives M6 OT- IP Functional Cognition Start: 09/06/21 11:20 Freq: Status: Active Protocol: Document 09/08/21 12:14 CGR (Rec: 09/08/21 12:27 CGR [id number]) Cognitive Factors Limiting Selfcare Function Cognitive Ability Level of Alertness Alert,Confusional State Patient Orientation Name,Birthday,Situation Attention Span Ability Unable to Focus,Unable to Sustain Attention Ability to Follow Commands Able to Follow One Step Commands with Increased Time, Able to Follow One Step Commands with Repetition Cognitive Comments Cognitive Assessment Comments Pt would benefit from from a formal cognitive assessment. Pt needs extra time for processing of commands but is able to share jail memories with ease. OT- Vision and Hearing OT- Hearing Assessment OT- Hearing Assessment WFL OT- Vision Assessment Visual Acuity Glasses All The Time Visual Attentiveness WFL Occular Pursuits WFL Visual Convergence WFL M7 OT- IP Mobility and Balance Start: 09/06/21 11:20 Freq: Status: Active Protocol: Document 09/08/21 12:14 CGR (Rec: 09/08/21 12:27 CGR [id number]) OT- Bed Mobility Assessment Rolling Level of Assistance Maximum Assistance,2 Person Assistance Supine to Sit Supine to Sit Assist Maximum Assistance,2 Person Assistance Scooting Scooting to Edge of Bed Maximum Assistance,1 Person Assistance OT-Transfer Assessment Sit to and From Stand Sit to and from Stand Maximum Assistance,2 Person Assistance Transfers Transfer Ability Maximum Assistance,2 Person Assistance Technique Transfer Destination Bed,Chair Transfer Technique Squat Pivot Devices Transfer Assistive Devices Gait Belt,Front Wheeled Walker Comments Mobility Comments Pt performed squat pivot from bed to chair at right with max x 2 then stood from chair and demonstrated ability to minimally weight shift with max x 2. Pt needs extra time for comprehension of commands but was able to maintain standing for ~20 seconds. OT- Gait Assessment Comments Gait Ability Comments Pt is w/c bound at baseline OT- Balance Assessment Sitting Balance and Reactions Static Sitting Balance Ability Fair Dynamic Sitting Balance Ability Fair M8 OT- IP Objective Assessments Start: 09/06/21 11:20 Freq: Status: Active Protocol: Document 09/08/21 12:14 CGR (Rec: 09/08/21 12:27 CGR [id number]) OT Gross Range of Motion Upper Extremity Range of Motion Assessment Within Functional Limits OT Strength Upper Extremity Strength Assessment Within Functional Limits Comments Strength Comments 4-/5 throughout OT- Coordination Assessment Upper Extremity Finger to Nose Test Within Functional Limits Finger Tapping Test Within Functional Limits OT-Muscle Tone Assessment Muscle Tone WNL Yes OT Sensation Assessment Edema Edema Absent M9 OT- IP Assessment and Plan Start: 09/06/21 11:20 Freq: Status: Active Protocol: Document 09/08/21 12:14 CGR (Rec: 09/08/21 12:27 CGR [id number]) OT Summary Assessment and Plan Potential Rehabilitation Potential Good Analytic Complexity at Evaluation Moderate Summary OT Impairments Strength,Balance,Functional Cognition,Functional Mobility, Grooming,Dressing,Toileting, Bathing,Toilet Transfers, Shower Transfers,Activity Tolerance Progress Towards Goals Slow Progress due to Activity Tolerance,Slow Progress due to Cognition Assessment Summary Pt presents as a moderate complexity evaluation s/p admit for fall and found to have UTI. Pt needs extra time for comprehension of commands but is able to follow commands . Pt is pleasant and appears motivated to participate in therapy services at this time. Recommend 2 person assist for all transfers in and out of bed. Pt is w/c bound at baseline and would likely do better transferring into her own w/c which we were unable to assess on this date. Recommend d/c to SNF d/t increased weakness with transfers and ADLs. Goals Grooming Goal Independent Dressing Goal Independent Toileting Goal Independent Bathing Goal Standby Assistance Toilet Transfer Goal Independent Shower Transfer Goal Standby Assistance Days to Meet Goals 20 Frequency of Treatment Frequency Of Treatment Once a Day Treatment Plan OT Treatment Plan ADL Training,Functional Cognition Training,Functional Mobility,Patient/Family Education,Discharge Planning Other Treatment Recommendations and Next cog assessment, BSC transfer Treatment Focus Discharge Recommendations OT Discharge Recommendations SNF Rehab Home Equipment Needs TBD Transportation Needs at Discharge Wheelchair/Cabulance
--- NOTE | 2021-09-08 12:49 | DIET.CONS ---
Dietary Consultation Note Admission Date: 09/05/2021 16:43 Assessment: Pt admitted for weakness and UTI referred to nutrition for overweight (BMI 28). Pt with cognitive impairment pending formal SLUMS complicated by frequent recurrent UTIs. Pt lives in private home with daughter, unable to hire PP caregivers. Pt not appropriate for nutrition education at this time. Ht: 172.72 cm Wt: 83.5 kg BMI: 28.1 Last BM: 09/07/21 (09/07/21 15:55) MNA: 12 Kp Score: 12 Diet: 09/05/21 Dinner General (Regular) Diet Diet Modifications: Nutrition Percent Meal Consumed 100% 09/07/21 18:55 Percent Meal Consumed 100% 09/07/21 12:52 Percent Meal Consumed 25% 09/07/21 08:48 Percent Meal Consumed 100% 09/06/21 18:06 Percent Meal Consumed 100% 09/06/21 13:24 Labs: RBC 3.51 X10^6/uL (4.0-5.2) L 09/06/21 06:00 Hgb 9.3 g/dL (12.0-16.0) L 09/06/21 06:00 Hct 28.1 % (36-46) L 09/06/21 06:00 Creatinine 0.74 mg/dL (0.52-1.04) 09/06/21 06:00 Interventions: 1. Recc inclusion of healthy general diet with increased intake dietary fiber and limit highly processed, refined grain food in home to preserve cognition and support healthy body weight. Electronically Signed by: Laverne Palma 09/08/21 12:49 Clinical Dietitian [address] [id number]
--- NOTE | 2021-09-08 14:45 | P.PN_ITS ---
Subjective Subjective Date Patient Seen: 09/08/21 Time Patient Seen: 08:00 Interval history: Today she has no complaints of pain. She does feel slightly weak but otherwise feels well. Exam Vital Signs (past 8 hours): - 09/08/21 08:40 09/08/21 09:00 09/08/21 09:20 Temperature 97.4 F L Pulse Rate 65 Respiratory Rate 14 Blood Pressure 125/70 Pulse Oximetry 95 94 94 09/08/21 11:14 Temperature 98.2 F Pulse Rate 71 Respiratory Rate 16 Blood Pressure 136/72 Pulse Oximetry 99 Oxygen Delivery Method Room Air Oxygen Flow Rate 0 Narrative Exam Narrative: GEN: no acute distress CV: regular rate and rhyhtm PULM: clear bilaterally, no wheezes, rhonchi, rales ABD: soft, nontender, nondistended, no organomegaly EXT: warm and well perfused Objective Labs Result Diagrams: 09/06/21 06:00 09/06/21 06:00 [facility] [place] Medical History (Updated 09/07/21 @ 12:43 by Gemini Nevarez RN) Anemia, iron deficiency Ankle fracture, right Arthritis of knee, left Blood clot in vein Bruises easily Cardiomegaly Cataract fragments in both eyes following surgery Cellulitis Closed fracture of right distal fibula (~12/2017) Cognitive impairment Depression Diarrhea DVT (deep venous thrombosis) Epilepsy GERD (gastroesophageal reflux disease) Hammer toe, acquired History of hip fracture History of prosthetic unicompartmental arthroplasty of both knees Hypertension Muscle weakness Nausea Osteoarthritis Pneumonia Postmenopausal Raynauds disease Scoliosis Spinal stenosis Thyroid nodule Surgical History History of hip surgery History of incision and drainage History of tonsillectomy and adenoidectomy Hx of elbow surgery Hx of total knee arthroplasty Status post unicompartmental knee replacement, left Family History (Updated 09/05/21 @ 20:38 by COLIN Jules) Mother Hypertension Sister Cancer Social History household members: children Smoking Status: Former smoker alcohol intake: current Assessment & Plan Assessment & Plan narrative: ?Nancy Valverde is a 85-year-old female with a history of atrial fibrillation, on Lovenox subQ daily, HX of DVT in the left thigh, cognitive/dementia, Chronic LBP, essential hypertension, and depression who was presented to the ED by her daughter following a fall to the ground last night, trying to get off the toilet, and 2 days of nausea, vomiting, dizziness, and LBP radiating to left hip.? Patient requires hospitalization for antibiotic and fluid management. 1. Proteus mirabilis Urinary tract infection, with weakness, resulting in ground level fall (observed), acute -urinalysis trace protein, 3+ leuk Est., WBC 10-30, bacteria>30, culture pending - urine culture positive for greater than 100,000 Proteus mirabilis with MDRO, with resistant to most antibiotics other than carbapenems -Did not meet SIRS/Sepsis Criteria -continue meopenem, can dc with 1gm daily of ertapenem for 5-7 day course -patient placed on strict fall precautions-Up with assist ONLY -PT?seeing? patient 2. Atrial fibrillation, (Unknown Type) with history DVT chronic, present on admission - on Lovenox 80 mg subQ daily 3. Cognitive impairment/dementia, with depression, acute on chronic, present on admission -continue Aricept, Lexapro 4.? Seizure disorder - Keppra 1000 mg po? b.i.d. resume 5. Chronic low back pain, acute on chronic, present on admission - patient with prior left hip fracture and repair.? Because of patient's pain and daughter's concern for recurrent problem CT hip was done - CT left hip negative for fracture -continue oxycodone Time Spent With Patient Critical Care time: I spent a total of [] minutes of critical care time on this patient's care today; this time is exclusive of procedural time. Quality VTE Deep Vein Thrombosis/Pulmonary Embolism Present on Admission: No
--- NOTE | 2021-09-08 18:39 | PC.NURSE ---
A&Ox4 but as memory loss and some confusion. Hypertensive 141/72. All other vitals stable. Denies pain. 2 person transfer to chair. PT got her up for lunch but patient complained of back pain and was transferred back to bed after lunch. She was weak and may need arcadio lift for future lifts if weakness persists. Good appetite. Brief on. Call light within reach, bed low.
[2021-09-08] MEDS: DONEPEZIL 5 MG TABLET PO (21:40)
[2021-09-08] MEDS: MELATONIN 3 MG TABLET 6 MG PO (21:40)
[2021-09-09 00:28] VITALS: BP 121/65; PULSE 67; RESP 18; TEMP 36.3; O2SAT 95
[2021-09-09 01:00] VITALS: O2SAT 95
[2021-09-09 04:00] VITALS: BP 117/71; PULSE 67; RESP 18; TEMP 36.1; O2SAT 95
[2021-09-09 05:00] VITALS: O2SAT 95
[2021-09-09] MEDS: PANTOPRAZOLE DR 20 MG TABLET PO (05:17)
[2021-09-09] MEDS: MEROPENEM 1 GM in SODIUM CHLORIDE 0.9% 100 ML 200 ML IV ×2 (05:20→13:33)
[2021-09-09 08:00] VITALS: BP 126/69; PULSE 65; RESP 16; TEMP 36.7; O2SAT 94
[2021-09-09] MEDS: ENOXAPARIN 80 MG/0.8 ML SYRINGE SUBCUT (09:30)
[2021-09-09] MEDS: DOCUSATE 100 MG CAPSULE PO (09:31)
[2021-09-09] MEDS: CALCIUM CARBONATE 500 MG TAB PO (09:31)
[2021-09-09] MEDS: levETIRAcetam 250 MG TABLET 1000 MG PO (09:31)
[2021-09-09] MEDS: CITALOPRAM 10 MG TABLET 20 MG PO (09:31)
[2021-09-09] MEDS: MULTIVITAMIN 1 TABLET 1 TAB PO (09:32)
[2021-09-09] MEDS: SODIUM CHLORIDE 0.9% FLUSH 10 ML IV (09:32)
[2021-09-09 10:13] LABS: Hematocrit 28.7 % (36-46); Hemoglobin 9.3 g/dL (12.0-16.0); Mean Corpuscular HGB Conc 32.3 % (30-36); Mean Corpuscular Hemoglobin 26.3 PG (26-34); Mean Corpuscular Volume 81.4 fL (80-100); Platelet Count 246 X10^3/uL (150-400); Red Blood Cell Count 3.53 X10^6/uL (4.0-5.2); Red Cell Distribution Width 16.2 % (11.6-14.8); White Blood Cell Count 5.4 X10^3/uL (4.5-11.0)
--- NOTE | 2021-09-09 10:16 | CM.DPNOTE ---
Addendum entered by Lupe Jorge 09/09/21 12:10: Also faxed updated notes to [facility]. Received fax conf. Lupe Jorge CM Asst. Original Note: Faxed updated pt, ot r n & cm notes to [facility] per their request. Lupe Jorge CM Asst.
[2021-09-09 10:29] LABS: BUN Creatinine Ratio 18.9 (6-22); Blood Urea Nitrogen 14 mg/dL (7-17); Calcium 8.6 mg/dL (8.4-10.2); Carbon Dioxide 27 mmol/L (22-32); Chloride 106 mmol/L (98-107); Estimated Glomerular Filt Rate > 60.0 mL/min (>60); Glucose 84 mg/dL (80-110); HEMOLYSIS < 15 (0-50); Sodium 136 mmol/L (137-145)
--- NOTE | 2021-09-09 11:36 | PC.NURSE ---
Addendum entered by Kushal Conte R.N. 09/09/21 16:57: Pt readied for discharge to [facility]. Pt dressed, pivoted to the w/c. IV d/c'd intact.Belongings accounted for and given to daughter. Original Note: Pt alert, occasionally confused. Able to let needs be known. Daughter attentive at bedside. PT is presently in the room to get Pt up to chair and do some training with daughter.
--- NOTE | 2021-09-09 11:54 | OT.IP.TRT ---
Current Diagnoses Urinary tract infection, site not specified (09/05/21) Occupational Therapy Treatment Note M2 OT-IP Current Condition Start: 09/06/21 11:20 Freq: Status: Active Protocol: Document 09/08/21 12:14 CGR (Rec: 09/08/21 12:27 CGR [id number]) Occupational Therapy Current Condition Current Condition Evaluation Date 09/08/21 Treatment Diagnosis Fall at home, UTI Diagnosis Onset Date 09/05/21 M3 OT- IP Subjective and Pain Start: 09/06/21 11:20 Freq: Status: Active Protocol: Document 09/09/21 12:20 CCC (Rec: 09/09/21 12:42 [facility] [id number]) OT- Subjective Occupational Therapy Visit Type Type Treatment Note Visit Start Time 11:30 Visit Stop Time 11:54 Total Visit Minutes 24 Occupational Therapy Visit Comments Patient Comments Pt agreed to get up to the recliner and pt's daughter present for caregiver training . Patient/Caregiver Goals Pt's daughter wanting pt to go to skilled rehab to get stronger before taking her home. OT Pain Assessment Pain When Pain Assessed During Mobility Pain Present Pain Present Pain Reported M4 OT- IP ADL's Start: 09/06/21 11:20 Freq: Status: Active Protocol: Document 09/09/21 12:20 [facility] (Rec: 09/09/21 12:42 [facility] [id number]) OT [id number] Comments OT Self-Feeding Comments Not meal time OT ADL-Grooming General Evaluation Grooming Ability Standby Assistance Areas Needing Assistance Retrieving/Set-up of Grooming Items Comments OT Grooming Comments seated in chair OT ADL-Oral Care General Eval Oral Care Ability Minimal Assistance Areas of Assistance Brushing Teeth,Retrieving/Set- Up of Items Comments Oral Care Comments Able to help rinse pt's partial in the sink, but otherwise pt able to brush her teeth on her own. OT ADL-Dressing General Eval Lower Body Dressing Ability Total Assistance Areas Needing Assistance Socks OT ADL-Toileting Comments OT Toileting Comments Not performed OT ADL-Bathing Comments OT Bathing Comments SPonge bath more appropriate at this time. M5 OT- IP IADL's Start: 09/06/21 11:20 Freq: Status: Active Protocol: Document 09/08/21 12:14 CGR (Rec: 09/08/21 12:27 CGR [id number]) OT-Instrumental Activities of Daily Living Deficits IADL Deficits Identified Deficits Home Safety Awareness Awareness of Need for Assistance at Home Decreased Awareness Ability to Problem Solve Emergency Unable to Problem Solve Situations Home Safety Comments Pt needs extra time for cognitive processing Medication Management Medication Management Caregiver Administers Money Management Money Management Caregiver Provides Assistance Meal Preparation Meal Preparation Caregiver Provides Assist Hospitalist Physician Hospitalist Physician Caregiver Provides Assist Driving Driving Concerns Identified Regarding Safety Driving Comments Pt states that she still drives but chart states that the daughter drives M6 OT- IP Functional Cognition Start: 09/06/21 11:20 Freq: Status: Active Protocol: Document 09/09/21 12:20 [facility] (Rec: 09/09/21 12:42 [facility] [id number]) Cognitive Factors Limiting Selfcare Function Cognitive Comments Cognitive Assessment Comments Pt needing step by step commands to follow, encouragement, and extra time to process. M7 OT- IP Mobility and Balance Start: 09/06/21 11:20 Freq: Status: Active Protocol: Document 09/09/21 12:20 [facility] (Rec: 09/09/21 12:42 [facility] [id number]) OT- Bed Mobility Assessment Supine to Sit Supine to Sit Assist Maximum Assistance,1 Person Assistance OT-Transfer Assessment Sit to and From Stand Sit to and from Stand Contact Guard Assistance, Maximum Assistance,1 Person Assistance,2 Person Assistance Transfers Transfer Ability Contact Guard Assistance, Maximum Assistance,1 Person Assistance,2 Person Assistance Technique Transfer Destination Bed,Chair Transfer Technique Squat Pivot Devices Transfer Assistive Devices None,Gait Belt Comments Mobility Comments Pt's daughter able to get her up from supine by moving her feet to the edge of the bed and then by pulling on her arm to get upright. Pt needing heavy assist to help get to the edge of the bed. Initially pt's daugther insistent on not using the gait belt and pulling pt up by her arms and not able to stand up. Educated and encouraged pt's daughter to use the gait belt and HARDWARE SALES ASSISTANT able to show her more proper body mechanics and technique for squat pivot transfer. Pt's daughter MAXA and therapist's hand on for safety CGA. At this time pt's daughter would benefit from more practice and if having to toilet pt would need another person to assist. At this time for therapists pt is one person transfer squat pivot. OT- Gait Assessment Comments Gait Ability Comments Pt is w/c bound at baseline OT- Balance Assessment Sitting Balance and Reactions Static Sitting Balance Ability Fair Dynamic Sitting Balance Ability Fair Standing Balance and Reactions Static Standing Balance Ability Poor Comments Other Balance Tests/Deviations/Treatment Pt tends to lean posteriorly : and needing assist to sit upright. M8 OT- IP Objective Assessments Start: 09/06/21 11:20 Freq: Status: Active Protocol: Document 09/08/21 12:14 CGR (Rec: 09/08/21 12:27 CGR [id number]) OT Gross Range of Motion Upper Extremity Range of Motion Assessment Within Functional Limits OT Strength Upper Extremity Strength Assessment Within Functional Limits Comments Strength Comments 4-/5 throughout OT- Coordination Assessment Upper Extremity Finger to Nose Test Within Functional Limits Finger Tapping Test Within Functional Limits OT-Muscle Tone Assessment Muscle Tone WNL Yes OT Sensation Assessment Edema Edema Absent M9 OT- IP Assessment and Plan Start: 09/06/21 11:20 Freq: Status: Active Protocol: Document 09/09/21 12:20 CCC (Rec: 09/09/21 12:42 CCC [id number]) OT Summary Assessment and Plan Potential Rehabilitation Potential Good Analytic Complexity at Evaluation Moderate Summary OT Impairments Strength,Balance,Functional Cognition,Functional Mobility, Grooming,Dressing,Toileting, Bathing,Toilet Transfers, Shower Transfers,Activity Tolerance Progress Towards Goals Slow Progress due to Activity Tolerance,Slow Progress due to Cognition Assessment Summary Pt would strongly benefit from skilled rehab to get stronger so that her daughter would be able to safely assist her at home after skilled rehab. Pt's daughter states pt needing up to MODA for transfers at this time. Currently pt would be too great of care for her daughter to handle at this time. Pt is not at her baseline of being mostly independent for ADl needs except MODA for LB needs and transfer at most MODA. Goals Grooming Goal Independent Dressing Goal Moderate Assistance Toileting Goal Independent Bathing Goal Standby Assistance Toilet Transfer Goal Minimal Assistance Shower Transfer Goal Minimal Assistance Days to Meet Goals 19 Frequency of Treatment Frequency Of Treatment Once a Day Treatment Plan OT Treatment Plan ADL Training,Functional Cognition Training,Functional Mobility,Patient/Family Education,Discharge Planning Discharge Recommendations OT Discharge Recommendations SNF Rehab Transportation Needs at Discharge Wheelchair/Cabulance
[2021-09-09 12:31] VITALS: BP 138/77; PULSE 75; RESP 14; TEMP 36.4; O2SAT 96
--- NOTE | 2021-09-09 13:11 | OT.IPNOTE ---
Pt's nursing aid states pt having difficulty to stand and wanting assist. CONVENTION WORKER and OT came in to transfer pt and needing now MAX AX 2 squat pivot and MAX AX 2 for bed mobility needs. Pt complaining of right LE hurting more and feeling tired. To notify case management and nursing pt needing more assist now and use of arcadio safer to use at this time. No charge.
--- NOTE | 2021-09-09 13:13 | PT.IPTN ---
Current Diagnoses Urinary tract infection, site not specified (09/05/21) Physical Therapy Treatment Note M2 PT-IP Current Condition Start: 09/06/21 12:07 Freq: NEEDED Status: Active Protocol: Document 09/06/21 09:30 AB (Rec: 09/06/21 12:28 AB [id number]) Physical Therapy Current Condition Current Condition Evaluation Date 09/06/21 Treatment Diagnosis UTI; GLF; difficulty in walking Onset Date 09/05/21 M3 PT-IP Subjective Start: 09/06/21 12:07 Freq: NEEDED Status: Active Protocol: Document 09/09/21 11:33 KS (Rec: 09/09/21 13:24 KS [id number]) Subjective Physical Therapy Visit Type Type Treatment Note Visit Start Time 11:33 Visit Stop Time 13:13 Total Visit Minutes 26 Notes Split treatment 11:33-11:46, 13:00-13:13 Co-treat w/ OT Number of MANAGER PERSONNEL SELECTION Visits 2 Physical Therapy Visit Comments Patient Comments Pt's daughter is in the room. Pt is agreeable to get back in bed. M4 PT-IP Mobility and Gait Start: 09/06/21 12:07 Freq: NEEDED Status: Active Protocol: Document 09/09/21 11:33 KS (Rec: 09/09/21 13:24 KS [id number]) PT-Bed Mobility Assessment Sit to Supine Sit to Supine Maximum Assistance,1 Person Assistance,2 Person Assistance Scooting Scooting to Edge of Bed Maximum Assistance PT-Transfer Assessment Sit to and From Stand Sit to and from Stand Maximum Assistance,1 Person Assistance,2 Person Assistance ,Use of Upper Extremities Equipment Transfer Assistive Device Gait Belt Orthotic/Prosthetic Devices or Brace: No Transfers Transfer Destination Chair Transfer Technique Stand Pivot Transfer Ability Level of Assist Maximum Assistance,1 Person Assistance,2 Person Assistance ,Use of Upper Extremities Comments Mobility Comments Pts daughter transferred pt from bed to chair w/ stand pivot transfer Max A w/ CGA for safety by PT and OT and cues for tecnhique and sequencing. Upon arrival this PM, pts daighter unable to assist pt back tp bed and pt required Max A x2 for squat pivot back to bed and Max A x2 for scooting up in bed. Pt then performed 1x5 bilateral ankle pumps, quad sets, glute sets, and SLR and had muscle shakes due to fatigue. Pt left in bed w/ all needs in reach and daughter in room. Gait Assessment Comments Gait Comments Transfer only PT-Balance Assessment Sitting Balance and Reactions Static Sitting Balance Ability Fair Dynamic Sitting Balance Ability Poor Standing Balance and Reactions Static Standing Balance Ability Poor Dynamic Standing Balance Ability Poor Device Used FWW M5 PT-IP Objective Assessments Start: 09/06/21 12:07 Freq: NEEDED Status: Active Protocol: Document 09/06/21 09:30 AB (Rec: 09/06/21 12:28 AB [id number]) Orientation Orientation/Cognition Level of Alertness Confusional State Orientation Name Safety Awareness Decreased Safety Awareness Memory Description Short Term Impaired,Assisted Impaired Gross Range of Motion Lower Extremity ROM Assessment Within Functional Limits Strength Lower Extremity Strength Assessment Bilaterally Impaired Hip 2+/5 Knee RLE: 3+/5 LLE : 3-/5 Muscle Tone Comments Muscle Tone Comments increase trunk extensor tone during sitting and standing M6 PT-IP Treatment Start: 09/06/21 12:07 Freq: NEEDED Status: Active Protocol: Document 09/09/21 11:33 KS (Rec: 09/09/21 13:24 KS [id number]) Physical Therapy Treatment Exercises Exercises Ankle Pumps,Gluteal Sets,Quad Sets,Straight Leg Raises Education Education Provided Safety M7 PT-IP Assessment and Plan Start: 09/06/21 12:07 Freq: NEEDED Status: Active Protocol: Document 09/09/21 11:33 KS (Rec: 09/09/21 13:24 KS [id number]) PT Summary Assessment and Plan Potential Rehabilitation Potential Fair Status of Condition at Evaluation Evolving Summary Impairments Pain,ROM,Strength,Balance, Coordination,Sensation,Tone, Cognition,Bed Mobility, Transfers,Gait,Activity Tolerance Progress Towards Goals Slow Progress due to Activity Tolerance,Slow Progress - Other Assessment Summary Split treatment today, during first half pts daughter provided Max A for transfer from bed to chair w/ CGA and cues by therapists. Max A for sup<>sit and cues for leaning forward. During second half of treatment, pt required Max A x2 for squat pivot transfer back to bed and had quick approach to fatigue during exercises. She will need SNF to improve strength and functional mobility. Goals Bed Mobility Goal Moderate Assistance Transfer Goal Moderate Assistance,Front Wheeled Walker Days to Meet Goals 10 Frequency of Treatment Frequency Of Treatment Once a Day Treatment Plan Physical Therapy Treatment Plan Bed Mobility Training,Transfer Training,Gait Training, Therapeutic Exercise,Balance Retraining,Discharge Planning, Hot or Cold Pack,Neuromuscular Re-ed,Coordination Retraining ,Manual Therapy Other Recommendations and Next Treatment attempts to stand; stand pivot Focus transfer Precautions Other Precautions Falls Recommendations To Nursing Amount of Assist Needed 2 Person Assist Discharge Recommendations PT Discharge Recommendations SNF Rehab Transportation Needs at Discharge Wheelchair/Cabulance
--- NOTE | 2021-09-09 13:48 | PM.PN.1 ---
Subjective Subjective Interval history: Patient denies any acute complaints this morning. She reports good PO intake. She states that she actually likes the food here. She is aware that she is pending placement. Exam Vital Signs (past 8 hours): - 09/09/21 08:00 09/09/21 12:31 Temperature 98.1 F 97.5 F L Pulse Rate 65 75 Respiratory Rate 16 14 Blood Pressure 126/69 138/77 Pulse Oximetry 94 96 Oxygen Delivery Method Room Air Oxygen Flow Rate 0 Narrative Exam Narrative: GEN: no acute distress CV: regular rate and rhyhtm PULM: clear bilaterally, no wheezes, rhonchi, rales ABD: soft, nontender, nondistended, no organomegaly EXT: warm and well perfused Objective Labs Result Diagrams: 09/09/21 08:57 09/09/21 08:57 Labs: Laboratory Results - last 24 hr 09/09/21 09/09/21 08:57 08:57 WBC 5.4 RBC 3.53 L Hgb 9.3 L Hct 28.7 L MCV 81.4 MCH 26.3 MCHC 32.3 RDW 16.2 H Plt Count 246 Sodium 136 L Potassium 4.0 Chloride 106 Carbon Dioxide 27 BUN 14 Creatinine 0.74 Estimated GFR > 60.0 BUN/Creatinine Ratio 18.9 Glucose 84 Calcium 8.6 PFSH Medical History (Updated 09/07/21 @ 12:43 by Gemini Nevarez RN) Anemia, iron deficiency Ankle fracture, right Arthritis of knee, left Blood clot in vein Bruises easily Cardiomegaly Cataract fragments in both eyes following surgery Cellulitis Closed fracture of right distal fibula (~12/2017) Cognitive impairment Depression Diarrhea DVT (deep venous thrombosis) Epilepsy GERD (gastroesophageal reflux disease) Hammer toe, acquired History of hip fracture History of prosthetic unicompartmental arthroplasty of both knees Hypertension Muscle weakness Nausea Osteoarthritis Pneumonia Postmenopausal Raynauds disease Scoliosis Spinal stenosis Thyroid nodule Surgical History History of hip surgery History of incision and drainage History of tonsillectomy and adenoidectomy Hx of elbow surgery Hx of total knee arthroplasty Status post unicompartmental knee replacement, left Family History (Updated 09/05/21 @ 20:38 by COLIN Jules) Mother Hypertension Sister Cancer Social History household members: children Smoking Status: Former smoker alcohol intake: current Assessment & Plan Assessment & Plan narrative: Nancy Valverde is a 85-year-old female with a history of atrial fibrillation, on Lovenox subQ daily, HX of DVT in the left thigh, cognitive/dementia, chronic LBP, essential hypertension, and depression who was presented to the ED by her daughter following a fall to the ground last night, trying to get off the toilet, and 2 days of nausea, vomiting, dizziness, and LBP radiating to left hip.? Patient requires hospitalization for antibiotic and fluid management. 1. Proteus mirabilis UTI, with weakness, resulting in ground level fall (observed), acute -urinalysis trace protein, 3+ leuk Est., WBC 10-30, bacteria>30, culture pending - urine culture positive for greater than 100,000 Proteus mirabilis with MDRO, with resistant to most antibiotics other than carbapenems -Did not meet SIRS/Sepsis Criteria -continue meropenem for 4-5 days -patient placed on strict fall precautions-Up with assist ONLY -PT?seeing? patient 2. Atrial fibrillation, (Unknown Type) with history DVT chronic, present on admission - on Lovenox 80 mg subQ daily 3. Cognitive impairment/dementia, with depression, acute on chronic, present on admission -continue Aricept, Lexapro 4.? Seizure disorder - Keppra 1000 mg po? b.i.d. resume 5. Chronic low back pain, acute on chronic, present on admission - patient with prior left hip fracture and repair.? Because of patient's pain and daughter's concern for recurrent problem CT hip was done - CT left hip negative for fracture -continue oxycodone Time Spent With Patient Critical Care time: I spent a total of [] minutes of critical care time on this patient's care today; this time is exclusive of procedural time. Quality VTE Deep Vein Thrombosis/Pulmonary Embolism Present on Admission: No MIPS - Admit I confirm the patient?s Advance Care Plan is present, Code status is documented, Surrogate decision maker is in patient?s record [If Yes, STOP here]: Yes
--- NOTE | 2021-09-09 13:54 | PM.DS.1 ---
History of Present Illness History of Present Illness Chief complaint: fell last night/low back pain/on blood thinners Narrative: Nancy Valverde is a 85-year-old female with a history of atrial fibrillation, on Lovenox subQ daily, DVT in the left thigh, cognitive/dementia, Chronic LBP, essential hypertension, and depression who was presented to the ED by her daughter following a fall to the ground last night, trying to get off the toilet, and 2 days of nausea, vomiting, dizziness, and LBP radiating to left hip.?Patient upon admit currently has no complaints of pain, CP, SOB, abd pain, dizziness, nausea, vomiting, diarrhea, frequency, urgency, dysuria, chills, body aches, headache, changes in vision, weakness, numbness, tingling, recent illness injury or trauma.? Patient is a poor historian and her input/accuracy regarding HPI, ROS is poor, due to cognitive impairment. Patient's initial presenting vitals the ED with hypertension BP 175/73, HR 82, R 22.? Upon admit vitals have improved temp 97.9?, BP 121/64, HR 72 but slightly tachypneic with an RR 33, O2 saturation 93% room air.? Patient is resting comfortably in bed with no distress at this time.? HGB 9.8, HCT 32.7, no white blood cell count but does have a left shift neutrophils 7900.? Patient's remaining chemistries are WNL, AST 41 alk-phos 133, urinalysis was positive and culture is pending.? Head CT was negative for acute intracranial processes, patient's chest x-ray demonstrated no acute cardiopulmonary processes.? I personally reviewed patient's EKG sinus rhythm with a rate of [address] and T-wave abnormalities.? Patient is admitted for UTI and weakness resulting in a ground level fall. Discharge Providers Provider Date of admission: 09/05/21 16:43 Discharge Date: 09/09/21 Primary care physician: FILOMENA Villagomez Consults: 09/05/21 20:26 Consult to Dietitian, Adult Routine Comment: Reason For Exam: BMI 28.5 Consult to Physical Therapy Evaluate & Treat Comment: GLF -evaluation Physician Instructions: Evaluate and Treat 09/06/21 11:02 Consult to Occupational Therapy Evaluate & Treat Comment: Physician Instructions: Evaluate and treat Discharge provider: Sylvia Rodriguez MD Summary Hospital Course Discharge Diagnosis: 1. Proteus mirabilis UTI, multi-drug resistant, carbapenem-sensitive, with weakness, resulting in ground level fall (observed), acute 2. Atrial fibrillation, with history of DVT chronic, present on admission 3. Cognitive impairment/dementia, with depression, acute on chronic, present on admission 4. Seizure disorder 5. Chronic lower back pain, acute on chronic, present on admission Exam Vital Signs (past 8 hours): - 09/09/21 08:00 09/09/21 12:31 Temperature 98.1 F 97.5 F L Pulse Rate 65 75 Respiratory Rate 16 14 Blood Pressure 126/69 138/77 Pulse Oximetry 94 96 Oxygen Delivery Method Room Air Oxygen Flow Rate 0 Narrative Exam Narrative: GEN: no acute distress CV: regular rate and rhyhtm PULM: clear bilaterally, no wheezes, rhonchi, rales ABD: soft, nontender, nondistended, no organomegaly EXT: warm and well perfused Objective Labs Result Diagrams: 09/09/21 08:57 09/09/21 08:57 Labs: Laboratory Results - last 24 hr 09/09/21 09/09/21 08:57 08:57 WBC 5.4 RBC 3.53 L Hgb 9.3 L Hct 28.7 L MCV 81.4 MCH 26.3 MCHC 32.3 RDW 16.2 H Plt Count 246 Sodium 136 L Potassium 4.0 Chloride 106 Carbon Dioxide 27 BUN 14 Creatinine 0.74 Estimated GFR > 60.0 BUN/Creatinine Ratio 18.9 Glucose 84 Calcium 8.6 [facility] Medical History (Updated 09/07/21 @ 12:43 by Gemini Nevarez RN) Anemia, iron deficiency Ankle fracture, right Arthritis of knee, left Blood clot in vein Bruises easily Cardiomegaly Cataract fragments in both eyes following surgery Cellulitis Closed fracture of right distal fibula (~12/2017) Cognitive impairment Depression Diarrhea DVT (deep venous thrombosis) Epilepsy GERD (gastroesophageal reflux disease) Hammer toe, acquired History of hip fracture History of prosthetic unicompartmental arthroplasty of both knees Hypertension Muscle weakness Nausea Osteoarthritis Pneumonia Postmenopausal Raynauds disease Scoliosis Spinal stenosis Thyroid nodule Surgical History History of hip surgery History of incision and drainage History of tonsillectomy and adenoidectomy Hx of elbow surgery Hx of total knee arthroplasty Status post unicompartmental knee replacement, left Family History (Updated 09/05/21 @ 20:38 by LANDON Jules-) Mother Hypertension Sister Cancer Social History household members: children Smoking Status: Former smoker alcohol intake: current Discharge Assessment & Plan Assessment and Plan Assessment: Nancy Valverde is a 85-year-old female with a history of atrial fibrillation, on Lovenox subQ daily, HX of DVT in the left thigh, cognitive/dementia, chronic LBP, essential hypertension, and depression who was presented to the ED by her daughter following a fall to the ground last night, trying to get off the toilet, and 2 days of nausea, vomiting, dizziness, and LBP radiating to left hip.? Patient requires hospitalization for antibiotic and fluid management. 1. Proteus mirabilis UTI, with weakness, resulting in ground level fall (observed), acute -urinalysis trace protein, 3+ leuk Est., WBC 10-30, bacteria>30, culture pending -urine culture positive for greater than 100,000 Proteus mirabilis with MDRO, with resistant to most antibiotics other than carbapenems -did not meet SIRS/Sepsis Criteria -completed a 5-day course of meropenem -patient placed on strict fall precautions, up with assist ONLY 2. Atrial fibrillation, with history of DVT chronic, present on admission, does not take anticoagulant at home 3. Cognitive impairment/dementia, with depression, acute on chronic, present on admission -continue Aricept, Lexapro 4.? Seizure disorder -Keppra 1000 mg po? b.i.d. resume 5. Chronic low back pain, acute on chronic, present on admission -patient with prior left hip fracture and repair -CT left hip negative for fracture -continue oxycodone Discharge Plan Discharge Plan Patient Disposition: SNF Discharge orders & Medications Prescriptions: Continued calcium carbonate 500 mg calcium (1,250 mg) Tablet 1 tab PO DAILY 0RF donepezil 5 mg tablet 5 mg PO QPM 0RF acetaminophen 325 mg tablet 325 mg PO PRN PRN (Reason: pain) 0RF levetiracetam [Keppra] 1,000 mg Tablet 1,000 mg PO BID 0RF omeprazole 20 mg Capsule,Delayed Release(Dr/Ec) 20 mg PO DAILY 0RF melatonin 5 mg Tablet 5 mg PO BEDTIME 0RF citalopram 20 mg Tablet 20 mg PO DAILY 0RF multivitamin Tablet,Chewable 2 tab PO DAILY 0RF oxycodone 5 mg Tablet 5 mg PO Q4H PRN (Reason: Pain, Moderate (4-6)) Qty: 15 0RF Discontinued enoxaparin [Lovenox] 80 mg/0.8 mL Syringe 80 mg SUBCUT DAILY 0RF Follow up/Referrals: Мария Leone ARNP [Primary Care Provider] - Discharge Data Primary Care Provider: Мария Leone Quality VTE Deep Vein Thrombosis/Pulmonary Embolism Present on Admission: No
[2021-09-09 14:34] LABS: COVID19 -Nasal RAPID Negative (Negative)
--- NOTE | 2021-09-09 14:53 | CM.DANOTE ---
DCP/continued: Reviewed chart. Per provider patient is medically stable to d/c to SNF today. Several attempts have been made to obtain SNF placement. RN ADVANCED met with patient and daughter explaining to them both that once SNF bed secured patient will be discharged. Daughter reports that she will only allow her Mother to go to certain facilities? Notified daughter that this is completely an unrealistic request given that SNF's are full and that her Mother is unvaccinated. Daughter reports that she has had several bad experiences. Daughter requesting that first SNF choice is [facility]. RN ADVANCED placed call and they agreed to re-review records. After they reviewed they determined that they still could not accept. Therefore, RN ADVANCED placed call to [facility] spoke with Sonia they do have beds and will review for admit. Received return call from [facility] indicating that they can accept today. Patient will be in private room. Facility aware of vaccination status. RN ADVANCED met again with daughter and patient informing them that SNF bed has been found. Daughter initially resistant to idea but once she discovered that she can visit and that patient getting private room she agreed. Daughter spoke with [facility] prior to patient's departure. RN ADVANCED asked CHRIS/Lupe to assist with finalizing discharge. Patient scheduled to be picked up at approximately 4:00pm today. P: [facility] today. MICHAEL
== END 2021-09-09 16:45 | DRG 690 ==
LOC: ED 13:15 → AC 16:46
PROVIDERS: Emergency Medicine; Internal Medicine; Student in an Organized Health Care Education/Training Program; Admitting Provider Internal Medicine; Emergency Provider Physician Assistant; Family Provider Nurse Practitioner Family; PCP Nurse Practitioner Family; Referring Provider Physician Assistant; Visit Provider Internal Medicine
DX: N39.0 Urinary tract infection, site not specified (principal); Z16.24 Resistance to multiple antibiotics; I48.91 Unspecified atrial fibrillation; Z79.01 Long term (current) use of anticoagulants; B96.4 Proteus (mirabilis) (morganii) as the cause of diseases classified elsewhere; F03.90 Unspecified dementia, unspecified severity, without behavioral disturbance, psychotic disturbance, mood disturbance, and anxiety; F32.9 Major depressive disorder, single episode, unspecified; G89.29 Other chronic pain; M54.50 Low back pain, unspecified; G40.909 Epilepsy, unspecified, not intractable, without status epilepticus; M25.552 Pain in left hip; K21.9 Gastro-esophageal reflux disease without esophagitis; R42 Dizziness and giddiness; R11.2 Nausea with vomiting, unspecified; W18.11XA Fall from or off toilet without subsequent striking against object, initial encounter; Z87.891 Personal history of nicotine dependence; Z20.822 Contact with and (suspected) exposure to COVID-19
CPT/HCPCS: 36415; 51701; 70450; 71045; 72192; 80048; 80053; 81001; 82550; 83690; 83735; 84484; 85025; 85027; 85610; 85730; 87077; 87086; 87186; 87635; 93005; 94760; 97110; 97162; 97166; 97530; 97535; 99284; C9803; J0696; J1644; J1650; J2185; J7050

== ENCOUNTER 2022-03-13 10:50 | Emergency (ER) | payer MEDICARE, SELFPAY ==
[2021-09-05 18:07] VITALS: BMI 28.1
[2022-03-13] VITALS (13 sets, daily range): BP systolic 138; BP diastolic 92; PULSE 66–78; RESP 15; TEMP 36.7; O2SAT 94–97; BMI 29.7
--- NOTE | 2022-03-13 11:38 | PC.NURSE ---
lives with daughter who is at bedside. daughter states the pt has a chronic DVT that she is not on anticoagulation for due to a GI bleed a few months ago. reports she gets repeat US's and the DVT has been unchanged for some time. Pt took a fall on wednesday which was unwitnessed by daughter and pt states no LOC however she does not remember the context of the event. Her L ankle has been swelling since. 1+ pulse palpated and marked on the skin. reports pain to weight bear and daughter reports the extent of her walking is to stand and pivot. pt is awake alert and mildly confused and HYDABURG. No other injuries noted.
--- NOTE | 2022-03-13 12:51 | DI.RAD.S_ITS ---
PROCEDURE: XR CHEST 1V INDICATIONS: hx chf TECHNIQUE: One view of the chest was acquired. COMPARISON: [facility], CR, XR CHEST 1V, 09/05/2021, 13:46. FINDINGS: Surgical changes and devices: None. Lungs and pleura: Lungs are clear. No pleural effusions or pneumothorax. Mediastinum: Tortuous thoracic aorta is seen. Heart size is enlarged. Bones and chest wall: No suspicious bony lesions. Overlying soft tissues appear unremarkable. IMPRESSION: No acute cardiopulmonary pathology. Cardiomegaly. Dictated by: Jordi Watkins M.D. on 03/13/2022 at 12:13 Approved by: Jordi Watkins M.D. on 03/13/2022 at 12:26
--- NOTE | 2022-03-13 12:51 | DI.US.S_ITS ---
PROCEDURE: US PERIPH VENOUS LOW EXTREM LT INDICATIONS: chronic DVT left leg, worse? TECHNIQUE: Real-time imaging, as well as color and pulse Doppler interrogation, were performed of the lower extremity deep veins from the inguinal ligament to the popliteal fossa. COMPARISON: [facility], , US VENOUS LOWER EXTREMITY DOPPLER LEFT, 03/11/2022, 19:37. FINDINGS: Nonocclusive thrombus identified in the left superficial femoral vein and the left popliteal vein. IMPRESSION: Abnormal study demonstrating nonocclusive left lower extremity deep vein thrombosis. Thrombus not significantly changed compared March 11, 2022. Dictated by: Lolis Santoro MD, PhD on 03/13/2022 at 14:00 Approved by: Lolis Santoro MD, PhD on 03/13/2022 at 14:04
--- NOTE | 2022-03-13 13:07 | ED_ITS ---
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 Patient denies having any pain, she has normal range of motion and mobility and is wheelchair-bound at baseline. Patient was seen at [facility] on 03/11/2022 and per their records which were shared by the daughter patient had an ultrasound venous lower extremity Doppler of her left leg without any changes from her chronic DVT, an x-ray of her left ankle, foot, knee, pelvis with lateral hip without any acute abnormalities. Patient currently denies any pain, denies any new limitations in her range of motion, states that she feels like her leg is heavy but denies any sensation changes. Patient's daughter states that it is warm, denies any erythema, patient denies any point tenderness and is nontender when palpating her calf. Patient denies any recent illness, no fever, lightheadedness, dizziness, shortness of breath, chest pain, cough, or new weakness. She endorses some itching on her left forearm. Related Data Home Medications Medication Instructions Recorded Confirmed citalopram 20 mg tablet 20 mg PO DAILY 12/23/17 09/05/21 calcium carbonate 500 mg calcium 1 tab PO DAILY 02/22/18 09/05/21 (1,250 mg) tablet multivitamin 2 tab PO DAILY 05/30/18 09/05/21 acetaminophen 325 mg tablet 325 mg PO PRN PRN pain 02/07/19 09/05/21 donepezil 5 mg tablet 5 mg PO QPM 02/07/19 09/05/21 levetiracetam 1,000 mg tablet 1,000 mg PO BID 09/07/21 09/07/21 (Keppra) melatonin 5 mg tablet 5 mg PO BEDTIME insommnia 09/07/21 09/07/21 omeprazole 20 mg capsule,delayed 20 mg PO DAILY 09/07/21 09/07/21 release Previous Rx's Medication Instructions Recorded oxycodone 5 mg tablet 5 mg PO Q4H PRN Pain, Moderate 06/20/18 (4-6) #15 tabs Allergies Allergy/AdvReac Type Severity Reaction Status Date / Time Sulfa (Sulfonamide Allergy Intermediate Hives Verified 03/13/22 11:15 Antibiotics) codeine [CODEINE] Allergy Mild nausea Verified 03/13/22 11:15 iodine [IODINE] Allergy Mild breaks out Verified 03/13/22 11:15 skin sulfamethoxazole Allergy Mild ITCHING Verified 03/13/22 11:15 [From Bactrim] trimethoprim [From Bactrim] Allergy Mild ITCHING Verified 03/13/22 11:15 warfarin AdvReac Mild Diarrhea Verified 03/13/22 11:15 Review of Systems <FILOMENA [place] - Last Filed: 03/13/22 17:22> Review of Systems Narrative: General: denies fever, chills, malaise, sweats, fatigue Head/Neck: denies headache, neck pain, dizziness Eyes: denies visual changes, eye pain Cardio: denies chest pain, palpitations left lower leg edema greater than right Respiratory: denies dyspnea, cough, orthopnea GI: denies abdominal pain, nausea, vomiting, or diarrhea : denies dysuria, hematuria, urinary retention, frequency or incontinence MSK: denies joint pain, muscle weakness, endorses left leg swelling greater on left than right Skin: denies rash, itching, skin lesions or other Neuro: denies numbness, tingling Patient History <FILOMENA [place] - Last Filed: 03/13/22 17:22> Medical History Anemia, iron deficiency Ankle fracture, right Arthritis of knee, left Blood clot in vein Bruises easily Cardiomegaly Cataract fragments in both eyes following surgery Cellulitis Closed fracture of right distal fibula (~12/2017) Cognitive impairment Depression Diarrhea DVT (deep venous thrombosis) Epilepsy GERD (gastroesophageal reflux disease) Hammer toe, acquired History of hip fracture History of prosthetic unicompartmental arthroplasty of both knees Hypertension Muscle weakness Nausea Osteoarthritis Pneumonia Postmenopausal Raynauds disease Scoliosis Spinal stenosis Thyroid nodule Surgical History History of hip surgery History of incision and drainage History of tonsillectomy and adenoidectomy Hx of elbow surgery Hx of total knee arthroplasty Status post unicompartmental knee replacement, left Family History Mother Hypertension Sister Cancer Social History household members: children Smoking Status: Former smoker alcohol intake: current Smoking Status: Former smoker alcohol intake frequency: a few times a month Substance Use Type: does not use Exam <FILOMENA [place] - Last Filed: 03/13/22 17:22> Narrative Exam Narrative: Independently reviewed vitals signs and nursing notes. General: Awake, alert, nontoxic, no cardiorespiratory distress, interactive Head/Neck: Atraumatic, neck with normal range of motion Eyes: EOMI, conjunctiva normal Nose: nares patent, no rhinorrhea Mouth/Throat: moist mucus membranes Cardiovascular: Regular rate and rhythm, no dependant edema, warm extremities Respiratory: respirations unlabored and without wheezing, stridor, or rales. No retractions, hypoxia or tachypnea GI: Abdomen soft, nontender to palpation, without mass, guarding, or rebound tenderness MSK: Moves all extremities, neurovascularly intact, range of motion without deficit, dorsum of left foot is edematous compared to right, ankle of left is generally more edematous than the right without any erythema, discoloration, tenderness to palpation, she is without any calf pain with palpation, denies any leg pain while bearing weight, mobility at baseline is wheelchair with brief stand to pivot, PT and DP pulses are 1+, capillary refill is brisk, foot is warm without any erythema. No tenderness along medial aspect like. Skin: Normal capillary refill, no rash Neuro: Normal speech and cognition, normal gait Initial Vital Signs Initial Vital Signs: Vital Signs Temperature 98.1 F 03/13/22 11:05 Pulse Rate 78 03/13/22 11:05 Respiratory Rate 15 03/13/22 11:05 Blood Pressure 138/92 H 03/13/22 11:05 Pulse Oximetry 97 03/13/22 11:05 Oxygen Delivery Method 03/13/22 11:05 <Candace Acosta DO - Last Filed: 03/14/22 07:48> Initial Vital Signs Initial Vital Signs: Vital Signs Temperature 98.1 F 03/13/22 11:05 Pulse Rate 78 03/13/22 11:05 Respiratory Rate 15 03/13/22 11:05 Blood Pressure 138/92 H 03/13/22 11:05 Pulse Oximetry 97 03/13/22 11:05 Oxygen Delivery Method 03/13/22 11:05 Scores <FILOMENA [place] - Last Filed: 03/13/22 17:22> Wells' Criteria for PE Clinical signs and symptoms of DVT: Yes PE is #1 Dx or equally likely: No Heart rate > 100: No Immobilization at least 3 days or surg in previous 4 weeks: No History of PE or DVT: Yes Hemoptysis: No Malignancy w/Treatment within 6 months or palliative: No Wells' PE Score total: 4.5 Wells' Criteria for DVT Active Cancer (Treatment within 6 months): No Bedridden recently >3 days or major surgery within 4 weeks: No Calf Swelling >3cm compared to other leg: No Collateral (nonvericose) superficial veins present: No Entire leg swollen: No Localized tenderness along the deep vein system: No Pitting edema, confined to symtomatic leg: Yes Paralysis, paresis, or recent plaster immobilization of ext: No Previously documented DVT: Yes Alternative dx to DVT as likely or more likely: No Isaias' criteria for DVT: 2 Citation:: History of chronic DVT in left leg <Candace Acosta DO - Last Filed: 03/14/22 07:48> Wells' Criteria for PE Wells' PE Score total: 4.5 Wells' Criteria for DVT Wells' criteria for DVT: 2 Course <FILOMENA [place] - Last Filed: 03/13/22 17:22> Orders Ordered: ED Orders 03/13/22 12:51 US periph venous low extrem lt Stat XR chest 1V Stat 03/13/22 14:10 BNP [NT-proBNP (BNP-Adult 18+)] Stat CBC Auto Diff [Complete Blood Count AUTO DIFF] Stat CMP [Comprehensive Metabolic Panel] Stat Prothrombin Time INR Stat Troponin & CK Cardiac Panel Stat 03/13/22 14:39 EKG-12 Lead Stat 03/13/22 14:46 CT angio chest PE protocol Stat 03/13/22 14:57 XR foot LT min 3V Stat Vital Signs Vital signs: Vital Signs - 8 hr 03/13/22 11:05 03/13/22 11:24 03/13/22 11:30 Temperature 98.1 F Pulse Rate 78 76 72 Respiratory Rate 15 Blood Pressure 138/92 H Pulse Oximetry 97 96 96 Oxygen Delivery Method Room Air 03/13/22 12:00 03/13/22 12:30 03/13/22 13:00 Temperature Pulse Rate 68 75 69 Respiratory Rate Blood Pressure Pulse Oximetry 96 94 97 Oxygen Delivery Method 03/13/22 13:30 03/13/22 14:32 03/13/22 15:00 Temperature Pulse Rate 70 71 72 Respiratory Rate Blood Pressure Pulse Oximetry 95 96 97 Oxygen Delivery Method <Candace Acosta, - Last Filed: 03/14/22 07:48> Orders Ordered: ED Orders 03/13/22 12:51 US periph venous low extrem lt Stat XR chest 1V Stat 03/13/22 14:10 BNP [NT-proBNP (BNP-Adult 18+)] Stat CBC Auto Diff [Complete Blood Count AUTO DIFF] Stat CMP [Comprehensive Metabolic Panel] Stat Prothrombin Time INR Stat Troponin & CK Cardiac Panel Stat 03/13/22 14:39 EKG-12 Lead Stat 03/13/22 14:46 CT angio chest PE protocol Stat 03/13/22 14:57 XR foot LT min 3V Stat Vital Signs Vital signs: Vital Signs - 8 hr 03/13/22 11:05 03/13/22 11:24 03/13/22 11:30 Temperature 98.1 F Pulse Rate 78 76 72 Respiratory Rate 15 Blood Pressure 138/92 H Pulse Oximetry 97 96 96 Oxygen Delivery Method Room Air 03/13/22 12:00 03/13/22 12:30 03/13/22 13:00 Temperature Pulse Rate 68 75 69 Respiratory Rate Blood Pressure Pulse Oximetry 96 94 97 Oxygen Delivery Method 03/13/22 13:30 03/13/22 14:32 03/13/22 15:00 Temperature Pulse Rate 70 71 72 Respiratory Rate Blood Pressure Pulse Oximetry 95 96 97 Oxygen Delivery Method MDM - Extremity (Nontraumatic) <Tish Sun [facility] - Last Filed: 03/13/22 17:22> Lab Data Result diagrams: 03/13/22 14:10 03/13/22 14:10 Labs: Lab Results 03/13/22 03/13/22 03/13/22 Range/Units 14:10 14:10 14:10 WBC 6.8 (4.5-11.0) X10^3/uL RBC 4.18 (4.0-5.2) X10^6/uL Hgb 10.2 L (12.0-16.0) g/dL Hct 32.8 L (36-46) % MCV 78.5 L (80-100) fL MCH 24.4 L (26-34) PG MCHC 31.0 (30-36) % RDW 16.9 H (11.6-14.8) % Plt Count 301 (150-400) X10^3/uL Neut % (Auto) 69.8 (50-75) % Lymph % (Auto) 19.2 L (25-40) % [place] % (Auto) 7.3 (3-14) % Eos % (Auto) 2.3 (2-4) % Baso % (Auto) 1.4 (0-2) % Neut # (Auto) 4700 (6516-8919) /uL Lymph # (Auto) 1300 (1728-5830) /uL [place] # (Auto) 500 (0-900) /uL Eos # (Auto) 200 (0-450) /uL Baso # (Auto) 100 (0-100) /uL PT 11.8 (10.1-12.7) SECONDS INR 1.1 (0.9-1.3) Sodium 138 (137-145) mmol/L Potassium 4.2 (3.4-5.1) mmol/L Chloride 108 H (98-107) mmol/L Carbon Dioxide 27 (22-32) mmol/L BUN 19 H (7-17) mg/dL Creatinine 0.81 (0.52-1.04) mg/dL Estimated GFR > 60 (>60) mL/min BUN/Creatinine Ratio 23.5 H (6-22) Glucose 89 (80-110) mg/dL Calcium 8.7 (8.4-10.2) mg/dL Total Bilirubin 0.3 (0.2-1.3) mg/dL AST 22 (14-36) IU/L ALT 13 (<35) IU/L Alkaline Phosphatase 119 (38-126) U/L Total Creatine Kinase (30-135) U/L CK-MB (CK-2) CK-MB (CK-2) Rel Index Troponin I (0.01-0.034) ng/mL NT-Pro-B Natriuret Pep 221 (<450) pg/mL Total Protein 7.3 (6.3-8.2) g/dL Albumin 3.6 (3.5-5.0) g/dL Globulin 3.7 (1.7-4.1) g/dL Albumin/Globulin Ratio 1.0 (1.0-2.8) 03/13/22 Range/Units 14:10 WBC (4.5-11.0) X10^3/uL RBC (4.0-5.2) X10^6/uL Hgb (12.0-16.0) g/dL Hct (36-46) % MCV (80-100) fL MCH (26-34) PG MCHC (30-36) % RDW (11.6-14.8) % Plt Count (150-400) X10^3/uL Neut % (Auto) (50-75) % Lymph % (Auto) (25-40) % [place] % (Auto) (3-14) % Eos % (Auto) (2-4) % Baso % (Auto) (0-2) % Neut # (Auto) (3349-9054) /uL Lymph # (Auto) (7865-4901) /uL [place] # (Auto) (0-900) /uL Eos # (Auto) (0-450) /uL Baso # (Auto) (0-100) /uL PT (10.1-12.7) SECONDS INR (0.9-1.3) Sodium (137-145) mmol/L Potassium (3.4-5.1) mmol/L Chloride (98-107) mmol/L Carbon Dioxide (22-32) mmol/L BUN (7-17) mg/dL Creatinine (0.52-1.04) mg/dL Estimated GFR (>60) mL/min BUN/Creatinine Ratio (6-22) Glucose (80-110) mg/dL Calcium (8.4-10.2) mg/dL Total Bilirubin (0.2-1.3) mg/dL AST (14-36) IU/L ALT (<35) IU/L Alkaline Phosphatase (38-126) U/L Total Creatine Kinase 37 (30-135) U/L CK-MB (CK-2) TNP CK-MB (CK-2) Rel Index TNP Troponin I < 0.012 (0.01-0.034) ng/mL NT-Pro-B Natriuret Pep (<450) pg/mL Total Protein (6.3-8.2) g/dL Albumin (3.5-5.0) g/dL Globulin (1.7-4.1) g/dL Albumin/Globulin Ratio (1.0-2.8) Imaging Data US - DVT: Radiologist's Impression: PROCEDURE:? US PERIPH VENOUS LOW EXTREM LT ? INDICATIONS:? chronic DVT left leg, worse? ? TECHNIQUE:? Real-time imaging, as well as color and pulse Doppler interrogation, were pe rformed of the lower extremity deep veins from the inguinal ligament to the popliteal fossa.? ? COMPARISON:? [facility], US VENOUS LOWER EXTREMITY DOPPLER LEFT, 03/11/2022, 19:37. ? FINDINGS:? Nonocclusive thrombus identified in the left superficial femoral vein and the left popliteal vein. ? IMPRESSION:? Abnormal study demonstrating nonocclusive left lower extremity deep vein thrombosis.? Thrombus not significantly changed compared March 11, 2022.? ? Dictated by: Lolis Santoro MD, PhD on 03/13/2022 at 14:00 ? ? Approved by: Lolis Santoro MD, PhD on 03/13/2022 at 14:04 ? Chest x-ray: Radiologist's Impression: PROCEDURE:? XR CHEST 1V ? INDICATIONS:? hx chf ? TECHNIQUE:? One view of the chest was acquired.? ? COMPARISON:? [facility], XR CHEST 1V, 09/05/2021, 13:46. ? FINDINGS:? ? Surgical changes and devices:? None.? ? Lungs and pleura:? Lungs are clear.? No pleural effusions or pneumothorax.? ? Mediastinum:? Tortuous thoracic aorta is seen.? Heart size is enlarged. ? Bones and chest wall:? No suspicious bony lesions.? Overlying soft tissues appear unremarkable.? ? IMPRESSION:? No acute cardiopulmonary pathology.? Cardiomegaly. ? ? Dictated by: Jordi Watkins M.D. on 03/13/2022 at 12:13 ? ? Approved by: Jordi Watkins M.D. on 03/13/2022 at 12:26 ? CT scan - chest: Radiologist's Impression: PROCEDURE:? CT ANGIO CHEST PE PROTOCOL ? INDICATIONS:? known dvt, T wave changes on ekg, no anticoagulant ? TECHNIQUE:? After the administration of intravenous contrast, 2 mm thick sections acquired from the pulmonary apices to the posterior costophrenic angles.? 3-dimensional maximum intensity projection (MIP) coronal and sagittal reformats were then acquired through the thorax.? For radiation dose reduction, the following was used:? automated exposure control, adjustment of mA and/or kV according to patient size.? ? COMPARISON:? None. ? FINDINGS:? Image quality:? Excellent.? ? Pulmonary arteries:? Pulmonary arteries are mildly prominent in size which can be seen associated with pulmonary vascular hypertension.? There is no intraluminal filling defects to suggest central pulmonary embolism.? ? Lungs and pleura:? Scattered atelectasis in periphery of bilateral lung singer are seen.? No definite focal infiltrate..? No pleural effusions or pneumothorax.? Central and peripheral airways are patent.? ? Mediastinum:? Heart size is enlarged, without pericardial effusion.? No mediastinal or hilar adenopathy by size criteria.? Subcentimeter lymph nodes are seen in mediastinum and bilateral hilar region measures up to 8 mm in right paratracheal space.? Thoracic aorta is normal in caliber and enhancement.? Esophagus is normal in caliber, with a moderate-sized hiatal hernia.? ? Bones and chest wall:? No suspicious bony lesions.? No acute vertebral body compression fractures.? Degenerative endplate changes throughout thoracic spine is seen.? Thyroid gland is within normal limits No axillary or supraclavicular adenopathy.? ? Abdomen:? Visualized upper abdominal solid organs appear normal in the early arterial phase of enhancement.? ? IMPRESSION:? 1. No evidence of pulmonary emboli.? No thoracic aortic aneurysm or dissection.? Prominent size of pulmonary arteries which can be seen associated with pulmonary vascular hypertension. 2. Scattered atelectasis in periphery of bilateral lung singer.? No focal infiltrate, pleural effusion or pneumothorax. 3.? Cardiomegaly, no pericardial effusion.? Moderate-sized hiatal hernia.? Subcentimeter lymph nodes in mediastinum and bilateral hilar region. ? ? Dictated by: Jordi Watkins M.D. on 03/13/2022 at 15:16 ? ? Approved by: Jordi Watkins M.D. on 03/13/2022 at 15:23 ? 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 ECG Data Interpretation: EKG independently reviewed by Dr. Acosta and reveals normal sinus rhythm with regular axis and intervals. No STEMI inverted T-waves in lead two, not present on previous EKG, arrhythmia, or acute ischemic changes. Patient does not have any chest pain MDM Narrative Medical decision making narrative: This is an 86-year-old female who presents to the emergency department with her daughter with complaint of swelling of her left lower extremity with known chronic DVT in her popliteal vein and superficial femoral vein. Patient has a history of atrial fibrillation and is not anticoagulated due to a previous GI bleed. Patient is pending a Watchman procedure and Dr. Gutierrez is her education spec. Patient denies any pain at all today, she is neurologically intact, wheelchair-bound at baseline and only stands to pivot and does not have much strength at baseline. Patient was seen at [facility] two days ago with complete tests completed including left leg ultrasound duplex which was repeated today without any significant changes, she does not have any occlusive thrombosis in her left leg, they also did a left foot, ankle, knee, pelvis and left hip x-ray which were all negative for acute fractures. Patient denies any pain with mobility or position changes, denies any pain with putting her foot on the ground. Patient's daughter is concerned that she has a DVT in her leg due to her not anticoagulated status. Her lab work otherwise is unremarkable, she is not had any chest pain, shortness of breath, her troponin was negative, EKG independently reviewed by myself at [] reveals normal sinus rhythm at [] bpm with regular axis and intervals. No STEMI, ST segment changes, arrhythmia, or acute ischemic changes. Showed flipped T-waves in V2 only as the change, she is in sinus rhythm with a rate in the 60s to 70s, without shortness of breath, chest pain, sensation changes or any other findings. She does not have any anemia, her hemoglobin is 10.2, hematocrit 32.8, no leukocytosis, no dysuria, frequency, she is incontinent baseline, BNP is 221, D-dimer was not checked as patient has a known chronic DVT. CT PE was ordered for possible pulmonary embolism although patient does not have tachycardia, shortness of breath, pleural effusions, or infiltrates on chest x-ray but patient's daughter was concerned for complications from this chronic blood clot. CT PE shows no evidence of pulmonary emboli, no thoracic aortic aneurysm or dissection, prominent size of pulmonary arteries which can be associated with pulmonary vascular hypertension, scattered atelectasis in the periphery of the bilateral lung singer without focal infiltrate, pleural effusion or pneumothorax. Cardiomegaly without pericardial effusion and a moderate-sized hiatal hernia, subcentimeter lymph nodes in the mediastinum and bilateral hilar region. Patient's main concern and daughter's main concern was the swelling increase of her left foot. She does not have any tenderness to palpation, has full range of motion and this is compared with baseline, it is edematous compared with her right foot and it is warm to palpation however it does not appear infected and does not have any erythema, her pulses are palpable in her cap refill is brisk. They are given strict return precautions for decreased sensation or a cold foot, any erythema or signs of infection. 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 Bain, encouraged to follow-up with their education spec at the scheduled appointment later this month and to follow-up with their primary care provider for follow-up. Results were reviewed with the patient and her daughter, patient was pleasant and comfortable throughout her stay and declined having any pain or sensation changes. Patient is appropriate and amenable to discharge home. Vital signs are stable on repeat examination is unremarkable. Patient has been informed of results. Patient has been given strict return to ER precautions for any new or worsening symptoms. Patient understands to follow up closely with outpatient providers as instructed. Patient understands plan and agrees to discharge home. All questions and concerns answered at this time. <Candace Acosta, DO - Last Filed: 03/14/22 07:48> Lab Data Labs: Lab Results 03/13/22 03/13/22 03/13/22 Range/Units 14:10 14:10 14:10 WBC 6.8 (4.5-11.0) X10^3/uL RBC 4.18 (4.0-5.2) X10^6/uL Hgb 10.2 L (12.0-16.0) g/dL Hct 32.8 L (36-46) % MCV 78.5 L (80-100) fL MCH 24.4 L (26-34) PG MCHC 31.0 (30-36) % RDW 16.9 H (11.6-14.8) % Plt Count 301 (150-400) X10^3/uL Neut % (Auto) 69.8 (50-75) % Lymph % (Auto) 19.2 L (25-40) % [place] % (Auto) 7.3 (3-14) % Eos % (Auto) 2.3 (2-4) % Baso % (Auto) 1.4 (0-2) % Neut # (Auto) 4700 (7198-7121) /uL Lymph # (Auto) 1300 (8428-6888) /uL [place] # (Auto) 500 (0-900) /uL Eos # (Auto) 200 (0-450) /uL Baso # (Auto) 100 (0-100) /uL PT 11.8 (10.1-12.7) SECONDS INR 1.1 (0.9-1.3) Sodium 138 (137-145) mmol/L Potassium 4.2 (3.4-5.1) mmol/L Chloride 108 H (98-107) mmol/L Carbon Dioxide 27 (22-32) mmol/L BUN 19 H (7-17) mg/dL Creatinine 0.81 (0.52-1.04) mg/dL Estimated GFR > 60 (>60) mL/min BUN/Creatinine Ratio 23.5 H (6-22) Glucose 89 (80-110) mg/dL Calcium 8.7 (8.4-10.2) mg/dL Total Bilirubin 0.3 (0.2-1.3) mg/dL AST 22 (14-36) IU/L ALT 13 (<35) IU/L Alkaline Phosphatase 119 (38-126) U/L Total Creatine Kinase (30-135) U/L CK-MB (CK-2) CK-MB (CK-2) Rel Index Troponin I (0.01-0.034) ng/mL NT-Pro-B Natriuret Pep 221 (<450) pg/mL Total Protein 7.3 (6.3-8.2) g/dL Albumin 3.6 (3.5-5.0) g/dL Globulin 3.7 (1.7-4.1) g/dL Albumin/Globulin Ratio 1.0 (1.0-2.8) 03/13/22 Range/Units 14:10 WBC (4.5-11.0) X10^3/uL RBC (4.0-5.2) X10^6/uL Hgb (12.0-16.0) g/dL Hct (36-46) % MCV (80-100) fL MCH (26-34) PG MCHC (30-36) % RDW (11.6-14.8) % Plt Count (150-400) X10^3/uL Neut % (Auto) (50-75) % Lymph % (Auto) (25-40) % [place] % (Auto) (3-14) % Eos % (Auto) (2-4) % Baso % (Auto) (0-2) % Neut # (Auto) (2456-2445) /uL Lymph # (Auto) (7594-4353) /uL [place] # (Auto) (0-900) /uL Eos # (Auto) (0-450) /uL Baso # (Auto) (0-100) /uL PT (10.1-12.7) SECONDS INR (0.9-1.3) Sodium (137-145) mmol/L Potassium (3.4-5.1) mmol/L Chloride (98-107) mmol/L Carbon Dioxide (22-32) mmol/L BUN (7-17) mg/dL Creatinine (0.52-1.04) mg/dL Estimated GFR (>60) mL/min BUN/Creatinine Ratio (6-22) Glucose (80-110) mg/dL Calcium (8.4-10.2) mg/dL Total Bilirubin (0.2-1.3) mg/dL AST (14-36) IU/L ALT (<35) IU/L Alkaline Phosphatase (38-126) U/L Total Creatine Kinase 37 (30-135) U/L CK-MB (CK-2) TNP CK-MB (CK-2) Rel Index TNP Troponin I < 0.012 (0.01-0.034) ng/mL NT-Pro-B Natriuret Pep (<450) pg/mL Total Protein (6.3-8.2) g/dL Albumin (3.5-5.0) g/dL Globulin (1.7-4.1) g/dL Albumin/Globulin Ratio (1.0-2.8) Discharge Plan Departure Patient Disposition: Home Clinical Impression: Chronic deep vein thrombosis (DVT) of left popliteal vein, Edema of left lower extremity 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 Please continue going having physical therapy even if in a seated position and doing range of motion this week, the activity will be helpful for you and likely your swelling. Please start using an Francisco bandage to wrap the edema and help mitigate how much swelling your leg accumulates if you are upright. Please remember to remove and replace it every 12 hours at minimum to have a vacation from it to allow the skin to breathe. I hope you start feeling better soon, please make sure you are doing transfers as safe as possible and helping as much as you can and doing this safely as possible. Please follow-up with your primary care provider as needed. Your blood work today is very reassuring. Your blood counts have, and you are not as anemic as you were last time, there does not appear to be any infection, your electrolytes are balanced nothing is in the read. Your chest x-ray does not show any acute findings or pneumonia. It does not show any fluid accumulation in her lungs. The ultrasound reported that blood clot if able and is not occlusive. The repeat x-ray of her foot does not show any acute changes or new fractures. Please continue doing physical therapy next week and awaxu-mt-[id number] exercises in a seated position at minimum. If she develops any redness or swelling around a site or if there is concern for infection, please bring her back for another evaluation and/or follow-up with the outpatient providers as needed. Thank you for trusting us with her care and for your patience today I hope you both have a wonderful day. *What to do: *Please continue to take your regular medications as directed. [ ] New medication prescriptions sent to your pharmacy: [ ] [ ] New medication written as a paper prescription [ x] No new medications given *Please follow up with your primary care provider in 2-3 days, call for an appointment. Let them know you were seen in the Emergency Department and that we asked that you be seen for follow-up. We will electronically transmit a record of today's note if your PCP is in our system *If you do not have a primary care provider please contact [phone] to establish care with one of [facility] primary care providers. *Return to Emergency Department if you should have any new, worsening or conc erning symptoms, such as [fever greater than 101F, chills, worsening pain, persistent vomiting or other bothersome symptoms] Prescriptions: No Action calcium carbonate 500 mg calcium (1,250 mg) Tablet 1 tab PO DAILY donepezil 5 mg tablet 5 mg PO QPM acetaminophen 325 mg tablet 325 mg PO PRN PRN (Reason: pain) levetiracetam [Keppra] 1,000 mg Tablet 1,000 mg PO BID omeprazole 20 mg Capsule,Delayed Release(Dr/Ec) 20 mg PO DAILY melatonin 5 mg Tablet 5 mg PO BEDTIME citalopram 20 mg Tablet 20 mg PO DAILY multivitamin Tablet,Chewable 2 tab PO DAILY oxycodone 5 mg Tablet 5 mg PO Q4H PRN (Reason: Pain, Moderate (4-6)) Qty: 15 0RF Referrals: Mauricio Gutierrez MD [Non-Staff] - Flores Candelaria DPM [Physician] - Мария Leone ARNP [Primary Care Provider] - Visit Report Forms: Patient Portal/API <Candace Botnick, - Last Filed: 03/14/22 07:48> Cosign ED Attending Cosignature Attestation: I was immediately available in the department for consultation. Documentation has been reviewed. I agree with assessment and plan.
[2022-03-13 14:25] LABS: Add Manual Diff / Slide Review NO; Basophils Absolute Auto 100 /uL (0-100); Basophils Percent Auto 1.4 % (0-2); Eosinophils Absolute Auto 200 /uL (0-450); Eosinophils Percent Auto 2.3 % (2-4); Hematocrit 32.8 % (36-46); Hemoglobin 10.2 g/dL (12.0-16.0); Lymphocytes Absolute Auto 1300 /uL (1100-4500); Lymphocytes Percent Auto 19.2 % (25-40); Mean Corpuscular Hemoglobin 24.4 PG (26-34); Mean Corpuscular Volume 78.5 fL (80-100); Monocytes Absolute Auto 500 /uL (0-900); Monocytes Percent Auto 7.3 % (3-14); Neutrophils Absolute Auto 4700 /uL (1500-7000); Neutrophils Percent Auto 69.8 % (50-75); Platelet Count 301 X10^3/uL (150-400); Red Blood Cell Count 4.18 X10^6/uL (4.0-5.2); Red Cell Distribution Width 16.9 % (11.6-14.8); White Blood Cell Count 6.8 X10^3/uL (4.5-11.0)
[2022-03-13 14:32] LABS: INR 1.1 (0.9-1.3); Prothrombin Time 11.8 SECONDS (10.1-12.7)
[2022-03-13 14:39] LABS: Alanine Aminotransferase 13 IU/L (<35); Albumin 3.6 g/dL (3.5-5.0); Alkaline Phosphatase 119 U/L (38-126); Aspartate Aminotransferase 22 IU/L (14-36); BUN Creatinine Ratio 23.5 (6-22); Bilirubin Total 0.3 mg/dL (0.2-1.3); Blood Urea Nitrogen 19 mg/dL (7-17); Calcium 8.7 mg/dL (8.4-10.2); Carbon Dioxide 27 mmol/L (22-32); Chloride 108 mmol/L (98-107); Creatine Kinase 37 U/L (30-135); Estimated Glomerular Filt Rate > 60 mL/min (>60); Globulin 3.7 g/dL (1.7-4.1); Glucose 89 mg/dL (80-110); HEMOLYSIS < 15 (0-50); Potassium 4.2 mmol/L (3.4-5.1); Sodium 138 mmol/L (137-145); Total Protein 7.3 g/dL (6.3-8.2)
--- NOTE | 2022-03-13 14:46 | DI.CT.S_ITS ---
PROCEDURE: CT ANGIO CHEST PE PROTOCOL INDICATIONS: known dvt, T wave changes on ekg, no anticoagulant TECHNIQUE: After the administration of intravenous contrast, 2 mm thick sections acquired from the pulmonary apices to the posterior costophrenic angles. 3-dimensional maximum intensity projection (MIP) coronal and sagittal reformats were then acquired through the thorax. For radiation dose reduction, the following was used: automated exposure control, adjustment of mA and/or kV according to patient size. COMPARISON: None. FINDINGS: Image quality: Excellent. Pulmonary arteries: Pulmonary arteries are mildly prominent in size which can be seen associated with pulmonary vascular hypertension. There is no intraluminal filling defects to suggest central pulmonary embolism. Lungs and pleura: Scattered atelectasis in periphery of bilateral lung singer are seen. No definite focal infiltrate.. No pleural effusions or pneumothorax. Central and peripheral airways are patent. Mediastinum: Heart size is enlarged, without pericardial effusion. No mediastinal or hilar adenopathy by size criteria. Subcentimeter lymph nodes are seen in mediastinum and bilateral hilar region measures up to 8 mm in right paratracheal space. Thoracic aorta is normal in caliber and enhancement. Esophagus is normal in caliber, with a moderate-sized hiatal hernia. Bones and chest wall: No suspicious bony lesions. No acute vertebral body compression fractures. Degenerative endplate changes throughout thoracic spine is seen. Thyroid gland is within normal limits No axillary or supraclavicular adenopathy. Abdomen: Visualized upper abdominal solid organs appear normal in the early arterial phase of enhancement. IMPRESSION: 1. No evidence of pulmonary emboli. No thoracic aortic aneurysm or dissection. Prominent size of pulmonary arteries which can be seen associated with pulmonary vascular hypertension. 2. Scattered atelectasis in periphery of bilateral lung singer. No focal infiltrate, pleural effusion or pneumothorax. 3. Cardiomegaly, no pericardial effusion. Moderate-sized hiatal hernia. Subcentimeter lymph nodes in mediastinum and bilateral hilar region. Dictated by: Jordi Watkins M.D. on 03/13/2022 at 15:16 Approved by: Jordi Watkins M.D. on 03/13/2022 at 15:23
[2022-03-13 14:48] LABS: NT-proBNP (BNP-Adult 18+) 221 pg/mL (<450)
[2022-03-13 14:51] LABS: Troponin I < 0.012 ng/mL (0.01-0.034)
--- NOTE | 2022-03-13 14:57 | DI.RAD.S_ITS ---
PROCEDURE: XR FOOT LT MIN 3V INDICATIONS: pain TECHNIQUE: 3 views of the foot were acquired. COMPARISON: [facility], CR, XR FOOT 3+ VIEWS LEFT, 03/11/2022, 18:38. [facility], CR, XR FOOT LT MIN 3V, 02/22/2018, 12:17. FINDINGS: Bones: Fragmentation is seen involving the 5th metatarsal head. Generalized degenerative changes are seen, which are worst involving the Lisfranc joint. 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 Soft tissues: Distal soft tissue swelling is seen. IMPRESSION: Fragmentation is seen involving the 5th metatarsal head. Differential diagnosis includes subacute fracture or osteomyelitis. If there is strong suspicion for developing osteomyelitis, please consider a dedicated MRI without and with contrast for further evaluation (assuming that there is no contraindication to MRI). Distal soft tissue swelling is seen. Dictated by: Lamine Arredondo M.D. on 03/13/2022 at 15:43 Approved by: Lamine Arredondo M.D. on 03/13/2022 at 15:45
== END 2022-03-13 17:28 | disposition home or self-care (01) ==
PROVIDERS: Emergency Provider Nurse Practitioner Critical Care Medicine; Family Provider Nurse Practitioner Family; PCP Nurse Practitioner Family
DX: I82.512 Chronic embolism and thrombosis of left femoral vein (principal); R60.0 Localized edema
CPT/HCPCS: 36415; 71045; 71275; 73630; 80053; 82550; 83880; 84484; 85025; 85610; 93005; 93971; 99283; 99284; Q9967

== ENCOUNTER 2022-05-14 09:59 | Emergency (ER) | payer MEDICARE, SELFPAY ==
[2021-09-05 18:07] VITALS: BMI 28.1
[2022-05-14] VITALS (20 sets, daily range): BP systolic 91–135; BP diastolic 60–80; PULSE 84–112; RESP 15–25; TEMP 36.9; O2SAT 96–99; BMI 29.1
--- NOTE | 2022-05-14 10:46 | DI.MRI.S_ITS ---
PROCEDURE: MR LUMBAR SPINE WO CON INDICATIONS: Left leg weakness TECHNIQUE: Noncontrast sagittal T1 spin echo and T2 fast echo, sagittal STIR, and T2 fast spin echo through the lumbar spine. In cases with scoliosis, additional coronal T2 fast spin echo may be performed. COMPARISON: [facility], CR, XR LUMBAR SPINE 2 OR 3 VIEWS, 10/08/2021, 13:23. FINDINGS: Image quality: Excellent. Alignment and Curvature: Moderate levo rotatory curvature centered L1-L2. Mild retrolisthesis of T12 on L1. Bone Marrow: Marrow is of normal overall signal. No acute vertebral body compression fractures. Spinal Cord: Conus medullaris terminates at the top of L2 level. Visualized cord demonstrates normal signal and size. Paraspinous Soft Tissues: No paravertebral masses. T11-T12: Right facet hypertrophy. No canal stenosis. Moderate right foraminal narrowing. T12-L1: Bilateral facet hypertrophy. No canal stenosis. Altr-bb-fiyispxm left foraminal stenosis. L1-L2: Bilateral facet hypertrophy. No canal stenosis or significant foraminal stenosis. L2-L3: Bilateral facet hypertrophy. No canal stenosis or significant foraminal stenosis. L3-L4: Disc bulge. Facet hypertrophy. Moderate canal stenosis. Mild right foraminal stenosis and wnwk-yw-nfqadbvc left foraminal stenosis. L4-L5: Mild disc bulge. Facet hypertrophy. No significant canal stenosis. Mild right foraminal stenosis and wrce-ja-grfulclp left foraminal stenosis. L5-S1: Disc bulge. Facet hypertrophy. No canal stenosis. Gail-nf-djufrupi bilateral foraminal stenosis. IMPRESSION: 1. Moderate levo curvature centered at L1-L2. 2. Multilevel facet arthropathy. 3. Moderate canal stenosis at L3-L4. Dictated by: Demetrius Bermeo M.D. on 05/14/2022 at 15:11 Approved by: Demetrius Bermeo M.D. on 05/14/2022 at 15:20
--- NOTE | 2022-05-14 10:46 | DI.US.S_ITS ---
PROCEDURE: US PERIPH VENOUS LOW EXTREM LT INDICATIONS: PAIN TECHNIQUE: Real-time imaging, as well as color and pulse Doppler interrogation, were performed of the lower extremity deep veins from the inguinal ligament to the popliteal fossa. COMPARISON: [facility], , VENOUS LOWER EXTREMITY DOPPLER LEFT, 03/11/2022, 19:37. [facility], , US PERIP VENOUS LOW EXTREM LT, 03/13/2022, 13:39. FINDINGS: This study is limited by body habitus. Chronic appearing thrombus can be seen within the femoral vein and the popliteal vein. The femoral vein and the popliteal vein appear duplicated. 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 Dictated by: Lamine Arredondo M.D. on 05/14/2022 at 10:41 Approved by: Lamine Arredondo M.D. on 05/14/2022 at 10:43
--- NOTE | 2022-05-14 10:46 | DI.CT.S_ITS ---
PROCEDURE: CT PEL WO CON INDICATIONS: Left hip pain TECHNIQUE: Noncontrast 3 mm axial sections acquired through the bony pelvis, with coronal and sagittal reformatting. COMPARISON: [facility], CT, CT PEL WO CON, 09/06/2021, 16:35. FINDINGS: Image quality: Excellent. Bones: Remote ORIF of a trochanteric fracture of the left hip. Surgical hardware intact. No evidence of hardware failure or loosening. No periprosthetic fractures. No other fractures or dislocations noted. Soft tissues: Unremarkable IMPRESSION: Intact surgical hardware, left hip. No evidence acute fracture or dislocation. Dictated by: Demetrius Bermeo M.D. on 05/14/2022 at 11:23 Approved by: Demetrius eBrmeo M.D. on 05/14/2022 at 11:30
--- NOTE | 2022-05-14 10:52 | ED.EXTPRO ---
HPI - Extremity Problem General Chief complaint: Extremity Problem,Nontraumatic Stated complaint: LT leg pain/numbess Time Seen by Provider: 05/14/22 10:28 Mode of arrival: Family Vehicle History of Present Illness HPI Narrative: Patient here with daughter. History of atrial fibrillation as well as left hip fracture as well as L4 compression fracture, patient did have Watchman placed April 28, 2022 in [facility]. Patient is only on Plavix. Patient seen here March [address] scan chest and showed no PE. Patient had ultrasound the left lower extremity and showed chronic DVTs. Patient has had an eventful year. Patient was on blood thinners at intolerance to them but also had to life threatening events of GI bleed and was taken off blood thinners this year. Due to intolerance to anticoagulation cardiology decided for a Watchman to be placed. Patient has been doing well. However in transit from [facility] back home after the Watchman was placed, patient complained of increased left hip pain. No fall or injury. There has been bruising to the left gluteal area since then. Patient is essentially bed-bound. Is able to stand to transfer only. Otherwise is bed-bound and uses wheelchair for mobility. Denies denies any chest pain or dyspnea. Patient did see ortho spine provider back in September after she had a fall and found to have a L4 compression fracture. Recommendation was to have outpatient MRI but patient has not been able to get MRI done. Has had increased pain and numbness to the left lower extremity. Denies any back pain at this time. Denies any black or bloody stools. Nurse and daughter help for log roll patient. There is left supragluteal ecchymosis and intragluteal ecchymosis. There is lots of bruising on the thigh and leg as well. Patient did get physical therapy as well for her leg pain. Denies any chest pain or dyspnea. No palpitations. Related Data Home Medications Medication Instructions Recorded Confirmed citalopram 20 mg tablet 20 mg PO DAILY 12/23/17 09/05/21 calcium carbonate 500 mg calcium 1 tab PO DAILY 02/22/18 09/05/21 (1,250 mg) tablet multivitamin 2 tab PO DAILY 05/30/18 09/05/21 acetaminophen 325 mg tablet 325 mg PO PRN PRN pain 02/07/19 09/05/21 donepezil 5 mg tablet 5 mg PO QPM 02/07/19 09/05/21 levetiracetam 1,000 mg tablet 1,000 mg PO BID 09/07/21 09/07/21 (Keppra) melatonin 5 mg tablet 5 mg PO BEDTIME insommnia 09/07/21 09/07/21 omeprazole 20 mg capsule,delayed 20 mg PO DAILY 09/07/21 09/07/21 release Previous Rx's Medication Instructions Recorded oxycodone 5 mg tablet 5 mg PO Q4H PRN Pain, Moderate 06/20/18 (4-6) #15 tabs Allergies Allergy/AdvReac Type Severity Reaction Status Date / Time Sulfa (Sulfonamide Allergy Intermediate Hives Verified 05/14/22 10:12 Antibiotics) codeine [CODEINE] Allergy Mild nausea Verified 05/14/22 10:12 iodine [IODINE] Allergy Mild breaks out Verified 05/14/22 10:12 skin sulfamethoxazole Allergy Mild ITCHING Verified 05/14/22 10:12 [From Bactrim] trimethoprim [From Bactrim] Allergy Mild ITCHING Verified 05/14/22 10:12 warfarin AdvReac Mild Diarrhea Verified 05/14/22 10:12 Review of Systems Review of Systems Narrative: GENERAL: Denies chills, fatigue, malaise, fever, sweats. HEENT: Denies sinus pain, ear pain, sore throat RESPIRATORY: Denies dyspnea, cough CARDIOVASCULAR: Denies chest pain, palpitations GASTROINTESTINAL: Denies nausea, vomiting, abdominal pain : Denies dysuria, frequency, hematuria MUSCULOSKELETAL: Positive muscle or bony pain SKIN: Denies rash, skin lesions NEUROLOGIC: Denies weakness, positive numbness ROS Unobtainable: All systems reviewed & are unremarkable except as noted in HPI and below Patient History Medical History Anemia, iron deficiency Ankle fracture, right Arthritis of knee, left Blood clot in vein Bruises easily Cardiomegaly Cataract fragments in both eyes following surgery Cellulitis Closed fracture of right distal fibula (~12/2017) Cognitive impairment Depression Diarrhea DVT (deep venous thrombosis) Epilepsy GERD (gastroesophageal reflux disease) Hammer toe, acquired History of hip fracture History of prosthetic unicompartmental arthroplasty of both knees Hypertension Muscle weakness Nausea Osteoarthritis Pneumonia Postmenopausal Raynauds disease Scoliosis Spinal stenosis Thyroid nodule Surgical History History of hip surgery History of incision and drainage History of tonsillectomy and adenoidectomy Hx of elbow surgery Hx of total knee arthroplasty Status post unicompartmental knee replacement, left Family History Mother Hypertension Sister Cancer Social History household members: children Smoking Status: Former smoker alcohol intake: current Smoking Status: Former smoker alcohol intake frequency: a few times a month Substance Use Type: does not use Exam Narrative Exam Narrative: GENERAL: in no distress, not toxic not dyspneic HEAD: Normocephalic. EYES: Pupils equal round No scleral icterus. ENT: Mucous membranes moist. NECK: Trachea midline. CARDIOVASCULAR: Irregular irregular rate and rhythm RESPIRATORY: Clear to auscultation. Breath sounds equal bilaterally. No wheezes, rales, or rhonchi. GASTROINTESTINAL: Abdomen soft, non-tender EXTREMITIES: No gross deformities. Foot warm soft and pink bilaterally. Strong pedal pulse bilaterally. No calf tenderness bilaterally. Calves or grossly symmetric, no shortening or rotation of the left lower extremity BACK: No flank tenderness. No pain with left leg straight raise. Light touch intact to foot and toes. NEURO: AOx4. SKIN: Warm and dry, ecchymosis left supragluteal and intergluteal areas. There is ecchymosis to the left hip area as well as left leg. PSYCH: Not anxious, is cooperative Initial Vital Signs Initial Vital Signs: Vital Signs Pulse Rate 106 H 05/14/22 10:09 Pulse Oximetry 97 05/14/22 10:09 Course Course Course Narrative: No new issues during course of stay Orders Ordered: ED Orders 05/14/22 10:17 EKG-12 Lead Routine 05/14/22 10:46 CT pelvis wo con Stat MR lumbar spine wo con Stat US periph venous low extrem lt Stat 05/14/22 10:50 Complete Blood Count AUTO DIFF Stat Comprehensive Metabolic Panel Stat Lipase Stat Magnesium Stat PTT [Partial Thromboplastin Time] Stat Prothrombin Time INR Stat Troponin & CK Cardiac Panel Stat Reevaluation(s) Reevaluation #1: Spoke with patient and daughter results of images and laboratory studies. They do feel better finding these results. Symptoms are likely sciatica. Patient does have or the spine and physical therapy to follow up with. They will do sciatic nerve stretches. They will increase gabapentin 100 mg 3 times a day to 200 mg 3 times a day. Return precautions reviewed with them. They desire discharge home Time: 15:39 Vital Signs Vital signs: Vital Signs - 8 hr 05/14/22 10:10 05/14/22 10:09 05/14/22 10:10 Temperature 98.4 F Pulse Rate 104 H 106 H 105 H Respiratory Rate 16 Blood Pressure 134/78 Pulse Oximetry 97 97 97 Oxygen Delivery Method Room Air 05/14/22 10:10 05/14/22 10:25 05/14/22 10:25 Temperature Pulse Rate 112 H Respiratory Rate 20 Blood Pressure 134/78 123/80 Pulse Oximetry 99 Oxygen Delivery Method 05/14/22 10:30 05/14/22 10:40 05/14/22 10:40 Temperature Pulse Rate 105 H 111 H Respiratory Rate 20 21 Blood Pressure 135/66 Pulse Oximetry 96 97 Oxygen Delivery Method MDM - Extremity (Nontraumatic) Differential Diagnosis Differential diagnosis: Likely superficial thrombophlebitis, deep vein thrombosis of lower extremity and other (Hip fracture/pelvic fracture/lumbar radiculopathy/sciatica) Lab Data Result diagrams: 05/14/22 10:50 05/14/22 10:50 Labs: Lab Results 05/14/22 05/14/22 05/14/22 Range/Units 10:50 10:50 10:50 WBC 7.3 (4.5-11.0) X10^3/uL RBC 3.96 L (4.0-5.2) X10^6/uL Hgb 9.7 L (12.0-16.0) g/dL Hct 30.9 L (36-46) % MCV 78.0 L (80-100) fL MCH 24.4 L (26-34) PG MCHC 31.3 (30-36) % RDW 17.2 H (11.6-14.8) % Plt Count 307 (150-400) X10^3/uL Neut % (Auto) 67.9 (50-75) % Lymph % (Auto) 19.6 L (25-40) % Clay % (Auto) 7.7 (3-14) % Eos % (Auto) 3.4 (2-4) % Baso % (Auto) 1.4 (0-2) % Neut # (Auto) 4900 (5572-4893) /uL Lymph # (Auto) 1400 (3456-5412) /uL Clay # (Auto) 600 (0-900) /uL Eos # (Auto) 300 (0-450) /uL Baso # (Auto) 100 (0-100) /uL PT 12.4 (10.1-12.7) SECONDS INR 1.1 (0.9-1.3) APTT (26-36) SECONDS Sodium 139 (137-145) mmol/L Potassium 3.9 (3.4-5.1) mmol/L Chloride 106 (98-107) mmol/L Carbon Dioxide 26 (22-32) mmol/L BUN 15 (7-17) mg/dL Creatinine 0.84 (0.52-1.04) mg/dL Estimated GFR > 60 (>60) mL/min BUN/Creatinine Ratio 17.9 (6-22) Glucose 85 (80-110) mg/dL Calcium 8.6 (8.4-10.2) mg/dL Magnesium 1.9 (1.6-2.3) mg/dL Total Bilirubin 0.4 (0.2-1.3) mg/dL AST 20 (14-36) IU/L ALT 14 (<35) IU/L Alkaline Phosphatase 127 H (38-126) U/L Total Creatine Kinase 40 (30-135) U/L CK-MB (CK-2) TNP CK-MB (CK-2) Rel Index TNP Troponin I < 0.012 (0.01-0.034) ng/mL Total Protein 7.0 (6.3-8.2) g/dL Albumin 3.4 L (3.5-5.0) g/dL Globulin 3.6 (1.7-4.1) g/dL Albumin/Globulin Ratio 0.9 L (1.0-2.8) Lipase 74 (23-300) U/L 05/14/22 Range/Units 10:50 WBC (4.5-11.0) X10^3/uL RBC (4.0-5.2) X10^6/uL Hgb (12.0-16.0) g/dL Hct (36-46) % MCV (80-100) fL MCH (26-34) PG MCHC (30-36) % RDW (11.6-14.8) % Plt Count (150-400) X10^3/uL Neut % (Auto) (50-75) % Lymph % (Auto) (25-40) % Clay % (Auto) (3-14) % Eos % (Auto) (2-4) % Baso % (Auto) (0-2) % Neut # (Auto) (4420-8372) /uL Lymph # (Auto) (2560-2614) /uL Clay # (Auto) (0-900) /uL Eos # (Auto) (0-450) /uL Baso # (Auto) (0-100) /uL PT (10.1-12.7) SECONDS INR (0.9-1.3) APTT 25 L (26-36) SECONDS Sodium (137-145) mmol/L Potassium (3.4-5.1) mmol/L Chloride (98-107) mmol/L Carbon Dioxide (22-32) mmol/L BUN (7-17) mg/dL Creatinine (0.52-1.04) mg/dL Estimated GFR (>60) mL/min BUN/Creatinine Ratio (6-22) Glucose (80-110) mg/dL Calcium (8.4-10.2) mg/dL Magnesium (1.6-2.3) mg/dL Total Bilirubin (0.2-1.3) mg/dL AST (14-36) IU/L ALT (<35) IU/L Alkaline Phosphatase (38-126) U/L Total Creatine Kinase (30-135) U/L CK-MB (CK-2) CK-MB (CK-2) Rel Index Troponin I (0.01-0.034) ng/mL Total Protein (6.3-8.2) g/dL Albumin (3.5-5.0) g/dL Globulin (1.7-4.1) g/dL Albumin/Globulin Ratio (1.0-2.8) Lipase (23-300) U/L Imaging Data Extremity x-ray #1: Radiologist's Impression: [address] [address] [address] Scan Report Signed Patient: Nancy Valverde MR#: [id number] : 1935 Acct:[id number] Age/Sex: 86 / F Date of Service: 05/14/22 Loc: ED Accession Number: [id number] ?? Procedure: CT pelvis wo con Ordering Provider: Gwyn Uribe MD PROCEDURE:? CT PEL WO CON ? INDICATIONS:? Left hip pain ? TECHNIQUE:? Noncontrast 3 mm axial sections acquired through the bony pelvis, with coronal and sagittal reformatting.? ? COMPARISON:? [facility], [place], CT PEL WO CON, 09/06/2021, 16:35. ? FINDINGS:? Image quality:? Excellent.? ? Bones:? Remote ORIF of a trochanteric fracture of the left hip.? Surgical hardware intact.? No evidence of hardware failure or loosening.? No periprosthetic fractures.? No other fractures or dislocations noted. ? Soft tissues:? Unremarkable ? ? IMPRESSION:? Intact surgical hardware, left hip.? No evidence acute fracture or dislocation. ? Dictated by: Demetrius Bermeo M.D. on 05/14/2022 at 11:23 ? ? Approved by: Demetrius Bermeo M.D. on 05/14/2022 at 11:30 ? US - DVT: Radiologist's Impression: [place] [address] Ultrasound Report Signed Patient: Nancy Valverde MR#: [id number] : 1935 Acct:[id number] Age/Sex: 86 / F Date of Service: 05/14/22 Loc: ED Accession Number: [id number] ?? Procedure: US periph venous low extrem lt Ordering Provider: Gwyn Uribe MD PROCEDURE:? US PERIPH VENOUS LOW EXTREM LT ? INDICATIONS:? PAIN ? TECHNIQUE:? Real-time imaging, as well as color and pulse Doppler interrogation, were performed of the lower extremity deep veins from the inguinal ligament to the popliteal fossa.? ? COMPARISON:? [facility], US VENOUS LOWER EXTREMITY DOPPLER LEFT, 03/11/2022, 19:37.? [facility], US PERIPH VENOUS LOW EXTREM LT, 03/13/2022, 13:39. ? FINDINGS:? This study is limited by body habitus. ? Chronic appearing thrombus can be seen within the femoral vein and the popliteal vein.? The femoral vein and the popliteal vein appear duplicated. ? ? IMPRESSION:? Chronic appearing left lower extremity deep venous thrombus is seen, which is similar to the prior examination. ? ? Dictated by: Lamine Arredondo M.D. on 05/14/2022 at 10:41 ? ? Approved by: Lamine Arredondo M.D. on 05/14/2022 at 10:43 ? MRI lumbar spine: Radiologist's Impression: [address] [address] Magnetic Resonance Report Signed Patient: Nancy Valverde MR#: [id number] : 1935 Acct:[id number] Age/Sex: 86 / F Date of Service: 05/14/22 Loc: ED Accession Number: [id number] ?? Procedure: MR lumbar spine wo con Ordering Provider: Gwyn Uribe MD PROCEDURE:? MR LUMBAR SPINE WO CON ? INDICATIONS:? Left leg weakness ? TECHNIQUE:? Noncontrast sagittal T1 spin echo and T2 fast echo, sagittal STIR, and T2 fast spin echo through the lumbar spine.? In cases with scoliosis, additional coronal T2 fast spin echo may be performed.? ? COMPARISON:? [facility], [place], XR LUMBAR SPINE 2 OR 3 VIEWS, 10/08/2021, 13:23. ? FINDINGS:? Image quality:? Excellent.? ? Alignment and Curvature:? Moderate levo rotatory curvature centered L1-L2.? Mild retrolisthesis of T12 on L1. ? Bone Marrow:? Marrow is of normal overall signal.? No acute vertebral body compression fractures.? ? Spinal Cord:? Conus medullaris terminates at the top of L2 level.? Visualized cord demonstrates normal signal and size.? ? Paraspinous Soft Tissues:? No paravertebral masses.? ? T11-T12:? Right facet hypertrophy.? No canal stenosis.? Moderate right foraminal narrowing. ? T12-L1:? Bilateral facet hypertrophy.? No canal stenosis.? [id number] left foraminal stenosis. ? L1-L2:? Bilateral facet hypertrophy.? No canal stenosis or significant foraminal stenosis. ? L2-L3:? Bilateral facet hypertrophy.? No canal stenosis or significant foraminal stenosis. ? L3-L4:? Disc bulge.? Facet hypertrophy.? Moderate canal stenosis.? Mild right foraminal stenosis and [id number] left foraminal stenosis. ? L4-L5:? Mild disc bulge.? Facet hypertrophy.? No significant canal stenosis.? Mild right foraminal stenosis and [id number] left foraminal stenosis. ? L5-S1:? Disc bulge.? Facet hypertrophy.? No canal stenosis.? [id number]-[id number] bilateral foraminal stenosis. ? ? ? IMPRESSION:? ? 1. Moderate levo curvature centered at L1-L2. ? 2. Multilevel facet arthropathy. ? 3. Moderate canal stenosis at L3-L4.? ? ? Dictated by: Demetrius Bermeo M.D. on 05/14/2022 at 15:11 ? ? Approved by: Demetrius Bermeo M.D. on 05/14/2022 at 15:20 ? ECG Data Interpretation: Atrial fibrillation with RVR/rate 102 MDM Narrative Medical decision making narrative: Appropriate for discharge home. Exam and laboratory studies and imaging are reassuring. Patient symptoms today are likely sciatica/lumbar radiculopathy based on MRI findings. Otherwise ultrasound of the leg is unchanged with DVT. No chest or respiratory complaints. Patient does have or the spine to follow up with. Discharge Plan Departure Patient Disposition: Home Clinical Impression: Sciatica of left side Instructions: DI for Sciatica Activity Restrictions/Additional Instructions: See your family doctor as well as ortho spine provider within a week for re-evaluation and for physical therapy evaluation and treatment for sciatica. May increase your gabapentin as we discussed. Return if worse if any questions or concerns. Prescriptions: No Action calcium carbonate 500 mg calcium (1,250 mg) Tablet 1 tab PO DAILY donepezil 5 mg tablet 5 mg PO QPM acetaminophen 325 mg tablet 325 mg PO PRN PRN (Reason: pain) levetiracetam [Keppra] 1,000 mg Tablet 1,000 mg PO BID omeprazole 20 mg Capsule,Delayed Release(Dr/Ec) 20 mg PO DAILY melatonin 5 mg Tablet 5 mg PO BEDTIME citalopram 20 mg Tablet 20 mg PO DAILY multivitamin Tablet,Chewable 2 tab PO DAILY oxycodone 5 mg Tablet 5 mg PO Q4H PRN (Reason: Pain, Moderate (4-6)) Qty: 15 0RF Referrals: Мария Leone ARNP [Primary Care Provider] - Visit Report Forms: Patient Portal/API
[2022-05-14 11:04] LABS: Add Manual Diff / Slide Review NO; Basophils Absolute Auto 100 /uL (0-100); Basophils Percent Auto 1.4 % (0-2); Eosinophils Absolute Auto 300 /uL (0-450); Eosinophils Percent Auto 3.4 % (2-4); Hematocrit 30.9 % (36-46); Hemoglobin 9.7 g/dL (12.0-16.0); Lymphocytes Absolute Auto 1400 /uL (1100-4500); Lymphocytes Percent Auto 19.6 % (25-40); Mean Corpuscular HGB Conc 31.3 % (30-36); Mean Corpuscular Hemoglobin 24.4 PG (26-34); Monocytes Absolute Auto 600 /uL (0-900); Monocytes Percent Auto 7.7 % (3-14); Neutrophils Absolute Auto 4900 /uL (1500-7000); Neutrophils Percent Auto 67.9 % (50-75); Platelet Count 307 X10^3/uL (150-400); Red Blood Cell Count 3.96 X10^6/uL (4.0-5.2); Red Cell Distribution Width 17.2 % (11.6-14.8); White Blood Cell Count 7.3 X10^3/uL (4.5-11.0)
[2022-05-14 11:10] LABS: INR 1.1 (0.9-1.3); Prothrombin Time 12.4 SECONDS (10.1-12.7)
[2022-05-14 11:15] LABS: Alanine Aminotransferase 14 IU/L (<35); Albumin 3.4 g/dL (3.5-5.0); Albumin Globulin Ratio 0.9 (1.0-2.8); Alkaline Phosphatase 127 U/L (38-126); Aspartate Aminotransferase 20 IU/L (14-36); BUN Creatinine Ratio 17.9 (6-22); Bilirubin Total 0.4 mg/dL (0.2-1.3); Blood Urea Nitrogen 15 mg/dL (7-17); Calcium 8.6 mg/dL (8.4-10.2); Carbon Dioxide 26 mmol/L (22-32); Chloride 106 mmol/L (98-107); Creatine Kinase 40 U/L (30-135); Estimated Glomerular Filt Rate > 60 mL/min (>60); Globulin 3.6 g/dL (1.7-4.1); Glucose 85 mg/dL (80-110); HEMOLYSIS < 15 (0-50); Lipase 74 U/L (23-300); Magnesium 1.9 mg/dL (1.6-2.3); Potassium 3.9 mmol/L (3.4-5.1); Sodium 139 mmol/L (137-145)
[2022-05-14 11:26] LABS: Troponin I < 0.012 ng/mL (0.01-0.034)
[2022-05-14 12:40] LABS: PTT Partial Thromboplastin Tim 25 SECONDS (26-36)
--- NOTE | 2022-05-14 16:10 | PC.NURSE ---
Provided lyn-care prior to discharge, pt tolerated process well.
== END 2022-05-14 16:11 | disposition home or self-care (01) ==
PROVIDERS: Emergency Provider Emergency Medicine; Family Provider Nurse Practitioner Family; PCP Nurse Practitioner Family
DX: M54.32 Sciatica, left side (principal); I82.502 Chronic embolism and thrombosis of unspecified deep veins of left lower extremity; Z79.01 Long term (current) use of anticoagulants
CPT/HCPCS: 36415; 72148; 72192; 80053; 82550; 83690; 83735; 84484; 85025; 85610; 85730; 93005; 93971; 99283; 99284

== ENCOUNTER 2022-08-25 10:49 | Emergency (ER) | payer MEDICARE, SELFPAY ==
[2021-09-05 18:07] VITALS: BMI 28.1
[2022-08-25 11:35] VITALS: BP 125/76; PULSE 71; RESP 19; TEMP 36; O2SAT 95; BMI 29.9
[2022-08-25 14:00] VITALS: BP 125/70; PULSE 80; RESP 18; O2SAT 96
--- NOTE | 2022-08-25 17:00 | ED.FEMALEGU ---
HPI - Female Genitourinary <Hood Jackson PA-C - Last Filed: 08/25/22 20:02> General Chief complaint: Urogenital-Female Stated complaint: vaginal area is raw/pain T-7 Time Seen by Provider: 08/25/22 13:44 Source: patient and family Mode of arrival: Family Vehicle History of Present Illness HPI Narrative: 86-year-old female with presents to the ED with 5-7 days of raw and inflamed skin in the vagina and inner thighs. Patient is brought in by her daughter who states that patient just completed a course of antibiotics for a UTI. Denies fever, chills, chest pain, shortness of breath. Related Data Home Medications Medication Instructions Recorded Confirmed citalopram 20 mg tablet 20 mg PO DAILY 12/23/17 09/05/21 calcium carbonate 500 mg calcium 1 tab PO DAILY 02/22/18 09/05/21 (1,250 mg) tablet multivitamin 2 tab PO DAILY 05/30/18 09/05/21 acetaminophen 325 mg tablet 325 mg PO PRN PRN pain 02/07/19 09/05/21 donepezil 5 mg tablet 5 mg PO QPM 02/07/19 09/05/21 levetiracetam 1,000 mg tablet 1,000 mg PO BID 09/07/21 09/07/21 (Keppra) melatonin 5 mg tablet 5 mg PO BEDTIME insommnia 09/07/21 09/07/21 omeprazole 20 mg capsule,delayed 20 mg PO DAILY 09/07/21 09/07/21 release Previous Rx's Medication Instructions Recorded oxycodone 5 mg tablet 5 mg PO Q4H PRN Pain, Moderate 06/20/18 (4-6) #15 tabs fluconazole 150 mg tablet 150 mg PO Q3D 2 doses #2 tabs 08/25/22 Allergies Allergy/AdvReac Type Severity Reaction Status Date / Time Sulfa (Sulfonamide Allergy Intermediate Hives Verified 05/14/22 10:12 Antibiotics) codeine [CODEINE] Allergy Mild nausea Verified 05/14/22 10:12 iodine [IODINE] Allergy Mild breaks out Verified 05/14/22 10:12 skin sulfamethoxazole Allergy Mild ITCHING Verified 05/14/22 10:12 [From Bactrim] trimethoprim [From Bactrim] Allergy Mild ITCHING Verified 05/14/22 10:12 warfarin AdvReac Mild Diarrhea Verified 05/14/22 10:12 Review of Systems <Hood Jackson PA-C - Last Filed: 08/25/22 20:02> Review of Systems ROS Unobtainable: All systems reviewed & are unremarkable except as noted in HPI and below Constitutional Constitutional: Denies chills, Denies fatigue, Denies fever(s), Denies frequent falls, Denies lethargy and Denies weakness Eyes Eyes: Denies change in vision, Denies eye discharge, Denies irritation and Denies loss of vision ENT Ears, Nose, Mouth, and Throat: Denies change in voice, Denies dizziness, Denies neck pain, Denies sore throat and Denies throat swelling Cardiovascular Cardiovascular: Denies chest pain, Denies irregular heart rhythm, Denies lightheadedness, Denies palpitations, Denies dyspnea, Denies dyspnea on exertion and Denies orthopnea Respiratory Respiratory: Denies cough, Denies dyspnea, Denies dyspnea on exertion and Denies wheezing Gastrointestinal Gastrointestinal: Denies abdominal pain, Denies change in bowel habits, Denies diarrhea, Denies nausea and Denies vomiting Genitourinary Genitourinary: Denies hematuria, Denies flank pain, Denies urinary incontinence, Denies urinary urgency and Reports vaginal pruritus Comments: Vaginal irritation Musculoskeletal Musculoskeletal: Denies back pain, Denies muscle weakness, Denies neck pain, Denies numbness and Denies tingling Integumentary/Breasts Skin/Breast: Denies pruritus, Denies erythema, Denies rash and Denies wounds Neurologic Neurologic: Denies behavioral changes, Denies confusion, Denies dizziness, Denies frequent falls, Denies loss of vision, Denies numbness, Denies tingling and Denies weakness Psychiatric Psychiatric: Denies anxiety, Denies behavioral changes, Denies confusion, Denies depression, Denies homicidal ideation and Denies suicidal ideation Endocrine Endocrine: Denies fatigue, Denies flushing and Denies palpitations Hematologic/Lymphatic Hematologic/Lymphatic: Denies easy bruising Allergic/Immunologic Allergic/Immunologic: Denies urticaria, Denies throat swelling and Denies wheezing Patient History <Hood Jackson PA-C - Last Filed: 08/25/22 20:02> Medical History Anemia, iron deficiency Ankle fracture, right Arthritis of knee, left Blood clot in vein Bruises easily Cardiomegaly Cataract fragments in both eyes following surgery Cellulitis Closed fracture of right distal fibula (~12/2017) Cognitive impairment Depression Diarrhea DVT (deep venous thrombosis) Epilepsy GERD (gastroesophageal reflux disease) Hammer toe, acquired History of hip fracture History of prosthetic unicompartmental arthroplasty of both knees Hypertension Muscle weakness Nausea Osteoarthritis Pneumonia Postmenopausal Raynauds disease Scoliosis Spinal stenosis Thyroid nodule Surgical History History of hip surgery History of incision and drainage History of tonsillectomy and adenoidectomy Hx of elbow surgery Hx of total knee arthroplasty Status post unicompartmental knee replacement, left Family History Mother Hypertension Sister Cancer tobacco type: cigarettes alcohol intake frequency: 0-2 drinks per day Substance Use Type: does not use Exam <Hood Jackson PA-C - Last Filed: 08/25/22 20:02> Narrative Exam Narrative: Const General:?cooperative, healthy appearing and comfortable [facility] Head:?normal to inspection Ears:?hearing grossly normal bilaterally Nose:?external nose normal Face and sinus:?normal facial exam and sinuses nontender Mouth:?oral mucosae normal Throat:?posterior oropharynx normal Eyes General:?appearance normal, both eyes and all related structures Neck Neck:?normal visual inspection and no lymphadenopathy noted Resp Effort & Inspection:?normal respiratory effort Auscultation:?clear to auscultation bilaterally Cardio Rate:?regular rate Rhythm:?regular rhythm Genitourinary Vaginal irritation with erythema, inflamed skin, extending into bilateral inner thighs, consistent with a yeast infection Neuro General:?patient alert, patient awake and patient oriented x3 Initial Vital Signs Initial Vital Signs: Vital Signs Temperature 96.8 F L 08/25/22 11:35 Pulse Rate 71 08/25/22 11:35 Respiratory Rate 19 08/25/22 11:35 Blood Pressure 125/76 08/25/22 11:35 Pulse Oximetry 95 08/25/22 11:35 Oxygen Delivery Method 08/25/22 11:35 <Rob Nolan DO - Last Filed: 08/26/22 11:15> Initial Vital Signs Initial Vital Signs: Vital Signs Temperature 96.8 F L 08/25/22 11:35 Pulse Rate 71 08/25/22 11:35 Respiratory Rate 19 08/25/22 11:35 Blood Pressure 125/76 08/25/22 11:35 Pulse Oximetry 95 08/25/22 11:35 Oxygen Delivery Method 08/25/22 11:35 Course <Hood Jackson PA-C - Last Filed: 08/25/22 20:02> Vital Signs Vital signs: Vital Signs - 8 hr 08/25/22 14:00 Pulse Rate 80 Respiratory Rate 18 Blood Pressure 125/70 Pulse Oximetry 96 <Rob Nolan DO - Last Filed: 08/26/22 11:15> Vital Signs Vital signs: Vital Signs - 8 hr 08/25/22 14:00 Pulse Rate 80 Respiratory Rate 18 Blood Pressure 125/70 Pulse Oximetry 96 MDM - Female Genitourinary <Hood Jackson PA-C - Last Filed: 08/25/22 20:02> MDM Narrative Medical decision making narrative: 86-year-old female with presents to the ED with 5-7 days of raw and inflamed skin in the vagina and inner thighs. Physical exam is consistent with a vaginal yeast infection. Will prescribe fluconazole. Recommend PCP follow-up in a few days. ED return precautions were discussed with patient and patient's daughter. They verbalized understanding. Medical records reviewed:??yes ? Exam documented above, pertinent findings include:?erytrhematous, inflamed vaginal area and inner thigh ? Disposition: see below, along with detailed discharge instructions that have been reviewed with patient as well as indications for ED re-evaluation and additional outpatient follow up Discharge Plan Departure Patient Disposition: Home Clinical Impression: Yeast infection Instructions: DI for Vaginal Yeast Infection, DI for Yeast Infection-Skin Activity Restrictions/Additional Instructions: You were evaluated in the ED today for a vaginal rash. You have been diagnosed with a yeast infection, which is very common after a course of antibiotics. You are being prescribed fluconazole, which you will take the 1st dose today. If your symptoms do not completely resolve, you may repeat a dose in 3 days. Please follow-up with your PCP for further evaluation and treatment. Return to the ED if symptoms worsen, you experience chest pain, shortness of breath. Prescriptions: New fluconazole 150 mg tablet 150 mg PO Q3D Qty: 2 0RF Rx Instructions: may repeat second dose 72 hrs after first dose if symptoms persist No Action calcium carbonate 500 mg calcium (1,250 mg) Tablet 1 tab PO DAILY donepezil 5 mg tablet 5 mg PO QPM acetaminophen 325 mg tablet 325 mg PO PRN PRN (Reason: pain) levetiracetam [Keppra] 1,000 mg Tablet 1,000 mg PO BID omeprazole 20 mg Capsule,Delayed Release(Dr/Ec) 20 mg PO DAILY melatonin 5 mg Tablet 5 mg PO BEDTIME citalopram 20 mg Tablet 20 mg PO DAILY multivitamin Tablet,Chewable 2 tab PO DAILY oxycodone 5 mg Tablet 5 mg PO Q4H PRN (Reason: Pain, Moderate (4-6)) Qty: 15 0RF Referrals: Td Smith DO [Primary Care Provider] - Stand Alone Forms: Patient Portal/API <Rob Nolan DO - Last Filed: 08/26/22 11:15> Cosign ED Attending Roxanne Attestation: I was immediately available in the department for consultation. Documentation has been reviewed. I agree with assessment and plan.
== END 2022-08-25 14:07 | disposition home or self-care (01) ==
PROVIDERS: Emergency Provider Student in an Organized Health Care Education/Training Program; Family Provider Nurse Practitioner Family; PCP Internal Medicine
DX: B37.31 Acute candidiasis of vulva and vagina (principal)
CPT/HCPCS: 99281

== ENCOUNTER 2022-09-17 12:45 | Emergency (ER) | payer MEDICARE, SELFPAY ==
[2021-09-05 18:07] VITALS: BMI 28.1
[2022-09-17 12:55] VITALS: BP 141/81; PULSE 74; RESP 17; TEMP 36.8; O2SAT 98
--- NOTE | 2022-09-17 13:07 | DI.RAD.S_ITS ---
PROCEDURE: XR CHEST 1V INDICATIONS: altered mental status TECHNIQUE: One view of the chest was acquired. COMPARISON: [facility], CR, XR CHEST 1V, 03/13/2022, 12:54. FINDINGS: Surgical changes and devices: None. Lungs and pleura: Lungs are clear. No pleural effusions or pneumothorax. Mediastinum: Mediastinal contours appear normal. Heart size is normal. Bones and chest wall: No suspicious bony lesions. Overlying soft tissues appear unremarkable. IMPRESSION: No evidence acute pulmonary process. Dictated by: Demetrius Bermeo M.D. on 09/17/2022 at 14:53 Approved by: Demetrius Bermeo M.D. on 09/17/2022 at 15:01
--- NOTE | 2022-09-17 13:32 | ED.AMS ---
HPI - Altered Mental Status <Carmine Judge PA-C - Last Filed: 09/17/22 15:54> General Chief Complaint: Altered Mental Status Stated Complaint: UTI/weak/cold here on the 08/25 Time Seen by Provider: 09/17/22 13:18 Source: patient and family Mode of arrival: Wheelchair History of Present Illness HPI narrative: This is a 86-year-old female presents to the emergency department due to a 1 day history of increased confusion, worsening vaginal rash, and swelling in the legs. Patient's daughter gave most of the history. Patient's daughter states that these are the exact same symptoms that happened? every time she is a UTI? patient has recurrent history of UTIs. Patient was recently seen here about a month ago due to a vaginal fungal infection which she was prescribed fluconazole which improved the rash. Patient's symptoms just started yesterday causing her to come to the emergency department. Denies any chest pain, shortness of breath, or any other concerning signs or symptoms. Patient has baseline dementia but daughter states that her behaviors different than baseline stating that she goes ?in and out of it? Related Data Home Medications Medication Instructions Recorded Confirmed citalopram 20 mg tablet 20 mg PO DAILY 12/23/17 09/05/21 calcium carbonate 500 mg calcium 1 tab PO DAILY 02/22/18 09/05/21 (1,250 mg) tablet multivitamin 2 tab PO DAILY 05/30/18 09/05/21 acetaminophen 325 mg tablet 325 mg PO PRN PRN pain 02/07/19 09/05/21 donepezil 5 mg tablet 5 mg PO QPM 02/07/19 09/05/21 levetiracetam 1,000 mg tablet 1,000 mg PO BID 09/07/21 09/07/21 (Keppra) melatonin 5 mg tablet 5 mg PO BEDTIME insommnia 09/07/21 09/07/21 omeprazole 20 mg capsule,delayed 20 mg PO DAILY 09/07/21 09/07/21 release Previous Rx's Medication Instructions Recorded oxycodone 5 mg tablet 5 mg PO Q4H PRN Pain, Moderate 06/20/18 (4-6) #15 tabs fluconazole 150 mg tablet 150 mg PO Q3D 2 doses #2 tabs 08/25/22 clotrimazole 1 % topical cream 1 applic topical BID 4 weeks #45 09/17/22 grams terbinafine HCl 250 mg tablet 250 mg PO DAILY #14 tabs 09/17/22 Allergies Allergy/AdvReac Type Severity Reaction Status Date / Time Sulfa (Sulfonamide Allergy Intermediate Hives Verified 09/17/22 12:58 Antibiotics) codeine [CODEINE] Allergy Mild nausea Verified 09/17/22 12:58 iodine [IODINE] Allergy Mild breaks out Verified 09/17/22 12:58 skin sulfamethoxazole Allergy Mild ITCHING Verified 09/17/22 12:58 [From Bactrim] trimethoprim [From Bactrim] Allergy Mild ITCHING Verified 09/17/22 12:58 warfarin AdvReac Mild Diarrhea Verified 09/17/22 12:58 Review of Systems <Carmine Judge PA-C - Last Filed: 09/17/22 15:54> Review of Systems Narrative: GENERAL: Denies chills, fatigue, malaise, fever, sweats. HEENT: Denies sinus pain, ear pain, sore throat, difficulty swallowing, dizziness. RESPIRATORY: Denies dyspnea, cough, wheezing, hemoptysis, sputum. CARDIOVASCULAR: Denies chest pain, palpitations, orthopnea, edema, GASTROINTESTINAL: Denies nausea, vomiting, abdominal pain, diarrhea, constipation, melena. : Denies dysuria, frequency, incontinence, hematuria, urinary retention. MUSCULOSKELETAL: Reports swelling in lower extremities, denies weakness, joint pain, or bony pain SKIN: Reports vaginal rash NEUROLOGIC: Reports some confusion, different than baseline Denies weakness, headache, numbness, change in speech, , seizures, incoordination. PSYCHIATRIC: No concerning psychosocial issues. 12 point review of systems is negative except for those stated above Patient History <Carmine Judge PA-C - Last Filed: 09/17/22 15:54> Medical History Anemia, iron deficiency Ankle fracture, right Arthritis of knee, left Blood clot in vein Bruises easily Cardiomegaly Cataract fragments in both eyes following surgery Cellulitis Closed fracture of right distal fibula (~12/2017) Cognitive impairment Depression Diarrhea DVT (deep venous thrombosis) Epilepsy GERD (gastroesophageal reflux disease) Hammer toe, acquired History of hip fracture History of prosthetic unicompartmental arthroplasty of both knees Hypertension Muscle weakness Nausea Osteoarthritis Pneumonia Postmenopausal Raynauds disease Scoliosis Spinal stenosis Thyroid nodule Surgical History History of hip surgery History of incision and drainage History of tonsillectomy and adenoidectomy Hx of elbow surgery Hx of total knee arthroplasty Status post unicompartmental knee replacement, left Family History Mother Hypertension Sister Cancer Social History household members: children Smoking Status: Former smoker alcohol intake: current Smoking Status: Former smoker tobacco type: cigarettes alcohol intake frequency: 0-2 drinks per day Substance Use Type: does not use Exam <Carmine Judge PA-C - Last Filed: 09/17/22 15:54> Narrative Exam Narrative: GENERAL: Well-developed patient, in mild distress. Patient is oriented to person and place and event but is unsure of year which mother states is baseline. HEAD: Atraumatic. Normocephalic. EYES: Pupils equal round and reactive. Extraocular motions intact. No scleral icterus. No injection or drainage. ENT: Nose without bleeding, purulent drainage. Throat without erythema, tonsillar hypertrophy or exudate. Airway patent. NECK: Trachea midline. Non tender CARDIOVASCULAR: Regular rate and rhythm without murmurs, gallops, or rubs. RESPIRATORY: Clear to auscultation. Breath sounds equal bilaterally. No wheezes, rales, or rhonchi. GASTROINTESTINAL: Abdomen soft, non-tender, nondistended. EXTREMITIES: 1+ nonpitting edema to bilateral lower extremities, no or joint tenderness. BACK: Nontender without deformity or crepitance. No flank tenderness. NEURO: AOx3. Cranial nerves 2-12 intact SKIN: No rash or erythema of visible areas : Moderate amount of erythema on the labial folds as well as in the groin, no open lesions, no purulent drainage or masses, consistent with fungal infection Initial Vital Signs Initial Vital Signs: Vital Signs Temperature 98.2 F 09/17/22 12:55 Pulse Rate 74 09/17/22 12:55 Respiratory Rate 17 09/17/22 12:55 Blood Pressure 141/81 H 09/17/22 12:55 Pulse Oximetry 98 09/17/22 12:55 Oxygen Delivery Method 09/17/22 12:55 <Gwyn Uribe MD - Last Filed: 09/23/22 09:16> Initial Vital Signs Initial Vital Signs: Vital Signs Temperature 98.2 F 09/17/22 12:55 Pulse Rate 74 09/17/22 12:55 Respiratory Rate 17 09/17/22 12:55 Blood Pressure 141/81 H 09/17/22 12:55 Pulse Oximetry 98 09/17/22 12:55 Oxygen Delivery Method 09/17/22 12:55 Course <Carmine Judge PA-C - Last Filed: 09/17/22 15:54> Orders Ordered: ED Orders 09/17/22 13:07 XR chest 1V Stat Comprehensive Metabolic Panel Stat 09/17/22 13:22 EKG-12 Lead Stat 09/17/22 13:24 Complete Blood Count AUTO DIFF Stat 09/17/22 14:00 Urine Drug Screen, Rapid Stat 09/17/22 14:10 Urinalysis and Microscopic Stat 09/17/22 15:11 Urine Culture Stat Vital Signs Vital signs: Vital Signs - 8 hr 09/17/22 12:55 09/17/22 13:54 09/17/22 14:00 Temperature 98.2 F Pulse Rate 74 68 Respiratory Rate 17 Blood Pressure 141/81 H 130/76 Pulse Oximetry 98 94 Oxygen Delivery Method Room Air 09/17/22 14:00 09/17/22 14:30 09/17/22 14:30 Temperature Pulse Rate 71 68 Respiratory Rate Blood Pressure 147/70 H Pulse Oximetry 96 95 Oxygen Delivery Method Room Air 09/17/22 15:00 09/17/22 15:00 Temperature Pulse Rate 67 Respiratory Rate Blood Pressure 141/73 H Pulse Oximetry 97 Oxygen Delivery Method <Gwyn Uribe MD - Last Filed: 09/23/22 09:16> Orders Ordered: ED Orders 09/17/22 13:07 XR chest 1V Stat Comprehensive Metabolic Panel Stat 09/17/22 13:22 EKG-12 Lead Stat 09/17/22 13:24 Complete Blood Count AUTO DIFF Stat 09/17/22 14:00 Urine Drug Screen, Rapid Stat 09/17/22 14:10 Urinalysis and Microscopic Stat 09/17/22 15:11 Urine Culture Stat Vital Signs Vital signs: Vital Signs - 8 hr 09/17/22 12:55 09/17/22 13:54 09/17/22 14:00 Temperature 98.2 F Pulse Rate 74 68 Respiratory Rate 17 Blood Pressure 141/81 H 130/76 Pulse Oximetry 98 94 Oxygen Delivery Method Room Air 09/17/22 14:00 09/17/22 14:30 09/17/22 14:30 Temperature Pulse Rate 71 68 Respiratory Rate Blood Pressure 147/70 H Pulse Oximetry 96 95 Oxygen Delivery Method Room Air 09/17/22 15:00 09/17/22 15:00 Temperature Pulse Rate 67 Respiratory Rate Blood Pressure 141/73 H Pulse Oximetry 97 Oxygen Delivery Method MDM - Altered Mental Status <Carmine Judge PA-C - Last Filed: 09/17/22 15:54> Lab Data 09/17/22 13:24 09/17/22 13:07 Labs: Lab Results 09/17/22 09/17/22 09/17/22 Range/Units 13:07 13:24 13:24 WBC 7.9 (4.5-11.0) X10^3/uL RBC 4.27 (4.0-5.2) X10^6/uL Hgb 10.7 L (12.0-16.0) g/dL Hct 34.3 L (36-46) % MCV 80.4 (80-100) fL MCH 25.2 L (26-34) PG MCHC 31.3 (30-36) % RDW 26.9 H (11.6-14.8) % Plt Count 291 (150-400) X10^3/uL Neut % (Auto) 61.7 (50-75) % Lymph % (Auto) 25.5 (25-40) % [place] % (Auto) 9.3 (3-14) % Eos % (Auto) 2.3 (2-4) % Baso % (Auto) 1.2 (0-2) % Neut # (Auto) 4900 (0430-9580) /uL Lymph # (Auto) 2000 (9121-9872) /uL [place] # (Auto) 700 (0-900) /uL Eos # (Auto) 200 (0-450) /uL Baso # (Auto) 100 (0-100) /uL RBC Morphology Not Reportable Anisocytosis 1+ H Sodium 138 (137-145) mmol/L Potassium 4.3 (3.4-5.1) mmol/L Chloride 105 (98-107) mmol/L Carbon Dioxide 23 (22-32) mmol/L BUN 14 (7-17) mg/dL Creatinine 0.64 (0.52-1.04) mg/dL Estimated GFR > 60 (>60) mL/min BUN/Creatinine Ratio 21.9 (6-22) Glucose 77 L (80-110) mg/dL Calcium 8.4 (8.4-10.2) mg/dL Total Bilirubin 0.3 (0.2-1.3) mg/dL AST 29 (14-36) IU/L ALT 21 (<35) IU/L Alkaline Phosphatase 119 (38-126) U/L Ammonia Cancelled Total Protein 7.2 (6.3-8.2) g/dL Albumin 3.6 (3.5-5.0) g/dL Globulin 3.6 (1.7-4.1) g/dL Albumin/Globulin Ratio 1.0 (1.0-2.8) Urine Color Urine Appearance Urine pH (4.5-8.0) Ur Specific [place] (1.000-1.035) Urine Protein (Negative) Urine Glucose (UA) (Negative) g/dL Urine Ketones (NEGATIVE) Urine Occult Blood (Negative) Urine Nitrate (Negative) Urine Bilirubin (NEGATIVE) Urine Urobilinogen (0.2) E.U./dL Ur Leukocyte Esterase (NEGATIVE) Urine RBC (0-5/HPF) Urine WBC (0-5/HPF) Amorphous Sediment Urine Bacteria (None) Ur Culture Indicated? U Opiates 300ng/mL cut (Negative) Ur Oxycodone Screen (Negative) Urine Methadone Screen (Negative) Ur Barbiturates Screen (Negative) U Tricyclic Antidepress (Negative) Ur Phencyclidine Scrn (Negative) Ur Amphetamines Screen (Negative) U Methamphetamines Scrn (Negative) Ur MDMA Scrn (Ecstasy) (Negative) U Benzodiazepines Scrn (Negative) Urine Cocaine Screen (Negative) U Marijuana (THC) Screen (Negative) 09/17/22 09/17/22 Range/Units 14:00 14:10 WBC (4.5-11.0) X10^3/uL RBC (4.0-5.2) X10^6/uL Hgb (12.0-16.0) g/dL Hct (36-46) % MCV (80-100) fL MCH (26-34) PG MCHC (30-36) % RDW (11.6-14.8) % Plt Count (150-400) X10^3/uL Neut % (Auto) (50-75) % Lymph % (Auto) (25-40) % [place] % (Auto) (3-14) % Eos % (Auto) (2-4) % Baso % (Auto) (0-2) % Neut # (Auto) (2199-8696) /uL Lymph # (Auto) (7416-3661) /uL [place] # (Auto) (0-900) /uL Eos # (Auto) (0-450) /uL Baso # (Auto) (0-100) /uL RBC Morphology Anisocytosis Sodium (137-145) mmol/L Potassium (3.4-5.1) mmol/L Chloride (98-107) mmol/L Carbon Dioxide (22-32) mmol/L BUN (7-17) mg/dL Creatinine (0.52-1.04) mg/dL Estimated GFR (>60) mL/min BUN/Creatinine Ratio (6-22) Glucose (80-110) mg/dL Calcium (8.4-10.2) mg/dL Total Bilirubin (0.2-1.3) mg/dL AST (14-36) IU/L ALT (<35) IU/L Alkaline Phosphatase (38-126) U/L Ammonia Total Protein (6.3-8.2) g/dL Albumin (3.5-5.0) g/dL Globulin (1.7-4.1) g/dL Albumin/Globulin Ratio (1.0-2.8) Urine Color Yellow Urine Appearance Clear Urine pH 5.5 (4.5-8.0) Ur Specific [place] 1.025 (1.000-1.035) Urine Protein Negative (Negative) Urine Glucose (UA) Negative (Negative) g/dL Urine Ketones Negative (NEGATIVE) Urine Occult Blood Trace-intact (Negative) Urine Nitrate Negative (Negative) Urine Bilirubin Negative (NEGATIVE) Urine Urobilinogen 0.2 (0.2) E.U./dL Ur Leukocyte Esterase Negative (NEGATIVE) Urine RBC 0-1/hpf (0-5/HPF) Urine WBC None seen (0-5/HPF) Amorphous Sediment 1+ Urine Bacteria None seen (None) Ur Culture Indicated? Cult not indicated U Opiates 300ng/mL cut Negative (Negative) Ur Oxycodone Screen Negative (Negative) Urine Methadone Screen Negative (Negative) Ur Barbiturates Screen Negative (Negative) U Tricyclic Antidepress Negative (Negative) Ur Phencyclidine Scrn Negative (Negative) Ur Amphetamines Screen Negative (Negative) U Methamphetamines Scrn Negative (Negative) Ur MDMA Scrn (Ecstasy) Negative (Negative) U Benzodiazepines Scrn Negative (Negative) Urine Cocaine Screen Negative (Negative) U Marijuana (THC) Screen Negative (Negative) Imaging Data Chest x-ray: Radiologist's Impression: [address] [address] XRay Report Signed Patient: Nancy Valverde MR#: [id number] : 1935 Acct:[id number] Age/Sex: 86 / F Date of Service: 09/17/22 Loc: ED Accession Number: [id number] ?? Procedure: XR chest 1V Ordering Provider: Gwyn Uribe MD PROCEDURE:? XR CHEST 1V ? INDICATIONS:? altered mental status ? TECHNIQUE:? One view of the chest was acquired.? ? COMPARISON:? [facility], CR, XR CHEST 1V, 03/13/2022, 12:54. ? FINDINGS:? ? Surgical changes and devices:? None.? ? Lungs and pleura:? Lungs are clear.? No pleural effusions or pneumothorax.? ? Mediastinum:? Mediastinal contours appear normal.? Heart size is normal.? ? Bones and chest wall:? No suspicious bony lesions.? Overlying soft tissues appear unremarkable.? ? IMPRESSION:? No evidence acute pulmonary process. ? ? ? Dictated by: Demetrius Bermeo M.D. on 09/17/2022 at 14:53 ? ? Approved by: Demetrius Bermeo M.D. on 09/17/2022 at 15:01 ? ECG Data Interpretation: 1322 EKG is normal sinus rhythm rate 79 and free of any signs of ischemia or ectopy. No ST segmental elevation or depression. No T wave inversions MDM Narrative Medical decision making narrative: MDM * differential diagnosis includes but not limited to UTI, tinea cruris, dementia * Prior records reviewed: Records reviewed which showed patient was here about a month ago where she received oral fluconazole for yeast infection. * My lab interpretation: Labwork was unremarkable other than mild anemia which appears chronic * My imgaing interpretation: Chest x-ray unremarkable * Clinical Decision Rules/Scores evaluated: None * Independent discussions with: None ED Course: This is an 86-year-old female presents to the emergency department due to vague reports of increased confusion, lower extremity edema, and worsening fungal infection. Patient was prescribed fluconazole during a previous visit to the emergency department. We will attempt a topical antifungal as well as an oral antifungal treat this. Patient's daughter rubs concern for urinary tract infection urine appeared unremarkable without any signs of infection but will be sent for culture. Please treat with antibiotics if indicated. Patient did not describe having any UTI symptoms. Chest x-ray unremarkable no evidence of any kind of fluid in the lungs and lower extremity edema and physical exam was very minimal and nonpitting. Recommend she follow up with primary care doctor for further evaluation of this. Patient had a completely normal neuro exam and showed no focal deficits concerning for any kind of CVA. No CT head ordered. Shared Decision Making: Patient's daughter comfortable with plan for discharge Social Considerations: None Disposition: Discharged to home <Gwyn Uribe MD - Last Filed: 09/23/22 09:16> Lab Data Labs: Lab Results 09/17/22 09/17/22 09/17/22 Range/Units 13:07 13:24 13:24 WBC 7.9 (4.5-11.0) X10^3/uL RBC 4.27 (4.0-5.2) X10^6/uL Hgb 10.7 L (12.0-16.0) g/dL Hct 34.3 L (36-46) % MCV 80.4 (80-100) fL MCH 25.2 L (26-34) PG MCHC 31.3 (30-36) % RDW 26.9 H (11.6-14.8) % Plt Count 291 (150-400) X10^3/uL Neut % (Auto) 61.7 (50-75) % Lymph % (Auto) 25.5 (25-40) % [place] % (Auto) 9.3 (3-14) % Eos % (Auto) 2.3 (2-4) % Baso % (Auto) 1.2 (0-2) % Neut # (Auto) 4900 (1332-9876) /uL Lymph # (Auto) 2000 (7400-7041) /uL [place] # (Auto) 700 (0-900) /uL Eos # (Auto) 200 (0-450) /uL Baso # (Auto) 100 (0-100) /uL RBC Morphology Not Reportable Anisocytosis 1+ H Sodium 138 (137-145) mmol/L Potassium 4.3 (3.4-5.1) mmol/L Chloride 105 (98-107) mmol/L Carbon Dioxide 23 (22-32) mmol/L BUN 14 (7-17) mg/dL Creatinine 0.64 (0.52-1.04) mg/dL Estimated GFR > 60 (>60) mL/min BUN/Creatinine Ratio 21.9 (6-22) Glucose 77 L (80-110) mg/dL Calcium 8.4 (8.4-10.2) mg/dL Total Bilirubin 0.3 (0.2-1.3) mg/dL AST 29 (14-36) IU/L ALT 21 (<35) IU/L Alkaline Phosphatase 119 (38-126) U/L Ammonia Cancelled Total Protein 7.2 (6.3-8.2) g/dL Albumin 3.6 (3.5-5.0) g/dL Globulin 3.6 (1.7-4.1) g/dL Albumin/Globulin Ratio 1.0 (1.0-2.8) Urine Color Urine Appearance Urine pH (4.5-8.0) Ur Specific [place] (1.000-1.035) Urine Protein (Negative) Urine Glucose (UA) (Negative) g/dL Urine Ketones (NEGATIVE) Urine Occult Blood (Negative) Urine Nitrate (Negative) Urine Bilirubin (NEGATIVE) Urine Urobilinogen (0.2) E.U./dL Ur Leukocyte Esterase (NEGATIVE) Urine RBC (0-5/HPF) Urine WBC (0-5/HPF) Amorphous Sediment Urine Bacteria (None) Ur Culture Indicated? U Opiates 300ng/mL cut (Negative) Ur Oxycodone Screen (Negative) Urine Methadone Screen (Negative) Ur Barbiturates Screen (Negative) U Tricyclic Antidepress (Negative) Ur Phencyclidine Scrn (Negative) Ur Amphetamines Screen (Negative) U Methamphetamines Scrn (Negative) Ur MDMA Scrn (Ecstasy) (Negative) U Benzodiazepines Scrn (Negative) Urine Cocaine Screen (Negative) U Marijuana (THC) Screen (Negative) 09/17/22 09/17/22 Range/Units 14:00 14:10 WBC (4.5-11.0) X10^3/uL RBC (4.0-5.2) X10^6/uL Hgb (12.0-16.0) g/dL Hct (36-46) % MCV (80-100) fL MCH (26-34) PG MCHC (30-36) % RDW (11.6-14.8) % Plt Count (150-400) X10^3/uL Neut % (Auto) (50-75) % Lymph % (Auto) (25-40) % [place] % (Auto) (3-14) % Eos % (Auto) (2-4) % Baso % (Auto) (0-2) % Neut # (Auto) (1546-4841) /uL Lymph # (Auto) (4022-3283) /uL [place] # (Auto) (0-900) /uL Eos # (Auto) (0-450) /uL Baso # (Auto) (0-100) /uL RBC Morphology Anisocytosis Sodium (137-145) mmol/L Potassium (3.4-5.1) mmol/L Chloride (98-107) mmol/L Carbon Dioxide (22-32) mmol/L BUN (7-17) mg/dL Creatinine (0.52-1.04) mg/dL Estimated GFR (>60) mL/min BUN/Creatinine Ratio (6-22) Glucose (80-110) mg/dL Calcium (8.4-10.2) mg/dL Total Bilirubin (0.2-1.3) mg/dL AST (14-36) IU/L ALT (<35) IU/L Alkaline Phosphatase (38-126) U/L Ammonia Total Protein (6.3-8.2) g/dL Albumin (3.5-5.0) g/dL Globulin (1.7-4.1) g/dL Albumin/Globulin Ratio (1.0-2.8) Urine Color Yellow Urine Appearance Clear Urine pH 5.5 (4.5-8.0) Ur Specific [place] 1.025 (1.000-1.035) Urine Protein Negative (Negative) Urine Glucose (UA) Negative (Negative) g/dL Urine Ketones Negative (NEGATIVE) Urine Occult Blood Trace-intact (Negative) Urine Nitrate Negative (Negative) Urine Bilirubin Negative (NEGATIVE) Urine Urobilinogen 0.2 (0.2) E.U./dL Ur Leukocyte Esterase Negative (NEGATIVE) Urine RBC 0-1/hpf (0-5/HPF) Urine WBC None seen (0-5/HPF) Amorphous Sediment 1+ Urine Bacteria None seen (None) Ur Culture Indicated? Cult not indicated U Opiates 300ng/mL cut Negative (Negative) Ur Oxycodone Screen Negative (Negative) Urine Methadone Screen Negative (Negative) Ur Barbiturates Screen Negative (Negative) U Tricyclic Antidepress Negative (Negative) Ur Phencyclidine Scrn Negative (Negative) Ur Amphetamines Screen Negative (Negative) U Methamphetamines Scrn Negative (Negative) Ur MDMA Scrn (Ecstasy) Negative (Negative) U Benzodiazepines Scrn Negative (Negative) Urine Cocaine Screen Negative (Negative) U Marijuana (THC) Screen Negative (Negative) Discharge Plan Departure Patient Disposition: Home Clinical Impression: Tinea cruris Instructions: DI for Jock Itch Activity Restrictions/Additional Instructions: Thank you for coming to the [facility] Emergency Department today. As discussed the urinalysis shows no evidence of UTI but we will send for culture in the case that it is growing something. You will be called if any treatment is needed regarding the culture results. We will treat the fungal infection with a topical antifungal as well as an oral antifungal as experienced to be somewhat extensive. Please use most both the medications as prescribed. The lab work was essentially unremarkable. EKG showed no evidence of any kind of heart abnormality. Chest x-ray was negative for any kind pneumonia. Please have her follow up with the primary care provider regarding the lower extremity swelling. At this time I have low concern for any kind of stroke as her neurologic exam was non concerning. I hope you feel better soon. Prescriptions: New clotrimazole 1 % cream 1 applic topical BID 28 Days Qty: 45 0RF terbinafine HCl 250 mg tablet 250 mg PO DAILY Qty: 14 0RF No Action calcium carbonate 500 mg calcium (1,250 mg) Tablet 1 tab PO DAILY donepezil 5 mg tablet 5 mg PO QPM acetaminophen 325 mg tablet 325 mg PO PRN PRN (Reason: pain) levetiracetam [Keppra] 1,000 mg Tablet 1,000 mg PO BID omeprazole 20 mg Capsule,Delayed Release(Dr/Ec) 20 mg PO DAILY melatonin 5 mg Tablet 5 mg PO BEDTIME citalopram 20 mg Tablet 20 mg PO DAILY multivitamin Tablet,Chewable 2 tab PO DAILY oxycodone 5 mg Tablet 5 mg PO Q4H PRN (Reason: Pain, Moderate (4-6)) Qty: 15 0RF fluconazole 150 mg tablet 150 mg PO Q3D Qty: 2 0RF Rx Instructions: may repeat second dose 72 hrs after first dose if symptoms persist Referrals: Td Smith, DO [Primary Care Provider] - Stand Alone Forms: Patient Portal/API <Gwyn Uribe MD - Last Filed: 09/23/22 09:16> Cosign ED Attending Cosignature Attestation: I was immediately available in the department for consultation. ?This documentation has been reviewed and I agree with assessment and plan. Supervised by Gwyn Uribe MD
[2022-09-17 13:38] LABS: Add Manual Diff / Slide Review NO; Basophils Absolute Auto 100 /uL (0-100); Basophils Percent Auto 1.2 % (0-2); Eosinophils Absolute Auto 200 /uL (0-450); Eosinophils Percent Auto 2.3 % (2-4); Hematocrit 34.3 % (36-46); Hemoglobin 10.7 g/dL (12.0-16.0); Lymphocytes Absolute Auto 2000 /uL (1100-4500); Lymphocytes Percent Auto 25.5 % (25-40); Mean Corpuscular HGB Conc 31.3 % (30-36); Mean Corpuscular Hemoglobin 25.2 PG (26-34); Mean Corpuscular Volume 80.4 fL (80-100); Monocytes Absolute Auto 700 /uL (0-900); Monocytes Percent Auto 9.3 % (3-14); Neutrophils Absolute Auto 4900 /uL (1500-7000); Neutrophils Percent Auto 61.7 % (50-75); Platelet Count 291 X10^3/uL (150-400); Red Blood Cell Count 4.27 X10^6/uL (4.0-5.2); Red Cell Distribution Width 26.9 % (11.6-14.8); White Blood Cell Count 7.9 X10^3/uL (4.5-11.0)
[2022-09-17 13:47] LABS: Anisocytosis 1+
[2022-09-17 13:54] VITALS: PULSE 68; O2SAT 94
[2022-09-17 14:00] VITALS: BP 130/76; PULSE 71; O2SAT 96
[2022-09-17 14:16] LABS: Alanine Aminotransferase 21 IU/L (<35); Albumin 3.6 g/dL (3.5-5.0); Alkaline Phosphatase 119 U/L (38-126); Aspartate Aminotransferase 29 IU/L (14-36); BUN Creatinine Ratio 21.9 (6-22); Bilirubin Total 0.3 mg/dL (0.2-1.3); Blood Urea Nitrogen 14 mg/dL (7-17); Calcium 8.4 mg/dL (8.4-10.2); Carbon Dioxide 23 mmol/L (22-32); Chloride 105 mmol/L (98-107); Estimated Glomerular Filt Rate > 60 mL/min (>60); Globulin 3.6 g/dL (1.7-4.1); Glucose 77 mg/dL (80-110); HEMOLYSIS < 15 (0-50); Potassium 4.3 mmol/L (3.4-5.1); Sodium 138 mmol/L (137-145); Total Protein 7.2 g/dL (6.3-8.2)
[2022-09-17 14:19] LABS: Appearance Urine UA CLEAR; Bilirubin Urine UA NEGATIVE (NEGATIVE); Color Urine UA YELLOW; Glucose Urine UA NEGATIVE (Negative); Ketones Urine UA NEGATIVE (NEGATIVE); Leukocyte Esterase Urine UA NEGATIVE (NEGATIVE); Nitrite Urine UA NEGATIVE (Negative); Occult Blood Urine UA TRACE-INTACT (Negative); Protein Urine UA NEGATIVE (Negative); Specific Gravity Urine UA 1.025 (1.000-1.035); Urobilinogen Urine UA 0.2 E.U./dL (0.2)
--- NOTE | 2022-09-17 14:19 | PC.NURSE ---
Addendum entered by Ghislaine Chaney R.N. 09/17/22 14:20: Pt is incontinent at baseline and typically wears a brief. Pt sat on toilet x2 in attempt to give urine sample, unable to provide. Original Note: Daughter (Caregiver) reports ongoing yeast infection in genital area. During catheterization, excoriation around groin noted, also light bleeding on labia minora. Pt reports tenderness to touch. Tolerated straight cath well.
[2022-09-17 14:22] LABS: pH Urine UA 5.5 (4.5-8.0)
[2022-09-17 14:26] LABS: Amorphous Sediment Urine 1+; Bacteria Urine None Seen; Culture Indicated Urine Cult Not Indicated; RBC Urine 0-1/HPF (0-5/HPF); WBC Urine None Seen (0-5/HPF)
[2022-09-17 14:30] VITALS: BP 147/70; PULSE 68; O2SAT 95
[2022-09-17 14:47] LABS: UR Morphine/Opiate cutoff 300 Negative (Negative); Ur Creatinine Normal (Normal); Ur Specific Gravity Normal (Normal); Urine Amphetamines Negative (Negative); Urine Barbiturates Negative (Negative); Urine Benzodiazepines Negative (Negative); Urine Cocaine Negative (Negative); Urine MDMA Negative (Negative); Urine Methadone Negative (Negative); Urine Methamphetamines Negative (Negative); Urine Oxycodone Negative (Negative); Urine Phencyclidine Negative (Negative); Urine Tetrahydrocannabinol Negative (Negative); Urine Tricyclic Antidepressant Negative (Negative); Urine pH Normal (Normal)
[2022-09-17 15:00] VITALS: BP 141/73; PULSE 67; O2SAT 97
== END 2022-09-17 16:00 | disposition home or self-care (01) ==
PROVIDERS: Emergency Medicine; Emergency Provider Physician Assistant Medical; Family Provider Nurse Practitioner Family; PCP Internal Medicine
DX: B35.6 Tinea cruris (principal); R41.82 Altered mental status, unspecified
CPT/HCPCS: 36415; 51701; 71045; 80053; 80305; 81001; 85025; 87086; 93005; 99284

== ENCOUNTER 2022-12-17 09:34 | Emergency (ER) | payer MEDICARE, SELFPAY ==
[2021-09-05 18:07] VITALS: BMI 28.1
[2022-12-17 09:48] VITALS: BP 126/82; PULSE 74; RESP 15; TEMP 36.6; O2SAT 97; BMI 29.9
== END 2022-12-17 11:43 | disposition left against medical advice (07) ==
PROVIDERS: Emergency Provider Emergency Medicine; Family Provider Nurse Practitioner Family; PCP Internal Medicine
DX: M25.552 Pain in left hip (principal)
CPT/HCPCS: 99281

== ENCOUNTER → 2024-05-09 13:38 | Outpatient (CLI) | payer MEDICARE, SELFPAY ==
[2021-09-05 18:07] VITALS: BMI 28.1
[2024-05-09 14:24] LABS: Add Manual Diff / Slide Review NO; Basophils Absolute Auto 100 /uL (0-100); Basophils Percent Auto 1.1 % (0-2); Eosinophils Absolute Auto 200 /uL (0-450); Eosinophils Percent Auto 2.7 % (2-4); Hematocrit 39.9 % (36-46); Hemoglobin 13.3 g/dL (12.0-16.0); Lymphocytes Absolute Auto 1700 /uL (1100-4500); Lymphocytes Percent Auto 22.2 % (25-40); Mean Corpuscular HGB Conc 33.4 % (30-36); Mean Corpuscular Hemoglobin 31.1 PG (26-34); Monocytes Absolute Auto 600 /uL (0-900); Monocytes Percent Auto 7.8 % (3-14); Neutrophils Absolute Auto 5100 /uL (1500-7000); Neutrophils Percent Auto 66.2 % (50-75); Platelet Count 260 X10^3/uL (150-400); Red Blood Cell Count 4.29 X10^6/uL (4.0-5.2); Red Cell Distribution Width 13.3 % (11.6-14.8); White Blood Cell Count 7.8 X10^3/uL (4.5-11.0)
[2024-05-09 14:36] LABS: Alanine Aminotransferase 19 IU/L (<35); Albumin 3.3 g/dL (3.5-5.0); Alkaline Phosphatase 110 U/L (38-126); Aspartate Aminotransferase 23 IU/L (14-36); BUN Creatinine Ratio 23.7 (6-22); Bilirubin Total 0.4 mg/dL (0.2-1.3); Blood Urea Nitrogen 18 mg/dL (7-17); Calcium 9.3 mg/dL (8.4-10.2); Carbon Dioxide 27 mmol/L (22-32); Chloride 104 mmol/L (98-107); Estimated Glomerular Filt Rate > 60 mL/min (>60); Globulin 3.3 g/dL (1.7-4.1); Glucose 84 mg/dL (80-110); HEMOLYSIS < 15 (0-50); Potassium 4.2 mmol/L (3.4-5.1); Sodium 137 mmol/L (137-145); Total Protein 6.6 g/dL (6.3-8.2)
== END ==
PROVIDERS: Family Provider Nurse Practitioner Family; PCP Family Medicine; Referring Provider Family Medicine; Visit Provider Family Medicine
DX: I82.532 Chronic embolism and thrombosis of left popliteal vein (principal); G40.909 Epilepsy, unspecified, not intractable, without status epilepticus
CPT/HCPCS: 36415; 80053; 85025

== ENCOUNTER → 2024-05-22 11:30 | Outpatient (CLI) | payer MEDICARE, SELFPAY ==
[2021-09-05 18:07] VITALS: BMI 28.1
[2024-05-22 15:05] LABS: Influenza A - CEPHEID Flu A NEGATIVE (NEGATIVE); Influenza B - CEPHEID Flu B NEGATIVE (NEGATIVE)
[2024-05-22 15:13] LABS: COVID-19 CEPHEID 4-PLEX PCR Negative (Negative)
== END ==
PROVIDERS: Family Provider Nurse Practitioner Family; PCP Family Medicine; Visit Provider Family Medicine
DX: J06.9 Acute upper respiratory infection, unspecified (principal)
CPT/HCPCS: 0240U

== ENCOUNTER 2024-11-11 22:16 | Inpatient (IN) | payer MEDICARE, MEDICAID, SELFPAY ==
[2021-09-05 18:07] VITALS: BMI 28.1
[2024-11-11] VITALS (7 sets, daily range): BP systolic 85–106; BP diastolic 51–65; PULSE 81–95; RESP 16–18; TEMP 36.7; O2SAT 94–96; BMI 31.9
--- NOTE | 2024-11-11 22:32 | DI.RAD.S_ITS ---
PROCEDURE: XR CHEST 1V INDICATIONS: chest pain TECHNIQUE: One view of the chest was acquired. COMPARISON: [facility], CR, XR CHEST 1 VIEW, 04/01/2024, 12:26. [facility], CR, XR CHEST 1 VIEW, 02/05/2024, 19:53. [facility], CR, XR CHEST 1V, 09/17/2022, 13:24. FINDINGS: Surgical changes and devices: None. Lungs and pleura: Lungs are clear. No pleural effusions or pneumothorax. Mediastinum: The cardiac contours are within normal limits. The aorta demonstrates calcification and tortuosity. Bones and chest wall: No suspicious bony lesions. Age-appropriate bony degenerative changes are seen. Overlying soft tissues appear unremarkable. IMPRESSION: No acute cardiopulmonary abnormality is seen. Dictated by: Lamine Arredondo M.D. on 11/11/2024 at 21:53 Approved by: Lamine Arredondo M.D. on 11/11/2024 at 21:54
--- NOTE | 2024-11-11 22:38 | EKG_ITS ---
[address] [address] Test Date: 2024-11-11 Pat Name: Nancy Valverde Department: [facility] Room: Gender: Female Training Development Manager: THUAN : 1935 Requested By: Order Number: [id number] Reading MD: Michael Cintron Measurements Intervals [place] Rate: 89 P: [place]: QRS: 5 QRSD: 78 T: -6 QT: 364 QTc: 442 Interpretive Statements Atrial fibrillation Low voltage QRS Cannot rule out Inferior infarct , age undetermined Electronically Signed On 11-20-2024 18:49:58 PDT by Michael Cintron
--- NOTE | 2024-11-11 22:39 | EKG_ITS ---
[address] [address] Test Date: 2024-11-11 Pat Name: Nancy Valverde Department: [facility] Room: 226 Gender: Female Loading Supervisor: THUAN : 1935 Requested By: Order Number: [id number] Reading MD: Michael Cintron Measurements Intervals [place] Rate: 85 P: [place]: QRS: 11 QRSD: 78 T: -25 QT: 380 QTc: 452 Interpretive Statements Atrial fibrillation Low voltage QRS Cannot rule out Inferior infarct , age undetermined Electronically Signed On 11-20-2024 18:50:00 PDT by Michael Cintron
[2024-11-11 22:53] LABS: Add Manual Diff / Slide Review NO; Basophils Absolute Auto 100 /uL (0-100); Basophils Percent Auto 0.9 % (0-2); Eosinophils Absolute Auto 100 /uL (0-450); Hematocrit 44.1 % (36-46); Hemoglobin 14.6 g/dL (12.0-16.0); Lymphocytes Absolute Auto 1900 /uL (1100-4500); Lymphocytes Percent Auto 27.8 % (25-40); Mean Corpuscular Hemoglobin 30.7 PG (26-34); Mean Corpuscular Volume 93.1 fL (80-100); Monocytes Absolute Auto 200 /uL (0-900); Monocytes Percent Auto 3.6 % (3-14); Neutrophils Absolute Auto 4400 /uL (1500-7000); Neutrophils Percent Auto 65.7 % (50-75); Platelet Count 302 X10^3/uL (150-400); Red Blood Cell Count 4.73 X10^6/uL (4.0-5.2); Red Cell Distribution Width 13.8 % (11.6-14.8); White Blood Cell Count 6.7 X10^3/uL (4.5-11.0)
[2024-11-11 23:03] LABS: Prothrombin Time 10.8 SECONDS (9.4-12.5)
[2024-11-11 23:07] LABS: PTT Partial Thromboplastin Tim 26 SECONDS (25.1-36.5)
[2024-11-11 23:09] LABS: Alanine Aminotransferase 26 IU/L (<35); Albumin Globulin Ratio 1.1 (1.0-2.8); Alkaline Phosphatase 120 U/L (38-126); Aspartate Aminotransferase 36 IU/L (14-36); BUN Creatinine Ratio 19.2 (6-22); Bilirubin Total 0.4 mg/dL (0.2-1.3); Blood Urea Nitrogen 19 mg/dL (7-17); Carbon Dioxide 21 mmol/L (22-32); Chloride 106 mmol/L (98-107); Creatine Kinase 44 U/L (30-135); Estimated Glomerular Filt Rate 55 mL/min (>60); Globulin 3.7 g/dL (1.7-4.1); Glucose 131 mg/dL (80-110); HEMOLYSIS < 15 (0-50); Lipase 132 U/L (23-300); Magnesium 1.9 mg/dL (1.6-2.3); Potassium 3.7 mmol/L (3.4-5.1); Sodium 138 mmol/L (137-145); Total Protein 7.7 g/dL (6.3-8.2)
[2024-11-11 23:20] LABS: NT-proBNP (BNP-Adult 18+) 1120 pg/mL (<450); Troponin I < 0.012 ng/mL (0.01-0.034)
--- NOTE | 2024-11-11 23:32 | DI.CT.S_ITS ---
PROCEDURE: CT ABDOMEN PELVIS W CON INDICATIONS: n/v/d, no pain TECHNIQUE: After the administration of intravenous contrast, axial sections acquired from the lung bases to the pubic symphysis. Coronal and sagittal reformats were performed. For radiation dose reduction, the following was used: automated exposure control, adjustment of mA and/or kV according to patient size. COMPARISON: [facility], CT, CT ABDOMEN PELVIS WITHOUT CONTRAST, 09/28/2021, 16:54. [facility], CR, XR CHEST 1V, 11/11/2024, 22:34. FINDINGS: Image quality: Diagnostic. Lower Chest: There is a moderate hiatal hernia seen, which contains fluid. ABDOMEN: Liver: No solid mass. Gallbladder: No radiopaque gallstones or wall thickening. Biliary ducts: No biliary dilation. Pancreas: No ductal dilation. Spleen: Size is within normal limits. Adrenal Glands: No adrenal nodules. Kidneys and Ureters: No hydronephrosis. No solid mass. No complex renal cystic lesion which requires follow up. Stomach and Bowel: Normal colonic caliber, without significant wall thickening. Liquid stool is seen within the proximal colon. The distal colon is decompressed. No dilated loops of small bowel are seen. The small bowel loops demonstrate generalized hyperenhancement. A normal appendix is noted. Peritoneum: No peritoneal abscess is seen. No abnormal intraperitoneal fluid. No free air. Ventral Wall: No significant ventral hernia. Abdominal Nodes: No retroperitoneal or mesenteric adenopathy by size criteria. Vessels: Aorta and inferior vena cava are normal in size. PELVIS: Pelvic Organs: Unremarkable. Bladder: No bladder wall thickening, accounting for underdistention. Pelvic Nodes: No enlarged lymph nodes. Miscellaneous: No inguinal hernias are seen. Bones: No aggressive osseous abnormality. Moderate levoconvex thoracolumbar scoliosis is seen. Multiple levels of lumbar spine degenerative change can be seen. Left proximal femur hardware is seen. IMPRESSION: These imaging findings are most compatible with enterocolitis. No findings of perforation or abscess can be seen. Additional findings: Moderate hiatal hernia Moderate levoconvex scoliosis Lumbar spine degenerative change Normal appendix Left proximal femur hardware Dictated by: Lamine Arredondo M.D. on 11/11/2024 at 23:38 Approved by: Lamine Arredondo M.D. on 11/11/2024 at 23:41
--- NOTE | 2024-11-11 23:33 | ED.GENADULT ---
HPI - General Adult General Chief complaint: Syncope Stated complaint: Syncope Time Seen by Provider: 11/11/24 23:21 Source: patient, family and EMS Mode of arrival: EMS Limitations: no limitations History of Present Illness HPI narrative: 89-year-old female history of atrial fibrillation on aspirin, seizure disorder on Keppra, Watchman device patient presents with sounds like a syncopal or near syncopal episode. Daughter states she was at home patient was using the toilet sort of lost tone was not really responding did not have active vomiting but had sounds like a little bit of bile from her nose and had quite a bit of diarrhea. Patient has been nauseated did receive Zofran from EMS. No headache, no chest pain or shortness of breath. No abdominal back or flank pain. Patient had several episodes of diarrhea at the house. No black or bloody stools. No new urinary symptoms but patient has chronic urinary incontinence. Daughter states patient has some memory issues at baseline but she was still a little bit off from her baseline although improved from earlier. Patient herself has no complaints other than nausea. She did have her evening dose of Keppra home medications include aspirin 325 mg daily, Keppra 1000 mg b.i.d., gabapentin 100 mg b.i.d., pantoprazole 40 mg, citalopram 5 mg, donepezil 5 mg. Patient has had a Watchman placed 2 years ago because she had issues with GI bleeding while on anticoagulation and now has a contraindication. Has not had any other cardiac interventions has had prior seizures described as grand mal last was in July. Patient has had several orthopedic surgeries. Reports allergies to sulfa, iodine and warfarin. Contraindication to anticoagulation secondary to GI bleed. No tobacco, alcohol or recreational drugs. Primary care is Dr. Jewell. Patient has not seen Cardiology any time recently. She was not currently following with Neurology. She was full code according to patient and daughter. Majority of history from daughter but patient is actively involved. Related Data Home Medications Medication Instructions Recorded Confirmed aspirin 325 mg tablet,delayed 325 mg PO DAILY 05/09/24 11/12/24 release ferrous sulfate 325 mg (65 mg 325 mg PO DAILY 11/08/24 11/12/24 iron) tablet calcium carbonate (Tums) 650 mg PO DAILY 11/12/24 11/12/24 donepezil 10 mg tablet 10 mg PO QPM 11/12/24 11/12/24 Previous Rx's Medication Instructions Recorded citalopram 20 mg tablet 20 mg PO DAILY #90 tabs 07/10/24 gabapentin 100 mg capsule 100 mg PO BID #180 caps 07/10/24 pantoprazole 40 mg tablet,delayed 40 mg PO DAILY #90 tabs 07/10/24 release ondansetron 4 mg disintegrating 4 mg PO BID PRN nausea and 09/04/24 tablet vomiting #30 tabs levetiracetam 1,000 mg tablet 1,000 mg PO BID #180 tabs 09/13/24 (Keppra) Allergies Allergy/AdvReac Type Severity Reaction Status Date / Time Sulfa (Sulfonamide Allergy Intermediate Hives Verified 11/08/24 12:04 Antibiotics) codeine [CODEINE] Allergy Mild nausea Verified 11/08/24 12:04 iodine [IODINE] Allergy Mild breaks out Verified 11/12/24 03:14 skin sulfamethoxazole Allergy Mild ITCHING Verified 11/08/24 12:04 [From Bactrim] trimethoprim [From Bactrim] Allergy Mild ITCHING Verified 11/08/24 12:04 dabigatran etexilate AdvReac Intermediate Verified 11/12/24 03:14 heparin AdvReac Intermediate Verified 11/12/24 03:14 warfarin AdvReac Mild Diarrhea Verified 11/08/24 12:04 Review of Systems Review of Systems ROS Unobtainable: All systems reviewed & are unremarkable except as noted in HPI and below Patient History Medical History Excessive cerumen in right ear canal Viral URI with cough Urinary tract infection Cellulitis of leg, right Epilepsy Bruises easily Postmenopausal GERD (gastroesophageal reflux disease) Diarrhea Nausea Spinal stenosis Scoliosis Cataract fragments in both eyes following surgery Raynauds disease Depression Cognitive impairment DVT (deep venous thrombosis) Arthritis of knee, left Closed fracture of right distal fibula (~12/2017) Hypertension Muscle weakness Cardiomegaly Thyroid nodule Pneumonia History of prosthetic unicompartmental arthroplasty of both knees Anemia, iron deficiency History of hip fracture Cellulitis Blood clot in vein Hammer toe, acquired Osteoarthritis Ankle fracture, right Surgical History History of tonsillectomy and adenoidectomy History of hip surgery Status post unicompartmental knee replacement, left Hx of total knee arthroplasty History of incision and drainage Hx of elbow surgery Family History Mother Hypertension Sister Cancer Social History household members: children alcohol intake: current tobacco type: cigarettes alcohol intake frequency: 0-2 drinks per day Exam Narrative Exam Narrative: GEN: Elderly female, alert and oriented, patient appears to be in mild distress. No diaphoresis. HEENT: Atraumatic, pupils are equal round reactive to light, extraocular movements are intact, nares are clear, TMs are clear with no fluid, there is no conjunctival pallor. Throat is clear without any exudates, erythema, tonsillar enlargement or uvular deviation HEART: Regular rate and rhythm without murmur, clicks, rubs. No carotid bruits, pulses are equal in upper and lower extremities. No edema bilateral lower extremities. LUNGS:Lungs clear to auscultation, no wheezes, rales, crackles, chest moves symmetrically ABD:bowel sounds normal, soft, non-tender, nondistended, no guarding, rebound, rigidity, no masses noted, no hepatosplenomegaly :No CVA tenderness MSCL: Non-tender, no muscle atrophy, muscles strength 5/5 upper and lower extremities, patient has some generalized weakness bilateral lower extremities right slightly worse than left, normal muscle strength bilateral upper extremities. NEURO:CN 2-12 intact, sensation normal. Initial Vital Signs Initial Vital Signs: Vital Signs Temperature 98.1 F 11/11/24 22:20 Pulse Rate 93 H 11/11/24 22:20 Respiratory Rate 18 11/11/24 22:20 Blood Pressure 106/62 11/11/24 22:20 Pulse Oximetry 95 11/11/24 22:20 Oxygen Delivery Method Room Air 11/11/24 22:20 Course Orders Ordered: ED Orders 11/11/24 22:00 Complete Blood Count AUTO DIFF Stat Comprehensive Metabolic Panel Stat Lipase Stat Magnesium Stat NT-proBNP (BNP-Adult 18+) Stat PTT Partial Thromboplastin Mike Stat Prothrombin Time INR Stat Troponin & CK Cardiac Panel Stat 11/11/24 22:32 XR chest 1V Stat EKG-12 Lead Stat 11/11/24 23:32 CT abdomen pelvis w con Stat 11/11/24 23:45 Lactate (Lactic Acid) Stat Procalcitonin Stat 11/11/24 23:54 Blood Culture Stat 11/12/24 00:15 Covid-19 + FLU A/B + RSV - PCR Stat 11/12/24 00:25 UA Complete [Urinalysis and Microscopic] Stat 11/12/24 02:30 CT head/brain wo con Stat Acetaminophen (Acetaminophen 325 Mg Tablet) 650 mg PO Q6H PRN PRN Reason: Fever/Mild Pain (1-3) Sodium Chloride (Normal Saline 0.9%) 1,000 mls @ 1,000 mls/hr IV BOLUS ONE Stop: 11/12/24 06:56 Sodium Chloride (Normal Saline 0.9%) 1,000 mls @ 75 mls/hr IV CONT KENDALL Naloxone HCl (Naloxone 0.4 Mg/Ml Vial) 0.2 mg IV Q2MIN PRN PRN Reason: Opiate Reversal Ondansetron HCl (Ondansetron 4 Mg/2 Ml Inj) 4 mg IV Q8HR PRN PRN Reason: Nausea And Vomiting Discontinued Medications Aspirin (Aspirin 81 Mg Chew Tab) 324 mg PO NOW ONE Stop: 11/11/24 22:33 Last Admin: 11/12/24 00:43 Dose: Not Given Documented By: RUDDY Levetiracetam 1,000 mg/ Sodium (Chloride) 110 mls @ 440 mls/hr IV NOW ONE Stop: 11/12/24 02:28 Last Infusion: 11/12/24 03:00 Dose: Infused Documented By: Admin: 11/12/24 02:33 Dose: 440 mls/hr Documented By: KELSEY Amiodarone HCl/Dextrose (Nexterone) 150 mg in 100 mls @ 600 mls/hr IV NOW ONE; Protocol Stop: 11/12/24 05:39 Last Admin: 11/12/24 05:56 Dose: Not Given Documented By: RUDDY Lorazepam (Lorazepam 2 Mg/Ml Inj) 0.5 mg IV NOW ONE Stop: 11/12/24 02:28 Last Admin: 11/12/24 02:33 Dose: 0.5 mg Documented By: KELSEY Metoclopramide HCl (Metoclopramide 10 Mg/2 Ml Inj) 10 mg IV NOW ONE Stop: 11/12/24 00:36 Last Admin: 11/12/24 00:43 Dose: 10 mg Documented By: RUDDY Metoprolol Tartrate (Metoprolol Ir 25 Mg Tablet) 25 mg PO NOW ONE Stop: 11/12/24 05:41 Vital Signs Vital signs: Vital Signs - 8 hr 11/11/24 22:30 11/11/24 23:00 11/11/24 23:00 Pulse Rate 81 88 Respiratory Rate 18 Blood Pressure 93/55 L Pulse Oximetry 96 94 Oxygen Delivery Method Room Air 11/11/24 23:15 11/11/24 23:15 11/11/24 23:30 Pulse Rate 89 88 Respiratory Rate 16 Blood Pressure 88/51 L Pulse Oximetry 95 Oxygen Delivery Method Room Air 11/11/24 23:30 11/11/24 23:53 11/11/24 23:53 Pulse Rate 95 H Respiratory Rate Blood Pressure 93/58 L 85/65 L Pulse Oximetry Oxygen Delivery Method 11/12/24 00:00 11/12/24 00:00 11/12/24 00:06 Pulse Rate 105 H Respiratory Rate 16 Blood Pressure 93/56 L 106/57 L Pulse Oximetry 95 Oxygen Delivery Method Room Air 11/12/24 00:06 11/12/24 00:12 11/12/24 00:12 Pulse Rate 103 H 96 H Respiratory Rate 19 22 Blood Pressure 106/55 L Pulse Oximetry 95 95 Oxygen Delivery Method Room Air 11/12/24 00:30 11/12/24 00:30 11/12/24 00:47 Pulse Rate 97 H Respiratory Rate 18 Blood Pressure 129/87 125/82 Pulse Oximetry 95 Oxygen Delivery Method 11/12/24 00:47 11/12/24 01:00 11/12/24 01:00 Pulse Rate 94 H 111 H Respiratory Rate 19 41 H Blood Pressure 115/76 Pulse Oximetry 98 95 Oxygen Delivery Method Room Air 11/12/24 01:15 11/12/24 01:15 11/12/24 01:30 Pulse Rate 101 H Respiratory Rate 31 H Blood Pressure 113/72 132/83 Pulse Oximetry 94 Oxygen Delivery Method 11/12/24 01:30 11/12/24 01:45 11/12/24 01:45 Pulse Rate 99 H 109 H Respiratory Rate 41 H 26 H Blood Pressure 142/66 H Pulse Oximetry 97 97 Oxygen Delivery Method 11/12/24 02:00 11/12/24 02:00 11/12/24 02:30 Pulse Rate 108 H 148 H Respiratory Rate 21 19 Blood Pressure 140/65 Pulse Oximetry 97 92 Oxygen Delivery Method Room Air Room Air 11/12/24 02:45 11/12/24 02:45 11/12/24 03:30 Pulse Rate 126 H 117 H Respiratory Rate 20 18 Blood Pressure 132/75 Pulse Oximetry 93 93 Oxygen Delivery Method Room Air Room Air 11/12/24 03:36 11/12/24 03:36 11/12/24 04:00 Pulse Rate 114 H Respiratory Rate 16 Blood Pressure 102/58 L 107/60 Pulse Oximetry 93 Oxygen Delivery Method 11/12/24 04:00 11/12/24 04:30 11/12/24 04:30 Pulse Rate 123 H 118 H Respiratory Rate 18 20 Blood Pressure 94/66 Pulse Oximetry 92 93 Oxygen Delivery Method Room Air Room Air 11/12/24 05:00 11/12/24 05:00 11/12/24 05:30 Pulse Rate 111 H Respiratory Rate 20 Blood Pressure 113/71 93/65 Pulse Oximetry 93 Oxygen Delivery Method 11/12/24 05:30 Pulse Rate 107 H Respiratory Rate 20 Blood Pressure Pulse Oximetry 93 Oxygen Delivery Method Room Air Medical Decision Making Lab Data 11/11/24 22:00 11/11/24 22:00 Labs: Lab Results 11/11/24 11/11/24 11/12/24 Range/Units 22:00 23:45 00:15 WBC 6.7 (4.5-11.0) X10^3/uL RBC 4.73 (4.0-5.2) X10^6/uL Hgb 14.6 (12.0-16.0) g/dL Hct 44.1 (36-46) % MCV 93.1 (80-100) fL MCH 30.7 (26-34) PG MCHC 33.0 (30-36) % RDW 13.8 (11.6-14.8) % Plt Count 302 (150-400) X10^3/uL Neut % (Auto) 65.7 (50-75) % Lymph % (Auto) 27.8 (25-40) % Mcpherson % (Auto) 3.6 (3-14) % Eos % (Auto) 2.0 (2-4) % Baso % (Auto) 0.9 (0-2) % Neut # (Auto) 4400 (2320-0168) /uL Lymph # (Auto) 1900 (3812-7100) /uL Mcpherson # (Auto) 200 (0-900) /uL Eos # (Auto) 100 (0-450) /uL Baso # (Auto) 100 (0-100) /uL PT 10.8 (9.4-12.5) SECONDS INR 1.0 (0.9-1.3) APTT 26 (25.1-36.5) SECONDS Sodium 138 (137-145) mmol/L Potassium 3.7 (3.4-5.1) mmol/L Chloride 106 (98-107) mmol/L Carbon Dioxide 21 L (22-32) mmol/L BUN 19 H (7-17) mg/dL Creatinine 0.99 (0.52-1.04) mg/dL Estimated GFR 55 L (>60) mL/min BUN/Creatinine Ratio 19.2 (6-22) Glucose 131 H (80-110) mg/dL Lactate 2.4 H (0.7-2.1) mmol/L Calcium 9.0 (8.4-10.2) mg/dL Magnesium 1.9 (1.6-2.3) mg/dL Total Bilirubin 0.4 (0.2-1.3) mg/dL AST 36 (14-36) IU/L ALT 26 (<35) IU/L Alkaline Phosphatase 120 (38-126) U/L Total Creatine Kinase 44 (30-135) U/L Troponin I < 0.012 (0.01-0.034) ng/mL NT-Pro-B Natriuret Pep 1120 H (<450) pg/mL Total Protein 7.7 (6.3-8.2) g/dL Albumin 4.0 (3.5-5.0) g/dL Globulin 3.7 (1.7-4.1) g/dL Albumin/Globulin Ratio 1.1 (1.0-2.8) Lipase 132 (23-300) U/L Procalcitonin 0.037 (<0.5) ng/mL Urine Color Urine Appearance Urine pH (4.5-8.0) Ur Specific Oakley (1.000-1.035) Urine Protein (Negative) Urine Glucose (UA) (Negative) g/dL Urine Ketones (NEGATIVE) Urine Occult Blood (Negative) Urine Nitrate (Negative) Urine Bilirubin (NEGATIVE) Urine Urobilinogen (0.2) E.U./dL Ur Leukocyte Esterase (NEGATIVE) Urine RBC (0-5/HPF) Urine WBC (0-5/HPF) Ur Squamous Epith Cells (0-5/HPF) Urine Bacteria (None) Ur Culture Indicated? Vol Urine Centrifuged SARS-CoV-2 (PCR) Negative (Negative) Influenza A (RT-PCR) Flu a negative (NEGATIVE) Influenza B (RT-PCR) Flu b negative (NEGATIVE) RSV (PCR) Negative (Negative) 11/12/24 11/12/24 Range/Units 00:25 02:50 WBC (4.5-11.0) X10^3/uL RBC (4.0-5.2) X10^6/uL Hgb (12.0-16.0) g/dL Hct (36-46) % MCV (80-100) fL MCH (26-34) PG MCHC (30-36) % RDW (11.6-14.8) % Plt Count (150-400) X10^3/uL Neut % (Auto) (50-75) % Lymph % (Auto) (25-40) % Mcpherson % (Auto) (3-14) % Eos % (Auto) (2-4) % Baso % (Auto) (0-2) % Neut # (Auto) (6534-2513) /uL Lymph # (Auto) (0031-0062) /uL Mcpherson # (Auto) (0-900) /uL Eos # (Auto) (0-450) /uL Baso # (Auto) (0-100) /uL PT (9.4-12.5) SECONDS INR (0.9-1.3) APTT (25.1-36.5) SECONDS Sodium (137-145) mmol/L Potassium (3.4-5.1) mmol/L Chloride (98-107) mmol/L Carbon Dioxide (22-32) mmol/L BUN (7-17) mg/dL Creatinine (0.52-1.04) mg/dL Estimated GFR (>60) mL/min BUN/Creatinine Ratio (6-22) Glucose (80-110) mg/dL Lactate 4.0 H (0.7-2.1) mmol/L Calcium (8.4-10.2) mg/dL Magnesium (1.6-2.3) mg/dL Total Bilirubin (0.2-1.3) mg/dL AST (14-36) IU/L ALT (<35) IU/L Alkaline Phosphatase (38-126) U/L Total Creatine Kinase (30-135) U/L Troponin I (0.01-0.034) ng/mL NT-Pro-B Natriuret Pep (<450) pg/mL Total Protein (6.3-8.2) g/dL Albumin (3.5-5.0) g/dL Globulin (1.7-4.1) g/dL Albumin/Globulin Ratio (1.0-2.8) Lipase (23-300) U/L Procalcitonin (<0.5) ng/mL Urine Color Yellow Urine Appearance Clear Urine pH 5.5 (4.5-8.0) Ur Specific Oakley 1.020 (1.000-1.035) Urine Protein Negative (Negative) Urine Glucose (UA) Negative (Negative) g/dL Urine Ketones Trace H (NEGATIVE) Urine Occult Blood 3+ H (Negative) Urine Nitrate Negative (Negative) Urine Bilirubin Negative (NEGATIVE) Urine Urobilinogen 0.2 (0.2) E.U./dL Ur Leukocyte Esterase Negative (NEGATIVE) Urine RBC 1-5/hpf (0-5/HPF) Urine WBC None seen (0-5/HPF) Ur Squamous Epith Cells None seen (0-5/HPF) Urine Bacteria None seen (None) Ur Culture Indicated? Cult not indicated Vol Urine Centrifuged 10ml (spun) SARS-CoV-2 (PCR) (Negative) Influenza A (RT-PCR) (NEGATIVE) Influenza B (RT-PCR) (NEGATIVE) RSV (PCR) (Negative) Point of Care Testing Glucose POC 124 Point of care testing: Point of Care Testing Glucose POC 124 ECG Data Attestation: I personally reviewed and interpreted this ECG as follows: Prior ECG tracings: available for review Interpretation: Atrial fibrillation rate 89 QRS is 78 QTC of 442, no acute ST elevation depression. Patient was prior from 09/17/2022 showed sinus rhythm with nonspecific change compared to today. Patient had EKG on 05/14/2022 which showed atrial fibrillation. MDM Narrative Medical decision making narrative: 81-year-old female had what sounds like a syncopal episode no seizure activity appreciated by family who was present. She had nausea maybe a little bit of vomiting diarrhea. Patient's mentation has improved she was back to baseline except for some mild change still. Heart rates 90s to 100, blood pressure has been soft here in the department afebrile 95% room air. Patient's main complaint is nausea she was no other complaints currently. She was alert, answers questions appropriately overall. She was aware that she has memory issues and jokes around during evaluation. Labs show normal white count, hemoglobin and platelets, coags are negative, CO2 is 21, BUN 19 electrolytes are otherwise appropriate potassium 3.7 Mag is 1.9 glucose is 131, LFTs are negative troponins less than 0.012 with a BNP of 1120 prior from March of 2022 it was 221. Lactate 2.4, repeat lactate is 4. procalcitonin 0.037 Chest x-ray shows no acute change EKG shows AFib rate controlled on initial EKG. CT chest abdomen pelvis, moderate hiatal hernia, small bowel loops demonstrate generalized hyper enhancement. Findings most compatible with enterocolitis. No findings of abscess or perforation. Does have moderate hiatal hernia, moderate levoconvex scoliosis, lumbar spine degenerative changes, normal appendix left proximal femur hardware. Head CT shows marked ventriculomegaly is described portion degree of atrophy. Patient does have prior CTs from 09/05/2021 which showed ventricular dilation secondary to either central atrophy or normal pressure hydrocephalus. We will push old images as well as clarify read with [facility] as it notes communicating hydrocephalus. Addendum from radiology notes no significant change ventricular dilation periventricular white matter changes similar to prior exams. Findings consistent with normal pressure hydrocephalus. Urine shows trace ketones 3+ blood, 1-5 RBCs. COVID/influenza/RSV is negative Patient received 1 L normal saline from EMS. Additional L bolus ordered. 0233 Patient attempted orthostatics to stand had either syncopal episode versus seizure. Patient lost tone daughter nursing state that she was sort of shaking but was conversant very shortly thereafter. She did vomit, also had diarrhea when this occurred. Afterwards patient notes that she was pretty exciting tonight. She was alert and overall appropriate afterwards. We will go ahead and load her with Keppra 1000 mg IV, patient did not have a dose of 0.5 mg Ativan. Also had head CT obtained. Patient is alert, appropriate, she is in AFib RVR at this point pressures are little soft 100 systolic. Daughter states normal is 117. Heart rate and blood pressure improved after fluids. Patient does not appear to be on any medications for rate control she has been tachycardic little bit hypotensive. No longer anticoagulated secondary to prior GI bleed. Spoke with Cardiology @ 0530, Dr. Kahn: Discussed workup, findings from today in the events of patient's emergency stay. Suspect more syncope/vagal episode over seizure as symptoms occurred when patient went from lying to standing has been in AFib RVR throughout the evening did have a heart rate down into the 90s at 1 point but did not tolerate standing. She is not anticoagulated so was not a candidate for cardioversion. Discussed if amiodarone to be appropriate he would recommend oral metoprolol for the patient, if she improves as outpatient would have ZIO patch. Spoke with the hospitalist Dr. Batista at 0600 reviewed findings from this evening. Patient does appear to have AFib RVR does have some nausea vomiting lactate did go up afterwards with this. Patient had what sounds more like a syncopal episode daughters out was seizure activity but patient occurred when she went to stand up to try to ambulate had immediate return to consciousness with no postictal phase. Had some mild shaking but not large tonic-clonic movement according to nurse and daughter at bedside report. Dr. Batista accepts for observation. Discharge Plan Departure Patient Disposition: Admitted as Observation Clinical Impression: Atrial fibrillation with rapid ventricular response, Syncope, Dehydration, Nausea, vomiting, and diarrhea Admit Date/Time: 11/12/24 05:58 Admit Provider: Misael Batista
[2024-11-12] VITALS (59 sets, daily range): BP systolic 93–147; BP diastolic 55–88; PULSE 86–148; RESP 16–50; TEMP 36.8–37.2; O2SAT 81–98; BMI 31.9
[2024-11-12 00:17] LABS: Lactate (Lactic Acid) 2.4 mmol/L (0.7-2.1)
[2024-11-12 00:35] LABS: Procalcitonin 0.037 ng/mL (<0.5)
[2024-11-12] MEDS: METOCLOPRAMIDE 10 MG/2 ML INJ IV (00:43)
[2024-11-12 01:02] LABS: Appearance Urine UA CLEAR; Bilirubin Urine UA NEGATIVE (NEGATIVE); Color Urine UA YELLOW; Glucose Urine UA NEGATIVE (Negative); Ketones Urine UA TRACE (NEGATIVE); Leukocyte Esterase Urine UA NEGATIVE (NEGATIVE); Nitrite Urine UA NEGATIVE (Negative); Occult Blood Urine UA 3+ (Negative); Protein Urine UA NEGATIVE (Negative); Urobilinogen Urine UA 0.2 E.U./dL (0.2)
[2024-11-12 01:06] LABS: pH Urine UA 5.5 (4.5-8.0)
[2024-11-12 01:12] LABS: Bacteria Urine None Seen; Culture Indicated Urine Cult Not Indicated; RBC Urine 1-5/HPF (0-5/HPF); Squamous Epithelial Cell Urine None Seen (0-5/HPF); Urine Volume 10mL (spun); WBC Urine None Seen (0-5/HPF)
[2024-11-12 01:38] LABS: Influenza A - CEPHEID Flu A NEGATIVE (NEGATIVE); Influenza B - CEPHEID Flu B NEGATIVE (NEGATIVE); Respiratory Syncytial Virus Negative (Negative)
[2024-11-12 01:42] LABS: COVID-19 CEPHEID 4-PLEX PCR Negative (Negative)
[2024-11-12 01:45] LABS: Reflexed Lactate in 2 Hours Y
--- NOTE | 2024-11-12 02:30 | DI.CT.S_ITS ---
PROCEDURE: CT HEAD/BRAIN WO CON INDICATIONS: ? seizure vs syncope TECHNIQUE: Noncontrast 4.5 mm thick angled axial sections acquired from the foramen magnum to the vertex, with coronal and sagittal reformats. For radiation dose reduction, the following was used: automated exposure control, adjustment of mA and/or kV according to patient size. COMPARISON: [facility], CT, CT HEAD/BRAIN WO CON, 09/05/2021, 13:34. FINDINGS: Image quality: Diagnostic. CSF spaces: Basal cisterns are patent. No extra-axial fluid collections. The ventricles are symmetric in size and shape. Brain: No intracranial bleeds or masses. There is cerebral volume loss for age, with resultant ventricular and sulcal prominence. There are periventricular and deep white matter chronic small vessel ischemic changes. There is intracranial internal carotid artery atherosclerosis. Skull and face: Calvarium and visualized facial bones appear intact, without suspicious lesions. Sinuses: Visualized sinuses and mastoids are clear. IMPRESSION: Stable ventriculomegaly. Correlation for normal pressure hydrocephalus is recommended. Significant chronic microvascular ischemic changes. No acute intracranial abnormalities. Findings are concordant with preliminary interpretation provided by [facility]. Dictated by: Blas Sanchez M.D. on 11/12/2024 at 7:18 Approved by: Blas Sanchez M.D. on 11/12/2024 at 7:19
[2024-11-12] MEDS: LORazepam 2 MG/ML INJ 0.5 MG IV (02:33)
[2024-11-12] MEDS: levETIRAcetam 1,000 MG in SODIUM CHLORIDE 0.9% 100 ML 440 MG IV (02:33)
--- NOTE | 2024-11-12 02:40 | PC.NURSE ---
Patient had loose BM and pericare performed/linens/gown changed. Then assessment of standing: Patient unable to fully stand/support weight as she can at baseline. Upon returning to bed the patient had a seizure - tonic/clonic movements <1min, with loss of bowel & bladder & some post event confusion that resolved within a few minutes, vomiting x1 post seizure; Patient rolled onto side for seizure then meds given IV ativan and IV keppra. Daughter/caregiver/poa @ bedside along with RN to witness seizure. MD & ER staff notified of seizure - additional ER staff/MD responded to room. Linens changed, Vitals monitored, daughter remained at bedside.
--- NOTE | 2024-11-12 04:26 | PC.NURSE ---
Daughter Abigail Valverde PH# [phone]
[2024-11-12] MEDS: METOPROLOL IR 25 MG TABLET PO (06:34)
--- NOTE | 2024-11-12 06:34 | PM.HP.1 ---
History of Present Illness History of Present Illness Chief complaint: Syncope Narrative: 89-year-old female with past medical history of atrial fibrillation on aspirin, seizure disorder on Keppra, Watchman device for her atrial fibrillation, Alzheimer dementia, GERD, depression and iron deficiency anemia presents with syncope. Per the patient's daughter report, the patient was going to the bathroom and was using the toilet when she lost her muscle tone and had a syncopal episode. The patient prior to that had nausea vomiting and diarrhea. There is no report of any GI bleed. Also per report the patient did buy hit her head or have any serious injury. There is also no report of any seizure activity and no postictal post syncope. In the emergency room, the patient was hemodynamically stable but was in A-fib with RVR. Labs shows no signs of sepsis sepsis though there is an elevated lactic acid level of 2.4. The patient was stood up by the nursing staff and had another syncopal episode. Then the patient's blood pressure was low with systolic down into the 80s. The patient received IV fluid bolus and blood pressure did improve. Labs were relatively benign with WBC 6.7. CT chest abdomen pelvis shows no acute finding. The patient was given metoprolol as well as amiodarone and heart rate did improve. CT scan of the head was shows no acute finding. [facility] Medical History Excessive cerumen in right ear canal Viral URI with cough Urinary tract infection Cellulitis of leg, right Epilepsy Bruises easily Postmenopausal GERD (gastroesophageal reflux disease) Diarrhea Nausea Spinal stenosis Scoliosis Cataract fragments in both eyes following surgery Raynauds disease Depression Cognitive impairment DVT (deep venous thrombosis) Arthritis of knee, left Closed fracture of right distal fibula (~12/2017) Hypertension Muscle weakness Cardiomegaly Thyroid nodule Pneumonia History of prosthetic unicompartmental arthroplasty of both knees Anemia, iron deficiency History of hip fracture Cellulitis Blood clot in vein Hammer toe, acquired Osteoarthritis Ankle fracture, right Surgical History History of tonsillectomy and adenoidectomy History of hip surgery Status post unicompartmental knee replacement, left Hx of total knee arthroplasty History of incision and drainage Hx of elbow surgery Family History Mother Hypertension Sister Cancer Social History household members: children alcohol intake: current Meds Home Medications and Allergies Home Medications Medication Instructions Recorded Confirmed Type aspirin 325 mg tablet,delayed 325 mg PO DAILY 05/09/24 11/12/24 History release citalopram 20 mg tablet 20 mg PO DAILY #90 tabs 07/10/24 11/12/24 Rx gabapentin 100 mg capsule 100 mg PO BID #180 caps 07/10/24 11/12/24 Rx pantoprazole 40 mg tablet,delayed 40 mg PO DAILY #90 tabs 07/10/24 11/12/24 Rx release ondansetron 4 mg disintegrating 4 mg PO BID PRN nausea and 09/04/24 11/12/24 Rx tablet vomiting #30 tabs levetiracetam 1,000 mg tablet 1,000 mg PO BID #180 tabs 09/13/24 11/12/24 Rx (Keppra) ferrous sulfate 325 mg (65 mg 325 mg PO DAILY 11/08/24 11/12/24 History iron) tablet calcium carbonate (Tums) 650 mg PO DAILY 11/12/24 11/12/24 History donepezil 10 mg tablet 10 mg PO QPM 11/12/24 11/12/24 History Allergies Allergy/AdvReac Type Severity Reaction Status Date / Time Sulfa (Sulfonamide Allergy Intermediate Hives Verified 11/08/24 12:04 Antibiotics) codeine [CODEINE] Allergy Mild nausea Verified 11/08/24 12:04 iodine [IODINE] Allergy Mild breaks out Verified 11/12/24 03:14 skin sulfamethoxazole Allergy Mild ITCHING Verified 11/08/24 12:04 [From Bactrim] trimethoprim [From Bactrim] Allergy Mild ITCHING Verified 11/08/24 12:04 dabigatran etexilate AdvReac Intermediate Verified 11/12/24 03:14 heparin AdvReac Intermediate Verified 11/12/24 03:14 warfarin AdvReac Mild Diarrhea Verified 11/08/24 12:04 Review of Systems Review of Systems Narrative: Limited ROS due underlying dementia. Exam Vital Signs (past 8 hours): - 11/11/24 23:00 11/11/24 23:00 11/11/24 23:15 Pulse Rate 88 Respiratory Rate 18 Blood Pressure 93/55 L 88/51 L Pulse Oximetry 94 Oxygen Delivery Method 11/11/24 23:15 11/11/24 23:30 11/11/24 23:30 Pulse Rate 89 88 Respiratory Rate 16 Blood Pressure 93/58 L Pulse Oximetry 95 Oxygen Delivery Method Room Air 11/11/24 23:53 11/11/24 23:53 11/12/24 00:00 Pulse Rate 95 H Respiratory Rate Blood Pressure 85/65 L 93/56 L Pulse Oximetry Oxygen Delivery Method 11/12/24 00:00 11/12/24 00:06 11/12/24 00:06 Pulse Rate 105 H 103 H Respiratory Rate 16 19 Blood Pressure 106/57 L Pulse Oximetry 95 95 Oxygen Delivery Method Room Air 11/12/24 00:12 11/12/24 00:12 11/12/24 00:30 Pulse Rate 96 H Respiratory Rate 22 Blood Pressure 106/55 L 129/87 Pulse Oximetry 95 Oxygen Delivery Method Room Air 11/12/24 00:30 11/12/24 00:47 11/12/24 00:47 Pulse Rate 97 H 94 H Respiratory Rate 18 19 Blood Pressure 125/82 Pulse Oximetry 95 98 Oxygen Delivery Method Room Air 11/12/24 01:00 11/12/24 01:00 11/12/24 01:15 Pulse Rate 111 H 101 H Respiratory Rate 41 H 31 H Blood Pressure 115/76 Pulse Oximetry 95 94 Oxygen Delivery Method 11/12/24 01:15 11/12/24 01:30 11/12/24 01:30 Pulse Rate 99 H Respiratory Rate 41 H Blood Pressure 113/72 132/83 Pulse Oximetry 97 Oxygen Delivery Method 11/12/24 01:45 11/12/24 01:45 11/12/24 02:00 Pulse Rate 109 H Respiratory Rate 26 H Blood Pressure 142/66 H 140/65 Pulse Oximetry 97 Oxygen Delivery Method 11/12/24 02:00 11/12/24 02:30 11/12/24 02:45 Pulse Rate 108 H 148 H Respiratory Rate 21 19 Blood Pressure 132/75 Pulse Oximetry 97 92 Oxygen Delivery Method Room Air Room Air 11/12/24 02:45 11/12/24 03:30 11/12/24 03:36 Pulse Rate 126 H 117 H Respiratory Rate 20 18 Blood Pressure 102/58 L Pulse Oximetry 93 93 Oxygen Delivery Method Room Air Room Air 11/12/24 03:36 11/12/24 04:00 11/12/24 04:00 Pulse Rate 114 H 123 H Respiratory Rate 16 18 Blood Pressure 107/60 Pulse Oximetry 93 92 Oxygen Delivery Method Room Air 11/12/24 04:30 11/12/24 04:30 11/12/24 05:00 Pulse Rate 118 H Respiratory Rate 20 Blood Pressure 94/66 113/71 Pulse Oximetry 93 Oxygen Delivery Method Room Air 11/12/24 05:00 11/12/24 05:30 11/12/24 05:30 Pulse Rate 111 H 107 H Respiratory Rate 20 20 Blood Pressure 93/65 Pulse Oximetry 93 93 Oxygen Delivery Method Room Air 11/12/24 06:00 11/12/24 06:00 11/12/24 06:30 Pulse Rate 103 H 127 H Respiratory Rate 18 18 Blood Pressure 106/65 Pulse Oximetry 93 92 Oxygen Delivery Method 11/12/24 06:31 11/12/24 06:31 Pulse Rate 115 H Respiratory Rate 18 Blood Pressure 123/71 Pulse Oximetry 93 Oxygen Delivery Method Oxygen Delivery Method Room Air Narrative Exam Narrative: Physical Exam: GENERAL: The patient is not in any acute distressed. Awake and alert. HEENT: Nonicteric sclerae, PERRLA, EOMI. Oropharynx clear. Moist mucous membranes. Conjunctivae appear well perfused. HEART: Regular rate and rhythm without murmurs. No lower extremities edema. LUNGS: Clear to auscultation bilaterally. No wheezing, crackles or rhonchi ABDOMEN: Soft, positive bowel sounds, nontender. SKIN: No rash, no excessive bruising, petechiae, or purpura. NEUROLOGIC: AxO x 1. Cranial nerves II-XII intact without motor/sensory deficit. Objective Labs 11/11/24 22:00 11/11/24 22:00 Labs: Laboratory Results - last 24 hr 11/11/24 11/11/24 11/12/24 22:00 23:45 00:15 WBC 6.7 RBC 4.73 Hgb 14.6 Hct 44.1 MCV 93.1 MCH 30.7 MCHC 33.0 RDW 13.8 Plt Count 302 Neut % (Auto) 65.7 Lymph % (Auto) 27.8 [place] % (Auto) 3.6 Eos % (Auto) 2.0 Baso % (Auto) 0.9 Neut # (Auto) 4400 Lymph # (Auto) 1900 [place] # (Auto) 200 Eos # (Auto) 100 Baso # (Auto) 100 PT 10.8 INR 1.0 APTT 26 Sodium 138 Potassium 3.7 Chloride 106 Carbon Dioxide 21 L BUN 19 H Creatinine 0.99 Estimated GFR 55 L BUN/Creatinine Ratio 19.2 Glucose 131 H Lactate 2.4 H Calcium 9.0 Magnesium 1.9 Total Bilirubin 0.4 AST 36 ALT 26 Alkaline Phosphatase 120 Total Creatine Kinase 44 Troponin I < 0.012 NT-Pro-B Natriuret Pep 1120 H Total Protein 7.7 Albumin 4.0 Globulin 3.7 Albumin/Globulin Ratio 1.1 Lipase 132 Procalcitonin 0.037 Urine Color Urine Appearance Urine pH Ur Specific [place] Urine Protein Urine Glucose (UA) Urine Ketones Urine Occult Blood Urine Nitrate Urine Bilirubin Urine Urobilinogen Ur Leukocyte Esterase Urine RBC Urine WBC Ur Squamous Epith Cells Urine Bacteria Ur Culture Indicated? Vol Urine Centrifuged SARS-CoV-2 (PCR) Negative Influenza A (RT-PCR) Flu a negative Influenza B (RT-PCR) Flu b negative RSV (PCR) Negative 11/12/24 11/12/24 00:25 02:50 WBC RBC Hgb Hct MCV MCH MCHC RDW Plt Count Neut % (Auto) Lymph % (Auto) [place] % (Auto) Eos % (Auto) Baso % (Auto) Neut # (Auto) Lymph # (Auto) [place] # (Auto) Eos # (Auto) Baso # (Auto) PT INR APTT Sodium Potassium Chloride Carbon Dioxide BUN Creatinine Estimated GFR BUN/Creatinine Ratio Glucose Lactate 4.0 H Calcium Magnesium Total Bilirubin AST ALT Alkaline Phosphatase Total Creatine Kinase Troponin I NT-Pro-B Natriuret Pep Total Protein Albumin Globulin Albumin/Globulin Ratio Lipase Procalcitonin Urine Color Yellow Urine Appearance Clear Urine pH 5.5 Ur Specific [place] 1.020 Urine Protein Negative Urine Glucose (UA) Negative Urine Ketones Trace H Urine Occult Blood 3+ H Urine Nitrate Negative Urine Bilirubin Negative Urine Urobilinogen 0.2 Ur Leukocyte Esterase Negative Urine RBC 1-5/hpf Urine WBC None seen Ur Squamous Epith Cells None seen Urine Bacteria None seen Ur Culture Indicated? Cult not indicated Vol Urine Centrifuged 10ml (spun) SARS-CoV-2 (PCR) Influenza A (RT-PCR) Influenza B (RT-PCR) RSV (PCR) Assessment & Plan Assessment & Plan narrative: Syncope. Admit the patient to medical telemetry as observation. Likely hypovolemia from fluid loss from nausea vomiting and diarrhea. Troponin negative. EKG showed no sign of acute ischemia. Patient does not seem to have any sign of stroke on exam. Continue to hydrate the patient monitor blood pressure. PT/OT. Consider checking a orthostatic blood pressure prior to discharge. Atrial fibrillation with transient RVR. RVR now resolved. Resume home medication monitor blood pressure. Nausea vomiting diarrhea. Could be from gastroenteritis. No sign of sepsis other than elevated lactate. Treat conservatively. Mild elevated lactate of 2.4. Could be from dehydration. IV fluid and monitor for any sign of sepsis. Dehydration. IV fluid. Alzheimer disease. Resume home donepezil. GERD resume home PPI. DVT prophylaxis SCDs due to observational status. CODE STATUS DNR/DNI. Disposition likely home in 1 to 2 days. - As the provider of this telehealth evaluation, requested by the patient's evaluating physician, I attest that I introduced myself to the patient, provided my credentials and determined that telemedicine via a real-time, 2 way interactive audio and video platform is an appropriate and effective means of providing this service. - I reviewed the patient's chart and had a discussion with the member of the patient's treatment team. - The patient and I mutually agreed with continuation of this evaluation via telemedicine. The patient consented for the telemedicine evaluation. - This virtual encounter was taken place from [place]. The encounter was approximately 35 minutes. The nurse was present during the entire time of the encounter and was able to move the stethoscope in appropriate directions. The patient was evaluated at [facility]. Time-Based Coding :: [TOTAL MINUTES] spent with patient and on the chart (including review of chart, obtaining history, exam, reviewing outside data, placing orders, documenting exam and treatment plan, and counseling patient) on [DATE].
[2024-11-12 06:45] LABS: Lactate (Lactic Acid) 3.2 mmol/L (0.7-2.1)
[2024-11-12] MEDS: SODIUM CHLORIDE 0.9% 1,000 ML 75 ML IV (07:20)
--- NOTE | 2024-11-12 07:35 | PC.NURSE ---
Per ED nurse November, patient received 1L NS bolus. Issue with new orders from tele-hospitalist superseding ED doctor orders in [facility].
[2024-11-12 08:07] LABS: Reflexed Lactate in 2 Hours Y
[2024-11-12 08:43] LABS: Adenovirus F 40/41 Not Detected (Not Detect); Astrovirus Not Detected (Not Detect); Campylobacter Not Detected (Not Detect); Clostridium difficile toxin AB Not Detected (Not Detect); Cryptosporidium Not Detected (Not Detect); Cyclospora cayetanensis Not Detected (Not Detect); Entamoeba histolytica Not Detected (Not Detect); Enteroaggregative E.coli Not Detected (Not Detect); Enteropathogenic E.coli Not Detected (Not Detect); Enterotoxigenic E.coli It/st Not Detected (Not Detect); Giardia lamblia Not Detected (Not Detect); Norovirus GI/GII Detected (Not Detect); Plesiomonsa shigelloides Not Detected (Not Detect); Rotavirus A Not Detected (Not Detect); Salmonella Not Detected (Not Detect); Sapovirus Not Detected (Not Detect); Shiga-like toxin-prod E.coli Not Detected (Not Detect); Shigella/Enteroinvasive E.coli Not Detected (Not Detect); Vibrio Not Detected (Not Detect); Vibrio cholerae Not Detected (Not Detect); Yersinia enterocolitica Not Detected (Not Detect)
[2024-11-12 08:50] LABS: Add Manual Diff / Slide Review NO; Basophils Absolute Auto 100 /uL (0-100); Eosinophils Absolute Auto 0 /uL (0-450); Eosinophils Percent Auto 0.3 % (2-4); Hematocrit 35.3 % (36-46); Hemoglobin 11.7 g/dL (12.0-16.0); Lymphocytes Absolute Auto 100 /uL (1100-4500); Lymphocytes Percent Auto 1.4 % (25-40); Mean Corpuscular HGB Conc 33.2 % (30-36); Mean Corpuscular Volume 93.5 fL (80-100); Monocytes Absolute Auto 200 /uL (0-900); Monocytes Percent Auto 2.3 % (3-14); Neutrophils Absolute Auto 8900 /uL (1500-7000); Platelet Count 192 X10^3/uL (150-400); Red Blood Cell Count 3.78 X10^6/uL (4.0-5.2); Red Cell Distribution Width 13.7 % (11.6-14.8); White Blood Cell Count 9.4 X10^3/uL (4.5-11.0)
[2024-11-12 08:58] LABS: Lactate 2HR (Lactic Acid Rflx) 3.8 mmol/L (0.7-2.1)
[2024-11-12 08:59] LABS: BUN Creatinine Ratio 27.1 (6-22); Blood Urea Nitrogen 19 mg/dL (7-17); Calcium 6.8 mg/dL (8.4-10.2); Carbon Dioxide 16 mmol/L (22-32); Chloride 115 mmol/L (98-107); Estimated Glomerular Filt Rate > 60 mL/min (>60); Glucose 114 mg/dL (80-110); HEMOLYSIS 48 (0-50); Potassium 4.1 mmol/L (3.4-5.1); Sodium 138 mmol/L (137-145)
[2024-11-12] MEDS: levETIRAcetam 750 MG in SODIUM CHLORIDE 0.9% 100 ML 430 MG IV ×2 (09:41→20:20)
[2024-11-12] MEDS: PANTOPRAZOLE 40 MG VIAL IV (10:16)
--- NOTE | 2024-11-12 10:45 | PT-IP ANOTE ---
PT order received and PT reviewed chart before rounds and pt discussed in rounds. Pt adm this a.m. and presents with vomiting and MD recommends hold PT/mobility today. Will con't efforts next date.
--- NOTE | 2024-11-12 11:08 | P.HP_ITS ---
History of Present Illness History of Present Illness Date Patient Seen: 11/12/24 Time Patient Seen: 07:50 Chief complaint: Syncope Narrative: Night hospitalist: 89-year-old female with past medical history of atrial fibrillation on aspirin, seizure disorder on Keppra, Watchman device for her atrial fibrillation, Alzheimer dementia, GERD, depression and iron deficiency anemia presents with syncope. Per the patient's daughter report, the patient was going to the bathroom and was using the toilet when she lost her muscle tone and had a syncopal episode. The patient prior to that had nausea vomiting and diarrhea. There is no report of any GI bleed. Also per report the patient did buy hit her head or have any serious injury. There is also no report of any seizure activity and no postictal post syncope. In the emergency room, the patient was hemodynamically stable but was in A-fib with RVR. Labs shows no signs of sepsis sepsis though there is an elevated lactic acid level of 2.4. The patient was stood up by the nursing staff and had another syncopal episode. Then the patient's blood pressure was low with systolic down into the 80s. The patient received IV fluid bolus and blood pressure did improve. Labs were relatively benign with WBC 6.7. CT chest abdomen pelvis shows no acute finding. The patient was given metoprolol as well as amiodarone and heart rate did improve. CT scan of the head was shows no acute finding. Interim history: She appears comfortable without complaints, with ongoing profuse diarrhea, testing positive on stool GI panel today for Norovirus PCR. [facility] Medical History Anemia, iron deficiency Ankle fracture, right Arthritis of knee, left Blood clot in vein Bruises easily Cardiomegaly Cataract fragments in both eyes following surgery Cellulitis Cellulitis of leg, right Closed fracture of right distal fibula (~12/2017) Cognitive impairment Depression Diarrhea DVT (deep venous thrombosis) Epilepsy Excessive cerumen in right ear canal GERD (gastroesophageal reflux disease) Hammer toe, acquired History of hip fracture History of prosthetic unicompartmental arthroplasty of both knees Hypertension Muscle weakness Nausea Osteoarthritis Pneumonia Postmenopausal Raynauds disease Scoliosis Spinal stenosis Thyroid nodule Urinary tract infection Viral URI with cough Surgical History History of hip surgery History of incision and drainage History of tonsillectomy and adenoidectomy Hx of elbow surgery Hx of total knee arthroplasty Status post unicompartmental knee replacement, left Family History Mother Hypertension Sister Cancer Social History household members: children alcohol intake: current Meds Home Medications and Allergies Home Medications Medication Instructions Recorded Confirmed Type aspirin 325 mg tablet,delayed 325 mg PO DAILY 05/09/24 11/12/24 History release citalopram 20 mg tablet 20 mg PO DAILY #90 tabs 07/10/24 11/12/24 Rx gabapentin 100 mg capsule 100 mg PO BID #180 caps 07/10/24 11/12/24 Rx pantoprazole 40 mg tablet,delayed 40 mg PO DAILY #90 tabs 07/10/24 11/12/24 Rx release ondansetron 4 mg disintegrating 4 mg PO BID PRN nausea and 09/04/24 11/12/24 Rx tablet vomiting #30 tabs levetiracetam 1,000 mg tablet 1,000 mg PO BID #180 tabs 09/13/24 11/12/24 Rx (Keppra) ferrous sulfate 325 mg (65 mg 325 mg PO DAILY 11/08/24 11/12/24 History iron) tablet calcium carbonate (Tums) 650 mg PO DAILY 11/12/24 11/12/24 History donepezil 10 mg tablet 10 mg PO QPM 11/12/24 11/12/24 History Allergies Allergy/AdvReac Type Severity Reaction Status Date / Time Sulfa (Sulfonamide Allergy Intermediate Hives Verified 11/08/24 12:04 Antibiotics) codeine [CODEINE] Allergy Mild nausea Verified 11/08/24 12:04 iodine [IODINE] Allergy Mild breaks out Verified 11/12/24 03:14 skin sulfamethoxazole Allergy Mild ITCHING Verified 11/08/24 12:04 [From Bactrim] trimethoprim [From Bactrim] Allergy Mild ITCHING Verified 11/08/24 12:04 dabigatran etexilate AdvReac Intermediate Verified 11/12/24 03:14 heparin AdvReac Intermediate Verified 11/12/24 03:14 warfarin AdvReac Mild Diarrhea Verified 11/08/24 12:04 Review of Systems Review of Systems ROS: Yes All systems reviewed with the patient and are negative except as otherwise documented Exam Vital Signs (past 8 hours): - 11/12/24 03:30 11/12/24 03:36 11/12/24 03:36 Pulse Rate 117 H 114 H Respiratory Rate 18 16 Blood Pressure 102/58 L Pulse Oximetry 93 93 Oxygen Delivery Method Room Air 11/12/24 04:00 11/12/24 04:00 11/12/24 04:30 Pulse Rate 123 H Respiratory Rate 18 Blood Pressure 107/60 94/66 Pulse Oximetry 92 Oxygen Delivery Method Room Air 11/12/24 04:30 11/12/24 05:00 11/12/24 05:00 Pulse Rate 118 H 111 H Respiratory Rate 20 20 Blood Pressure 113/71 Pulse Oximetry 93 93 Oxygen Delivery Method Room Air 11/12/24 05:30 11/12/24 05:30 11/12/24 06:00 Pulse Rate 107 H Respiratory Rate 20 Blood Pressure 93/65 106/65 Pulse Oximetry 93 Oxygen Delivery Method Room Air 11/12/24 06:00 11/12/24 06:14 11/12/24 06:30 Pulse Rate 103 H 127 H Respiratory Rate 18 18 Blood Pressure Pulse Oximetry 93 92 Oxygen Delivery Method Room Air 11/12/24 06:31 11/12/24 06:31 11/12/24 07:08 Pulse Rate 115 H 109 H Respiratory Rate 18 30 H Blood Pressure 123/71 Pulse Oximetry 93 94 Oxygen Delivery Method 11/12/24 07:08 11/12/24 07:30 11/12/24 08:00 Pulse Rate 99 H 91 H Respiratory Rate 24 41 H Blood Pressure 99/63 Pulse Oximetry 92 92 Oxygen Delivery Method 11/12/24 08:30 Pulse Rate 87 Respiratory Rate 41 H Blood Pressure Pulse Oximetry 94 Oxygen Delivery Method Oxygen Delivery Method Room Air Narrative Exam Narrative: GENERAL: This is a pleasantly demented, elderly weak-appearing female patient, in no apparent distress. HEAD: Atraumatic. Normocephalic. No temporal or scalp tenderness. EYES: Pupils equal round and reactive. Extraocular motions intact. No scleral icterus. No injection or drainage. ENT: Mucous membranes pink and moist. NECK: Trachea midline. No JVD, bruits or lymphadenopathy. Supple, nontender, no meningeal signs. CARDIOVASCULAR: Regular rate and rhythm without murmurs, gallops, or rubs. RESPIRATORY: Clear to auscultation. GASTROINTESTINAL: Abdomen soft, non-tender, nondistended. EXTREMITIES: Trace edema. BACK: Nontender without deformity or crepitance. No flank tenderness. NEUROLOGIC: Alert, oriented to person only (August,, location unsure), speech fluent, globally weak symmetric upper and lower motor strength, no focal deficits evident. DERMATOLOGIC: No rashes or skin lesions. Scattered ecchymoses left anterior limon. Objective ECG Impression: Atrial fibrillation at 89bpm; Low voltage QRS Imaging Chest x-ray: Radiologist's impression: No acute cardiopulmonary abnormality is seen. 11/11 CT scan - abdomen: Radiologist's impression: These imaging findings are most compatible with enterocolitis. No findings of perforation or abscess can be seen. Additional findings: Moderate hiatal hernia Moderate levoconvex scoliosis Lumbar spine degenerative change Normal appendix Left proximal femur hardware 11/11 CT scan - head: Radiologist's impression: Stable ventriculomegaly. Correlation for normal pressure hydrocephalus is recommended. Significant chronic microvascular ischemic changes. No acute intracranial abnormalities. 11/11 Labs 11/12/24 08:40 11/12/24 08:40 Labs: Laboratory Results - last 24 hr 11/11/24 11/11/24 11/12/24 22:00 23:45 00:15 WBC 6.7 RBC 4.73 Hgb 14.6 Hct 44.1 MCV 93.1 MCH 30.7 MCHC 33.0 RDW 13.8 Plt Count 302 Neut % (Auto) 65.7 Lymph % (Auto) 27.8 [place] % (Auto) 3.6 Eos % (Auto) 2.0 Baso % (Auto) 0.9 Neut # (Auto) 4400 Lymph # (Auto) 1900 [place] # (Auto) 200 Eos # (Auto) 100 Baso # (Auto) 100 PT 10.8 INR 1.0 APTT 26 Sodium 138 Potassium 3.7 Chloride 106 Carbon Dioxide 21 L BUN 19 H Creatinine 0.99 Estimated GFR 55 L BUN/Creatinine Ratio 19.2 Glucose 131 H Lactate 2.4 H Calcium 9.0 Magnesium 1.9 Total Bilirubin 0.4 AST 36 ALT 26 Alkaline Phosphatase 120 Total Creatine Kinase 44 Troponin I < 0.012 NT-Pro-B Natriuret Pep 1120 H Total Protein 7.7 Albumin 4.0 Globulin 3.7 Albumin/Globulin Ratio 1.1 Lipase 132 Procalcitonin 0.037 Urine Color Urine Appearance Urine pH Ur Specific Bearden Urine Protein Urine Glucose (UA) Urine Ketones Urine Occult Blood Urine Nitrate Urine Bilirubin Urine Urobilinogen Ur Leukocyte Esterase Urine RBC Urine WBC Ur Squamous Epith Cells Urine Bacteria Ur Culture Indicated? Vol Urine Centrifuged Stl C. cayetanensis PCR Stool Rotavirus (PCR) Stool Adenovirus (PCR) Stool Astrovirus (PCR) Stool Cryptosporidium PCR Stl E.coli Shiga Tox PCR St Sh/Enteroin Ecoli PCR Stl Enterotoxigenic E PCR Stool EPEC (PCR) Stl E. histolytica PCR Stool Giardia Lamblia PCR Stool Sapovirus (PCR) Stl P. shigelloides PCR St Y.enterocolitica PCR Stool Vibrio (PCR) Stl Vibrio cholerae PCR Stl Enteroaggr Ecoli PCR Stl Norovirus GI/GII PCR Campylobacter (PCR) C. difficile Tox (PCR) SARS-CoV-2 (PCR) Negative Influenza A (RT-PCR) Flu a negative Influenza B (RT-PCR) Flu b negative RSV (PCR) Negative Salmonella (PCR) 11/12/24 11/12/24 11/12/24 00:25 02:50 06:30 WBC RBC Hgb Hct MCV MCH MCHC RDW Plt Count Neut % (Auto) Lymph % (Auto) [place] % (Auto) Eos % (Auto) Baso % (Auto) Neut # (Auto) Lymph # (Auto) [place] # (Auto) Eos # (Auto) Baso # (Auto) PT INR APTT Sodium Potassium Chloride Carbon Dioxide BUN Creatinine Estimated GFR BUN/Creatinine Ratio Glucose Lactate 4.0 H 3.2 H Calcium Magnesium Total Bilirubin AST ALT Alkaline Phosphatase Total Creatine Kinase Troponin I NT-Pro-B Natriuret Pep Total Protein Albumin Globulin Albumin/Globulin Ratio Lipase Procalcitonin Urine Color Yellow Urine Appearance Clear Urine pH 5.5 Ur Specific [place] 1.020 Urine Protein Negative Urine Glucose (UA) Negative Urine Ketones Trace H Urine Occult Blood 3+ H Urine Nitrate Negative Urine Bilirubin Negative Urine Urobilinogen 0.2 Ur Leukocyte Esterase Negative Urine RBC 1-5/hpf Urine WBC None seen Ur Squamous Epith Cells None seen Urine Bacteria None seen Ur Culture Indicated? Cult not indicated Vol Urine Centrifuged 10ml (spun) Stl C. cayetanensis PCR Stool Rotavirus (PCR) Stool Adenovirus (PCR) Stool Astrovirus (PCR) Stool Cryptosporidium PCR Stl E.coli Shiga Tox PCR St Sh/Enteroin Ecoli PCR Stl Enterotoxigenic E PCR Stool EPEC (PCR) Stl E. histolytica PCR Stool Giardia [place] PCR Stool Sapovirus (PCR) Stl P. shigelloides PCR St Y.enterocolitica PCR Stool Vibrio (PCR) Stl Vibrio cholerae PCR Stl Enteroaggr Ecoli PCR Stl Norovirus GI/GII PCR Campylobacter (PCR) C. difficile Tox (PCR) SARS-CoV-2 (PCR) Influenza A (RT-PCR) Influenza B (RT-PCR) RSV (PCR) Salmonella (PCR) 11/12/24 11/12/24 11/12/24 07:05 08:30 08:40 WBC 9.4 RBC 3.78 L Hgb 11.7 L Hct 35.3 L MCV 93.5 MCH 31.0 MCHC 33.2 RDW 13.7 Plt Count 192 Neut % (Auto) 95.0 H D Lymph % (Auto) 1.4 L D [place] % (Auto) 2.3 L Eos % (Auto) 0.3 L Baso % (Auto) 1.0 Neut # (Auto) 8900 H Lymph # (Auto) 100 L [place] # (Auto) 200 Eos # (Auto) 0 Baso # (Auto) 100 PT INR APTT Sodium 138 Potassium 4.1 Chloride 115 H Carbon Dioxide 16 L BUN 19 H Creatinine 0.70 Estimated GFR > 60 BUN/Creatinine Ratio 27.1 H Glucose 114 H Lactate 3.8 H Calcium 6.8 L Magnesium Total Bilirubin AST ALT Alkaline Phosphatase Total Creatine Kinase Troponin I NT-Pro-B Natriuret Pep Total Protein Albumin Globulin Albumin/Globulin Ratio Lipase Procalcitonin Urine Color Urine Appearance Urine pH Ur Specific [place] Urine Protein Urine Glucose (UA) Urine Ketones Urine Occult Blood Urine Nitrate Urine Bilirubin Urine Urobilinogen Ur Leukocyte Esterase Urine RBC Urine WBC Ur Squamous Epith Cells Urine Bacteria Ur Culture Indicated? Vol Urine Centrifuged Stl C. cayetanensis PCR Not detected Stool Rotavirus (PCR) Not detected Stool Adenovirus (PCR) Not detected Stool Astrovirus (PCR) Not detected Stool Cryptosporidium PCR Not detected Stl E.coli Shiga Tox PCR Not detected St Sh/Enteroin Ecoli PCR Not detected Stl Enterotoxigenic E PCR Not detected Stool EPEC (PCR) Not detected Stl E. histolytica PCR Not detected Stool Giardia [place] PCR Not detected Stool Sapovirus (PCR) Not detected Stl P. shigelloides PCR Not detected St Y.enterocolitica PCR Not detected Stool Vibrio (PCR) Not detected Stl Vibrio cholerae PCR Not detected Stl Enteroaggr Ecoli PCR Not detected Stl Norovirus GI/GII PCR Detected Campylobacter (PCR) Not detected C. difficile Tox (PCR) Not detected SARS-CoV-2 (PCR) Influenza A (RT-PCR) Influenza B (RT-PCR) RSV (PCR) Salmonella (PCR) Not detected Assessment & Plan Assessment & Plan narrative: Norovirus enterocolitis with dehydration and syncope. - IVF - Clear liquid diet Syncope due to dehydration. - monitor on telemetry Atrial fibrillation with transient RVR, RVR resolved. - continue home medication monitor blood pressure. Mild elevated lactate of 2.4, rising to 3.8. - rising to 3.8 this morning - etiology dehydration. - increase IV fluid and monitor for signs of sepsis. Alzheimer disease. - continue home donepezil. GERD - continue home PPI. DVT prophylaxis: Lovenox CODE STATUS DNR/DNI. Disposition likely home in 2-3 days. Admitted inpatient status has or acquired least 2 midnights of inpatient level care. Quality MIPS - Admit I confirm the patient?s Advance Care Plan is present, Code status is documented, Surrogate decision maker is in patient?s record [If Yes, STOP here]: Yes [facility] - Meds 'Current medications' to include all prescriptions, ishe-hbo-flrpidm products, herbals, cannabis/cannabidiol products, and vitamin/mineral/dietary (nutritional) supplements. I have utilized all available resources to obtain, update, or review the patient?s current medications. [If Yes, STOP here]: Yes [employer] Document charge(s): No Charge Codes Initial inpatient/observation care: [id number]
[2024-11-12 12:06] LABS: Lactate (Lactic Acid) 2.7 mmol/L (0.7-2.1)
[2024-11-12] MEDS: ENOXAPARIN 40 MG/0.4 ML SYRINGE SUBCUT (12:45)
[2024-11-12 13:00] LABS: MRSA (Nasal) PCR NOT DETECTED (Not Detect)
[2024-11-12 13:27] LABS: Reflexed Lactate in 2 Hours Y
[2024-11-12 14:26] LABS: Lactate 2HR (Lactic Acid Rflx) 2.3 mmol/L (0.7-2.1)
[2024-11-12] MEDS: GABAPENTIN 100 MG CAPSULE PO (20:20)
[2024-11-13] VITALS (58 sets, daily range): BP systolic 100–137; BP diastolic 56–93; PULSE 73–97; RESP 17–40; TEMP 36.4–36.8; O2SAT 78–97
[2024-11-13 05:35] LABS: Add Manual Diff / Slide Review NO; Basophils Absolute Auto 0 /uL (0-100); Basophils Percent Auto 0.5 % (0-2); Eosinophils Absolute Auto 0 /uL (0-450); Eosinophils Percent Auto 0.1 % (2-4); Hematocrit 34.4 % (36-46); Hemoglobin 11.4 g/dL (12.0-16.0); Lymphocytes Absolute Auto 600 /uL (1100-4500); Lymphocytes Percent Auto 14.2 % (25-40); Mean Corpuscular HGB Conc 33.1 % (30-36); Mean Corpuscular Hemoglobin 30.7 PG (26-34); Mean Corpuscular Volume 92.8 fL (80-100); Monocytes Absolute Auto 400 /uL (0-900); Monocytes Percent Auto 8.8 % (3-14); Neutrophils Absolute Auto 3300 /uL (1500-7000); Neutrophils Percent Auto 76.4 % (50-75); Platelet Count 199 X10^3/uL (150-400); Red Cell Distribution Width 13.7 % (11.6-14.8); White Blood Cell Count 4.4 X10^3/uL (4.5-11.0)
[2024-11-13 05:45] LABS: BUN Creatinine Ratio 19.5 (6-22); Blood Urea Nitrogen 16 mg/dL (7-17); Calcium 7.5 mg/dL (8.4-10.2); Carbon Dioxide 20 mmol/L (22-32); Chloride 113 mmol/L (98-107); Estimated Glomerular Filt Rate > 60 mL/min (>60); Glucose 91 mg/dL (80-110); HEMOLYSIS < 15 (0-50); Potassium 3.7 mmol/L (3.4-5.1); Sodium 139 mmol/L (137-145)
[2024-11-13] MEDS: levETIRAcetam 750 MG in SODIUM CHLORIDE 0.9% 100 ML 430 MG IV ×2 (08:02→20:15)
[2024-11-13] MEDS: ASPIRIN EC 325 MG TABLET PO (08:08)
[2024-11-13] MEDS: CITALOPRAM 10 MG TABLET 20 MG PO (08:08)
[2024-11-13] MEDS: PANTOPRAZOLE 40 MG VIAL IV (08:09)
[2024-11-13] MEDS: FERROUS SULFATE 325 MG TABLET PO (08:09)
[2024-11-13] MEDS: CALCIUM CARBONATE 500 MG TAB PO (08:09)
[2024-11-13] MEDS: GABAPENTIN 100 MG CAPSULE PO ×2 (08:09→20:16)
[2024-11-13] MEDS: ENOXAPARIN 40 MG/0.4 ML SYRINGE SUBCUT (08:09)
[2024-11-13] MEDS: SODIUM CHLORIDE 0.9% 1,000 ML 100 ML IV ×2 (12:14→23:13)
--- NOTE | 2024-11-13 15:24 | OT.IP.EVAL ---
Current Diagnoses Acute gastroenteropathy due to Stopover agent (11/12/24) Past Medical History (Last Reviewed 11/12/24 @ 11:10 by Raji Hyatt MD) Anemia, iron deficiency Ankle fracture, right Arthritis of knee, left Blood clot in vein Bruises easily Cardiomegaly Cataract fragments in both eyes following surgery Cellulitis Cellulitis of leg, right Closed fracture of right distal fibula (~12/2017) Cognitive impairment Depression Diarrhea DVT (deep venous thrombosis) Epilepsy Excessive cerumen in right ear canal GERD (gastroesophageal reflux disease) Hammer toe, acquired History of hip fracture History of prosthetic unicompartmental arthroplasty of both knees Hypertension Muscle weakness Nausea Osteoarthritis Pneumonia Postmenopausal Raynauds disease Scoliosis Spinal stenosis Thyroid nodule Urinary tract infection Viral URI with cough Surgical History (Last Reviewed 11/12/24 @ 11:10 by Raji Hyatt MD) History of hip surgery History of incision and drainage History of tonsillectomy and adenoidectomy Hx of elbow surgery Hx of total knee arthroplasty Status post unicompartmental knee replacement, left Occupational Therapy Inpatient Evaluation/Re-Eval M1 PT/OT-IP Prior Functional Status Start: 11/13/24 15:25 Freq: NEEDED Status: Active Protocol: Document 11/13/24 15:25 CGR (Rec: 11/13/24 15:36 CGR Desktop) Medical Review Prior Functional Status Medical History Reviewed Yes Communication Pt is an effective verbal communicator Mobility and Gait Pt was able to perform bed mobility IND from her flat bed and transfer with assist to her w/c but was otherwise w/c bound. Activities of Daily Living and IADL's Pt needed assist with cooking, cleaning, shopping but was able to dress and do simple ADLs without assist. Prior Functional Level (Other details) Pt is a retired OR nurse. Social History Household Members children Living Arrangements House Number of Floors (Floors) Two Floors Number of Stairs To Enter/Railing? ramp to enter and the basement is not used so pt stays on the main data entry specialist. Home Environment Standard Height Toilet,Walk in Shower Home Equipment Front Wheel Walker,Manual Wheelchair,Hand Held Shower, Grab Bars Near Toilet,Grab Bars In Shower Employment Status Retired Additional Social History Comment Pt lives with her daughter who helps her with transfers and IADLs. M2 OT-IP Current Condition Start: 11/13/24 15:25 Freq: Status: Active Protocol: Document 11/13/24 15:25 CGR (Rec: 11/13/24 15:36 CGR Desktop) Occupational Therapy Current Condition Current Condition Evaluation Date 11/13/24 Treatment Diagnosis syncope, vomiting, diarrhea, found to have norovirus. Diagnosis Onset Date 11/12/24 M3 OT- IP Subjective and Pain Start: 11/13/24 15:25 Freq: Status: Active Protocol: Document 11/13/24 15:25 CGR (Rec: 11/13/24 15:36 CGR Desktop) OT- Subjective Occupational Therapy Visit Type Type Initial Evaluation Visit Start Time 15:00 Visit Stop Time 15:24 Notes Pt is agreeable to getting up to chair. OT Pain Assessment Pain When Pain Assessed At Rest Pain Present Pain Present Denied Pain M4 OT- IP ADL's Start: 11/13/24 15:25 Freq: Status: Active Protocol: Document 11/13/24 15:25 CGR (Rec: 11/13/24 15:36 CGR Desktop) OT [id number] Comments OT Self-Feeding Comments not meal time OT ADL-Grooming Comments OT Grooming Comments not performed OT ADL-Oral Care Comments Oral Care Comments not performed OT ADL-Dressing General Eval Lower Body Dressing Ability Total Assistance Areas Needing Assistance Socks OT ADL-Toileting Comments OT Toileting Comments not performed OT ADL-Bathing Comments OT Bathing Comments not performed M5 OT- IP IADL's Start: 11/13/24 15:25 Freq: Status: Active Protocol: Document 11/13/24 15:25 CGR (Rec: 11/13/24 15:36 CGR Desktop) OT-Instrumental Activities of Daily Living Deficits IADL Deficits Identified No Deficits Home Safety Awareness Awareness of Need for Assistance at Home Good Awareness Ability to Problem Solve Emergency Able to Problem Solve Situations Medication Management Medication Management No Deficits Identified Money Management Money Management Caregiver Provides Assistance Meal Preparation Meal Preparation Caregiver Provides Assist Platform Operations Director Platform Operations Director Caregiver Provides Assist Driving Driving Comments Pt does not drive M6 OT- IP Functional Cognition Start: 11/13/24 15:25 Freq: Status: Active Protocol: Document 11/13/24 15:25 CGR (Rec: 11/13/24 15:36 CGR Desktop) Cognitive Factors Limiting Selfcare Function Cognitive Ability Level of Alertness Alert Patient Orientation Name,Age,Birthday,Month,Date, Year,Day of Week,Place, Situation Attention Span Ability Capable of Focused Attention, Capable of Sustained Attention Ability to Follow Commands Able to Follow One Step Commands with Increased Time, Able to Follow One Step Commands with Repetition OT- Vision and Hearing OT- Hearing Assessment OT- Hearing Assessment WFL OT- Vision Assessment Visual Acuity WFL Visual Attentiveness WFL Occular Pursuits WFL Visual Convergence WFL M7 OT- IP Mobility and Balance Start: 11/13/24 15:25 Freq: Status: Active Protocol: Document 11/13/24 15:25 CGR (Rec: 11/13/24 15:36 CGR Desktop) OT- Bed Mobility Assessment Supine to Sit Supine to Sit Assist Maximum Assistance,1 Person Assistance,Head of Bed Elevated,Bedrails Scooting Scooting to Edge of Bed Maximum Assistance,1 Person Assistance,Head of Bed Elevated,Bedrails OT-Transfer Assessment Sit to and From Stand Sit to and from Stand Maximum Assistance,Total Assistance,2 Person Assistance Transfers Transfer Ability Maximum Assistance,Total Assistance,2 Person Assistance Technique Transfer Destination Bed,Chair Transfer Technique Stand Step Pivot Devices Transfer Assistive Devices Gait Belt,Front Wheeled Walker Comments Mobility Comments Pt transferred from bed to chair with 2 person assist. Nursing present to provide second person assist. OT- Gait Assessment Comments Gait Ability Comments not performed, pt does not ambulate at baseline OT- Balance Assessment Sitting Balance and Reactions Static Sitting Balance Ability Poor Dynamic Sitting Balance Ability Poor M8 OT- IP Objective Assessments Start: 11/13/24 15:25 Freq: Status: Active Protocol: Document 11/13/24 15:25 CGR (Rec: 11/13/24 15:36 CGR Desktop) OT Strength Comments Strength Comments grossly WFL as seen with activity OT- Coordination Assessment Upper Extremity Finger to Nose Test Within Functional Limits Finger Tapping Test Within Functional Limits OT-Muscle Tone Assessment Muscle Tone WNL Yes OT Sensation Assessment Edema Edema Absent M9 OT- IP Assessment and Plan Start: 11/13/24 15:25 Freq: Status: Active Protocol: Document 11/13/24 15:25 CGR (Rec: 11/13/24 15:36 CGR Desktop) OT Summary Assessment and Plan Potential Rehabilitation Potential Good Analytic Complexity at Evaluation Moderate Summary OT Impairments Strength,Balance,Functional Mobility,Grooming,Dressing, Toileting,Bathing,Toilet Transfers,Shower Transfers, Activity Tolerance Progress Towards Goals Progressing Toward Goals Assessment Summary Pt presents as a moderate complexity evaluation s/p admit for norovirus. Pt with good participation today with transfer to chair but pt with slight wheeze at end of session and nursing to see if pt can have breathing treatment. Further activity held for pt's endurance. Pt will likely benefit from continued therapy services. Pt is agreeable to SNF if needed at time of discharge. Given pt's max to total x2 transfer, pt will need SNF at this time . Goals Grooming Goal Independent Dressing Goal Independent Bathing Goal Independent Shower Transfer Goal Minimal Assistance Days to Meet Goals 10 Frequency of Treatment Other frequency 5x per week Treatment Plan OT Treatment Plan ADL Training,Functional Mobility,Patient/Family Education,Discharge Planning Other Treatment Recommendations and Next ADLs seated in chair. Treatment Focus Discharge Recommendations OT Discharge Recommendations Home vs SNF Transportation Needs at Discharge Wheelchair/Cabulance
--- NOTE | 2024-11-13 15:45 | PT-IP ANOTE ---
PT checked on pt who is sleeping in chair. OT reports just finishing and pt +2 to total assistance to get up to chair, will initiate PT evaluation next date.
--- NOTE | 2024-11-13 17:09 | PM.PN.1 ---
Subjective Subjective Date Patient Seen: 11/13/24 Time Patient Seen: 17:09 Interval history: Chief complaint: Severe weakness fall secondary to diarrhea from norovirus History of present illness: 89-year-old female with past medical history of atrial fibrillation on aspirin, seizure disorder on Keppra, Watchman device for her atrial fibrillation, Alzheimer dementia, GERD, depression and iron deficiency anemia presents with syncope. Per the patient's daughter report, the patient was going to the bathroom and was using the toilet when she lost her muscle tone and had a syncopal episode. The patient prior to that had nausea vomiting and diarrhea. There is no report of any GI bleed. Also per report the patient did buy hit her head or have any serious injury. There is also no report of any seizure activity and no postictal post syncope. In the emergency room, the patient was hemodynamically stable but was in A-fib with RVR. Labs shows no signs of sepsis sepsis though there is an elevated lactic acid level of 2.4. The patient was stood up by the nursing staff and had another syncopal episode. Then the patient's blood pressure was low with systolic down into the 80s. The patient received IV fluid bolus and blood pressure did improve. Labs were relatively benign with WBC 6.7. CT chest abdomen pelvis shows no acute finding. The patient was given metoprolol as well as amiodarone and heart rate did improve. CT scan of the head was shows no acute finding. 11/12: Interim history: She appears comfortable without complaints, with ongoing profuse diarrhea, testing positive on stool GI panel today for Norovirus PCR. 11/13: Patient is still having diarrhea somewhat confused but alert and cogent conversation Review of systems: No LOC No shortness a breath new line no nausea vomiting new line Physical exam: No acute distress confused alert HEENT unremarkable heart rate and rhythm irregular no murmurs Lungs diminished breath sounds no rales abdomen with hyperactive bowel sounds Assessment & Plan Assessment & Plan narrative: Norovirus enterocolitis with dehydration and syncope. - IVF - Clear liquid diet Syncope due to dehydration. - monitor on telemetry Atrial fibrillation with transient RVR, RVR resolved. - continue home medication monitor blood pressure. Mild elevated lactate of 2.4, rising to 3.8. - rising to 3.8 this morning - etiology dehydration. - increase IV fluid and monitor for signs of sepsis. Alzheimer disease. - continue home donepezil. GERD - continue home PPI. DVT prophylaxis: Lovenox CODE STATUS DNR/DNI. Disposition likely home in 2-3 days. Admitted inpatient status has or acquired least 2 midnights of inpatient level care. I spent 35 minutes in evaluation of this patient 50% of that time was in the patient room Exam Vital Signs (past 8 hours): - 11/13/24 09:30 11/13/24 10:00 11/13/24 10:22 Temperature 98.3 F Pulse Rate 85 81 Respiratory Rate 22 31 H Blood Pressure Pulse Oximetry Oxygen Flow Rate 11/13/24 10:30 11/13/24 11:00 11/13/24 11:30 Temperature Pulse Rate 78 78 74 Respiratory Rate 20 25 H 19 Blood Pressure Pulse Oximetry Oxygen Flow Rate 11/13/24 12:00 11/13/24 12:07 11/13/24 12:07 Temperature Pulse Rate 73 88 Respiratory Rate 23 25 H Blood Pressure 130/75 Pulse Oximetry Oxygen Flow Rate 11/13/24 12:30 11/13/24 13:00 11/13/24 13:00 Temperature 97.5 F L Pulse Rate 91 H 90 Respiratory Rate 31 H 25 H Blood Pressure Pulse Oximetry 95 Oxygen Flow Rate 0 Oxygen Delivery Method Room Air Oxygen Flow Rate 0 Objective Labs 11/13/24 04:28 11/13/24 04:28 Labs: Laboratory Results - last 24 hr 11/13/24 04:28 WBC 4.4 L D RBC 3.70 L Hgb 11.4 L Hct 34.4 L MCV 92.8 MCH 30.7 MCHC 33.1 RDW 13.7 Plt Count 199 Neut % (Auto) 76.4 H Lymph % (Auto) 14.2 L [place] % (Auto) 8.8 Eos % (Auto) 0.1 L Baso % (Auto) 0.5 Neut # (Auto) 3300 Lymph # (Auto) 600 L [place] # (Auto) 400 Eos # (Auto) 0 Baso # (Auto) 0 Sodium 139 Potassium 3.7 Chloride 113 H Carbon Dioxide 20 L BUN 16 Creatinine 0.82 Estimated GFR > 60 BUN/Creatinine Ratio 19.5 Glucose 91 Calcium 7.5 L PFSH Medical History Anemia, iron deficiency Ankle fracture, right Arthritis of knee, left Blood clot in vein Bruises easily Cardiomegaly Cataract fragments in both eyes following surgery Cellulitis Cellulitis of leg, right Closed fracture of right distal fibula (~12/2017) Cognitive impairment Depression Diarrhea DVT (deep venous thrombosis) Epilepsy Excessive cerumen in right ear canal GERD (gastroesophageal reflux disease) Hammer toe, acquired History of hip fracture History of prosthetic unicompartmental arthroplasty of both knees Hypertension Muscle weakness Nausea Osteoarthritis Pneumonia Postmenopausal Raynauds disease Scoliosis Spinal stenosis Thyroid nodule Urinary tract infection Viral URI with cough Surgical History History of hip surgery History of incision and drainage History of tonsillectomy and adenoidectomy Hx of elbow surgery Hx of total knee arthroplasty Status post unicompartmental knee replacement, left Family History Mother Hypertension Sister Cancer Social History household members: children alcohol intake: current Assessment & Plan Time-Based Coding :: [TOTAL MINUTES] spent with patient and on the chart (including review of chart, obtaining history, exam, reviewing outside data, placing orders, documenting exam and treatment plan, and counseling patient) on [DATE].
[2024-11-13] MEDS: DONEPEZIL 5 MG TABLET 10 MG PO (17:49)
[2024-11-14] VITALS (10 sets, daily range): BP systolic 115–148; BP diastolic 71–90; PULSE 77–112; RESP 18–31; TEMP 36.3–36.6; O2SAT 94–95
[2024-11-14] MEDS: SODIUM CHLORIDE 0.9% 1,000 ML 100 ML IV (07:46)
[2024-11-14] MEDS: levETIRAcetam 750 MG in SODIUM CHLORIDE 0.9% 100 ML 430 MG IV (07:47)
[2024-11-14] MEDS: CITALOPRAM 10 MG TABLET 20 MG PO (10:03)
[2024-11-14] MEDS: ASPIRIN EC 325 MG TABLET PO (10:03)
[2024-11-14] MEDS: CALCIUM CARBONATE 500 MG TAB PO (10:03)
[2024-11-14] MEDS: FERROUS SULFATE 325 MG TABLET PO (10:04)
[2024-11-14] MEDS: PANTOPRAZOLE 40 MG VIAL IV (10:04)
[2024-11-14] MEDS: ENOXAPARIN 40 MG/0.4 ML SYRINGE SUBCUT (10:04)
[2024-11-14] MEDS: GABAPENTIN 100 MG CAPSULE PO ×2 (10:04→20:29)
--- NOTE | 2024-11-14 11:25 | PT.IIE ---
Current Diagnoses Acute gastroenteropathy due to [place] agent (11/12/24) Surgical History (Last Reviewed 11/12/24 @ 11:10 by Raji Hyatt MD) History of hip surgery History of incision and drainage History of tonsillectomy and adenoidectomy Hx of elbow surgery Hx of total knee arthroplasty Status post unicompartmental knee replacement, left Medical History (Last Reviewed 11/12/24 @ 11:10 by Raji Hyatt MD) Anemia, iron deficiency Ankle fracture, right Arthritis of knee, left Blood clot in vein Bruises easily Cardiomegaly Cataract fragments in both eyes following surgery Cellulitis Cellulitis of leg, right Closed fracture of right distal fibula (~12/2017) Cognitive impairment Depression Diarrhea DVT (deep venous thrombosis) Epilepsy Excessive cerumen in right ear canal GERD (gastroesophageal reflux disease) Hammer toe, acquired History of hip fracture History of prosthetic unicompartmental arthroplasty of both knees Hypertension Muscle weakness Nausea Osteoarthritis Pneumonia Postmenopausal Raynauds disease Scoliosis Spinal stenosis Thyroid nodule Urinary tract infection Viral URI with cough Physical Therapy Inpatient Evaluation/Re-Eval M1 PT/OT-IP Prior Functional Status Start: 11/12/24 08:25 Freq: NEEDED Status: Active Protocol: Document 11/14/24 11:25 AB (Rec: 11/14/24 13:13 AB [id number]) Medical Review Prior Functional Status Medical History Reviewed Yes Communication able to make needs known; [place]; slow to respond to questions and instructions Mobility and Gait pt stated that she was modified independent with step transfer without AD but stated that she was able to ambulate using a FWW. stated that her daughter mostly provides supervision and assists her only when she needs help. stated that she sit on a lounger but sometimes uses her w/c for mobility depending on how she feels but not all the time. From pt's last hospitalization : pt stated that she was able to transfer but was mostly w/c bound. Activities of Daily Living and IADL's per OT note: Pt needed assist with cooking, cleaning, shopping but was able to dress and do simple ADLs without assist. Prior Functional Level (Other details) Pt is a retired OR nurse. Social History Household Members children Living Arrangements House Number of Floors (Floors) One Floor Number of Stairs To Enter/Railing? ramp to enter from the back door 6 steps R rail ascending to enter from the front door Home Environment Standard Height Toilet,Walk in Shower Home Equipment Front Wheel Walker,Manual Wheelchair,Hand Held Shower, Grab Bars Near Toilet Employment Status Retired Additional Social History Comment Pt lives with her daughter who helps her with transfers and IADLs. has L side bed rail M1 PT/OT-IP Prior Functional Status Start: 11/13/24 15:25 Freq: NEEDED Status: Active Protocol: Document 11/13/24 15:25 CGR (Rec: 11/13/24 15:36 CGR Desktop) Medical Review Prior Functional Status Medical History Reviewed Yes Communication Pt is an effective verbal communicator Mobility and Gait Pt was able to perform bed mobility IND from her flat bed and transfer with assist to her w/c but was otherwise w/c bound. Activities of Daily Living and IADL's Pt needed assist with cooking, cleaning, shopping but was able to dress and do simple ADLs without assist. Prior Functional Level (Other details) Pt is a retired OR nurse. Social History Household Members children Living Arrangements House Number of Floors (Floors) Two Floors Number of Stairs To Enter/Railing? ramp to enter and the basement is not used so pt stays on the main entry level chemist. Home Environment Standard Height Toilet,Walk in Shower Home Equipment Front Wheel Walker,Manual Wheelchair,Hand Held Shower, Grab Bars Near Toilet,Grab Bars In Shower Employment Status Retired Additional Social History Comment Pt lives with her daughter who helps her with transfers and IADLs. M2 PT-IP Current Condition Start: 11/12/24 08:25 Freq: NEEDED Status: Active Protocol: Document 11/14/24 11:25 AB (Rec: 11/14/24 13:13 AB [id number]) Physical Therapy Current Condition Current Condition Evaluation Date 11/14/24 Treatment Diagnosis a-fib, syncope; difficulty in walking Onset Date 11/12/24 M3 PT-IP Subjective Start: 11/12/24 08:25 Freq: NEEDED Status: Active Protocol: Document 11/14/24 11:25 AB (Rec: 11/14/24 13:13 AB [id number]) Subjective Physical Therapy Visit Type Type Initial Evaluation Visit Start Time 11:25 Visit Stop Time 12:05 Number of SCRIPT WORKER Visits 0 Physical Therapy Visit Comments Patient Comments agreeable to do PT Therapy Pain Assessment Pain Present Pain Present Denied Pain M4 PT-IP Mobility and Gait Start: 11/12/24 08:25 Freq: NEEDED Status: Active Protocol: Document 11/14/24 11:25 AB (Rec: 11/14/24 13:13 AB [id number]) PT-Bed Mobility Assessment Supine to Sit Supine to Sit Maximum Assistance,2 Person Assistance,Head of Bed Elevated,Bedrails Scooting Scooting to Edge of Bed Dependent PT-Transfer Assessment Sit to and From Stand Sit to and from Stand Maximum Assistance,2 Person Assistance,Use of Upper Extremities Equipment Transfer Assistive Device Gait Belt,Front Wheeled Walker Orthotic/Prosthetic Devices or Brace: No Transfers Transfer Destination Chair Transfer Technique Stand Step Pivot Transfer Ability Level of Assist Total Assistance,Use of Upper Extremities Comments Mobility Comments pt in bed and agreed to do PT. obtained PLOF and home set up . Questionable accuracy of info pt provided. pt with decrease memory. O2 sat at RA: 91% completed supine to sit max A x 2 and max cues. max A x 1-2 for sitting balance. increase posterior trunk lean and lateral leaning to the R. pt only able to maintain sitting balance for ~ 5 sec needing to reposition and assist to sit upright again. (+) wheezing O2 sat checked: 94-95%. pt requiring total A x 2 for scooting to EOB. pt completed sit to stand max A x 2 and max cues and max A x 2 for standing balance using FWW. increase posterior trunk lean and pt tends not to use FWW for support. cued to push down on FWW for support. pt sat back on EOB and rested. asked nurse to provide 3rd person assist for transfers. pt completed sit to stand max A x 2 and max cues. step transfer to chair using FWW max A x 3 with max cues due to LLE buckling needing 3rs pt for assist and safety. total A x 2-3 needing to complete transfer to chair. pt needing to stand again from hygiene care and brief management. sit to stand from chair max A x 2 and max cues. max A x 2 for standing balance using fWW. nurse assist pt with hygiene care and brief managment. total A x 2 for positioning on the chair. call light and table placed within reach. PT-Balance Assessment Sitting Balance and Reactions Static Sitting Balance Ability Poor Dynamic Sitting Balance Ability Poor Standing Balance and Reactions Static Standing Balance Ability Poor Dynamic Standing Balance Ability Poor Device Used FWW M5 PT-IP Objective Assessments Start: 11/12/24 08:25 Freq: NEEDED Status: Active Protocol: Document 11/14/24 11:25 AB (Rec: 11/14/24 13:13 AB [id number]) Orientation Orientation/Cognition Level of Alertness Confusional State Orientation Name Language Function Ability Hard of Hearing Safety Awareness Decreased Safety Awareness Memory Description Short Term Impaired,Driveway Attendant Impaired Strength Lower Extremity Strength Assessment Bilaterally Impaired Comments Strength Comments RLE: 3-/5 LLE : 3+/5 Muscle Tone Muscle Tone WNL Yes M6 PT-IP Treatment Start: 11/12/24 08:25 Freq: NEEDED Status: Active Protocol: Document 11/14/24 11:25 AB (Rec: 11/14/24 13:13 AB [id number]) Physical Therapy Treatment Education Education Provided Safety M7 PT-IP Assessment and Plan Start: 11/12/24 08:25 Freq: NEEDED Status: Active Protocol: Document 11/14/24 11:25 AB (Rec: 11/14/24 13:13 AB [id number]) PT Summary Assessment and Plan Potential Rehabilitation Potential Fair Status of Condition at Evaluation Evolving Summary Impairments Pain,ROM,Strength,Balance, Coordination,Sensation,Tone, Cognition,Bed Mobility, Transfers,Gait,Activity Tolerance Assessment Summary pt is an 89 y/o F who is admitted for syncope, fib. pt requiring max A x 2-3 to total A x 3 for mobility. pt with (+) L knee buckling during transfers using FWW requiring total Ax 3. pt has decrease safety awareness and needing increase time to follow/ complete directions/ instructions. pt will require SNF rehab to improve overall strength and mobility. Goals Bed Mobility Goal Minimal Assistance Transfer Goal Minimal Assistance,Front Wheeled Walker Gait Goal Minimal Assistance,Front Wheel Walker Gait Distance 25 Other Goals improve bed mobility, transfers, ambulation using FWW 50 ft SBA Days to Meet Goals 10 Frequency of Treatment Frequency Of Treatment Once a Day Treatment Plan Physical Therapy Treatment Plan Bed Mobility Training,Transfer Training,Gait Training, Therapeutic Exercise,Balance Retraining,Discharge Planning, Hot or Cold Pack,Neuromuscular Re-ed,Coordination Retraining ,Manual Therapy Precautions Other Precautions falls, contact precautions Recommendations To Nursing Amount of Assist Needed Mechanical Lift Discharge Recommendations PT Discharge Recommendations SNF Rehab Transportation Needs at Discharge Wheelchair/Cabulance,Stretcher /Ambulance - PT assist 3
--- NOTE | 2024-11-14 12:08 | OT.IP.TRT ---
Current Diagnoses Acute gastroenteropathy due to [place] agent (11/12/24) Occupational Therapy Treatment Note M2 OT-IP Current Condition Start: 11/13/24 15:25 Freq: Status: Active Protocol: Document 11/13/24 15:25 CGR (Rec: 11/13/24 15:36 CGR Desktop) Occupational Therapy Current Condition Current Condition Evaluation Date 11/13/24 Treatment Diagnosis syncope, vomiting, diarrhea, found to have norovirus. Diagnosis Onset Date 11/12/24 M3 OT- IP Subjective and Pain Start: 11/13/24 15:25 Freq: Status: Active Protocol: Document 11/14/24 12:16 CCC (Rec: 11/14/24 12:26 CCC Desktop) OT- Subjective Occupational Therapy Visit Type Type Treatment Note Visit Start Time 11:30 Visit Stop Time 12:08 Occupational Therapy Visit Comments Patient Comments Pt agreed to get up. Patient/Caregiver Goals TO get better. OT Pain Assessment Pain When Pain Assessed At Rest Pain Present Pain Present Denied Pain M4 OT- IP ADL's Start: 11/13/24 15:25 Freq: Status: Active Protocol: Document 11/14/24 12:16 CCC (Rec: 11/14/24 12:26 CCC Desktop) OT [id number] Comments OT Self-Feeding Comments Not at meal time. OT ADL-Grooming General Evaluation Grooming Ability Standby Assistance Areas Needing Assistance Retrieving/Set-up of Grooming Items Comments OT Grooming Comments While seated. OT ADL-Oral Care General Eval Oral Care Ability Standby Assistance Areas of Assistance Retrieving/Set-Up of Items Comments Oral Care Comments Able to do while seated. OT ADL-Dressing General Eval Lower Body Dressing Ability Total Assistance Areas Needing Assistance Underpants/Brief,Socks OT ADL-Toileting General Evaluation Toileting Ability Total Assistance Areas Needing Assistance Manage Clothing,Perform Perineal Hygiene Comments OT Toileting Comments MAX AX 2 to stand to the FWW while nurse assisted. OT ADL-Bathing Comments OT Bathing Comments Sponge bath more appropriate at this time. M5 OT- IP IADL's Start: 11/13/24 15:25 Freq: Status: Active Protocol: Document 11/13/24 15:25 CGR (Rec: 11/13/24 15:36 CGR Desktop) OT-Instrumental Activities of Daily Living Deficits IADL Deficits Identified No Deficits Home Safety Awareness Awareness of Need for Assistance at Home Good Awareness Ability to Problem Solve Emergency Able to Problem Solve Situations Medication Management Medication Management No Deficits Identified Money Management Money Management Caregiver Provides Assistance Meal Preparation Meal Preparation Caregiver Provides Assist Game Attendant Game Attendant Caregiver Provides Assist Driving Driving Comments Pt does not drive M6 OT- IP Functional Cognition Start: 11/13/24 15:25 Freq: Status: Active Protocol: Document 11/14/24 12:16 CCC (Rec: 11/14/24 12:26 [facility] Desktop) Cognitive Factors Limiting Selfcare Function Cognitive Comments Cognitive Assessment Comments Pt is a bit forgetful at this time. Pt having difficulty to initiate her movements. M7 OT- IP Mobility and Balance Start: 11/13/24 15:25 Freq: Status: Active Protocol: Document 11/14/24 12:16 [facility] (Rec: 11/14/24 12:26 [facility] Desktop) OT- Bed Mobility Assessment Supine to Sit Supine to Sit Assist Maximum Assistance,2 Person Assistance,Bedrails OT-Transfer Assessment Sit to and From Stand Sit to and from Stand Maximum Assistance,2 Person Assistance Transfers Transfer Ability Maximum Assistance,Total Assistance,1 Person Assistance ,2 Person Assistance Technique Transfer Destination Bed,Chair Transfer Technique Stand Step Pivot Devices Transfer Assistive Devices Gait Belt,Front Wheeled Walker Comments Mobility Comments MAX AX 2 to stand to the FWW . Nursing present as pt buckling while trying to move her legs for the transfer with FWW. PT able to shift her hips so able to get to the chair and nursing and OT to assist with her balance so able to get to the recliner. Therefore needing MAX AX 3 for transfer. Darren lift recommended at this time for all transfers. OT- Balance Assessment Sitting Balance and Reactions Static Sitting Balance Ability Poor Dynamic Sitting Balance Ability Poor Comments Other Balance Tests/Deviations/Treatment Pt needing cues and physical : assist to be able to sit upright and needing heavy use of the FWW and bed rail so able to sit upright. Otherwise therapist assist to sit upright. M8 OT- IP Objective Assessments Start: 11/13/24 15:25 Freq: Status: Active Protocol: Document 11/13/24 15:25 CGR (Rec: 11/13/24 15:36 CGR Desktop) OT Strength Comments Strength Comments grossly WFL as seen with activity OT- Coordination Assessment Upper Extremity Finger to Nose Test Within Functional Limits Finger Tapping Test Within Functional Limits OT-Muscle Tone Assessment Muscle Tone WNL Yes OT Sensation Assessment Edema Edema Absent M9 OT- IP Assessment and Plan Start: 11/13/24 15:25 Freq: Status: Active Protocol: Document 11/14/24 12:16 [facility] (Rec: 11/14/24 12:26 [facility] Desktop) OT Summary Assessment and Plan Potential Rehabilitation Potential Good Analytic Complexity at Evaluation Moderate Summary OT Impairments Strength,Balance,Functional Mobility,Grooming,Dressing, Toileting,Bathing,Toilet Transfers,Shower Transfers, Activity Tolerance Progress Towards Goals Slow Progress due to Medical Issues,Slow Progress due to Activity Tolerance,Slow Progress due to Cognition Assessment Summary Pt able to participate with transfer, however needing MAXAX3 with FWW and buckling at her knees. Pt best to use darren lift at this time. Pt will benefit from skilled rehab as prior pt states able to transfer on her own or assist from her daughter. Goals Grooming Goal Independent Dressing Goal Independent Toileting Goal Minimal Assistance Bathing Goal Independent Toilet Transfer Goal Minimal Assistance Shower Transfer Goal Minimal Assistance Days to Meet Goals 25 Frequency of Treatment Other frequency 5x/week Treatment Plan OT Treatment Plan ADL Training,Functional Mobility,Patient/Family Education,Discharge Planning Other Treatment Recommendations and Next Pt able to sit on the EOB to Treatment Focus do oral care and grooming with CGA for balance. Discharge Recommendations OT Discharge Recommendations SNF Rehab Transportation Needs at Discharge Wheelchair/Cabulance
--- NOTE | 2024-11-14 15:53 | CM.DPC ---
DCP Cont. Reviewed EMR and team rounds for status updates. Per Hospitalist, monitor for possible need for SNF rehab at d/c. Will f/u with dtr on Wed to discuss, pending pt's improvement.
[2024-11-14] MEDS: DONEPEZIL 5 MG TABLET 10 MG PO (17:27)
--- NOTE | 2024-11-14 18:23 | P.PN_ITS ---
Subjective Subjective Date Patient Seen: 11/14/24 Time Patient Seen: 18:23 Interval history: Chief complaint: Severe weakness fall secondary to diarrhea from norovirus History of present illness: 89-year-old female with past medical history of atrial fibrillation on aspirin, seizure disorder on Keppra, Watchman device for her atrial fibrillation, Alzheimer dementia, GERD, depression and iron deficiency anemia presents with syncope. Per the patient's daughter report, the patient was going to the bathroom and was using the toilet when she lost her muscle tone and had a syncopal episode. The patient prior to that had nausea vomiting and diarrhea. There is no report of any GI bleed. Also per report the patient did buy hit her head or have any serious injury. There is also no report of any seizure activity and no postictal post syncope. In the emergency room, the patient was hemodynamically stable but was in A-fib with RVR. Labs shows no signs of sepsis sepsis though there is an elevated lactic acid level of 2.4. The patient was stood up by the nursing staff and had another syncopal episode. Then the patient's blood pressure was low with systolic down into the 80s. The patient received IV fluid bolus and blood pressure did improve. Labs were relatively benign with WBC 6.7. CT chest abdomen pelvis shows no acute finding. The patient was given metoprolol as well as amiodarone and heart rate did improve. CT scan of the head was shows no acute finding. 11/12: Interim history: She appears comfortable without complaints, with ongoing profuse diarrhea, testing positive on stool GI panel today for Norovirus PCR. 11/13: Patient is still having diarrhea somewhat confused but alert and cogent conversation 11/14: Frequency of stools is slowing and in firming up Review of systems: No LOC No shortness a breath new line no nausea vomiting new line Physical exam: No acute distress confused alert HEENT unremarkable heart rate and rhythm irregular no murmurs Lungs diminished breath sounds no rales abdomen with hyperactive bowel sounds Assessment & Plan Assessment & Plan narrative: Norovirus enterocolitis with dehydration and syncope. - IVF - Clear liquid diet Syncope due to dehydration. - monitor on telemetry Atrial fibrillation with transient RVR, RVR resolved. - continue home medication monitor blood pressure. Mild elevated lactate of 2.4, rising to 3.8. Resolved Alzheimer disease. - continue home donepezil. GERD - continue home PPI. DVT prophylaxis: Lovenox CODE STATUS DNR/DNI. Disposition likely home versus senior care in 1-2 days I spent 35 minutes in evaluation of this patient 50% of that time was in the patient room Exam Vital Signs (past 8 hours): - 11/14/24 12:48 Temperature 97.8 F Pulse Rate 77 Respiratory Rate 22 Blood Pressure 148/90 H Pulse Oximetry 95 Oxygen Flow Rate 0 Oxygen Delivery Method Room Air Oxygen Flow Rate 0 Objective Labs 11/13/24 04:28 11/13/24 04:28 [facility] Medical History Anemia, iron deficiency Ankle fracture, right Arthritis of knee, left Blood clot in vein Bruises easily Cardiomegaly Cataract fragments in both eyes following surgery Cellulitis Cellulitis of leg, right Closed fracture of right distal fibula (~12/2017) Cognitive impairment Depression Diarrhea DVT (deep venous thrombosis) Epilepsy Excessive cerumen in right ear canal GERD (gastroesophageal reflux disease) Hammer toe, acquired History of hip fracture History of prosthetic unicompartmental arthroplasty of both knees Hypertension Muscle weakness Nausea Osteoarthritis Pneumonia Postmenopausal Raynauds disease Scoliosis Spinal stenosis Thyroid nodule Urinary tract infection Viral URI with cough Surgical History History of hip surgery History of incision and drainage History of tonsillectomy and adenoidectomy Hx of elbow surgery Hx of total knee arthroplasty Status post unicompartmental knee replacement, left Family History Mother Hypertension Sister Cancer Social History household members: children alcohol intake: current Assessment & Plan Time-Based Coding :: [TOTAL MINUTES] spent with patient and on the chart (including review of chart, obtaining history, exam, reviewing outside data, placing orders, documenting exam and treatment plan, and counseling patient) on [DATE].
--- NOTE | 2024-11-14 18:39 | PC.NURSE ---
Day shift: Pt A&Ox2, pleasantly confused. Up to chair max assist and arcadio back to bed. Tolerating general diet meals, no N/V/D. Pt utilized phone to call QI accidentally several times, forgetful and unaware it was QI's phone number. Oriented pt to phone, pt able to call daughter as intended. Seizure pads in place, call light within reach, bed alarm active, care ongoing.
[2024-11-14] MEDS: levETIRAcetam 250 MG TABLET 1000 MG PO (20:29)
[2024-11-14] MEDS: SODIUM CHLORIDE 0.9% FLUSH 10 ML IV (20:30)
[2024-11-15] VITALS: BP 157/91; PULSE 69; RESP 25; TEMP 36.1; O2SAT 93
[2024-11-15 04:00] VITALS: BP 153/91; PULSE 91; RESP 28; TEMP 36.4; O2SAT 94
[2024-11-15 04:05] VITALS: PULSE 97; RESP 24; O2SAT 93
[2024-11-15] MEDS: ALBUTEROL/IPRATROPIUM 3 ML AMPUL INH (04:05)
[2024-11-15] MEDS: PANTOPRAZOLE DR 40 MG TABLET PO (06:38)
[2024-11-15] MEDS: ENOXAPARIN 40 MG/0.4 ML SYRINGE SUBCUT (08:38)
[2024-11-15] MEDS: GABAPENTIN 100 MG CAPSULE PO ×2 (08:39→19:57)
[2024-11-15] MEDS: levETIRAcetam 250 MG TABLET 1000 MG PO ×2 (08:39→19:57)
[2024-11-15] MEDS: CITALOPRAM 10 MG TABLET 20 MG PO (08:39)
[2024-11-15] MEDS: ASPIRIN EC 325 MG TABLET PO (08:39)
[2024-11-15] MEDS: CALCIUM CARBONATE 500 MG TAB PO (08:42)
[2024-11-15] MEDS: FERROUS SULFATE 325 MG TABLET PO (08:42)
[2024-11-15 08:50] VITALS: BP 153/87; PULSE 96; RESP 24; TEMP 36.7; O2SAT 94
[2024-11-15] MEDS: SODIUM CHLORIDE 0.9% FLUSH 10 ML IV ×2 (11:09→19:57)
--- NOTE | 2024-11-15 12:00 | PT.IPTN ---
Current Diagnoses Acute gastroenteropathy due to [place] agent (11/12/24) Physical Therapy Treatment Note M2 PT-IP Current Condition Start: 11/12/24 08:25 Freq: NEEDED Status: Active Protocol: Document 11/14/24 11:25 AB (Rec: 11/14/24 13:13 [id number]) Physical Therapy Current Condition Current Condition Evaluation Date 11/14/24 Treatment Diagnosis a-fib, syncope; difficulty in walking Onset Date 11/12/24 M3 PT-IP Subjective Start: 11/12/24 08:25 Freq: NEEDED Status: Active Protocol: Document 11/15/24 12:00 AB (Rec: 11/15/24 13:02 AB [id number]) Subjective Physical Therapy Visit Type Type Treatment Note Visit Start Time 12:00 Visit Stop Time 12:25 Number of SENIOR WEB ARCHITECT Visits 0 Physical Therapy Visit Comments Patient Comments agreeable to do PT M4 PT-IP Mobility and Gait Start: 11/12/24 08:25 Freq: NEEDED Status: Active Protocol: Document 11/15/24 12:00 AB (Rec: 11/15/24 13:02 [id number]) PT-Transfer Assessment Sit to and From Stand Sit to and from Stand Maximum Assistance,2 Person Assistance,Use of Upper Extremities Equipment Transfer Assistive Device Gait Belt,Front Wheeled Walker Orthotic/Prosthetic Devices or Brace: No Comments Mobility Comments pt sitting on the chair and agreed to do PT. sitting on edge of the chair and to maintain sitting balance using armrest for support and decrease posterior trunk leaning on chair. pt completed sit to stand x 3 repetitions from the chair max A x 2 and max cues: pt able to tolerate 1 min, 1 min40 sec and 30 secs of standing using FWW for support and max A x 2 and max cues. cued for upright posture and use of FWW for support. positioned pt back to chair. call light and table placed within reach. M5 PT-IP Objective Assessments Start: 11/12/24 08:25 Freq: NEEDED Status: Active Protocol: Document 11/14/24 11:25 AB (Rec: 11/14/24 13:13 AB [id number]) Orientation Orientation/Cognition Level of Alertness Confusional State Orientation Name Language Function Ability Hard of Hearing Safety Awareness Decreased Safety Awareness Memory Description Short Term Impaired,Usp Impaired Strength Lower Extremity Strength Assessment Bilaterally Impaired Comments Strength Comments RLE: 3-/5 LLE : 3+/5 Muscle Tone Muscle Tone WNL Yes M6 PT-IP Treatment Start: 11/12/24 08:25 Freq: NEEDED Status: Active Protocol: Document 11/15/24 12:00 AB (Rec: 11/15/24 13:02 AB [id number]) Physical Therapy Treatment Education Education Provided Safety M7 PT-IP Assessment and Plan Start: 11/12/24 08:25 Freq: NEEDED Status: Active Protocol: Document 11/15/24 12:00 AB (Rec: 11/15/24 13:02 AB [id number]) PT Summary Assessment and Plan Potential Rehabilitation Potential Fair Summary Impairments Pain,ROM,Strength,Balance, Coordination,Sensation,Tone, Cognition,Bed Mobility, Transfers,Gait,Activity Tolerance Assessment Summary pt able to complete sit<>stand today x 3 repetitions and able to tolerate standing up to 1 min 40 sec using FWW for support max a x 2 and max cues . Nurse stated that per pt's daughter, pt was needing 2 person pivot assist to w/c prior to admission and was w/c bound. pt currently will require a mechanical lift to transfer. will continue to assess progress. Revised pt's goals due to this new info. Goals Bed Mobility Goal Moderate Assistance Transfer Goal Moderate Assistance Days to Meet Goals 10 Frequency of Treatment Frequency Of Treatment Once a Day Treatment Plan Physical Therapy Treatment Plan Bed Mobility Training,Transfer Training,Gait Training, Therapeutic Exercise,Balance Retraining,Discharge Planning, Hot or Cold Pack,Neuromuscular Re-ed,Coordination Retraining ,Manual Therapy Precautions Other Precautions falls, contact precautions Recommendations To Nursing Amount of Assist Needed Mechanical Lift Discharge Recommendations PT Discharge Recommendations Home with 01/03 Assist Available,Home Health,SNF Rehab Transportation Needs at Discharge Wheelchair/Cabulance,Stretcher /Ambulance - PT assist 3
--- NOTE | 2024-11-15 12:15 | OT.IP.TRT ---
Current Diagnoses Acute gastroenteropathy due to [place] agent (11/12/24) Occupational Therapy Treatment Note M2 OT-IP Current Condition Start: 11/13/24 15:25 Freq: Status: Active Protocol: Document 11/13/24 15:25 CGR (Rec: 11/13/24 15:36 CGR Desktop) Occupational Therapy Current Condition Current Condition Evaluation Date 11/13/24 Treatment Diagnosis syncope, vomiting, diarrhea, found to have norovirus. Diagnosis Onset Date 11/12/24 M3 OT- IP Subjective and Pain Start: 11/13/24 15:25 Freq: Status: Active Protocol: Document 11/15/24 12:15 CCC (Rec: 11/15/24 12:53 CCC Desktop) OT- Subjective Occupational Therapy Visit Type Type Progress Note Visit Start Time 12:00 Visit Stop Time 12:27 Occupational Therapy Visit Comments Patient Comments Pt agreed to work with OT/PT. Patient/Caregiver Goals To get better. OT Pain Assessment Pain When Pain Assessed During Mobility Pain Present Pain Present Pain Reported M4 OT- IP ADL's Start: 11/13/24 15:25 Freq: Status: Active Protocol: Document 11/15/24 12:15 CCC (Rec: 11/15/24 12:53 CCC Desktop) OT [id number] Comments OT Self-Feeding Comments Not at meal time. OT ADL-Grooming Comments OT Grooming Comments Pt able to wash her face after set-up. OT ADL-Oral Care Comments Oral Care Comments Not performed. OT ADL-Dressing Comments OT Dressing Comments Pt needing extensive assist for all dressing needs. OT ADL-Toileting General Evaluation Toileting Ability Total Assistance Comments OT Toileting Comments Purewick in place. OT ADL-Bathing Comments OT Bathing Comments Sponge bath more appropriate at this time. M5 OT- IP IADL's Start: 11/13/24 15:25 Freq: Status: Active Protocol: Document 11/13/24 15:25 CGR (Rec: 11/13/24 15:36 CGR Desktop) OT-Instrumental Activities of Daily Living Deficits IADL Deficits Identified No Deficits Home Safety Awareness Awareness of Need for Assistance at Home Good Awareness Ability to Problem Solve Emergency Able to Problem Solve Situations Medication Management Medication Management No Deficits Identified Money Management Money Management Caregiver Provides Assistance Meal Preparation Meal Preparation Caregiver Provides Assist Axle Bearing Polisher Axle Bearing Polisher Caregiver Provides Assist Driving Driving Comments Pt does not drive M6 OT- IP Functional Cognition Start: 11/13/24 15:25 Freq: Status: Active Protocol: Document 11/15/24 12:15 CCC (Rec: 11/15/24 12:53 [facility] Desktop) Cognitive Factors Limiting Selfcare Function Cognitive Ability Level of Alertness Alert Cognitive Comments Cognitive Assessment Comments Pt able to joke around today with therapists and able to follow commands. M7 OT- IP Mobility and Balance Start: 11/13/24 15:25 Freq: Status: Active Protocol: Document 11/15/24 12:15 [facility] (Rec: 11/15/24 12:53 [facility] Desktop) OT-Transfer Assessment Sit to and From Stand Sit to and from Stand Maximum Assistance,2 Person Assistance Devices Transfer Assistive Devices Gait Belt,Front Wheeled Walker Comments Mobility Comments Pt able to come to stand with MAX AX 2 with FWW and stand for 1 min, 1min 40 sec, and then 30 sec. Pt still best to use arcadio lift with nursing. Encouraged pt to do BLE and BUE exercises while in the recliner. OT- Balance Assessment Sitting Balance and Reactions Static Sitting Balance Ability Poor Dynamic Sitting Balance Ability Poor Comments Other Balance Tests/Deviations/Treatment Pt doing better with sitting : balance on the edge of recliner from cga to MODA. M8 OT- IP Objective Assessments Start: 11/13/24 15:25 Freq: Status: Active Protocol: Document 11/13/24 15:25 CGR (Rec: 11/13/24 15:36 CGR Desktop) OT Strength Comments Strength Comments grossly WFL as seen with activity OT- Coordination Assessment Upper Extremity Finger to Nose Test Within Functional Limits Finger Tapping Test Within Functional Limits OT-Muscle Tone Assessment Muscle Tone WNL Yes OT Sensation Assessment Edema Edema Absent M9 OT- IP Assessment and Plan Start: 11/13/24 15:25 Freq: Status: Active Protocol: Document 11/15/24 12:15 [facility] (Rec: 11/15/24 12:53 [facility] Desktop) OT Summary Assessment and Plan Potential Rehabilitation Potential Fair Analytic Complexity at Evaluation Moderate Summary OT Impairments Strength,Balance,Functional Mobility,Grooming,Dressing, Toileting,Bathing,Toilet Transfers,Shower Transfers, Activity Tolerance Progress Towards Goals Slow Progress due to Medical Issues,Slow Progress due to Activity Tolerance,Slow Progress due to Cognition Assessment Summary Per nursing states pt's daughter states pt transfers with stand pivot X 2 person assist versus pt states that just her daughter assists her with transfers. At this time pt needing MAX AX 2 to stand to the FWW and did not transfer. Pt still not at her baseline or whether the family is considering getting a arcadio to assist for her transfers versus pt may need possible SNF stay to maximize for mobility needs. Goals Grooming Goal Independent Dressing Goal Moderate Assistance Toileting Goal Moderate Assistance Bathing Goal Moderate Assistance Toilet Transfer Goal Moderate Assistance Shower Transfer Goal Moderate Assistance OT-Other Goals Goal above may change pending accuracy of pt's prior level. Days to Meet Goals 15 Frequency of Treatment Other frequency 5x/week Treatment Plan OT Treatment Plan ADL Training,Functional Mobility,Patient/Family Education,Discharge Planning Other Treatment Recommendations and Next Pt able to sit on the EOB to Treatment Focus do oral care and grooming with CGA for balance. Discharge Recommendations OT Discharge Recommendations SNF Rehab Other Discharge Recommendations Pending disposition and assist at home- home with 24/7 assist and HH, SNF, and LONG TERM. Transportation Needs at Discharge Wheelchair/Cabulance
--- NOTE | 2024-11-15 13:29 | CM.DPC ---
DCP Cont. Reviewed EMR and team rounds for status updates. Spoke with pt's dtr re: preference for SNF rehab. She would prefer [facility] beds as her first choice, and [facility] as second choice. Sent referrals to both, pending return call on final decisions. Updated pt.
[2024-11-15 16:27] LABS: COVID19 -Nasal RAPID Negative (Negative)
[2024-11-15] MEDS: DONEPEZIL 5 MG TABLET 10 MG PO (17:22)
--- NOTE | 2024-11-15 17:42 | PM.PN.1 ---
Subjective Subjective Date Patient Seen: 11/15/24 Time Patient Seen: 17:42 Interval history: Chief complaint: Severe weakness fall secondary to diarrhea from norovirus History of present illness: 89-year-old female with past medical history of atrial fibrillation on aspirin, seizure disorder on Keppra, Watchman device for her atrial fibrillation, Alzheimer dementia, GERD, depression and iron deficiency anemia presents with syncope. Per the patient's daughter report, the patient was going to the bathroom and was using the toilet when she lost her muscle tone and had a syncopal episode. The patient prior to that had nausea vomiting and diarrhea. There is no report of any GI bleed. Also per report the patient did buy hit her head or have any serious injury. There is also no report of any seizure activity and no postictal post syncope. In the emergency room, the patient was hemodynamically stable but was in A-fib with RVR. Labs shows no signs of sepsis sepsis though there is an elevated lactic acid level of 2.4. The patient was stood up by the nursing staff and had another syncopal episode. Then the patient's blood pressure was low with systolic down into the 80s. The patient received IV fluid bolus and blood pressure did improve. Labs were relatively benign with WBC 6.7. CT chest abdomen pelvis shows no acute finding. The patient was given metoprolol as well as amiodarone and heart rate did improve. CT scan of the head was shows no acute finding. Hospital course: 11/12: Interim history: She appears comfortable without complaints, with ongoing profuse diarrhea, testing positive on stool GI panel today for Norovirus PCR. 11/13: Patient is still having diarrhea somewhat confused but alert and cogent conversation 11/14: Frequency of stools is slowing and in firming up 11/15: Solid stool longer symptomatic Physical therapy evaluation: pt currently will require a mechanical lift to transfer. will continue to assess progress. Revised pt's goals due to this new info. Goals Bed Mobility Goal Moderate Assistance Transfer Goal Moderate Assistance Review of systems: No LOC No shortness a breath new line no nausea vomiting new line Physical exam: No acute distress confused alert HEENT unremarkable heart rate and rhythm irregular no murmurs Lungs diminished breath sounds no rales abdomen with hyperactive bowel sounds Assessment & Plan : Norovirus enterocolitis with dehydration and syncope. Resolved Physical deconditioning: We will need halfway DVT prophylaxis: Lovenox CODE STATUS DNR/DNI. Disposition likely halfway tomorrow I spent 35 minutes in evaluation of this patient 50% of that time was in the patient room Exam Vital Signs (past 8 hours): Fraction of Inspired Oxygen 21 SaO2/FiO2 Ratio 442 Oxygen Delivery Method Room Air Oxygen Flow Rate 0 Objective Labs 11/13/24 04:28 11/13/24 04:28 Labs: Laboratory Results - last 24 hr 11/15/24 16:00 SARS-CoV-2 (PCR) Negative [facility] Medical History Anemia, iron deficiency Ankle fracture, right Arthritis of knee, left Blood clot in vein Bruises easily Cardiomegaly Cataract fragments in both eyes following surgery Cellulitis Cellulitis of leg, right Closed fracture of right distal fibula (~12/2017) Cognitive impairment Depression Diarrhea DVT (deep venous thrombosis) Epilepsy Excessive cerumen in right ear canal GERD (gastroesophageal reflux disease) Hammer toe, acquired History of hip fracture History of prosthetic unicompartmental arthroplasty of both knees Hypertension Muscle weakness Nausea Osteoarthritis Pneumonia Postmenopausal Raynauds disease Scoliosis Spinal stenosis Thyroid nodule Urinary tract infection Viral URI with cough Surgical History History of hip surgery History of incision and drainage History of tonsillectomy and adenoidectomy Hx of elbow surgery Hx of total knee arthroplasty Status post unicompartmental knee replacement, left Family History Mother Hypertension Sister Cancer Social History household members: children alcohol intake: current Assessment & Plan Time-Based Coding :: [TOTAL MINUTES] spent with patient and on the chart (including review of chart, obtaining history, exam, reviewing outside data, placing orders, documenting exam and treatment plan, and counseling patient) on [DATE].
[2024-11-15 19:43] LABS: Adenovirus F 40/41 Not Detected (Not Detect); Astrovirus Not Detected (Not Detect); Campylobacter Not Detected (Not Detect); Clostridium difficile toxin AB Not Detected (Not Detect); Cryptosporidium Not Detected (Not Detect); Cyclospora cayetanensis Not Detected (Not Detect); Entamoeba histolytica Not Detected (Not Detect); Enteroaggregative E.coli Not Detected (Not Detect); Enteropathogenic E.coli Not Detected (Not Detect); Enterotoxigenic E.coli It/st Not Detected (Not Detect); Giardia lamblia Not Detected (Not Detect); Norovirus GI/GII Detected (Not Detect); Plesiomonsa shigelloides Not Detected (Not Detect); Rotavirus A Not Detected (Not Detect); Salmonella Not Detected (Not Detect); Sapovirus Not Detected (Not Detect); Shiga-like toxin-prod E.coli Not Detected (Not Detect); Shigella/Enteroinvasive E.coli Not Detected (Not Detect); Vibrio Not Detected (Not Detect); Vibrio cholerae Not Detected (Not Detect); Yersinia enterocolitica Not Detected (Not Detect)
[2024-11-15 20:00] VITALS: BP 146/81; PULSE 85; RESP 18; TEMP 36.6; O2SAT 92
[2024-11-16] VITALS: BP 135/87; PULSE 97; RESP 18; TEMP 36.7; O2SAT 94
[2024-11-16 04:00] VITALS: BP 133/78; PULSE 92; RESP 17; TEMP 36.2; O2SAT 97
[2024-11-16 05:11] LABS: Add Manual Diff / Slide Review NO; Basophils Absolute Auto 100 /uL (0-100); Eosinophils Absolute Auto 100 /uL (0-450); Eosinophils Percent Auto 1.6 % (2-4); Hematocrit 34.9 % (36-46); Hemoglobin 11.6 g/dL (12.0-16.0); Lymphocytes Absolute Auto 1400 /uL (1100-4500); Lymphocytes Percent Auto 24.8 % (25-40); Mean Corpuscular HGB Conc 33.1 % (30-36); Mean Corpuscular Hemoglobin 30.1 PG (26-34); Monocytes Absolute Auto 600 /uL (0-900); Monocytes Percent Auto 10.3 % (3-14); Neutrophils Absolute Auto 3500 /uL (1500-7000); Neutrophils Percent Auto 62.3 % (50-75); Platelet Count 192 X10^3/uL (150-400); Red Blood Cell Count 3.84 X10^6/uL (4.0-5.2); Red Cell Distribution Width 13.5 % (11.6-14.8); White Blood Cell Count 5.6 X10^3/uL (4.5-11.0)
[2024-11-16 05:32] LABS: Alanine Aminotransferase 17 IU/L (<35); Albumin 2.8 g/dL (3.5-5.0); Albumin Globulin Ratio 0.9 (1.0-2.8); Alkaline Phosphatase 83 U/L (38-126); Aspartate Aminotransferase 24 IU/L (14-36); BUN Creatinine Ratio 12.1 (6-22); Bilirubin Total 0.6 mg/dL (0.2-1.3); Blood Urea Nitrogen 8 mg/dL (7-17); Calcium 7.9 mg/dL (8.4-10.2); Carbon Dioxide 22 mmol/L (22-32); Chloride 110 mmol/L (98-107); Estimated Glomerular Filt Rate > 60 mL/min (>60); Glucose 91 mg/dL (80-110); HEMOLYSIS < 15 (0-50); Potassium 3.1 mmol/L (3.4-5.1); Sodium 138 mmol/L (137-145); Total Protein 5.8 g/dL (6.3-8.2)
[2024-11-16] MEDS: CITALOPRAM 10 MG TABLET 20 MG PO (08:33)
[2024-11-16] MEDS: FERROUS SULFATE 325 MG TABLET PO (08:33)
[2024-11-16] MEDS: CALCIUM CARBONATE 500 MG TAB PO (08:33)
[2024-11-16] MEDS: SODIUM CHLORIDE 0.9% FLUSH 10 ML IV ×2 (08:33→20:49)
[2024-11-16] MEDS: ASPIRIN EC 325 MG TABLET PO (08:34)
[2024-11-16] MEDS: levETIRAcetam 250 MG TABLET 1000 MG PO (08:34)
[2024-11-16] MEDS: ENOXAPARIN 40 MG/0.4 ML SYRINGE SUBCUT (08:34)
[2024-11-16] MEDS: GABAPENTIN 100 MG CAPSULE PO ×2 (08:34→20:44)
[2024-11-16] MEDS: POTASSIUM CHLORIDE 20 MEQ TAB 40 MEQ PO (11:26)
--- NOTE | 2024-11-16 11:59 | OT.IPNOTE ---
Pt just finished seeing PT and now too tired to do OT.
--- NOTE | 2024-11-16 12:01 | CM.DPC ---
DCP Cont. Reviewed EMR and team rounds for status updates. Recieved a call from the [facility] that they are declining pt. [facility] has now declined pt. Faxed clinicals to [facility] for review. Called dtr to update. No SHAY as of yet.
--- NOTE | 2024-11-16 12:13 | PT.IPTN ---
Current Diagnoses Acute gastroenteropathy due to [place] agent (11/12/24) Physical Therapy Treatment Note M2 PT-IP Current Condition Start: 11/12/24 08:25 Freq: NEEDED Status: Active Protocol: Document 11/16/24 11:01 AB (Rec: 11/16/24 12:04 AB Laptop) Physical Therapy Current Condition Current Condition Evaluation Date 11/14/24 Treatment Diagnosis a-fib, syncope; difficulty in walking Onset Date 11/12/24 M3 PT-IP Subjective Start: 11/12/24 08:25 Freq: NEEDED Status: Active Protocol: Document 11/16/24 11:01 AB (Rec: 11/16/24 12:04 AB Laptop) Subjective Physical Therapy Visit Type Type Treatment Note Visit Start Time 11:23 Visit Stop Time 11:52 Number of HOUSEHOLD WORKER Visits 1 Physical Therapy Visit Comments Patient Comments agreeable to do PT Therapy Pain Assessment Pain Present Pain Present Allowed to Sleep M4 PT-IP Mobility and Gait Start: 11/12/24 08:25 Freq: NEEDED Status: Active Protocol: Document 11/16/24 11:01 AB (Rec: 11/16/24 12:13 AB Laptop) PT-Bed Mobility Assessment Supine to Sit Supine to Sit Maximum Assistance,2 Person Assistance,Head of Bed Elevated,Bedrails Scooting Scooting to Edge of Bed Dependent PT-Transfer Assessment Sit to and From Stand Sit to and from Stand Maximum Assistance,2 Person Assistance,Use of Upper Extremities Equipment Transfer Assistive Device Gait Belt,Front Wheeled Walker Orthotic/Prosthetic Devices or Brace: No Transfers Transfer Destination Chair Transfer Technique Squat Pivot Comments Mobility Comments 3 Person assist throughout session. ( computer does not allow a 3rd person check ) Patient 94% O2 sat on room air , did decrease to high 80's post squat pivot ( MAX of 3) to chair, but recovered into 90's within a few seconds. MAX assist of 3 with head of bed elevated use of rails for supine to sit. Max assist of 3 for sit to stand with FWW X 3 , able to stand for 1 min first trial, 30 sec second trial, and one min third trial . Mod assist of 3 for holding standing position on first trial, but MAX of 3 on subsequent trials to hold standing position with FWW. Patient denies pain throughout session. M5 PT-IP Objective Assessments Start: 11/12/24 08:25 Freq: NEEDED Status: Active Protocol: Document 11/16/24 11:01 AB (Rec: 11/16/24 12:04 AB Laptop) Orientation Orientation/Cognition Level of Alertness Alert Language Function Ability Hard of Hearing Safety Awareness Understands Safety Issues Comments Patient verbalizes she knows to use the call light. M6 PT-IP Treatment Start: 11/12/24 08:25 Freq: NEEDED Status: Active Protocol: Document 11/16/24 11:01 AB (Rec: 11/16/24 12:04 AB Laptop) Physical Therapy Treatment Education Education Provided Safety M7 PT-IP Assessment and Plan Start: 11/12/24 08:25 Freq: NEEDED Status: Active Protocol: Document 11/16/24 11:01 AB (Rec: 11/16/24 12:04 AB Laptop) PT Summary Assessment and Plan Potential Rehabilitation Potential Fair Summary Impairments ROM,Strength,Balance, Coordination,Sensation, Cognition,Bed Mobility, Transfers,Gait,Activity Tolerance Assessment Summary Patient MAX assist of 3 for bed mobility, pivot transfer to chair and sit to stand, also MAX assist of 3 with walker to remain standing on 2 trails Mod assist of 3 to hold standing upright position with FWW X1 trail. Patient agreeable and participating throughout, denies pain start, and and during session. Patient left in recliner call light within reach, nursing made aware. Goals Bed Mobility Goal Moderate Assistance Transfer Goal Moderate Assistance Days to Meet Goals 9 Frequency of Treatment Frequency Of Treatment Once a Day Treatment Plan Physical Therapy Treatment Plan Bed Mobility Training,Transfer Training,Gait Training, Therapeutic Exercise,Balance Retraining,Discharge Planning, Hot or Cold Pack,Neuromuscular Re-ed,Coordination Retraining ,Manual Therapy Precautions Other Precautions falls, contact precautions Recommendations To Nursing Amount of Assist Needed Mechanical Lift Discharge Recommendations PT Discharge Recommendations Home with 01/03 Assist Available,Home Health,SNF Rehab Transportation Needs at Discharge Wheelchair/Cabulance,Stretcher /Ambulance - PT assist 3
--- NOTE | 2024-11-16 12:16 | P.DS_ITS ---
History of Present Illness History of Present Illness Date Patient Seen: 11/16/24 Chief complaint: Syncope Narrative: Chief complaint: Severe weakness fall secondary to diarrhea from norovirus History of present illness: 89-year-old female with past medical history of atrial fibrillation on aspirin, seizure disorder on Keppra, Watchman device for her atrial fibrillation, Alzheimer dementia, GERD, depression and iron deficiency anemia presents with syncope. Per the patient's daughter report, the patient was going to the bathroom and was using the toilet when she lost her muscle tone and had a syncopal episode. The patient prior to that had nausea vomiting and diarrhea. There is no report of any GI bleed. Also per report the patient did buy hit her head or have any serious injury. There is also no report of any seizure activity and no postictal post syncope. In the emergency room, the patient was hemodynamically stable but was in A-fib with RVR. Labs shows no signs of sepsis sepsis though there is an elevated lactic acid level of 2.4. The patient was stood up by the nursing staff and had another syncopal episode. Then the patient's blood pressure was low with systolic down into the 80s. The patient received IV fluid bolus and blood pressure did improve. Labs were relatively benign with WBC 6.7. CT chest abdomen pelvis shows no acute finding. The patient was given metoprolol as well as amiodarone and heart rate did improve. CT scan of the head was shows no acute finding. Hospital course: 11/12: Interim history: She appears comfortable without complaints, with ongoing profuse diarrhea, testing positive on stool GI panel today for Norovirus PCR. 11/13: Patient is still having diarrhea somewhat confused but alert and cogent conversation 11/14: Frequency of stools is slowing and in firming up 11/15: Solid stool longer symptomatic 11/16: Patient at baseline but we will need retirement Physical therapy evaluation: pt currently will require a mechanical lift to transfer. will continue to assess progress. Revised pt's goals due to this new info. Goals Bed Mobility Goal Moderate Assistance Transfer Goal Moderate Assistance Review of systems: No LOC No shortness a breath new line no nausea vomiting new line Physical exam: No acute distress confused alert HEENT unremarkable heart rate and rhythm irregular no murmurs Lungs diminished breath sounds no rales abdomen with hyperactive bowel sounds Assessment & Plan : Norovirus enterocolitis with dehydration and syncope. Resolved Physical deconditioning: We will need retirement DVT prophylaxis: Lovenox CODE STATUS DNR/DNI. Disposition retirement I spent 35 minutes in evaluation of this patient 50% of that time was in the patient room Discharge Providers Provider Date of admission: 11/12/24 05:58 Discharge Date: 11/16/24 Primary care physician: Joaquina Jewell DO Consults: 11/12/24 06:07 Consult to Occupational Therapy Evaluate & Treat Comment: Physician Instructions: Evaluate and treat Consult to Physical Therapy Evaluate & Treat Comment: Physician Instructions: Evaluate and Treat Discharge provider: Jose Alejandro Bray MD Exam Vital Signs (past 8 hours): - 11/16/24 07:00 Oxygen Delivery Method Room Air Fraction of Inspired Oxygen 21 SaO2/FiO2 Ratio 442 Oxygen Delivery Method Room Air Oxygen Flow Rate 0 Objective Labs 11/16/24 04:29 11/16/24 04:29 Labs: Laboratory Results - last 24 hr 11/15/24 11/15/24 11/16/24 16:00 18:00 04:29 WBC 5.6 RBC 3.84 L Hgb 11.6 L Hct 34.9 L MCV 91.0 MCH 30.1 MCHC 33.1 RDW 13.5 Plt Count 192 Neut % (Auto) 62.3 Lymph % (Auto) 24.8 L [place] % (Auto) 10.3 Eos % (Auto) 1.6 L Baso % (Auto) 1.0 Neut # (Auto) 3500 Lymph # (Auto) 1400 [place] # (Auto) 600 Eos # (Auto) 100 Baso # (Auto) 100 Sodium 138 Potassium 3.1 L Chloride 110 H Carbon Dioxide 22 BUN 8 Creatinine 0.66 Estimated GFR > 60 BUN/Creatinine Ratio 12.1 Glucose 91 Calcium 7.9 L Total Bilirubin 0.6 AST 24 ALT 17 Alkaline Phosphatase 83 Total Protein 5.8 L Albumin 2.8 L Globulin 3.0 Albumin/Globulin Ratio 0.9 L Stl C. cayetanensis PCR Not detected Stool Rotavirus (PCR) Not detected Stool Adenovirus (PCR) Not detected Stool Astrovirus (PCR) Not detected Stool Cryptosporidium PCR Not detected Stl E.coli Shiga Tox PCR Not detected St Sh/Enteroin Ecoli PCR Not detected Stl Enterotoxigenic E PCR Not detected Stool EPEC (PCR) Not detected Stl E. histolytica PCR Not detected Stool Giardia Lamblia PCR Not detected Stool Sapovirus (PCR) Not detected Stl P. shigelloides PCR Not detected St Y.enterocolitica PCR Not detected Stool Vibrio (PCR) Not detected Stl Vibrio cholerae PCR Not detected Stl Enteroaggr Ecoli PCR Not detected Stl Norovirus GI/GII PCR Detected Campylobacter (PCR) Not detected C. difficile Tox (PCR) Not detected SARS-CoV-2 (PCR) Negative Salmonella (PCR) Not detected PFSH Medical History Anemia, iron deficiency Ankle fracture, right Arthritis of knee, left Blood clot in vein Bruises easily Cardiomegaly Cataract fragments in both eyes following surgery Cellulitis Cellulitis of leg, right Closed fracture of right distal fibula (~12/2017) Cognitive impairment Depression Diarrhea DVT (deep venous thrombosis) Epilepsy Excessive cerumen in right ear canal GERD (gastroesophageal reflux disease) Hammer toe, acquired History of hip fracture History of prosthetic unicompartmental arthroplasty of both knees Hypertension Muscle weakness Nausea Osteoarthritis Pneumonia Postmenopausal Raynauds disease Scoliosis Spinal stenosis Thyroid nodule Urinary tract infection Viral URI with cough Surgical History History of hip surgery History of incision and drainage History of tonsillectomy and adenoidectomy Hx of elbow surgery Hx of total knee arthroplasty Status post unicompartmental knee replacement, left Family History Mother Hypertension Sister Cancer Social History household members: children alcohol intake: current Discharge Plan Discharge Plan Patient Disposition: [facility] Other facility: [facility] Discharge orders & Medications Prescriptions: Continued citalopram 20 mg tablet 20 mg PO DAILY Qty: 90 3RF pantoprazole 40 mg tablet,delayed release (DR/EC) 40 mg PO DAILY Qty: 90 3RF gabapentin 100 mg capsule 100 mg PO BID Qty: 180 3RF ondansetron 4 mg tablet,disintegrating 4 mg PO BID PRN (Reason: nausea and vomiting) Qty: 30 2RF levetiracetam [Keppra] 1,000 mg tablet 1,000 mg PO BID Qty: 180 0RF aspirin 325 mg tablet,delayed release (DR/EC) 325 mg PO DAILY ferrous sulfate 325 mg (65 mg iron) tablet 325 mg PO DAILY donepezil 10 mg tablet 10 mg PO QPM Patient Comments: [NO ORIGINAL SIG] calcium carbonate [Tums] 320 mg calcium (750 mg) Tablet,Chewable 650 mg PO DAILY Follow up/Referrals: Joaquina Jewell DO [Primary Care Provider] - Visit Report/Discharge Packet Stand Alone Forms: Patient Portal/API Discharge Data Primary Care Provider: Joaquina Jewell
[2024-11-16 16:00] VITALS: BP 133/78; PULSE 92; RESP 20; TEMP 37; O2SAT 94
[2024-11-16] MEDS: DONEPEZIL 5 MG TABLET 10 MG PO (17:12)
[2024-11-16 19:50] VITALS: BP 126/92; PULSE 95; RESP 17; TEMP 36.4; O2SAT 94
[2024-11-16] MEDS: levETIRAcetam 250 MG TABLET 750 MG PO (20:45)
[2024-11-16 23:10] VITALS: BP 129/72; PULSE 90; RESP 19; TEMP 36.6; O2SAT 93
[2024-11-17 03:20] VITALS: BP 139/89; PULSE 91; RESP 19; TEMP 36.4; O2SAT 92
[2024-11-17 05:48] LABS: BUN Creatinine Ratio 14.7 (6-22); Blood Urea Nitrogen 10 mg/dL (7-17); Calcium 8.1 mg/dL (8.4-10.2); Carbon Dioxide 24 mmol/L (22-32); Chloride 109 mmol/L (98-107); Estimated Glomerular Filt Rate > 60 mL/min (>60); Glucose 90 mg/dL (80-110); HEMOLYSIS < 15 (0-50); Potassium 3.4 mmol/L (3.4-5.1); Sodium 138 mmol/L (137-145)
[2024-11-17] MEDS: PANTOPRAZOLE DR 40 MG TABLET PO (06:03)
[2024-11-17 08:17] VITALS: BP 164/86; PULSE 90; RESP 18; TEMP 36.6; O2SAT 94
[2024-11-17] MEDS: GABAPENTIN 100 MG CAPSULE PO ×2 (08:54→20:27)
[2024-11-17] MEDS: levETIRAcetam 250 MG TABLET 750 MG PO ×2 (08:55→20:28)
[2024-11-17] MEDS: CITALOPRAM 10 MG TABLET 20 MG PO (08:55)
[2024-11-17] MEDS: ENOXAPARIN 40 MG/0.4 ML SYRINGE SUBCUT (08:55)
[2024-11-17] MEDS: ASPIRIN EC 325 MG TABLET PO (08:55)
[2024-11-17] MEDS: FERROUS SULFATE 325 MG TABLET PO (08:55)
[2024-11-17] MEDS: CALCIUM CARBONATE 500 MG TAB PO (08:55)
[2024-11-17] MEDS: SODIUM CHLORIDE 0.9% FLUSH 10 ML IV ×2 (08:55→20:28)
--- NOTE | 2024-11-17 09:21 | PM.DS.1 ---
History of Present Illness History of Present Illness Date Patient Seen: 11/17/24 Chief complaint: Syncope Narrative: Chief complaint: Severe weakness fall secondary to diarrhea from norovirus History of present illness: 89-year-old female with past medical history of atrial fibrillation on aspirin, seizure disorder on Keppra, Watchman device for her atrial fibrillation, Alzheimer dementia, GERD, depression and iron deficiency anemia presents with syncope. Per the patient's daughter report, the patient was going to the bathroom and was using the toilet when she lost her muscle tone and had a syncopal episode. The patient prior to that had nausea vomiting and diarrhea. There is no report of any GI bleed. Also per report the patient did buy hit her head or have any serious injury. There is also no report of any seizure activity and no postictal post syncope. In the emergency room, the patient was hemodynamically stable but was in A-fib with RVR. Labs shows no signs of sepsis sepsis though there is an elevated lactic acid level of 2.4. The patient was stood up by the nursing staff and had another syncopal episode. Then the patient's blood pressure was low with systolic down into the 80s. The patient received IV fluid bolus and blood pressure did improve. Labs were relatively benign with WBC 6.7. CT chest abdomen pelvis shows no acute finding. The patient was given metoprolol as well as amiodarone and heart rate did improve. CT scan of the head was shows no acute finding. Hospital course: 11/12: Interim history: She appears comfortable without complaints, with ongoing profuse diarrhea, testing positive on stool GI panel today for Norovirus PCR. 11/13: Patient is still having diarrhea somewhat confused but alert and cogent conversation 11/14: Frequency of stools is slowing and in firming up 11/15: Solid stool longer symptomatic 11/16: Patient at baseline but we will need retirement Physical therapy evaluation: pt currently will require a mechanical lift to transfer. will continue to assess progress. Revised pt's goals due to this new info. Goals Bed Mobility Goal Moderate Assistance Transfer Goal Moderate Assistance Discharge Recommendations PT Discharge Recommendations Home with 01/03 Assist Available,Home Health,SNF Rehab Transportation Needs at Discharge Wheelchair/Cabulance,Stretcher /Ambulance - PT assist 3 manager creative services note Recieved a call from the [facility] [place] [place] [facility] that they are declining pt. [facility] has now declined pt. Faxed clinicals to [facility] for review. Called dtr to update. No SHYA as of yet. 11/17: Patient at baseline alert and oriented Review of systems: No LOC No shortness a breath nausea vomiting or diarrhea Physical exam: No acute distress alert HEENT unremarkable heart rate and rhythm irregular no murmurs Lungs diminished breath sounds no rales abdomen nontender normal bowel sounds Assessment & Plan : Norovirus enterocolitis with dehydration and syncope. Resolved Physical deconditioning: Discharge home CODE STATUS DNR/DNI. I spent 35 minutes in evaluation of this patient 50% of that time was in the patient room Discharge Providers Provider Date of admission: 11/12/24 05:58 Discharge Date: 11/17/24 Primary care physician: Joaquina Jewell DO Consults: 11/12/24 06:07 Consult to Occupational Therapy Evaluate & Treat Comment: Physician Instructions: Evaluate and treat Consult to Physical Therapy Evaluate & Treat Comment: Physician Instructions: Evaluate and Treat Discharge provider: Jose Alejandro Bray MD Exam Vital Signs (past 8 hours): - 11/17/24 03:20 Temperature 97.5 F L Pulse Rate 91 H Respiratory Rate 19 Blood Pressure 139/89 Pulse Oximetry 92 Oxygen Flow Rate 0 Fraction of Inspired Oxygen 21 SaO2/FiO2 Ratio 442 Oxygen Delivery Method Room Air Oxygen Flow Rate 0 Objective Labs 11/16/24 04:29 11/17/24 04:50 Labs: Laboratory Results - last 24 hr 11/17/24 04:50 Sodium 138 Potassium 3.4 Chloride 109 H Carbon Dioxide 24 BUN 10 Creatinine 0.68 Estimated GFR > 60 BUN/Creatinine Ratio 14.7 Glucose 90 Calcium 8.1 L [facility] Medical History Anemia, iron deficiency Ankle fracture, right Arthritis of knee, left Blood clot in vein Bruises easily Cardiomegaly Cataract fragments in both eyes following surgery Cellulitis Cellulitis of leg, right Closed fracture of right distal fibula (~12/2017) Cognitive impairment Depression Diarrhea DVT (deep venous thrombosis) Epilepsy Excessive cerumen in right ear canal GERD (gastroesophageal reflux disease) Hammer toe, acquired History of hip fracture History of prosthetic unicompartmental arthroplasty of both knees Hypertension Muscle weakness Nausea Osteoarthritis Pneumonia Postmenopausal Raynauds disease Scoliosis Spinal stenosis Thyroid nodule Urinary tract infection Viral URI with cough Surgical History History of hip surgery History of incision and drainage History of tonsillectomy and adenoidectomy Hx of elbow surgery Hx of total knee arthroplasty Status post unicompartmental knee replacement, left Family History Mother Hypertension Sister Cancer Social History household members: children alcohol intake: current Discharge Plan Discharge Plan Patient Disposition: [facility] Other facility: [facility] orders & Medications Prescriptions: Continued citalopram 20 mg tablet 20 mg PO DAILY Qty: 90 3RF pantoprazole 40 mg tablet,delayed release (DR/EC) 40 mg PO DAILY Qty: 90 3RF gabapentin 100 mg capsule 100 mg PO BID Qty: 180 3RF ondansetron 4 mg tablet,disintegrating 4 mg PO BID PRN (Reason: nausea and vomiting) Qty: 30 2RF levetiracetam [Keppra] 1,000 mg tablet 1,000 mg PO BID Qty: 180 0RF aspirin 325 mg tablet,delayed release (DR/EC) 325 mg PO DAILY ferrous sulfate 325 mg (65 mg iron) tablet 325 mg PO DAILY donepezil 10 mg tablet 10 mg PO QPM Patient Comments: [NO ORIGINAL SIG] calcium carbonate [Tums] 320 mg calcium (750 mg) Tablet,Chewable 650 mg PO DAILY Follow up/Referrals: Joaquina Jewell DO [Primary Care Provider] - Visit Report/Discharge Packet Stand Alone Forms: Patient Portal/API Discharge Data Primary Care Provider: Joaquina Jewell
--- NOTE | 2024-11-17 10:35 | PT.IPTN ---
Current Diagnoses Acute gastroenteropathy due to [place] agent (11/12/24) Physical Therapy Treatment Note M2 PT-IP Current Condition Start: 11/12/24 08:25 Freq: NEEDED Status: Active Protocol: Document 11/16/24 11:01 AB (Rec: 11/16/24 12:04 AB Laptop) Physical Therapy Current Condition Current Condition Evaluation Date 11/14/24 Treatment Diagnosis a-fib, syncope; difficulty in walking Onset Date 11/12/24 M3 PT-IP Subjective Start: 11/12/24 08:25 Freq: NEEDED Status: Active Protocol: Document 11/17/24 10:35 AB(2) (Rec: 11/17/24 12:38 AB(2) [id number]) Subjective Physical Therapy Visit Type Type Treatment Note Visit Start Time 10:35 Visit Stop Time 11:40 Number of RIVET CATCHER Visits 0 Physical Therapy Visit Comments Patient Comments agreeable to do PT M4 PT-IP Mobility and Gait Start: 11/12/24 08:25 Freq: NEEDED Status: Active Protocol: Document 11/17/24 10:35 AB(2) (Rec: 11/17/24 12:38 AB(2) [id number]) PT-Bed Mobility Assessment Supine to Sit Supine to Sit Maximum Assistance,2 Person Assistance PT-Transfer Assessment Sit to and From Stand Sit to and from Stand Maximum Assistance,2 Person Assistance,Use of Upper Extremities Equipment Transfer Assistive Device Gait Belt Orthotic/Prosthetic Devices or Brace: No Transfers Transfer Destination Chair Transfer Technique Squat Pivot Transfer Ability Level of Assist Maximum Assistance,2 Person Assistance,Use of Upper Extremities Comments Mobility Comments store deli manager informed PT that pt's daughter wants an update regarding pt's mobility. Received voice message from daughter as well for an update and will call back after pt's PT session today. pt in bed and agreeable to do PT. completed supine to sit max A x 2 and max cues with HOB elevated. pt requiring min A for sitting balance with increase posterior trunk lean needing repositioning and cues to correct. completed squat pivot transfer requiring max A x 2 to chair. PT in front of pt and OT behind to assist. pt rested. pt agreed to stand. sit to stand from chair max A x 2 and max cues. able to stand using fWW for support max A x 2 and max cues. pt tolerated 1min 5 sec on first attempt and 30 sec on 2nd attempt. pt required max A x 2 for controlled descent to chair. positioned pt on the chair. call light and table placed within reach. Called pt's daughter after PT session and informed pt's daughter regarding pt's mobility level: informed that pt was max A x 3 on PT eval since pt's L knee buckled but pt was able to squat pivot max A x 2 with PT today. informed daughter that PT recommending a arcadio/ mechanical lift for transfers with pt and SNF rehab. Also asked daughter regarding pt's transfer assistance at home since pt has memory issues. daughter stated that pt holds on to her biceps and she holds on to pt's biceps and that pt stand up and stand pivots to transfer. Daughter was questioning PT's report of pt needing max A x3 level of assistance and that is the reason why SNF was denying pt' s SNF admission since pt is needing more assistance that she actually needs. Daughter stated that this is not accurate and pt has not ever been a max A x3 for transfers. stated that she could believe that pt is a arcadio assist but not a max A x 3. informed daughter that pt was initially max A x 3 for transfers due to L knee buckling but was able to do max A x 2 squat pivot today. Also informed that a arcadio lift is a total A and means that pt needs more assistance compared to a max A x 3. Also informed daugther that SNF might be denying pt not because of PT's documentation of max A x 3 and for other reasons. Aslo informed daughter that if pt is needing more assistance, it means that she will need more PT and will be qualified to go to SNF. daughter stated that she will fight PT on max A x 3 report and that pt has never been a max A x 3. PT told daughter that PT and OT's level of assistance documented are the same and that she is questioning both PT and OT's reports. daughter stated that she cannot take pt home since she is still recovering from norovirus herself and that she will not be able to assist pt at this time. Informed daughter to talk pillowcase cutter and hospitalist regarding pt's d/c plan. provided daughter pillowcase cutter 's name and hospitalist name. daughter stated that she will be coming in later today and for PT to do another assessment on pt. informed daughter that PT might not be available and pt has already completed her PT session today . daughter again stated that she cannot take pt home and a arcadio lift will not work for pt as this will not fit through the doors. Again, informed daughter to talk to pillowcase cutter regarding d/c plan and that PT can tell her pt's mobility level and d/c recommendation but has to talk to pillowcase cutter regarding d/c concerns. daughter also asks for notes from PT. informed daughter that she has to go to medical records for those information. Talked to pillowcase cutter Lidia regarding conversation with pt 's daughter. M5 PT-IP Objective Assessments Start: 11/12/24 08:25 Freq: NEEDED Status: Active Protocol: Document 11/16/24 11:01 AB (Rec: 11/16/24 12:04 AB Laptop) Orientation Orientation/Cognition Level of Alertness Alert Language Function Ability Hard of Hearing Safety Awareness Understands Safety Issues Comments Patient verbalizes she knows to use the call light. M6 PT-IP Treatment Start: 11/12/24 08:25 Freq: NEEDED Status: Active Protocol: Document 11/17/24 10:35 AB(2) (Rec: 11/17/24 12:38 AB(2) [id number]) Physical Therapy Treatment Education Education Provided Safety M7 PT-IP Assessment and Plan Start: 11/12/24 08:25 Freq: NEEDED Status: Active Protocol: Document 11/17/24 10:35 AB(2) (Rec: 11/17/24 12:38 AB(2) [id number]) PT Summary Assessment and Plan Potential Rehabilitation Potential Fair Summary Impairments Pain,ROM,Strength,Balance, Coordination,Sensation,Tone, Cognition,Bed Mobility, Transfers,Gait,Activity Tolerance Progress Towards Goals Slow Progress due to Medical Issues,Slow Progress due to Activity Tolerance,Slow Progress - Other Assessment Summary pt continues to require max A x 2 for transfers and completed squat pivot transfer to chair today. Pt also was able to completed sit <>stand max A x 2 and tolerate standing using FWW for support max A x 2 and max cues. pt will benefit from SNF rehab to improve overall strength and mobility. Goals Bed Mobility Goal Moderate Assistance Transfer Goal Moderate Assistance Days to Meet Goals 10 Frequency of Treatment Frequency Of Treatment Once a Day Treatment Plan Physical Therapy Treatment Plan Bed Mobility Training,Transfer Training,Gait Training, Therapeutic Exercise,Balance Retraining,Discharge Planning, Hot or Cold Pack,Neuromuscular Re-ed,Coordination Retraining ,Manual Therapy Precautions Other Precautions falls, contact precautions Recommendations To Nursing Amount of Assist Needed Mechanical Lift Discharge Recommendations PT Discharge Recommendations Home with 01/03 Assist Available,Home Health,SNF Rehab Transportation Needs at Discharge Wheelchair/Cabulance,Stretcher /Ambulance - PT assist 3
--- NOTE | 2024-11-17 11:21 | OT.IP.TRT ---
Current Diagnoses Acute gastroenteropathy due to [place] agent (11/12/24) Occupational Therapy Treatment Note M2 OT-IP Current Condition Start: 11/13/24 15:25 Freq: Status: Active Protocol: Document 11/13/24 15:25 CGR (Rec: 11/13/24 15:36 CGR Desktop) Occupational Therapy Current Condition Current Condition Evaluation Date 11/13/24 Treatment Diagnosis syncope, vomiting, diarrhea, found to have norovirus. Diagnosis Onset Date 11/12/24 M3 OT- IP Subjective and Pain Start: 11/13/24 15:25 Freq: Status: Active Protocol: Document 11/17/24 10:50 CCC (Rec: 11/17/24 12:09 CCC Desktop) OT- Subjective Occupational Therapy Visit Type Type Treatment Note Visit Start Time 10:50 Visit Stop Time 11:21 Occupational Therapy Visit Comments Patient Comments Pt agreed to get to the recliner. Patient/Caregiver Goals To go home. OT Pain Assessment Pain When Pain Assessed At Rest Pain Present Pain Present Denied Pain M4 OT- IP ADL's Start: 11/13/24 15:25 Freq: Status: Active Protocol: Document 11/17/24 10:50 CCC (Rec: 11/17/24 12:09 CCC Desktop) OT IHB-[id number] Comments OT Self-Feeding Comments Not at meal time. OT ADL-Grooming General Evaluation Grooming Ability Minimal Assistance Areas Needing Assistance Combing/Brushing Hair Comments OT Grooming Comments While seated, assist to comb the back of her hair. OT ADL-Oral Care General Eval Oral Care Ability Standby Assistance Areas of Assistance Retrieving/Set-Up of Items Comments Oral Care Comments After to do while seated. OT ADL-Dressing General Eval Upper Body Dressing Ability Maximum Assistance Lower Body Dressing Ability Total Assistance Areas Needing Assistance Socks Comments OT Dressing Comments Assist to help change out her gown and assist with socks. OT ADL-Bathing Comments OT Bathing Comments Sponge bath more appropriate at this time. M5 OT- IP IADL's Start: 11/13/24 15:25 Freq: Status: Active Protocol: Document 11/13/24 15:25 CGR (Rec: 11/13/24 15:36 CGR Desktop) OT-Instrumental Activities of Daily Living Deficits IADL Deficits Identified No Deficits Home Safety Awareness Awareness of Need for Assistance at Home Good Awareness Ability to Problem Solve Emergency Able to Problem Solve Situations Medication Management Medication Management No Deficits Identified Money Management Money Management Caregiver Provides Assistance Meal Preparation Meal Preparation Caregiver Provides Assist Postal Service Window Clerk Postal Service Window Clerk Caregiver Provides Assist Driving Driving Comments Pt does not drive M6 OT- IP Functional Cognition Start: 11/13/24 15:25 Freq: Status: Active Protocol: Document 11/17/24 10:50 [facility] (Rec: 11/17/24 12:09 [facility] Desktop) Cognitive Factors Limiting Selfcare Function Cognitive Ability Level of Alertness Alert Attention Span Ability Capable of Focused Attention, Capable of Sustained Attention Ability to Follow Commands Able to Follow One Step Commands with Increased Time, Able to Follow One Step Commands with Repetition Memory Description Short Term Impaired Cognitive Comments Cognitive Assessment Comments Pt not able to recall how she transfers at home with her daughter. Pt needing concrete cues to follow and is cooperative. Pt likes to joke around with the therapists. M7 OT- IP Mobility and Balance Start: 11/13/24 15:25 Freq: Status: Active Protocol: Document 11/17/24 10:50 [facility] (Rec: 11/17/24 12:09 [facility] Desktop) OT- Bed Mobility Assessment Supine to Sit Supine to Sit Assist Maximum Assistance,2 Person Assistance,Head of Bed Elevated,Bedrails Scooting Scooting to Edge of Bed Maximum Assistance,2 Person Assistance OT-Transfer Assessment Sit to and From Stand Sit to and from Stand Maximum Assistance,2 Person Assistance Transfers Transfer Ability Maximum Assistance,2 Person Assistance Technique Transfer Destination Bed,Chair Transfer Technique Squat Pivot Devices Transfer Assistive Devices None,Gait Belt Comments Mobility Comments MAX X 2 to help get to the edge of the bed and heavy use of green pad to assist to scoot forwards in the bed and recliner due to decreased core strength. Able to come to stand with FWW with MAX AX 2 for 1min 5 sec and then 30 sec to work on her BLE strengthening and endurance. Pt's tend to turn inwards at her left heel and suggested pt work on trying to improve her strength in her legs by during leg exercises in the recliner. In addition suggested pt do UE exercises as well. Pt able to transfer with MAX AX 2 squat pivot to the recliner. Pt OT- Balance Assessment Sitting Balance and Reactions Static Sitting Balance Ability Fair Dynamic Sitting Balance Ability Poor Standing Balance and Reactions Static Standing Balance Ability Poor Dynamic Standing Balance Ability Poor Comments Other Balance Tests/Deviations/Treatment Pt doing a little better with : sitting balance but still needing CGA . M8 OT- IP Objective Assessments Start: 11/13/24 15:25 Freq: Status: Active Protocol: Document 11/13/24 15:25 CGR (Rec: 11/13/24 15:36 CGR Desktop) OT Strength Comments Strength Comments grossly WFL as seen with activity OT- Coordination Assessment Upper Extremity Finger to Nose Test Within Functional Limits Finger Tapping Test Within Functional Limits OT-Muscle Tone Assessment Muscle Tone WNL Yes OT Sensation Assessment Edema Edema Absent M9 OT- IP Assessment and Plan Start: 11/13/24 15:25 Freq: Status: Active Protocol: Document 11/17/24 10:50 CCC (Rec: 11/17/24 12:09 CCC Desktop) OT Summary Assessment and Plan Potential Rehabilitation Potential Good Analytic Complexity at Evaluation Moderate Summary OT Impairments Strength,Balance,Functional Mobility,Grooming,Dressing, Toileting,Bathing,Toilet Transfers,Shower Transfers, Activity Tolerance Progress Towards Goals Progressing Toward Goals Assessment Summary Pt able doing better with sitting balance today and able to participate in standing with FWW with MAX AX 2 for 1min5 sec and 30sec, and then able to do squat pivot transfer with MAX AX 2. Pt will greatly benefit from skilled rehab to maximize level of mobility for pt for ADL and mobility needs. If pt having to go home would benefit from a arcadio lift. Goals Grooming Goal Independent Dressing Goal Moderate Assistance Toileting Goal Moderate Assistance Bathing Goal Moderate Assistance Toilet Transfer Goal Moderate Assistance Shower Transfer Goal Moderate Assistance Days to Meet Goals 25 Frequency of Treatment Other frequency 5x/week Treatment Plan OT Treatment Plan ADL Training,Functional Mobility,Patient/Family Education,Discharge Planning Other Treatment Recommendations and Next Pt able to sit on the EOB to Treatment Focus do oral care and grooming with CGA for balance. Discharge Recommendations OT Discharge Recommendations SNF Rehab Transportation Needs at Discharge Wheelchair/Cabulance
--- NOTE | 2024-11-17 13:53 | PC.NURSE ---
Day shift: Pt A&O to self and rough time. Up to chair for lunch with OT/PT. Attempted 2PA back to bed, pt unable to transfer, assisted with arcadio lift. No BMs at this time. Daughter Abigail called, stated pt cannot receive any blood thinners due to a past GI bleed in 2021. This RN educated daughter on the use and reason for the prescribed Lovenox, explained the mechanism of action. Daughter stated pt cannot take any type of blood thinner even as a preventative. Provider Dr. Mejía notified. Care ongoing.
--- NOTE | 2024-11-17 14:41 | CM.DPC ---
DCP Cont. Reviewed EMR and team rounds for status updates. Called dtr to inform her that both [facility], [facility], and [facility] have all declined admission. [facility] declined due to their last experience of pt's stay there, due to the dtr being overly demanding and rude to staff. [facility] declined due to pt being back at baseline, wheelchair bound, and if a arcadio is needed, it would be too much work for them and their staffing, as well as pt does not have any skillable needs. Called dtr to explain that pt has been evaluated by the Hospitalist as medically stable for discharge. This FLY MAKER was unable to secure a shelter facility (SNF) rehab placement, and this is now day-6 of pt's admission. Called dtr to explain that pt will be needing to return home. FLY MAKER offered suggestions for home d/c, that we could set-up Home Health for PT/OT/Bath Aide, and we could order a arcadio lift for home. Dtr refused, stating that she does not want a arcadio in the home. She continued to argue that it was due to the PT treatment notes that pt was being declined by SNF's, and demanded that the PT change/alter her notes to not reflect that pt is a 2-person assist with a arcadio. PT/OT were able to jointly get pt transferred into her wheelchair, however pt's L-knee buckled, so she was in a squatting position as she transferred, thus the recommendation for a arcadio for home transfers. Dtr had stated to this FLY MAKER yesterday that pt has always been a 2-person assist at baseline. This FLY MAKER also suggested that they could hire in-home caregivers for a few days until dtr felt more able to care for pt, as she had contracted Norovirus along with pt prior to pt's admission. It has now been 6-days, and pt is back to baseline. Called dtr again, she had been calling our Administration to complain about the PT report and impending discharge. We had a conference call on loudspeaker with dtr, myself, our CNO, Director of Acute Care/ICU, and the Hospitalist to discuss the concerns, and to also discuss the discharge, and to discuss the Important Message from Medicare (IMM) and her right to appeal the discharge. She began yelling and was talking over the top of the CNO, who was also trying to explain the discharge. She refused to take the down the number to call, however did eventually call and appealed about 2:15pm today. Pending determination from Gwendolyn.
[2024-11-17 14:53] VITALS: BP 143/92; PULSE 80; RESP 15; TEMP 36.4; O2SAT 93
[2024-11-17] MEDS: DONEPEZIL 5 MG TABLET 10 MG PO (16:53)
[2024-11-17 19:00] VITALS: BP 134/91; PULSE 82; RESP 18; TEMP 36.3; O2SAT 94
[2024-11-18] MEDS: PANTOPRAZOLE DR 40 MG TABLET PO (06:25)
[2024-11-18] MEDS: ASPIRIN EC 325 MG TABLET PO (09:52)
[2024-11-18] MEDS: FERROUS SULFATE 325 MG TABLET PO (09:52)
[2024-11-18] MEDS: CALCIUM CARBONATE 500 MG TAB PO (09:52)
[2024-11-18] MEDS: GABAPENTIN 100 MG CAPSULE PO ×2 (09:52→20:16)
[2024-11-18] MEDS: CITALOPRAM 10 MG TABLET 20 MG PO (09:52)
[2024-11-18] MEDS: levETIRAcetam 250 MG TABLET 750 MG PO ×2 (09:52→20:15)
[2024-11-18] MEDS: SODIUM CHLORIDE 0.9% FLUSH 10 ML IV (09:53)
[2024-11-18 10:00] VITALS: BP 128/77; PULSE 100; RESP 20; TEMP 36.3; O2SAT 95
--- NOTE | 2024-11-18 11:45 | PT.IPTN ---
Current Diagnoses Acute gastroenteropathy due to [place] agent (11/12/24) Physical Therapy Treatment Note M2 PT-IP Current Condition Start: 11/12/24 08:25 Freq: NEEDED Status: Active Protocol: Document 11/16/24 11:01 AB (Rec: 11/16/24 12:04 AB Laptop) Physical Therapy Current Condition Current Condition Evaluation Date 11/14/24 Treatment Diagnosis a-fib, syncope; difficulty in walking Onset Date 11/12/24 M3 PT-IP Subjective Start: 11/12/24 08:25 Freq: NEEDED Status: Active Protocol: Document 11/18/24 11:45 AB(2) (Rec: 11/18/24 12:59 AB(2) Desktop) Subjective Physical Therapy Visit Type Type Treatment Note Visit Start Time 11:45 Visit Stop Time 12:05 Number of MAYONNAISE MIXER Visits 0 Physical Therapy Visit Comments Patient Comments agreeable to do PT M4 PT-IP Mobility and Gait Start: 11/12/24 08:25 Freq: NEEDED Status: Active Protocol: Document 11/18/24 11:45 AB(2) (Rec: 11/18/24 12:59 AB(2) Desktop) PT-Bed Mobility Assessment Supine to Sit Supine to Sit Maximum Assistance,2 Person Assistance,Head of Bed Elevated Scooting Scooting to Edge of Bed Maximum Assistance PT-Transfer Assessment Sit to and From Stand Sit to and from Stand Maximum Assistance,2 Person Assistance,Use of Upper Extremities Equipment Transfer Assistive Device Gait Belt,Front Wheeled Walker Orthotic/Prosthetic Devices or Brace: No Transfers Transfer Destination Chair Transfer Technique Stand Pivot Transfer Ability Level of Assist Maximum Assistance,2 Person Assistance,Use of Upper Extremities Comments Mobility Comments pt supine in bed and agreeable to do PT. supine to sit max A x2 and max cues. pt requires max A x 1-2 for sitting balance on EOB. max cues to decrease retrolean. max A x 2 for squat pivot transfer to chair with PT in front of pt and nurse behind pt to assist. required 2 attempts to complete. pt unable to fully stand up during transfers. pt sat on the chair and agreed to do more standing. completed sit <>stand x 2 reps requiring max A x 2 and max cues and tolerated 1 min 10 sec + 50 sec of standing using FWW for support max A x 2 for balance and steadiness. positioned pt on the chair. total A for scooting and positioning. Left pt with nurse. M5 PT-IP Objective Assessments Start: 11/12/24 08:25 Freq: NEEDED Status: Active Protocol: Document 11/16/24 11:01 AB (Rec: 11/16/24 12:04 AB Laptop) Orientation Orientation/Cognition Level of Alertness Alert Language Function Ability Hard of Hearing Safety Awareness Understands Safety Issues Comments Patient verbalizes she knows to use the call light. M6 PT-IP Treatment Start: 11/12/24 08:25 Freq: NEEDED Status: Active Protocol: Document 11/18/24 11:45 AB(2) (Rec: 11/18/24 12:59 AB(2) Desktop) Physical Therapy Treatment Education Education Provided Safety M7 PT-IP Assessment and Plan Start: 11/12/24 08:25 Freq: NEEDED Status: Active Protocol: Document 11/18/24 11:45 AB(2) (Rec: 11/18/24 12:59 AB(2) Desktop) PT Summary Assessment and Plan Potential Rehabilitation Potential Fair Summary Impairments Pain,ROM,Strength,Balance, Coordination,Sensation,Tone, Cognition,Bed Mobility, Transfers,Gait,Activity Tolerance Progress Towards Goals Slow Progress due to Activity Tolerance,Slow Progress - Other Assessment Summary pt continues to require max A x 2 and max cues for squat pivot transfer to chair. pt will require 24/7 assist and use of mechanical lift for transfers and will benefit from SNF rehab to improve overall strength and mobility. Goals Bed Mobility Goal Moderate Assistance Transfer Goal Moderate Assistance Days to Meet Goals 10 Frequency of Treatment Frequency Of Treatment Once a Day Treatment Plan Physical Therapy Treatment Plan Bed Mobility Training,Transfer Training,Gait Training, Therapeutic Exercise,Balance Retraining,Discharge Planning, Hot or Cold Pack,Neuromuscular Re-ed,Coordination Retraining ,Manual Therapy Precautions Other Precautions falls, contact precautions Recommendations To Nursing Amount of Assist Needed Mechanical Lift Discharge Recommendations PT Discharge Recommendations Home with 24/7 Assist Available,Home Health,SNF Rehab Transportation Needs at Discharge Wheelchair/Cabulance,Stretcher /Ambulance - PT assist 2-3
--- NOTE | 2024-11-18 15:43 | CM.DPC ---
Addendum entered by ALEJANDRA Mercado 11/18/24 16:21: ADD: [facility] called clinical informatics educator Ebony and notified her that they received Dtr's request to make a 2nd appeal and they confirm that no further clinicals needed to be sent, they will have another team review the current clinicals they have on file and determination will be made in the next day or two on the 2nd appeal process. BF Original Note: Appeal Process Cont: Gwendolyn called and states that they agree with discharge hospital level of care and they called and left msg for Dtr with that information and faxed determination letter will be sent shortly. SW received the determination letter from Gwendolyn in the afternoon (some information seemed to be missing on the letter) but confirmed pt's appeal was denied. MARTINE, RN, MD met with Dtr Abigail and discussed appeal determination and PT had worked with pt with RN and was a 2PA and RN attempted transfer bedside with Dtr once she arrived bedside and pt not able to stand pivot. Dtr confirms she does not feel she can safely take pt home by 1200 tomorrow Sun and in agreement to do 2nd appeal and states she will call Gwendolyn back now. Discussed barriers to attempting local SNFs that have declined pt already and that if SNF needed then will need to broaden the net and Dtr agreeable but requested [facility] bed be tried again now that pt 2PA and not 3PA. Discussed if no SNF can accept then will need to either get some volunteers to assist, pay for assist or pay for Respite Stay at a facility. Dtr confirms they likely do not have funds for that or at least not senior living and preference is SNF under Medicare. MARTINE made following SNF referrals: [facility]-left msg [facility]ing [facility]- faxed and left msg [facility]- will review [facility]-will review [facility]- faxed [facility]-faxed Plan: SW to follow for request from Gwendolyn on clinicals again for 2nd Appeal Process (packet already printed). SW to follow for further SNF review now that pt is a 2PA. ALEJANDRA Mercado
--- NOTE | 2024-11-18 16:14 | P.PN_ITS ---
Subjective Subjective Date Patient Seen: 11/18/24 Interval history: Chief complaint: Severe weakness fall secondary to diarrhea from norovirus History of present illness: 89-year-old female with past medical history of atrial fibrillation on aspirin, seizure disorder on Keppra, Watchman device for her atrial fibrillation, Alzheimer dementia, GERD, depression and iron deficiency anemia presents with syncope. Per the patient's daughter report, the patient was going to the bathroom and was using the toilet when she lost her muscle tone and had a syncopal episode. The patient prior to that had nausea vomiting and diarrhea. There is no report of any GI bleed. Also per report the patient did buy hit her head or have any serious injury. There is also no report of any seizure activity and no postictal post syncope. In the emergency room, the patient was hemodynamically stable but was in A-fib with RVR. Labs shows no signs of sepsis sepsis though there is an elevated lactic acid level of 2.4. The patient was stood up by the nursing staff and had another syncopal episode. Then the patient's blood pressure was low with systolic down into the 80s. The patient received IV fluid bolus and blood pressure did improve. Labs were relatively benign with WBC 6.7. CT chest abdomen pelvis shows no acute finding. The patient was given metoprolol as well as amiodarone and heart rate did improve. CT scan of the head was shows no acute finding. Hospital course: 11/12: Interim history: She appears comfortable without complaints, with ongoing profuse diarrhea, testing positive on stool GI panel today for Norovirus PCR. 11/13: Patient is still having diarrhea somewhat confused but alert and cogent conversation 11/14: Frequency of stools is slowing and in firming up 11/15: Solid stool longer symptomatic 11/16: Patient at baseline but we will need halfway 11/17: Patient at baseline alert and oriented 11/18: Patient at baseline and alert. There was a plan to discharge but there are barriers. See details in the assessment and plan Review of systems: No LOC No shortness a breath nausea vomiting or diarrhea Physical exam: No acute distress alert HEENT unremarkable heart rate and rhythm irregular no murmurs Lungs diminished breath sounds no rales abdomen nontender normal bowel sounds Assessment & Plan : Norovirus enterocolitis with dehydration and syncope. Resolved Physical deconditioning: Barriers to discharge with difficulty in meeting patient's needs for transfer due to patient's weakness: Excerpt from career placement services counselor note below: Appeal Process Cont: [facility] called and states that they agree with discharge hospital level of care and they called and left msg for Dtr with that information and faxed determination letter will be sent shortly. SW received the determination letter from Gwendolyn in the afternoon (some information seemed to be missing on the letter) but confirmed pt's appeal was denied. MARTINE, RN, MD met with Dtr Abigail and discussed appeal determination and PT had worked with pt with RN and was a 2PA and RN attempted transfer bedside with Dtr once she arrived bedside and pt not able to stand pivot. Dtr confirms she does not feel she can safely take pt home by 1200 tomorrow Sun and in agreement to do 2nd appeal and states she will call Gwendolyn back now. Discussed barriers to attempting local SNFs that have declined pt already and that if SNF needed then will need to broaden the net and Dtr agreeable but requested [facility] be tried again now that pt 2PA and not 3PA. Discussed if no SNF can accept then will need to either get some volunteers to assist, pay for assist or pay for Respite Stay at a facility. Dtr confirms they likely do not have funds for that or at least not shelter and preference is SNF under Medicare. MARTINE made following SNF referrals: [facility]-left msg [facility]- faxed and left msg [facility]- will [facility]- faxed [facility]-faxed Plan: SW to follow for request from Gwendolyn on clinicals again for 2nd Appeal Process (packet already printed). SW to follow for further SNF review now that pt is a 2PA. ALEJANDRA Mercado CODE STATUS: Type Full code I spent 35 minutes in evaluation of this patient 50% of that time was in the patient room Exam Vital Signs (past 8 hours): - 11/18/24 09:00 11/18/24 10:00 11/18/24 10:00 Temperature 97.4 F L 97.4 F L Pulse Rate 100 H 100 H Respiratory Rate 20 20 Blood Pressure 128/77 128/77 Pulse Oximetry 95 95 Oxygen Delivery Method Room Air Fraction of Inspired Oxygen 21 SaO2/FiO2 Ratio 442 Oxygen Delivery Method Room Air Oxygen Flow Rate 0 Objective Labs 11/16/24 04:29 11/17/24 04:50 [facility] Medical History Anemia, iron deficiency Ankle fracture, right Arthritis of knee, left Blood clot in vein Bruises easily Cardiomegaly Cataract fragments in both eyes following surgery Cellulitis Cellulitis of leg, right Closed fracture of right distal fibula (~12/2017) Cognitive impairment Depression Diarrhea DVT (deep venous thrombosis) Epilepsy Excessive cerumen in right ear canal GERD (gastroesophageal reflux disease) Hammer toe, acquired History of hip fracture History of prosthetic unicompartmental arthroplasty of both knees Hypertension Muscle weakness Nausea Osteoarthritis Pneumonia Postmenopausal Raynauds disease Scoliosis Spinal stenosis Thyroid nodule Urinary tract infection Viral URI with cough Surgical History History of hip surgery History of incision and drainage History of tonsillectomy and adenoidectomy Hx of elbow surgery Hx of total knee arthroplasty Status post unicompartmental knee replacement, left Family History Mother Hypertension Sister Cancer Social History household members: children alcohol intake: current Assessment & Plan Time-Based Coding :: [TOTAL MINUTES] spent with patient and on the chart (including review of chart, obtaining history, exam, reviewing outside data, placing orders, documenting exam and treatment plan, and counseling patient) on [DATE].
[2024-11-18] MEDS: DONEPEZIL 5 MG TABLET 10 MG PO (17:28)
[2024-11-18 20:41] VITALS: BP 138/88; PULSE 85; RESP 19; O2SAT 96
[2024-11-19] MEDS: PANTOPRAZOLE DR 40 MG TABLET PO (06:32)
[2024-11-19] MEDS: GABAPENTIN 100 MG CAPSULE PO ×2 (09:10→20:06)
[2024-11-19] MEDS: levETIRAcetam 250 MG TABLET 750 MG PO ×2 (09:10→20:06)
[2024-11-19] MEDS: SODIUM CHLORIDE 0.9% FLUSH 10 ML IV ×2 (09:10→20:06)
[2024-11-19] MEDS: CALCIUM CARBONATE 500 MG TAB PO (09:10)
[2024-11-19] MEDS: FERROUS SULFATE 325 MG TABLET PO (09:10)
[2024-11-19] MEDS: ASPIRIN EC 325 MG TABLET PO (09:10)
[2024-11-19] MEDS: CITALOPRAM 10 MG TABLET 20 MG PO (09:10)
--- NOTE | 2024-11-19 11:09 | PT-IP ANOTE ---
Pt discussed in rounds and not discharging despite d/c note in chart. Checked on pt and sign up not to disturb patient who is sleeping. PT does check in and pt currently sleeping. Con't PT efforts next date as appropriate.
--- NOTE | 2024-11-19 14:46 | CM.DPNOTE ---
DCP note HEALTHCARE PROF reviewed EMR per chart review, 2nd appeal decision pending. Per Jacoby intake/referrals at [facility], called this HEALTHCARE PROF in am, denied referral at this time due to lack of bed availability. Per COLTON RN, kindly assisted in checking incoming faxes from [employer] throughout the day for more information on the appeal process. only fax from [employer] is from day prior, 11/18 at 1338, with what appears to be the initial denial letter. however, none of the pertinent information (i.e. patient name, provider name, ext.) is complete. per chart, pt unable to work with PT today, see PT note for more. HEALTHCARE PROF spoke with Jaci from [employer] at approx 1200, reported they would send new initial denial letter with completed information. Jaci reports new case number for 2nd appeal is [id number]. Per Jaci, they have until Wednesday to provide final decision on 2nd appeal. Per [employer] website ( [email or web address]) as of 1449, remains in clinical review. no new clinicals requested at this time (per faxes and case status website). HEALTHCARE PROF met with pt dtr outside of pt room in [facility]. (Zuleika) HEALTHCARE PROF introduced self and role. Pt dtr expressed wish to speak in maier regarding DCP conversation, expressed understanding that this HEALTHCARE PROF could not guarantee privacy if spoke in hallway for DCP conversations and wished to proceed anyway. Dtr zuleika expressed understanding that 2nd appeal decision is still pending. Zuleika reports she has recovered from her norovirus and that is long over and is no longer experiencing signs or symptoms herself. Zuleika confirms she is the DASH caregiver for pt. HEALTHCARE PROF updated dtr on SNF/Swing bed search and that we have not heard back from facilities yet today, Wednesday. Dtr expressed understanding we likely won't hear back until Wednesday. HEALTHCARE PROF provided the list of facilities reviewing her mom's case. Dtr adamant that she does not want pt to dc to [facility] or [facility]. HEALTHCARE PROF attempted to educate pt that while we do our absolute best to take preference into account for placement but cannot promise patients are able to be placed within their first few preferences, and that if [facility] or another facility that is not the preference is our only accepting facility is that or home then dtr will have to take pt home. Dtr in response said yes I understand that. HEALTHCARE PROF attempted to review options if all SNFs/Swing beds declined, dtr repeatedly shot down or dismissed any idea from this HEALTHCARE PROF (respite stay at [facility], additional PP CGs, increasing DME in the home, other family coming in to help, etc.). HEALTHCARE PROF provided the list of facilities currently reviewing. dtr preference is [facility] bed, [facility], and [facility]. open to referral being sent to [facility] swing bed or [facility] in [place] for SNF. Dtr agrees to abide by hospital ISO policy and will wear appropriate PPE when visiting mom from now on. no fax from [employer] as 1444 with new letter (now closed for day, operate on time close at 5pm eastern). HEALTHCARE PROF unable to send new referrals/contact SNFs today due to triaging needs. the SNF search is as follows: [facility], [facility], [facility], [facility]- all declined. [facility], [facility], [facility], [facility], [facility], [facility] all still reviewing. Consider referrals to [facility], [facility] SNF, [place] swing bed, and [facility] swing bed. Consider SNFs in [facility]? CM team [facility] Wednesday. Consider APS referral if indicated/dtr continues to refuse to take pt home after 2nd appeal if also denied (if dtr is the DASH CG and refusing to care after 2nd appeal, potential concerns for financial exploitation? Where is social security check going?) HEALTHCARE PROF updated OLEGARIO Anderson throughout morning. Monica will continue to follow and support as needed. PLAN: PENDING 2nd appeal decision. NEED 1) actual denial letter from [employer] for IH records for first appeal 2) to [facility] Wednesday 3) to coordinate with SNFs/swing beds as able. CM team will continue to follow closely for DCP coordination ALEJANDRA Comer
--- NOTE | 2024-11-19 15:29 | P.PN_ITS ---
Subjective Subjective Date Patient Seen: 11/19/24 Interval history: Chief complaint: Severe weakness fall secondary to diarrhea from norovirus History of present illness: 89-year-old female with past medical history of atrial fibrillation on aspirin, seizure disorder on Keppra, Watchman device for her atrial fibrillation, Alzheimer dementia, GERD, depression and iron deficiency anemia presents with syncope. Per the patient's daughter report, the patient was going to the bathroom and was using the toilet when she lost her muscle tone and had a syncopal episode. The patient prior to that had nausea vomiting and diarrhea. There is no report of any GI bleed. Also per report the patient did buy hit her head or have any serious injury. There is also no report of any seizure activity and no postictal post syncope. In the emergency room, the patient was hemodynamically stable but was in A-fib with RVR. Labs shows no signs of sepsis sepsis though there is an elevated lactic acid level of 2.4. The patient was stood up by the nursing staff and had another syncopal episode. Then the patient's blood pressure was low with systolic down into the 80s. The patient received IV fluid bolus and blood pressure did improve. Labs were relatively benign with WBC 6.7. CT chest abdomen pelvis shows no acute finding. The patient was given metoprolol as well as amiodarone and heart rate did improve. CT scan of the head was shows no acute finding. Hospital course: 11/12: Interim history: She appears comfortable without complaints, with ongoing profuse diarrhea, testing positive on stool GI panel today for Norovirus PCR. 11/13: Patient is still having diarrhea somewhat confused but alert and cogent conversation 11/14: Frequency of stools is slowing and in firming up 11/15: Solid stool longer symptomatic 11/16: Patient at baseline but we will need fdc 11/17: Patient at baseline alert and oriented 11/18: Patient at baseline and alert. There was a plan to discharge but there are barriers. See details in the assessment and plan 11/19: Patient is at baseline and alert still case management is working with daughter on discharge barriers Review of systems: No LOC No shortness a breath nausea vomiting or diarrhea Physical exam: No acute distress alert HEENT unremarkable heart rate and rhythm irregular no murmurs Lungs diminished breath sounds no rales abdomen nontender normal bowel sounds Assessment & Plan : Norovirus enterocolitis with dehydration and syncope. Resolved Physical deconditioning: Barriers to discharge with difficulty in meeting patient's needs for transfer due to patient's weakness: Excerpt from director critical care note below: Shon Dozier intake/referrals at [facility], called this GEODETIC TECHNICIAN in am, denied referral at this time due to lack of bed availability. Per COLTON RN, kindly assisted in checking incoming faxes from [employer] throughout the day for more information on the appeal process. only fax from [employer] is from day prior, 11/18 at 1338, with what appears to be the initial denial letter. however, none of the pertinent information (i.e. patient name, provider name, ext.) is complete. per chart, pt unable to work with PT today, see PT note for more. GEODETIC TECHNICIAN spoke with Jaci from [employer] at approx 1200, reported they would send new initial denial letter with completed information. Jaci reports new case number for 2nd appeal is [id number]. Per Jaci, they have until Wednesday to provide final decision on 2nd appeal. Per [employer] website ( [email or web address]) as of 1449, remains in clinical review. no new clinicals requested at this time (per faxes and case status website). GEODETIC TECHNICIAN met with pt dtr outside of pt room in [facility]. (Zuleika) GEODETIC TECHNICIAN introduced self and role. Pt dtr expressed wish to speak in maier regarding DCP conversation, expressed understanding that this GEODETIC TECHNICIAN could not guarantee privacy if spoke in hallway for DCP conversations and wished to proceed anyway. Dtr zuleika expressed understanding that 2nd appeal decision is still pending. Zuleika reports she has recovered from her norovirus and that is long over and is no longer experiencing signs or symptoms herself. Zuleika confirms she is the DASH caregiver for pt. GEODETIC TECHNICIAN updated dtr on SNF/Swing bed search and that we have not heard back from facilities yet today, Wednesday. Dtr expressed understanding we likely won't hear back until Wednesday. GEODETIC TECHNICIAN provided the list of facilities reviewing her mom's case. Dtr adamant that she does not want pt to dc to [facility] or [facility]. GEODETIC TECHNICIAN attempted to educate pt that while we do our absolute best to take preference into account for placement but cannot promise patients are able to be placed within their first few preferences, and that if [facility] or another facility that is not the preference is our only accepting facility is that or home then dtr will have to take pt home. Dtr in response said yes I understand that. GEODETIC TECHNICIAN attempted to review options if all SNFs/Swing beds declined, dtr repeatedly shot down or dismissed any idea from this GEODETIC TECHNICIAN (respite stay at [facility], additional PP CGs, increasing DME in the home, other family coming in to help, etc.). GEODETIC TECHNICIAN provided the list of facilities currently reviewing. dtr preference is [facility], [facility], and [facility]. open to referral being sent to [facility] swing bed or [facility] in [place] for SNF. Dtr agrees to abide by hospital ISO policy and will wear appropriate PPE when visiting mom from now on. no fax from [employer] as of 1444 with new letter (now closed for day, operate on time close at 5pm eastern). GEODETIC TECHNICIAN unable to send new referrals/contact SNFs today due to triaging needs. the SNF search is as follows: [facility], [facility], [facility], [facility]- all declined. [facility], [facility], [facility], [facility], [facility], [facility] all still reviewing. Consider referrals to [facility], [facility] SNF, [place] swing bed, and [facility] swing bed. Consider SNFs in [facility]? CM team will coordinate with [facility] CM Wednesday. Consider APS referral if indicated/dtr continues to refuse to take pt home after 2nd appeal if also denied (if dtr is the DASH CG and refusing to care after 2nd appeal, potential concerns for financial exploitation? Where is social security check going?) GEODETIC TECHNICIAN updated CNO Monica throughout morning. Monica will continue to follow and support as needed. PLAN: PENDING 2nd appeal decision. NEED 1) actual denial letter from [facility] for IH records for first appeal 2) to coordinate with [facility] Wednesday 3) to coordinate with SNFs/swing beds as able. CM team will continue to follow closely for DCP coordination ALEJANDRA Comer Initialized on 11/19/24 14:46 CODE STATUS: Type Full code I spent 35 minutes in evaluation of this patient 50% of that time was in the patient room Exam Vital Signs (past 8 hours): Fraction of Inspired Oxygen 21 SaO2/FiO2 Ratio 442 Oxygen Delivery Method Room Air Oxygen Flow Rate 0 Objective Labs 11/16/24 04:29 11/17/24 04:50 [facility] Medical History Anemia, iron deficiency Ankle fracture, right Arthritis of knee, left Blood clot in vein Bruises easily Cardiomegaly Cataract fragments in both eyes following surgery Cellulitis Cellulitis of leg, right Closed fracture of right distal fibula (~12/2017) Cognitive impairment Depression Diarrhea DVT (deep venous thrombosis) Epilepsy Excessive cerumen in right ear canal GERD (gastroesophageal reflux disease) Hammer toe, acquired History of hip fracture History of prosthetic unicompartmental arthroplasty of both knees Hypertension Muscle weakness Nausea Osteoarthritis Pneumonia Postmenopausal Raynauds disease Scoliosis Spinal stenosis Thyroid nodule Urinary tract infection Viral URI with cough Surgical History History of hip surgery History of incision and drainage History of tonsillectomy and adenoidectomy Hx of elbow surgery Hx of total knee arthroplasty Status post unicompartmental knee replacement, left Family History Mother Hypertension Sister Cancer Social History household members: children alcohol intake: current Assessment & Plan Time-Based Coding :: [TOTAL MINUTES] spent with patient and on the chart (including review of chart, obtaining history, exam, reviewing outside data, placing orders, documenting exam and treatment plan, and counseling patient) on [DATE].
[2024-11-19] MEDS: DONEPEZIL 5 MG TABLET 10 MG PO (17:27)
[2024-11-19 20:00] VITALS: BP 138/89; PULSE 93; RESP 19; O2SAT 95
[2024-11-20] MEDS: PANTOPRAZOLE DR 40 MG TABLET PO (06:04)
[2024-11-20 06:20] VITALS: BP 143/95; PULSE 75; RESP 18; TEMP 36.6; O2SAT 95
[2024-11-20] MEDS: SODIUM CHLORIDE 0.9% FLUSH 10 ML IV ×2 (08:55→21:45)
[2024-11-20] MEDS: CITALOPRAM 10 MG TABLET 20 MG PO (08:55)
[2024-11-20] MEDS: ASPIRIN EC 325 MG TABLET PO (08:55)
[2024-11-20] MEDS: levETIRAcetam 250 MG TABLET 750 MG PO ×2 (08:55→21:45)
[2024-11-20] MEDS: FERROUS SULFATE 325 MG TABLET PO (08:55)
[2024-11-20] MEDS: GABAPENTIN 100 MG CAPSULE PO ×2 (08:55→21:45)
[2024-11-20] MEDS: CALCIUM CARBONATE 500 MG TAB PO (08:55)
--- NOTE | 2024-11-20 09:45 | OT.IP.TRT ---
Current Diagnoses Acute gastroenteropathy due to [place] agent (11/12/24) Occupational Therapy Treatment Note M2 OT-IP Current Condition Start: 11/13/24 15:25 Freq: Status: Active Protocol: Document 11/13/24 15:25 CGR (Rec: 11/13/24 15:36 CGR Desktop) Occupational Therapy Current Condition Current Condition Evaluation Date 11/13/24 Treatment Diagnosis syncope, vomiting, diarrhea, found to have norovirus. Diagnosis Onset Date 11/12/24 M3 OT- IP Subjective and Pain Start: 11/13/24 15:25 Freq: Status: Active Protocol: Document 11/20/24 10:42 CGR (Rec: 11/20/24 10:53 CGR Desktop) OT- Subjective Occupational Therapy Visit Type Type Treatment Note Visit Start Time 09:27 Visit Stop Time 09:45 Notes oxygen equipment aide present to assist with transfer. CM requesting that OT see patient to assess if pt is able to discharge home with daughter or needs SNF. OT Pain Assessment Pain When Pain Assessed At Rest Pain Present Pain Present Denied Pain M4 OT- IP ADL's Start: 11/13/24 15:25 Freq: Status: Active Protocol: Document 11/20/24 10:42 CGR (Rec: 11/20/24 10:53 CGR Desktop) OT [id number]-[id number] General Evaluation Self-Feeding Ability Independent Comments OT Self-Feeding Comments at end of session, pt eats a few bites with set up OT ADL-Grooming Comments OT Grooming Comments not performed, pt requesting to have breakfast OT ADL-Oral Care Comments Oral Care Comments not performed OT ADL-Dressing General Eval Lower Body Dressing Ability Total Assistance Areas Needing Assistance Socks OT ADL-Toileting General Evaluation Toileting Ability Total Assistance Comments OT Toileting Comments brief and lyn wick OT ADL-Bathing Comments OT Bathing Comments not performed M5 OT- IP IADL's Start: 11/13/24 15:25 Freq: Status: Active Protocol: Document 11/13/24 15:25 CGR (Rec: 11/13/24 15:36 CGR Desktop) OT-Instrumental Activities of Daily Living Deficits IADL Deficits Identified No Deficits Home Safety Awareness Awareness of Need for Assistance at Home Good Awareness Ability to Problem Solve Emergency Able to Problem Solve Situations Medication Management Medication Management No Deficits Identified Money Management Money Management Caregiver Provides Assistance Meal Preparation Meal Preparation Caregiver Provides Assist Electrolysis Operator Electrolysis Operator Caregiver Provides Assist Driving Driving Comments Pt does not drive M6 OT- IP Functional Cognition Start: 11/13/24 15:25 Freq: Status: Active Protocol: Document 11/20/24 10:42 CGR (Rec: 11/20/24 10:53 CGR Desktop) Cognitive Factors Limiting Selfcare Function Cognitive Ability Level of Alertness Alert,Drowsy Patient Orientation Name,Day of Week,Place, Situation Attention Span Ability Unable to Focus,Unable to Sustain Attention Cognitive Comments Cognitive Assessment Comments Pt upon several occasions in the session is staring off and needing vc to bring her attention back to the task. This is inconsistent with previous sessions with this verse writer and the practical nursing faculty present states the same. M7 OT- IP Mobility and Balance Start: 11/13/24 15:25 Freq: Status: Active Protocol: Document 11/20/24 10:42 CGR (Rec: 11/20/24 10:53 CGR Desktop) OT- Bed Mobility Assessment Supine to Sit Supine to Sit Assist Total Assistance,2 Person Assistance,Head of Bed Elevated,Bedrails Scooting Scooting to Edge of Bed Total Assistance,2 Person Assistance,Head of Bed Elevated,Bedrails OT-Transfer Assessment Sit to and From Stand Sit to and from Stand Total Assistance,2 Person Assistance Transfers Transfer Ability Total Assistance,2 Person Assistance Technique Transfer Destination Bed,Chair Transfer Technique Stand Step Pivot Devices Transfer Assistive Devices Gait Belt Comments Mobility Comments Pt needed more assist in todays session than ~1 week ago when seen by this verse writer. OT- Balance Assessment Sitting Balance and Reactions Static Sitting Balance Ability Poor Dynamic Sitting Balance Ability Poor M8 OT- IP Objective Assessments Start: 11/13/24 15:25 Freq: Status: Active Protocol: Document 11/13/24 15:25 CGR (Rec: 11/13/24 15:36 CGR Desktop) OT Strength Comments Strength Comments grossly WFL as seen with activity OT- Coordination Assessment Upper Extremity Finger to Nose Test Within Functional Limits Finger Tapping Test Within Functional Limits OT-Muscle Tone Assessment Muscle Tone WNL Yes OT Sensation Assessment Edema Edema Absent M9 OT- IP Assessment and Plan Start: 11/13/24 15:25 Freq: Status: Active Protocol: Document 11/20/24 10:42 CGR (Rec: 11/20/24 10:53 CGR Desktop) OT Summary Assessment and Plan Potential Rehabilitation Potential Good Analytic Complexity at Evaluation Moderate Summary OT Impairments Strength,Balance,Functional Mobility,Grooming,Dressing, Toileting,Bathing,Toilet Transfers,Shower Transfers, Activity Tolerance Progress Towards Goals Progressing Toward Goals Assessment Summary Pt appears lethargic today, needing vc to keep pt focused on the task. Pt needed total x 2 for transfer to chair today and for bed mobility with what appears to be poor effort but given her difficulty with focusing, is likely inability whether d/t cog or strength. Pt left eating breakfast at end of session. Call button within reach and all needs at time met. Goals Grooming Goal Independent Dressing Goal Moderate Assistance Toileting Goal Moderate Assistance Bathing Goal Moderate Assistance Toilet Transfer Goal Moderate Assistance Shower Transfer Goal Moderate Assistance Days to Meet Goals 25 Frequency of Treatment Frequency Of Treatment Once a Day Other frequency 5x/week Treatment Plan OT Treatment Plan ADL Training,Functional Mobility,Patient/Family Education,Discharge Planning Other Treatment Recommendations and Next Pt able to sit on the EOB to Treatment Focus do oral care and grooming with CGA for balance. Discharge Recommendations OT Discharge Recommendations SNF Rehab Transportation Needs at Discharge Wheelchair/Cabulance
--- NOTE | 2024-11-20 13:09 | CM.DPC ---
DCP SNF Planning: Per MD, pt remains medically stable. Pt's second appeal of her first appeal dial is still in review and no determination yet today as of 1300. MARTINE called following SNFs that received updated referral over the w/e: [facility]- no [facility]- no [facility]- no [facility]- no beds [facility]- no [facility]- no [facility]- no beds [place]- will review but unlikely have bed by tomorrow . Faxed clinicals. [facility], can accept tomorrow Tues [facility]- yes can accept Tues [facility]- can accept Tues. Met bedside with pt and Dtr Abigail and updated on above. Dtr reviewed the 3 accepting SNFs and preference is [facility] Dtr agreeable with SW attempting to set up Medicaid cabulance for transport tomorrow 11/21 morning. SW called Medicaid transportation and confirmed pt has transport benefits and they can provide transport to [facility] as pt is discharging from a hospital. Completed Medicaid transport form and faxed and return call stating they can transport pt tomorrow 11/21 at 1000 via [facility]. SW updated admissions at [facility] 1000 pickup tomorrow and they request d/c packet faxed to [phone] and RN can call main number [phone] to give report prior to d/c. SW spoke to pt's DASH CATARINO Luz [phone] and she is appreciative and will continue to follow pt at SNF and confirms she can be support person for Dtr at d/c if needed or if Dtr attempting to delay discharge again. Natty requested d/c summary be faxed to her at d/c. PASRR completed but needs MD signature for hospital exempted discharge for depression. Updated RN and Dtr via phone regarding discharge tomorrow to [facility] via [facility] at 1000 and Dtr confirms she is agreeable. Ladan Collins, BENEFITS COUNSELOR
--- NOTE | 2024-11-20 13:25 | P.PN_ITS ---
Subjective Subjective Date Patient Seen: 11/19/24 Interval history: Chief complaint: Severe weakness fall secondary to diarrhea from norovirus History of present illness: 89-year-old female with past medical history of atrial fibrillation on aspirin, seizure disorder on Keppra, Watchman device for her atrial fibrillation, Alzheimer dementia, GERD, depression and iron deficiency anemia presents with syncope. Per the patient's daughter report, the patient was going to the bathroom and was using the toilet when she lost her muscle tone and had a syncopal episode. The patient prior to that had nausea vomiting and diarrhea. There is no report of any GI bleed. Also per report the patient did buy hit her head or have any serious injury. There is also no report of any seizure activity and no postictal post syncope. In the emergency room, the patient was hemodynamically stable but was in A-fib with RVR. Labs shows no signs of sepsis sepsis though there is an elevated lactic acid level of 2.4. The patient was stood up by the nursing staff and had another syncopal episode. Then the patient's blood pressure was low with systolic down into the 80s. The patient received IV fluid bolus and blood pressure did improve. Labs were relatively benign with WBC 6.7. CT chest abdomen pelvis shows no acute finding. The patient was given metoprolol as well as amiodarone and heart rate did improve. CT scan of the head was shows no acute finding. Hospital course: 11/12: Interim history: She appears comfortable without complaints, with ongoing profuse diarrhea, testing positive on stool GI panel today for Norovirus PCR. 11/13: Patient is still having diarrhea somewhat confused but alert and cogent conversation 11/14: Frequency of stools is slowing and in firming up 11/15: Solid stool longer symptomatic 11/16: Patient at baseline but we will need usp 11/17: Patient at baseline alert and oriented 11/18: Patient at baseline and alert. There was a plan to discharge but there are barriers. See details in the assessment and plan 11/19: Patient is at baseline and alert still case management is working with daughter on discharge barriers, plan for SNF tomorrow AM per case management. Review of systems: No LOC No shortness a breath nausea vomiting or diarrhea Physical exam: Assessment & Plan : Exam Vital Signs (past 8 hours): - 11/20/24 06:20 Temperature 97.8 F Pulse Rate 75 Respiratory Rate 18 Blood Pressure 143/95 H Pulse Oximetry 95 Fraction of Inspired Oxygen 21 SaO2/FiO2 Ratio 442 Oxygen Delivery Method Room Air Oxygen Flow Rate 0 Narrative Exam Narrative: No acute distress alert heart rate and rhythm irregular Objective Labs 11/16/24 04:29 11/17/24 04:50 [facility] Medical History Anemia, iron deficiency Ankle fracture, right Arthritis of knee, left Blood clot in vein Bruises easily Cardiomegaly Cataract fragments in both eyes following surgery Cellulitis Cellulitis of leg, right Closed fracture of right distal fibula (~12/2017) Cognitive impairment Depression Diarrhea DVT (deep venous thrombosis) Epilepsy Excessive cerumen in right ear canal GERD (gastroesophageal reflux disease) Hammer toe, acquired History of hip fracture History of prosthetic unicompartmental arthroplasty of both knees Hypertension Muscle weakness Nausea Osteoarthritis Pneumonia Postmenopausal Raynauds disease Scoliosis Spinal stenosis Thyroid nodule Urinary tract infection Viral URI with cough Surgical History History of hip surgery History of incision and drainage History of tonsillectomy and adenoidectomy Hx of elbow surgery Hx of total knee arthroplasty Status post unicompartmental knee replacement, left Family History Mother Hypertension Sister Cancer Social History household members: children alcohol intake: current Assessment & Plan Assessment & Plan narrative: Norovirus enterocolitis with dehydration and syncope. Resolved -plan for discharge to SNF tomorrow. Chronic atrial fibrillation with RVR, RVR resolved - Not on chronic anticoagulation, continue asa 325 mg daily. - no rate control agents, RVR likely due to above. Elevated lactate, POA, resolved Alzheimer disease, chronic GERD, chronic DVT prophylaxis: Lovenox CODE STATUS DNR/DNI. Disposition: SNF tomorrow at 10 am, [place], [place]. Time-Based Coding :: [TOTAL MINUTES] spent with patient and on the chart (including review of chart, obtaining history, exam, reviewing outside data, placing orders, documenting exam and treatment plan, and counseling patient) on [DATE].
--- NOTE | 2024-11-20 14:10 | CM.DPNOTE ---
DCP Note DOCUMENT REVIEW ATTORNEY was in PT/OT room reviewing their DC recommendations for patients on the floor. pt's dtr entered room without knocking or being asked to come into room. DOCUMENT REVIEW ATTORNEY asked dtr to leave the therapy room, therapy room has sensitive HIPAA information for other pt's and is a staff only area. Dtr became confrontational with this DOCUMENT REVIEW ATTORNEY in hallway, stating she just had a question for PT. DOCUMENT REVIEW ATTORNEY informed her that I could ask the question and give her the answer in her mother's room. (Per RIVERA Andrade, dtr attempted to enter CM office earlier in day and was told to not enter staff spaces). DOCUMENT REVIEW ATTORNEY reminded her of previous conversation with other staff not to enter staff only spaces. Dtr upset with this DOCUMENT REVIEW ATTORNEY. After DOCUMENT REVIEW ATTORNEY asked dtr multiple times to leave and I would ask her question for her, dtr walked down hallway towards pt's room. Per PT, plans to see pt later this afternoon as soon as able. working on triaging to best of ability given high case load/acuity. DOCUMENT REVIEW ATTORNEY updated dtr in hallway with the information. Dtr appreciative denies other questions as this time. DOCUMENT REVIEW ATTORNEY updated CATARINO Pickering (lead CM for today, see Ladan note for more). ALEJANDRA Comer
--- NOTE | 2024-11-20 14:21 | DIET.CONS ---
Dietary Consultation Note Admission Date: 11/12/2024 05:58 Assessment: 89 y F admitted for norovirus with dehydration and syncope. Dietitian screened for LOS. PMH of Alzheimer disease. Attempted visit, pt receiving personal care with nursing staff. EMR reviewed. Pt with average recorded PO intakes of 50%. DFM reviewed for meal composition. No recent weight loss per EMR weights. Ht: 167.64 cm Wt: 89.721 kg BMI: 31.9 UBW: 84.425 kg on 05/19/24 Last BM: 11/17/24 (11/17/24 19:21) MNA: 14 Kp Score: 15 Diet: 11/14/24 Breakfast General (Regular) Diet Diet Modifications: Food Texture: Level 7 - Regular Liquid Consistency: Level 0 - Thin Nutrition Percent Meal Consumed 50% 11/20/24 11:00 Percent Meal Consumed 50% 11/18/24 17:00 Labs: RBC 3.84 X10^6/uL (4.0-5.2) L 11/16/24 04:29 Hgb 11.6 g/dL (12.0-16.0) L 11/16/24 04:29 Hct 34.9 % (36-46) L 11/16/24 04:29 Creatinine 0.68 mg/dL (0.52-1.04) 11/17/24 04:50 Lactate 2.3 mmol/L (0.7-2.1) H 11/12/24 14:05 NT-Pro-B Natriuret Pep 1120 pg/mL (<450) H 11/11/24 22:00 Nutrition Diagnosis: Inadequate oral intakes r/t decreased appetite in setting of virus aeb recorded PO intakes <50% Interventions: -ONS BID EER: 1400 kcals (15 kcals/kg per BMI) 75 g protein (1g/kg of adjusted IBW per age) Monitoring/Evaluations: PO intakes, ONS tolerance Electronically Signed by: Sarahy Evans 11/20/24 14:21 Clinical Dietitian [address] [address]
--- NOTE | 2024-11-20 14:24 | PT.IPTN ---
Current Diagnoses Acute gastroenteropathy due to [place] agent (11/12/24) Physical Therapy Treatment Note M2 PT-IP Current Condition Start: 11/12/24 08:25 Freq: NEEDED Status: Active Protocol: Document 11/16/24 11:01 AB (Rec: 11/16/24 12:04 AB Laptop) Physical Therapy Current Condition Current Condition Evaluation Date 11/14/24 Treatment Diagnosis a-fib, syncope; difficulty in walking Onset Date 11/12/24 M3 PT-IP Subjective Start: 11/12/24 08:25 Freq: NEEDED Status: Active Protocol: Document 11/20/24 13:38 MB (Rec: 11/20/24 14:23 MB Desktop) Subjective Physical Therapy Visit Type Type Treatment Note Visit Start Time 13:38 Visit Stop Time 14:10 Number of PHOTOENGRAVING RETOUCHER Visits 0 Physical Therapy Visit Comments Patient Comments Pt in chair and without reports, daughter introduces self and asks about PT M4 PT-IP Mobility and Gait Start: 11/12/24 08:25 Freq: NEEDED Status: Active Protocol: Document 11/20/24 13:38 MB (Rec: 11/20/24 14:23 MB Desktop) PT-Transfer Assessment Comments Mobility Comments Pt is unable to stand up x3 attempts with gait belt assistance, max A from PT, daughter holding walker and PT blocking pt's feet, counting to three and rock assist. Daughter then attempts STS the way they perform at home with arm support and nose over toes and she is able to clear pt's hips x2 but not completely and sits pt back down M5 PT-IP Objective Assessments Start: 11/12/24 08:25 Freq: NEEDED Status: Active Protocol: Document 11/16/24 11:01 AB (Rec: 11/16/24 12:04 AB Laptop) Orientation Orientation/Cognition Level of Alertness Alert Language Function Ability Hard of Hearing Safety Awareness Understands Safety Issues Comments Patient verbalizes she knows to use the call light. M6 PT-IP Treatment Start: 11/12/24 08:25 Freq: NEEDED Status: Active Protocol: Document 11/20/24 13:38 MB (Rec: 11/20/24 14:23 MB Desktop) Physical Therapy Treatment Other Treatments Other Treatment Performed Performed in sitting: APs x20 reps, QS x 10 with cues, GS x10 with cues with legs elevated in chair. Discussion with pt and daughter answering home questions, possible SNF questions, mobility goals M7 PT-IP Assessment and Plan Start: 11/12/24 08:25 Freq: NEEDED Status: Active Protocol: Document 11/20/24 13:38 MB (Rec: 11/20/24 14:23 MB Desktop) PT Summary Assessment and Plan Potential Rehabilitation Potential Fair Status of Condition at Evaluation Evolving Summary Impairments Pain,ROM,Strength,Balance, Coordination,Sensation,Tone, Cognition,Bed Mobility, Transfers,Gait,Activity Tolerance Progress Towards Goals Slow Progress due to Activity Tolerance,Slow Progress - Other Assessment Summary Pt performs exercises with assistance and cannot stand up with max A of one with PT assistance. Recommend SNF at d /c. Goals Bed Mobility Goal Moderate Assistance Transfer Goal Moderate Assistance Days to Meet Goals 10 Frequency of Treatment Frequency Of Treatment Once a Day Treatment Plan Physical Therapy Treatment Plan Bed Mobility Training,Transfer Training,Gait Training, Therapeutic Exercise,Balance Retraining,Discharge Planning, Hot or Cold Pack,Neuromuscular Re-ed,Coordination Retraining ,Manual Therapy Precautions Other Precautions falls, contact precautions Recommendations To Nursing Amount of Assist Needed Mechanical Lift Discharge Recommendations PT Discharge Recommendations SNF Rehab Transportation Needs at Discharge Stretcher/Ambulance - PT assist 2-3
[2024-11-20] MEDS: DONEPEZIL 5 MG TABLET 10 MG PO (17:01)
[2024-11-21] MEDS: PANTOPRAZOLE DR 40 MG TABLET PO (06:05)
--- NOTE | 2024-11-21 08:12 | P.DS_ITS ---
History of Present Illness History of Present Illness Date Patient Seen: 11/21/24 Time Patient Seen: 08:13 Chief complaint: Syncope Narrative: From admission H&P: Chief complaint: Severe weakness fall secondary to diarrhea from norovirus History of present illness: 89-year-old female with past medical history of atrial fibrillation on aspirin, seizure disorder on Keppra, Watchman device for her atrial fibrillation, Alzheimer dementia, GERD, depression and iron deficiency anemia presents with syncope. Per the patient's daughter report, the patient was going to the bathroom and was using the toilet when she lost her muscle tone and had a syncopal episode. The patient prior to that had nausea vomiting and diarrhea. There is no report of any GI bleed. Also per report the patient did buy hit her head or have any serious injury. There is also no report of any seizure activity and no postictal post syncope. In the emergency room, the patient was hemodynamically stable but was in A-fib with RVR. Labs shows no signs of sepsis sepsis though there is an elevated lactic acid level of 2.4. The patient was stood up by the nursing staff and had another syncopal episode. Then the patient's blood pressure was low with systolic down into the 80s. The patient received IV fluid bolus and blood pressure did improve. Labs were relatively benign with WBC 6.7. CT chest abdomen pelvis shows no acute finding. The patient was given metoprolol as well as amiodarone and heart rate did improve. CT scan of the head was shows no acute finding. Discharge Providers Provider Date of admission: 11/12/24 05:58 Discharge Date: 11/21/24 Primary care physician: Joaquina Jewell DO Consults: 11/12/24 06:07 Consult to Occupational Therapy Evaluate & Treat Comment: Physician Instructions: Evaluate and treat Consult to Physical Therapy Evaluate & Treat Comment: Physician Instructions: Evaluate and Treat Discharge provider: Michael Cintron DO Summary Hospital Course Discharge Diagnosis: Norovirus enterocolitis with dehydration and syncope. Resolved Chronic atrial fibrillation with RVR, RVR resolved Elevated lactate, POA, resolved Alzheimer disease, chronic GERD Hospital Course: This is an 89 year old female with PMH of chronic afib, alzheimer's GERD who was admitted with afib with RVR, also found to have norovirus. RVR improved with fluids and dehydration from the norovirus infection was the likely etiology for her RVR. After a couple of days her symptoms had resolved with supportive care. Her stay was prolonged by multiple appeals from family, and eventually was discharged after extensive case management work to [facility] in [place] on 11/21. Time Spent with Patient Time spent: Greater than 30 minutes Exam Vital Signs (past 8 hours): Fraction of Inspired Oxygen 21 SaO2/FiO2 Ratio 442 Oxygen Delivery Method Room Air Oxygen Flow Rate 0 Narrative Exam Narrative: No acute distress alert heart rate and rhythm irregular Objective Labs 11/16/24 04:29 11/17/24 04:50 [facility] Medical History Anemia, iron deficiency Ankle fracture, right Arthritis of knee, left Blood clot in vein Bruises easily Cardiomegaly Cataract fragments in both eyes following surgery Cellulitis Cellulitis of leg, right Closed fracture of right distal fibula (~12/2017) Cognitive impairment Depression Diarrhea DVT (deep venous thrombosis) Epilepsy Excessive cerumen in right ear canal GERD (gastroesophageal reflux disease) Hammer toe, acquired History of hip fracture History of prosthetic unicompartmental arthroplasty of both knees Hypertension Muscle weakness Nausea Osteoarthritis Pneumonia Postmenopausal Raynauds disease Scoliosis Spinal stenosis Thyroid nodule Urinary tract infection Viral URI with cough Surgical History History of hip surgery History of incision and drainage History of tonsillectomy and adenoidectomy Hx of elbow surgery Hx of total knee arthroplasty Status post unicompartmental knee replacement, left Family History Mother Hypertension Sister Cancer Social History household members: children alcohol intake: current Discharge Plan Discharge Plan Patient Disposition: SNF Other facility: [facility] Provider Discharge Comment: Please see discharge summary Discharge orders & Medications Prescriptions: Continued citalopram 20 mg tablet 20 mg PO DAILY Qty: 90 3RF pantoprazole 40 mg tablet,delayed release (DR/EC) 40 mg PO DAILY Qty: 90 3RF gabapentin 100 mg capsule 100 mg PO BID Qty: 180 3RF ondansetron 4 mg tablet,disintegrating 4 mg PO BID PRN (Reason: nausea and vomiting) Qty: 30 2RF levetiracetam [Keppra] 1,000 mg tablet 1,000 mg PO BID Qty: 180 0RF aspirin 325 mg tablet,delayed release (DR/EC) 325 mg PO DAILY ferrous sulfate 325 mg (65 mg iron) tablet 325 mg PO DAILY donepezil 10 mg tablet 10 mg PO QPM Patient Comments: [NO ORIGINAL SIG] calcium carbonate [Tums] 320 mg calcium (750 mg) Tablet,Chewable 650 mg PO DAILY Follow up/Referrals: Joaquina Jewell DO [Primary Care Provider] - Discharge Health Status Precautions: [place] Diet/Activity/Treatments Diet: Diet as Tolerated and Regular Liquid consistency: Normal/Thin Food texture: Regular Activity: As tolerated, no restrictions Special Rehabilitation Services Reason for rehabilitation: Recovery r/t decondition Rehab type: Physical therapy and Occupational therapy Visit Report/Discharge Packet Stand Alone Forms: Patient Portal/API Discharge Data Primary Care Provider: Joaquina Jewell
[2024-11-21] MEDS: SODIUM CHLORIDE 0.9% FLUSH 10 ML IV (09:11)
[2024-11-21] MEDS: levETIRAcetam 250 MG TABLET 750 MG PO (09:11)
[2024-11-21] MEDS: GABAPENTIN 100 MG CAPSULE PO (09:11)
[2024-11-21] MEDS: FERROUS SULFATE 325 MG TABLET PO (09:11)
[2024-11-21] MEDS: CALCIUM CARBONATE 500 MG TAB PO (09:11)
[2024-11-21] MEDS: ASPIRIN EC 325 MG TABLET PO (09:11)
[2024-11-21] MEDS: CITALOPRAM 10 MG TABLET 20 MG PO (09:11)
--- NOTE | 2024-11-21 09:26 | CM.DPNOTE ---
Addendum entered by ALEJANDRA Comer 11/21/24 10:33: E COMMERCE MANAGER lvm with [facility] [phone] updated her on pt's dc today and asking for fax number to send dc summary. response pending. SL Original Note: DCP note E COMMERCE MANAGER reviewed EMR per provider, medically cleared to dc today. provided signed meds/signed PASRR. RIVERA Andrade kindly agreed to fax dc information to [facility] ([phone]). placed meds/PASRR in chart. E COMMERCE MANAGER updated battery charger. gave RN report number. RN updated pt in room. E COMMERCE MANAGER spoke with Deepa from [facility] (p [phone]), confirmed able to accept pt. E COMMERCE MANAGER spoke with dispatch from [facility], confirmed transport at 10:00am. CM team received notification from Ronen confirming pt stable for dc from Acute care. scanned into records. E COMMERCE MANAGER spoke with DCP team from [facility], report they do not have bed availability/likely would not be able to accept anyway due to lack of appropriate staffing at this time. E COMMERCE MANAGER updated dtr Abigail ([phone]) with the above information. Dtr in agreement with plan to dc today to [facility]. E COMMERCE MANAGER answered questions to best of ability. P: dc today to [facility] via Medicaid wc transport at 10am. CM team will continue to follow closely in case any additional DCP needs arise. ALEJANDRA Comer
--- NOTE | 2024-11-21 10:52 | PC.NURSE ---
Attempted to call [facility] [phone] twice to give RN report, they called back and was able to give report to designated facility person. Patient was picked up by cabulance transport. Patient was given bed bath, skin care, and oral care before leaving, she declined shampoo cap. IV removed intact. Patient and her daughter have no further questions or concerns for this RN.
== END 2024-11-21 09:55 | DRG 392 ==
LOC: ED 11-12 03:20 → AC 11-12 06:01 → ICU 11-12 06:45 → AC 11-13 06:05
PROVIDERS: Internal Medicine; Admitting Provider Internal Medicine; Emergency Provider Emergency Medicine; Family Provider Nurse Practitioner Family; PCP Family Medicine; Referring Provider Emergency Medicine; Visit Provider Internal Medicine
DX: A08.11 Acute gastroenteropathy due to Norwalk agent (principal); I48.20 Chronic atrial fibrillation, unspecified; F02.83 Dementia in other diseases classified elsewhere, unspecified severity, with mood disturbance; E86.0 Dehydration; G40.909 Epilepsy, unspecified, not intractable, without status epilepticus; E86.1 Hypovolemia; G30.9 Alzheimer's disease, unspecified; K21.9 Gastro-esophageal reflux disease without esophagitis; R55 Syncope and collapse; R74.01 Elevation of levels of liver transaminase levels; F32.A Depression, unspecified; D50.9 Iron deficiency anemia, unspecified; F17.210 Nicotine dependence, cigarettes, uncomplicated; Z79.82 Long term (current) use of aspirin; Z66 Do not resuscitate; Z95.818 Presence of other cardiac implants and grafts
CPT/HCPCS: 0241U; 36415; 70450; 71045; 74177; 80048; 80053; 81001; 82550; 83605; 83690; 83735; 83880; 84145; 84484; 85025; 85610; 85730; 87040; 87507; 87635; 87797; 93005; 94640; 96365; 96375; 97110; 97163; 97166; 97530; 97535; 99284; J1650; J1953; J2060; J2470; J2765; Q9967

== ENCOUNTER → 2025-02-27 12:08 | Outpatient (CLI) | payer MEDICARE, MEDICAID, SELFPAY ==
[2024-11-12 06:14] VITALS: BMI 31.9
--- NOTE | 2025-02-27 12:10 | DI.RAD.S_ITS ---
PROCEDURE: XR CHEST 2V INDICATIONS: history of PNA/follow-up TECHNIQUE: 2 views of the chest were acquired. COMPARISON: [facility], CR, XR CHEST 1V, 11/11/2024, 22:34. FINDINGS: Heart, mediastinum and pulmonary vascular: Heart is mildly enlarged. Moderate hiatal hernia noted.. Mediastinum is otherwise unremarkable. Pulmonary vascular is normal. Lungs: Clear Pleural spaces: Normal-no effusions or pneumothorax. Moderate chronic elevation right diaphragm unchanged Bones and soft tissues: Normal IMPRESSION: No acute disease. Moderate hiatal hernia and mild cardiomegaly Dictated by: Ralph Henderson M.D. on 02/28/2025 at 13:32 Approved by: Ralph Henderson M.D. on 02/28/2025 at 13:33
[2025-02-27 14:04] LABS: Alanine Aminotransferase 14 IU/L (<35); Albumin 3.3 g/dL (3.5-5.0); Albumin Globulin Ratio 1.0 (1.0-2.8); Alkaline Phosphatase 97 U/L (38-126); Blood Urea Nitrogen 18 mg/dL (7-17); Calcium 8.9 mg/dL (8.4-10.2); Carbon Dioxide 25 mmol/L (22-32); Chloride 106 mmol/L (98-107); Estimated Glomerular Filt Rate > 60 mL/min (>60); Globulin 3.2 g/dL (1.7-4.1); Glucose 90 mg/dL (70-99); HEMOLYSIS < 15 (0-50); Potassium 4.1 mmol/L (3.4-5.1); Sodium 137 mmol/L (137-145); Total Protein 6.5 g/dL (6.3-8.2)
[2025-03-03 00:36] LABS: Levetiracetam Keppra 66.7 ug/mL (10.0-40.0)
== END ==
PROVIDERS: Family Provider Nurse Practitioner Family; PCP Family Medicine; Referring Provider Family Medicine; Visit Provider Family Medicine
DX: Z09 Encounter for follow-up examination after completed treatment for conditions other than malignant neoplasm (principal); Z87.01 Personal history of pneumonia (recurrent); I51.7 Cardiomegaly; K44.9 Diaphragmatic hernia without obstruction or gangrene; G40.909 Epilepsy, unspecified, not intractable, without status epilepticus; E83.51 Hypocalcemia; R41.89 Other symptoms and signs involving cognitive functions and awareness; Z87.898 Personal history of other specified conditions; Z86.39 Personal history of other endocrine, nutritional and metabolic disease
CPT/HCPCS: 36415; 71046; 80053; 80177

== ENCOUNTER → 2025-03-19 11:52 | Outpatient (CLI) | payer MEDICARE, MEDICAID, SELFPAY ==
[2024-11-12 06:14] VITALS: BMI 31.9
--- NOTE | 2025-03-19 11:54 | DI.US.S_ITS ---
PROCEDURE: US ART LOW EXT BILAT W/AMOL INDICATIONS: bilateral leg poor circulation TECHNIQUE: Color and pulse Doppler interrogation was performed of both lower extremity arterial systems, with image documentation. COMPARISON: None. FINDINGS: Right lower extremity: Common femoral artery: 56 sec, with triphasic flow. Deep femoral artery: 31 cm/sec, with biphasic flow. Proximal superficial femoral artery: 51 cm/sec, with triphasic flow. Mid superficial femoral artery: 41 cm/sec, with biphasic flow. Distal superficial femoral artery: 29 cm/sec, with biphasic flow. Popliteal artery: 19 cm/sec, with biphasic flow. Posterior tibial artery: 19 cm/sec, with biphasic flow. Anterior tibial artery/dorsalis pedis: 30 cm/sec, with biphasic flow. Mckenna-scale imaging description: Mild scattered plaque throughout the right lower extremity arterial system. Left lower extremity: Common femoral artery: 49 cm/sec, with triphasic flow. Deep femoral artery: 44 cm/sec, with biphasic flow. Proximal superficial femoral artery: 56 cm/sec, with biphasic flow. Mid superficial femoral artery: 32 cm/sec, with biphasic flow. Distal superficial femoral artery: 32 cm/sec, with biphasic flow. Popliteal artery: 31 cm/sec, with biphasic flow. Posterior tibial artery: 69 cm/sec, with biphasic flow. Anterior tibial artery/dorsalis pedis: 34 cm/sec, with biphasic flow. Mckenna-scale imaging description: Mild scattered plaque throughout the left lower extremity arterial system IMPRESSION: No hemodynamically significant stenosis involving bilateral lower extremity arterial systems. Dictated by: Wong Alberto M.D. on 03/19/2025 at 15:01 Approved by: Wong Alberto M.D. on 03/19/2025 at 15:09
== END ==
PROVIDERS: Family Provider Nurse Practitioner Family; PCP Family Medicine; Referring Provider Family Medicine; Visit Provider Family Medicine
DX: I87.2 Venous insufficiency (chronic) (peripheral) (principal); I73.00 Raynaud's syndrome without gangrene; I82.532 Chronic embolism and thrombosis of left popliteal vein; R09.89 Other specified symptoms and signs involving the circulatory and respiratory systems
CPT/HCPCS: 93922; 93925

== ENCOUNTER 2025-07-02 13:45 | Outpatient (RCR) | payer MEDICARE, MEDICAID, SELFPAY ==
[2025-03-29 17:13] VITALS: BMI 31.9
--- NOTE | 2025-06-21 14:30 | PT.OIE ---
Current Diagnoses Other symptoms and signs involving the musculoskeletal system (06/21/25) Other reduced mobility (06/21/25) Past Medical History (Last Updated 04/25/25 @ 12:56 by Joaquina Jewell DO) Anemia, iron deficiency Ankle fracture, right Arthritis of knee, left Atrial fibrillation with rapid ventricular response Blood clot in vein Bruises easily Cardiomegaly Cataract fragments in both eyes following surgery Cellulitis Cellulitis of leg, right Closed fracture of right distal fibula (~12/2017) Cognitive impairment Depression Diarrhea DVT (deep venous thrombosis) Epilepsy Excessive cerumen in right ear canal GERD (gastroesophageal reflux disease) Hammer toe, acquired History of hip fracture History of prosthetic unicompartmental arthroplasty of both knees Hypertension Muscle weakness Nausea Nausea, vomiting, and diarrhea Osteoarthritis Pneumonia Post-nasal drip Postmenopausal Raynauds disease Scoliosis Spinal stenosis Thyroid nodule Urinary tract infection Viral URI with cough Past Surgical History (Last Reviewed 11/12/24 @ 11:10 by Raji Hyatt MD) History of hip surgery History of incision and drainage History of tonsillectomy and adenoidectomy Hx of elbow surgery Hx of total knee arthroplasty Status post unicompartmental knee replacement, left Visit Care Team Role Provider Type Joaquina Jewell DO Attending Provider Physician Primary Care Provider Referring Provider Specialty: [facility] Address: [address] [place] [address], [address], [facility] Email: [email or web address] Physical Therapy Initial Evaluation PT OP: Full Body Start: 06/21/25 17:39 Freq: Status: Active Protocol: Document 06/21/25 13:45 DCW (Rec: 06/21/25 17:57 DCW [id number]) Out-Patient Physical Therapy Visit Information Visit Information Visit Type Initial Evaluation Visit Start Time 13:45 Visit Stop Time 14:30 Visit Number 1 Number of SUMMER INTERN Visits 0 Progress Note Due 07/21/25 Evaluation Information Evaluation Date 06/21/25 Current Condition History of Current Condition Onset Date Long-standing history Current Complaints Fatigue, weakness, immobility, increased dependence History of Current Pt is an 89 year old female presenting with severe Condition mobility limitations and weakness. Pt requires Max Ax1 for any transfers, daughter assists with stand-pivot transfer from wheelchair to bed. Pt's daughter reports largely started going downhill following her right patella tendon snapping multiple times following a R TKA in 2018, patella tendon was repaired in both 2019 and 2020, in addition to beginning to get seizures in 2020 and diagnosed with epilepsy. Daughter reports they have a Nu-Step at home and a grab bar which she can occasionally stand up at for three minutes. They have both a FWW and 4WW, but pt has not really used any since 2020. Unable to support her weight with her right leg, daughter does have a locking knee brace that they have used in the past to help walk in // bars. Has been receiving home health PT, but they've gotten to the point where we need a little more. Denies pain. Struggles to sit without back support. Hoping to get to the point where she is able to self-transfer. OP-PT Subjective Patient Comments Patient Comments I'm just getting older. Patient Reported Worse Progress OP Mobility Evaluation Transfers Sit to Stand Max Ax1 Bed to Chair Max Ax1 Stand-pivot Transfers Car Transfers Max Ax1 Stand-pivot Wheelchair Management Type of Wheelchair Manual Assessment Details Pt has difficult time self-propelling OP Gait Assessment Comments Gait Comments Pt unable to ambulate with assistance Trunk Strength Trunk Manual Muscle Testing Core Stabilization Pt unable to maintain seated posture without posterior support. Requires constant cues and occasional tactile support when seated EOB Hip Strength Hip Manual Muscle Testing Right Flexion (L2) 2 Poor Abduction 2+ Poor+ Adduction 2+ Poor+ Left Flexion (L2) 2 Poor Abduction 2+ Poor+ Adduction 2+ Poor+ Knee Strength Knee Manual Muscle Testing Right Flexion (S2) 3- Fair- Extension (L3) 2- Poor- Left Flexion (S2) 2 Poor Extension (L3) 2+ Poor+ Therapeutic Exercises Sitting Exercises LAQ Sitting Exercise LAQ Name Side bilateral Other Exercises Sit to Stand Other Exercise Name Sit to Stand Equipment Used // bars Physical Therapy Assessment Rehab Potential Rehabilitation Poor Potential Evaluation Complexity Number of Personal 3 or More Factors/ Comorbidities Number of Body 4 or More Systems Impaired Clinical Unstable Presentation at Evaluation Impairments Impairments Activity Tolerance,Balance,Coordination,Functional Activities,Functional Mobility,Gait,Posture,ROM,Soft Tissue Mobility,Strength,Tone,Transfers Goals Two Impairment Pt requires Max Ax1 to perform sit->stand transfer Fpc Goal (LTG) Pt to perform two sit->stand transfers using // bars with CGA LTG Duration 09/19/25 One Impairment Pt does not have an appropriate home exercise program Fpc Goal (LTG) Pt and daughter to correctly demonstrate four home exercises without cues in order to demonstrate independence with HEP LTG Duration 09/19/25 Assessment Summary Assessment Pt presents with signs and symptoms consistent with referring diagnosis. Pt very limited with all activities and dependent on her daughter for most mobility and transfers. Pt history complicated by multiple right knee injuries, including her right patella tendon snapping multiple times. Pt Max Ax1 for transfers. Will likely benefit from focus on LE strengthening, core strengthening, activity tolerance, transfers, and functional mobility. Physical Therapy Plan Frequency and Duration Frequency of 2x/Week Treatment Plan of Care Start 06/21/25 Date Plan of Care End 09/19/25 Date Therapeutic Interventions Therapeutic Balance Training,Coordination Training,Gait Training, Interventions Home Exercise Program,Manual Therapy,Neuromuscular Re- education,Patient/Caregiver Education,Self-Care/Home Management,Sensory Integration,Soft Tissue Mobilization ,Therapeutic Activities,Therapeutic Exercises, Wheelchair Management Next Visit Focus/Plan Next Note Type Treatment Note Next Visit Plan Activity tolerance, LE strengthening, gait, balance, core strengthening
--- NOTE | 2025-07-02 14:27 | PT.OPDS ---
Current Diagnoses Other symptoms and signs involving the musculoskeletal system (07/02/25) Other reduced mobility (07/02/25) Visit Care Team Role Provider Type Joaquina Jewell DO Attending Provider Physician Primary Care Provider Referring Provider Specialty: [facility] Address: [address] [place] [address], [address], [address] Email: [email or web address] Visit Number Visit Number 2 Discharge Summary PT OP: Full Body Start: 06/21/25 17:39 Freq: Status: Active Protocol: Document 07/02/25 13:45 DCW (Rec: 07/02/25 14:26 DCW [id number]) Out-Patient Physical Therapy Visit Information Visit Information Visit Type Discharge Summary Visit Start Time 13:45 Visit Stop Time 14:25 Visit Number 2 Number of CREDIT AND COLLECTIONS ANALYST Visits 0 Progress Note Due 07/21/25 Evaluation Information Evaluation Date 06/21/25 OP-PT Subjective Patient Comments Patient Comments Pt and her daughter come in today stating that this will be her last day, pt has decided that she does not want to go through the work of attending PT. Therapeutic Exercises Sitting Exercises Heel Raises Sitting Exercise Heel/toe raises Name Side bilateral Hamstring Curls Sitting Exercise Hamstring Curls Name Side bilateral Resistance Lv 1 ER Sitting Exercise ER Name Side bilateral Resistance Lv 1 Horizontal Abduction Sitting Exercise Horizontal Abduction Name Side bilateral Resistance Lv 1 Rows Sitting Exercise Rows Name Side bilateral Resistance Lv 1 Overhead Press Sitting Exercise Overhead Press Name Side bilateral Resistance 2.5# Seated Balance Sitting Exercise Balloon Volley Name Physical Therapy Assessment Impairments Impairments Activity Tolerance,Balance,Coordination,Functional Activities,Functional Mobility,Gait,Posture,ROM,Soft Tissue Mobility,Strength,Tone,Transfers Goals Two Impairment Pt requires Max Ax1 to perform sit->stand transfer Blindstitch Hemmer Goal (LTG) Pt to perform two sit->stand transfers using // bars with CGA LTG Duration 09/19/25 One Impairment Pt does not have an appropriate home exercise program Blindstitch Hemmer Goal (LTG) Pt and daughter to correctly demonstrate four home exercises without cues in order to demonstrate independence with HEP LTG Duration 09/19/25 Assessment Summary Assessment Per pt request, discharging from skilled therapy at this time, pt unwilling to participate in further therapeutic intervention. Provided with handout for low -level home activities. Physical Therapy Plan Frequency and Duration Frequency of 2x/Week Treatment Plan of Care Start 06/21/25 Date Plan of Care End 09/19/25 Date Therapeutic Interventions Therapeutic Balance Training,Coordination Training,Gait Training, Interventions Home Exercise Program,Manual Therapy,Neuromuscular Re- education,Patient/Caregiver Education,Self-Care/Home Management,Sensory Integration,Soft Tissue Mobilization ,Therapeutic Activities,Therapeutic Exercises, Wheelchair Management Discharge Physical Therapy Discharge Reasons Patient Request Next Visit Focus/Plan Next Note Type Discharge Summary
== END 2025-07-03 13:21 | disposition home or self-care (01) ==
LOC: PHYS 13:45
PROVIDERS: PCP Family Medicine; Referring Provider Family Medicine; Visit Provider Family Medicine
DX: Z74.09 Other reduced mobility (principal); R29.898 Other symptoms and signs involving the musculoskeletal system
CPT/HCPCS: 97110; 97163